=== PATIENT | female | born 1935 | race Caucasian/White ===

== ENCOUNTER 2016-08-22 19:31 | Inpatient (IN) | payer OTHER ==
[~2016-08-22] VITALS: Ht 152.4 cm; Wt 100.7 kg
[2016-08-22] MEDS ORDERED: NACL 0.9% 2,000 ML IV ONE (19:35)
--- NOTE | 2016-08-22 19:38 | NUR ---
PT LEATHA ALS. TAKEN TO BED 6
[2016-08-22 19:40] VITALS: BP 89/68
[2016-08-22] MEDS ORDERED: CALCIUM GLUCONATE 10% 1,000 MG in NACL 0.9% 50 ML IV ONE (20:00)
[2016-08-22] MEDS ORDERED: PIPERACILLIN/TAZOBACTAM 3.375 GM in DEXTROSE 5% 50 ML IV ONE (20:00)
--- NOTE | 2016-08-22 20:00 | NUR ---
81Y/F PATIENT BIBA C/O N/V, DIZZINESS 2 HOURS AGO, ZOFRAN 4 MG IVP WAS GIVEN EN ROUTE AND WIDE OPEN NS, HYPOTENSION, AND AFIB.BS 396 MG /DL. PATIENT AAO X3 WITH EPISODE OF CONFUSION, UNABLE TO AMBULATE AT THIS TIME. GENERALIZED WEAKNESS. RESPIRATIONS ROOM AIR LABORED BREATHING,BL LUNG CLEAR. O2 SAT 95%. VSS, HYPOTENSIVE BP 56/30, P 48-51,R 30-40, O2 SAT 94-95%. EKG SINUS BRADYCARDIA. DR. RIVAS MADE AWARE OF PATIENT STATUS.
--- NOTE | 2016-08-22 20:06 | NUR ---
Dr. Edmonds evaluating patient at bedside.
[2016-08-22] MEDS ORDERED: CALCIUM GLUCONATE 10% 1000 MG/10 ML VIAL ONE (20:20)
[2016-08-22] MEDS ORDERED: PIPERACILLIN/TAZOBACTAM 3.375 GM VIAL IV ONE (20:20)
[2016-08-22] MEDS ORDERED: SODIUM POLYSTYRENE 15 GM/60 ML UDBTL PO ONE (20:45)
[2016-08-22] MEDS ORDERED: INSULIN HUMAN REGULAR 100 UNITS/ML 10 ML VIAL IVP ONE (20:45)
[2016-08-22] MEDS ORDERED: DEXTROSE 50% 50 ML SYR IVP ONE (20:45)
[2016-08-22] MEDS ORDERED: NACL 0.9% 1,000 ML IV ONE ×2 (20:45→22:35)
[2016-08-22] MEDS ORDERED: ALBUTEROL 0.083% 2.5 MG/3 ML NEBU INH ONE ×3 (20:45→21:20)
--- NOTE | 2016-08-22 21:11 | NUR ---
DR. BRONSON SPEAKING WITH FAMILY AT BEDSIDE
[2016-08-22] MEDS ORDERED: LEVOFLOXACIN 750 MG/D5W PREMIX 150 ML IV ONE (21:20)
--- NOTE | 2016-08-22 21:40 | NUR ---
PT. ZULEYKA X4, DAUGHTER AT [facility].
--- NOTE | 2016-08-22 21:45 | NUR ---
PT ON BIPAP , RR 22, O2 SAT 100 %
[2016-08-22] MEDS ORDERED: ZYRTEC10 MG PO (22:09)
[2016-08-22] MEDS ORDERED: LORAZEPAM1 M1 PO (22:09)
[2016-08-22] MEDS ORDERED: VITAMIN D1000 IU PO (22:09)
[2016-08-22] MEDS ORDERED: METOPROLOL SUCC50 M1 PO (22:09)
[2016-08-22] MEDS ORDERED: ASPIRIN81 M1 PO (22:09)
[2016-08-22] MEDS ORDERED: VERAPAMIL HYDR180 MG PO (22:09)
[2016-08-22] MEDS ORDERED: NOREPINEPHRINE 4 MG in DEXTROSE 5% 250 ML IV ONE (22:10)
[2016-08-22] MEDS ORDERED: NEPHRO-VITE VIT1 TAB PO (22:17)
[2016-08-22] MEDS ORDERED: CYTOTEC200 MCG PO (22:17)
[2016-08-22] MEDS ORDERED: LASIX20 MG PO (22:17)
[2016-08-22] MEDS ORDERED: VOLTAREN-XR100 MG PO (22:17)
[2016-08-22] MEDS ORDERED: CLOPIDOGREL75 MG PO (22:17)
[2016-08-22] MEDS ORDERED: LOVASTATIN40 MG PO (22:17)
[2016-08-22] MEDS ORDERED: AMARYL2 MG PO (22:17)
[2016-08-22] MEDS ORDERED: LIPITOR40 MG PO (22:17)
[2016-08-22 22:18] VITALS: BP 73/31
[2016-08-22] MEDS ORDERED: ONDANSETRON 4 MG/2 ML VIAL IVP PRN (22:40)
[2016-08-22] MEDS ORDERED: HYDROcodone/APAP 5/325 MG 1 TAB TAB PO PRN (22:40)
--- NOTE | 2016-08-22 23:25 | NUR ---
RECEIVED PT FROM ER VIA [facility] AWAKE ALERT ORIENTED, TAJIK SPEAKING. ON O2 @ 3LPM VIA NASAL CANNULA. O2 SAT 98% AT THIS TIME. BIPAP AT BEDSIDE. RT AT BEDSIDE. PT HAS ON GOING IVF AT LEFT AC 20G , SALINE LOCK ON LEFT HAND 22G AND SALINE LOCK ON RIGHT WRIST 22G, PATENT, INTACT AT THIS TIME. ATTACHED TO INTEGRATION PROJECT MANAGER AND PULSE OXIMETER. WITH LUCIA CATH IN PLACE. PT NOTED TO HAVE REDNESS AT THE BUTTOCKS AND WOUND AT LEFT LOWER LEG (ANTERIOR TIBIA). PHOTOS TAKEN BY ER EMT. WOUND CLEANSED WITH NS, PATTED DRY AND COVERED WITH DRY DRESSING. NOTED TO HAVE BILATERAL LOWER EXTREMITIES EDEMA, +2 PITTING. MRSA SPECIMEN WILL SEND TO LAB. BED IN LOW POSITION. SAFETY MEASURE ENSURE. WILL CONTINUE TO MONITOR.
--- NOTE | 2016-08-22 23:30 | NUR ---
PT TRANSFER TO ICU1, FROM ER AND PT IS DOOING WELL, VITALS ARE STABLE AT THIS TIME, AND DR CARMONA AT BED SIDE AND BIPAP WILL BE PRN.
--- NOTE | 2016-08-22 23:40 | NUR ---
DR. PITTMAN AT BEDSIDE EVALUATING THE PATIENT.
--- NOTE | 2016-08-22 23:40 | NUR ---
Patient will be admitted to [email or web address]. Admited to ICU. Will go to BED 1. Belongings list completed. Report to CASSANDRA MARTINEZ.
[2016-08-22] MEDS ORDERED: DEXTROSE 50% 50 ML SYR IVP PRN (23:50)
[2016-08-23] VITALS (11 sets, daily range): BP systolic 92–156; BP diastolic 31–117
[2016-08-23] MEDS ORDERED: Z-GUARD PASTE TP PRN
[2016-08-23] MEDS ORDERED: SODIUM POLYSTYRENE 15 GM/60 ML UDBTL PO SCH ×2 (00:15→03:00)
--- NOTE | 2016-08-23 00:52 | NUR ---
VS TAKEN, STABLE. CALL LIGHT WITHIN REACH. Addendum: 08/24/16 at 0223 by Genna Santo RN DISREGARD WRONG TIME.
--- NOTE | 2016-08-23 02:30 | NUR ---
PT HAD BM SMALL AMOUNT OF BROWS SOFT STOOL. WILL CONTINUE TO MONITOR
--- NOTE | 2016-08-23 03:59 | NUR ---
PT HAD ANOTHER BM OF MODERATE AMOUNT OF SOFT BROWN SOM.
[2016-08-23] MEDS: NACL 0.9% 1,000 ML IV SCH ×4 (04:22→21:03)
[2016-08-23] MEDS ORDERED: PIPERACILLIN/TAZOBACTAM 2.25 GM VIAL IV ONE (04:26)
[2016-08-23] MEDS: PIPER/TAZO 2.25GM/D5W PREMIX 50 ML IV SCH ×3 (04:30→21:03)
[2016-08-23] MEDS ORDERED: CLINDAMYCIN 600 MG in DEXTROSE 5% 50 ML IV SCH (05:00)
[2016-08-23] MEDS: INSULIN LISPRO SLIDING SCALE 100 UNITS/ML VIAL SUBQ PRN ×2 (06:54→21:57)
[2016-08-23] MEDS: BLOOD GLUCOSE MONITORING 1 DEV DEV FS SCH ×4 (06:55→21:02)
--- NOTE | 2016-08-23 07:25 | NUR ---
REPORT GIVEN TO CASSANDRA LOCO FOR CONTINUITY OF CARE. NO SOB/ NO DISTRESS NOTED.
--- NOTE | 2016-08-23 07:30 | NUR ---
RECEIVED PT FROM STILL PUMP OPERATOR RN. PT ISRAELI SPEAKING ONLY, AWAKE, ALERT, ORIENTED. BEDSIDE MONITOR SHOWS SR, ON O2 NC 3L/MIN. NO S/S OF RESPIRATORY DISTRESS NOTED. ABDOMEN SOFT, NON TENDER. LUCIA CATH IN PLACE WITH CLEAR YELLOW URINE, PT ABLE TO MOVE ALL HER EXTREMITIES BUT GENERALIZED WEAKNESS NOTED. SKIN NON INTACT ( SEE WOUND ASSESSMENT), POC DISCUSSED WITH PT. HOB ELEVATED 30 DEGREES WITH LOW BED POSITION, WILL CONTINUE TO MONITOR.
[2016-08-23] MEDS: ALBUTEROL SULFATE/IPRATROPIU 3 ML SOL IH PRN ×2 (07:44→18:42)
--- NOTE | 2016-08-23 07:47 | NUR ---
PATIENT HAS BEEN SCREENED AND CATEGORIZED HIGH NUTRITION RISK. PATIENT WILL BE SEEN WITHIN 1-2 DAYS OF ADMISSION. 08/23/16-08/24/[address]
--- NOTE | 2016-08-23 07:52 | NUR ---
RECEIVED PT ON 2L NC. PT IS NOT SOB AND NOT IN RESPIRATORY DISTRESS AT THIS TIME. BIPAP IS BEDSIDE NOT INDICATED AT THIS TIME. PRN BREATHING TX ADMINISTERED WITH NO ADVERSE REACTIONS. WILL CONTINUE TO MONITOR.
--- NOTE | 2016-08-23 08:15 | NUR ---
PT HAD MODERATE AMOUNT OF YELLOW LIQUID BM, CLEANED PT. WILL CONTINUE TO MONITOR.
[2016-08-23] MEDS ORDERED: VITAMIN D 400 IU TAB PO SCH (09:00)
[2016-08-23] MEDS ORDERED: LORazepam 1 MG TAB PO SCH (09:00)
[2016-08-23] MEDS ORDERED: PNEUMOCOCCAL VACCINE 23 MCG/0.5 ML VIAL IMVAC SCH (09:00)
[2016-08-23] MEDS ORDERED: GLIMEPIRIDE 2 MG TAB PO SCH (09:00)
--- NOTE | 2016-08-23 09:25 | NUR ---
DUE MEDS GIVEN, TOLERATED WELL.
[2016-08-23] MEDS: DOCUSATE SODIUM 100 MG GELCAP PO SCH (09:27)
[2016-08-23] MEDS: ASPIRIN 81 MG TAB.CHEW PO SCH (09:27)
[2016-08-23] MEDS: VIT-B COMP/VIT-C/FOLIC ACID 1 TAB PO SCH (09:27)
[2016-08-23] MEDS: LORazepam 0.5 MG TAB PO SCH (09:28)
[2016-08-23] MEDS: CLOPIDOGREL 75 MG TAB PO SCH (09:28)
[2016-08-23] MEDS: CHOLECALCIFEROL 1,000 IU TAB PO SCH (09:37)
[2016-08-23] MEDS: METOPROLOL SUCCINATE 50 MG TABER PO SCH (09:40)
[2016-08-23] MEDS: GLIMEPIRIDE 2 MG TAB PO SCH (09:41)
--- NOTE | 2016-08-23 10:45 | NUR ---
PT HAD MODERATE AMOUNT OF LIQUID BM, CLEANED PT.
--- NOTE | 2016-08-23 12:30 | NUR ---
LUNCH TRAY SERVED, PT HAD 100% FOOD.
--- NOTE | 2016-08-23 13:30 | NUR ---
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 PAST MEDICAL HISTORY INCLUDE HYPERTENSION, DM, OR AND PNEUMONIA. ALL ABOVE INFORMATION WAS OBTAINED FROM THE ADMISSION H&P. LABS ARE WBC 11.4, H/H 10.8/33.4, GLUCOSE 249, ALBUMIN 2.2 AND PT/INR 10.8/1.1. CURRENT MEDS INCLUDE ATIVAN, HEPARIN, MULTIVITAMINS, CLOPIDOGREL, ASPIRIN, ZOSYN AND INSULIN. PATIENT IS AWAKE, ABLE TO FOLLOW COMMANDS, ABLE TO MAKE HER NEEDS KNOWN. SKIN WARM TO TOUCH WNL, TOENAILS ARE THICKENED, NO EDEMA, NO HAIR GROWTH AND +1 BILATERAL PEDAL PULSES. FC 14 FR PATENT AND INTACT TO LIGHT MARIANNE URINE IN MODERATE AMOUNT. ABLE TO TURN SELF WITH ASSISTANCE. INITIAL PLAN OF CARE AND PRESSURE PREVENTIVE MEASURES DISCUSSED, ABLE TO VERBALIZE UNDERSTANDING. INTEGUMENTARY: LEFT ANTERIOR LOWER EXTREMITY -VENOUS STASIS ULCER LEFT MEDIAL LOWER EXTREMITY - VENOUS STASIS ULCER RIGHT POSTERIOR LOWER EXTREMITY - VENOUS ULCER BILATERAL BREASTFOLDS AND ABDOMINAL FOLDS - INTERTRIGINOUS DERMATITIS PERIAREA - RED AND MOIST RECOMMENDATIONS: -CLEANSE BLE WITH NS AND GAUZE, PAT DRY, COVER WITH ADAPTIC, ABD PAD AND WRAP WITH LAUREN Q DAY AND PRN WITH SOILING/DISPLACEMENT. -CLEANSE BILATERAL BREASTFOLDS AND ABDOMINAL FOLDS WITH MILD SOAP AND WATER, PAT DRY, APPLY INTERDRY CLOTH Q 7 DAYS AND PRN WITH SOILING/DISPLACEMENT. CHECK DRESSING PLACEMENT DAILY -TURN AND REPOSITION PATIENT Q2H TO LEFT AND RIGHT SIDE ONLY TO OFFLOAD SACRALCOCCYX -ASSESS AND MONITOR SKIN CONDITION DURING POSITION CHANGE, PLEASE PAY PARTICULAR ATTENTION TO SACRALCOCCYX, ELBOWS AND HEELS -OFFLOAD BILATERAL HEELS BY PLACING PILLOWS UNDER CALVES AT ALL TIMES, UNLESS OTHERWISE CONTRAINDICATED -KEEP SKIN CLEAN AND DRY AT ALL TIMES. -PODIATRY CONSULT IF OK WITH PMD RECOMMENDATIONS DISCUSSED WITH PRIMARY RN AND RESIDENT PHYSICIAN, DR. CORDON.
--- NOTE | 2016-08-23 13:38 | NUR ---
INITIAL REVIEW FAXED TO [facility] [phone] PHONE DEXTER [phone]
[2016-08-23] MEDS ORDERED: INTERDRY CLOTH TP PRN (13:50)
[2016-08-23] MEDS ORDERED: NON ADHERENT DRESSING TP PRN (13:50)
[2016-08-23] MEDS ORDERED: INTERDRY CLOTH TP SCH (13:50)
[2016-08-23] MEDS ORDERED: HYDRAGUARD CREAM TP PRN (13:50)
--- NOTE | 2016-08-23 14:45 | NUR ---
PT SLEEPING AT THIS TIME. NO S/S OF RESPIRATORY DISTRESS NOTED. WILL CONTINUE TO MONITOR.
[2016-08-23] MEDS ORDERED: PROBIOTIC SCREEN 1 EA MISC MC PRN (15:20)
--- NOTE | 2016-08-23 17:30 | NUR ---
DINNER TRAY SERVED. PT HAD A GOOD APPETITE.
--- NOTE | 2016-08-23 18:45 | NUR ---
REPORT GIVEN TO ICU SPECIALIST. WILL TRANSFER PT.
--- NOTE | 2016-08-23 18:51 | NUR ---
PT'S DAUGHTERS PRESENT AT BEDSIDE, QUESTIONS ANSWERED.
--- NOTE | 2016-08-23 19:15 | NUR ---
PT AWAKE, ALERT, AND ORIENTED. NO S/S OF RESPIRATORY DISTRESS NOTED. TRANSFERRED TO TELE 108B. PT IN STABLE CONDITION AT THIS TIME.
--- NOTE | 2016-08-23 19:16 | NUR ---
RECEIVED REPORT FROM DAY RN FOR CONTINUITY OF CARE. PATIENT IS A&OX3/4, DISCUSSED PLAN OF CARE WITH PATIENT AND FAMILY MEMBERS AT BEDSIDE, VERBALIZED UNDERSTANDING. SHIFT ASSESSMENT DONE, VS TAKEN, STABLE. NO S/S OF RESPIRATORY DISTRESS NOTED ON 3L NC. PATIENT DENIES PAIN AT THIS TIME. IV TO LT UPPER ARM REMOVED PATIENT STATES IT IS HURTING. IV TO LT HAND PATENT AND INFUSING FLUIDS WELL. LUCIA CATHETER IN PLACE DRAINING CLEAR YELLOW URINE. PT HAS DRESSING TO LEFT LOWER EXTREMITY, DRY AND INTACT. SAFETY/FALL PRECAUTIONS ENFORCED. CALL LIGHT WITHIN REACH. WILL CONTINUE TO MONITOR.
[2016-08-23] MEDS: ATORVASTATIN 20 MG TAB PO SCH (20:28)
--- NOTE | 2016-08-23 21:03 | NUR ---
DUE MEDICATIONS ADMINISTERED, TOLERATED WELL. PATIENT IS AWAKE WATCHING TELEVISION. CALL LIGHT WITHIN REACH.
--- NOTE | 2016-08-23 22:07 | NUR ---
TURNED AND REPOSITIONED PATIENT. EMPTIED LUCIA CATHETER 800ML CLEAR YELLOW URINE. CALL LIGHT WITHIN REACH.
[2016-08-24] VITALS: BP 126/57
--- NOTE | 2016-08-24 00:10 | NUR ---
VS TAKEN, STABLE. PATIENT STATES RIGHT LEG HURTS BUT REFUSED PAIN MEDICATION.
--- NOTE | 2016-08-24 01:40 | NUR ---
PATIENT CRYING LOUDLY, AGITATED. VS TAKEN, ELEVATED BP NOTED. INFORMED BY SUBMARINE OPERATOR PT HAVING FREQ PVCS. PAGED CARBON BRUSHER ASSEMBLER DOCTOR.
[2016-08-24] MEDS ORDERED: LORazepam 2 MG/ML VIAL IM/IVP ONE (01:45)
--- NOTE | 2016-08-24 01:45 | NUR ---
SPOKE TO DR. ROMERO REGARDING PATIENT HAVING INCREASED BLOOD PRESSURE, CRYING AND AGITATION AND HAVING FREQUENT PVC'S ON THE TELE MONITOR. IV ATIVAN ORDERED, WILL FOLLOW OUT ORDERED.
--- NOTE | 2016-08-24 02:00 | NUR ---
PATIENT SLURRING SPEECH AND C/O TONGUE FEELING "THICK" AND TINGLING SENSATION IN HER FACE. UNABLE TO SWALLOW WATER. B/P ELEVATED AT 194/89, PAGED ASSEMBLER MOLDED FRAMES DR JEFFERS. WILL FOLLOW OUT ORDERS GIVEN.
[2016-08-24] MEDS ORDERED: hydrALAZINE 20 MG/ML VIAL IVP PRN (02:05)
[2016-08-24] MEDS ORDERED: LABETALOL 100 MG/20 ML VIAL IV PRN (02:05)
[2016-08-24] MEDS ORDERED: LISINOPRIL 5 MG TAB PO ONE (02:10)
--- NOTE | 2016-08-24 02:35 | NUR ---
VS TAKEN. B/P DOWN TO 144/70. PATIENT CALM BUT AWAKES AND YELLS OUT. WILL CONTINUE TO MONITOR.
--- NOTE | 2016-08-24 02:50 | NUR ---
PATIENT TRANSPORTED TO CT VIA GURNEY.
--- NOTE | 2016-08-24 03:06 | NUR ---
PATIENT RETURNED FROM CT. RETURNED TO BED AND MADE COMFORTABLE. WILL CONTINUE TO MONITOR.
[2016-08-24] MEDS: HYDRAGUARD CREAM TP SCH ×2 (03:20→13:45)
[2016-08-24 04:00] VITALS: BP 118/94
--- NOTE | 2016-08-24 04:05 | NUR ---
VS TAKEN, STABLE. TURNED AND REPOSITIONED PATIENT. PT WAKES UP CRYING THEN CALMS DOWN AND FALLS ASLEEP PERIODICALLY, SPOKE WITH PT DAUGHTER STATES SHE HAS HAD ANXIETY IN THE PAST. WILL CONTINUE TO MONITOR.
[2016-08-24] MEDS: PIPER/TAZO 2.25GM/D5W PREMIX 50 ML IV SCH ×3 (05:10→20:22)
[2016-08-24] MEDS: NACL 0.9% 1,000 ML IV SCH ×3 (05:42→20:35)
[2016-08-24] MEDS: BLOOD GLUCOSE MONITORING 1 DEV DEV FS SCH ×4 (06:08→20:35)
--- NOTE | 2016-08-24 06:08 | NUR ---
BLOOD SUGAR 105, NO COVERAGE NEEDED. PATIENT IS ASLEEP. WILL CONTINUE TO MONITOR.
--- NOTE | 2016-08-24 07:22 | NUR ---
ENDORSED PATIENT TO DAY RN FOR CONTINUITY OF CARE, PATIENT IS IN STABLE CONDITION.
--- NOTE | 2016-08-24 07:23 | NUR ---
RECEIVED REPORT FROM TENTERER NURSE AT BEDSIDE. PT SLEEPING SOUNDLY. NO SIGNS OF DISTRESS. NOTED NASAL CANNULA AT 3L, LUCIA CATH 200 ML OF CLEAR YELLOW URINE IN BAG, IV L HAND 22 G INTACT RUNNING NS @ 130ML/HR. L LOWER LEG STASIS ULCER WRAPPED IN GAUZE. EDEMA NON-PITTING BILATERALLY. VS WNL. WILL CONTINUE TO MONITOR.
[2016-08-24 08:00] VITALS: BP 145/59
[2016-08-24] MEDS: VIT-B COMP/VIT-C/FOLIC ACID 1 TAB PO SCH (08:41)
[2016-08-24] MEDS: LACTOBACILLUS RHAMNOSUS GG 1 EACH CAP PO SCH (08:41)
[2016-08-24] MEDS: CLOPIDOGREL 75 MG TAB PO SCH (08:42)
[2016-08-24] MEDS: GLIMEPIRIDE 2 MG TAB PO SCH (08:42)
[2016-08-24] MEDS: DOCUSATE SODIUM 100 MG GELCAP PO SCH (08:43)
[2016-08-24] MEDS: ASPIRIN 81 MG TAB.CHEW PO SCH (08:43)
[2016-08-24] MEDS: METOPROLOL SUCCINATE 50 MG TABER PO SCH (08:43)
[2016-08-24] MEDS: LORazepam 0.5 MG TAB PO SCH (08:43)
[2016-08-24] MEDS: CHOLECALCIFEROL 1,000 IU TAB PO SCH (08:43)
--- NOTE | 2016-08-24 08:50 | NUR ---
PT FINISHED ALL HER OATMEAL AND APPLE SAUCE. PT TOLERATED WELL. ADMINISTERED MORNING MEDS, CRUSHED AND IN APPLE SAUCE. PT TOLERATED WELL. WILL CONTINUE TO MONITOR.
--- NOTE | 2016-08-24 09:15 | NUR ---
PT VANESSA. ASKED MERCHANDISE EXAMINER TO TRANSLATE WHY. PER PT, SHE IS SAD BECAUSE SHE CAME IN HERE WALKING BUT SHE IS UNABLE TO WALK NOW OR DO ANYTHING EXCEPT LIE HERE. SHE DOESN'T FEEL GOOD. DENIES PAIN. WILL TALK TO AND WILL CONTINUE TO MONITOR PT.
--- NOTE | 2016-08-24 10:28 | NUR ---
PT SLEEPING SOUNDLY. SHE IS REPOSITIONED TO HER L SIDE LINE. PT IS FINALLY CALMED DOWN. SPOKE TO DR. CORDON ABOUT PT. SHE IS C/O OF SWOLLEN TONGUE, TINGLING ON HER L FACE, NO STRENGTH ON HER L ARM. HE WILL TALK TO DR. MENDEZ AND WILL LOOK OVER HER CT. WILL LET ME KNOW.
--- NOTE | 2016-08-24 11:45 | NUR ---
PT CAME TO EVALUATE PATIENT. PATIENT WAS UNABLE TO SIT UP OR WALK. SOME WEAKNESS ON LEFT ARM AND LEG.
[2016-08-24 12:00] VITALS: BP 159/79
--- NOTE | 2016-08-24 12:27 | NUR ---
08/24/16 RD INITIAL ASSESSMENT COMPLETED PLEASE REFER TO NUTRITION ASSESSMENT UNDER CARE ACTIVITY FOR ESTIMATED NUTRITIONAL NEEDS. RD RECOMMENDATIONS: 1. CONTINUE CCHO 60 GM, NA2GM, SOFT DIET TOLERATED --ADEQUATE TO MEET >100% OF PT ESTIMATED KCAL AND PROTEIN NEEDS 2. RD WILL F/U 5-7 DAYS; LOW RISK. INOCENCIA CABRERA, RD
[2016-08-24] MEDS: ACETAMINOPHEN 325 MG TAB PO PRN (12:29)
[2016-08-24] MEDS ORDERED: FUROSEMIDE 20 MG TAB PO SCH (12:41)
[2016-08-24] MEDS ORDERED: VERAPAMIL 80 MG TAB PO SCH (12:42)
--- NOTE | 2016-08-24 13:23 | NUR ---
FAXED CONCURRENT REVIEW TO [facility] [phone] PHONE DEXTER [phone]
--- NOTE | 2016-08-24 13:30 | NUR ---
PERFORMED WOUND CARE ON PATIENT'S LEFT LOWER LEG. PATIENT HAS 2 WOUNDS. WOUND BED COLOR IS RED. CLEANED WITH STERILE WATER AND GAUZE, PAT DRY, APPLIED ADAPTIC, COVERED WITH GAUZE, AND WRAPPED WITH GAUZE. PATIENT TOLERATED WELL. FRIENDS VISITING AT BEDSIDE. CONTINUE TO MONITOR.
[2016-08-24] MEDS: NON ADHERENT DRESSING TP SCH (13:54)
--- NOTE | 2016-08-24 15:45 | NUR ---
ST WAS HERE TO PERFORM SWALLOW EVAL.
[2016-08-24 16:00] VITALS: BP 155/64
--- NOTE | 2016-08-24 16:27 | NUR ---
* ST NOTE * Pt seen at bedside with pt's daughter present. Pt consenting to evaluation with pt's daughter present. Bedside Dysphagia and oral mechanism exams completed. See evaluation report for further details. Pt's daughter also translating for pt and clinician. Pt tolerating 6/6 alternating PO trials of puree applesauce 3-5 CCs at a time via a teaspoon w/out s/s of aspiration. Pt however exhibiting labial leakage on the left affected side, as well as a mild labial droop. Pt and caregiver/daughter education completed regarding oral mechanism Range Of Motion (ROM) and strengthening exercises (OME) pt and daughter/caregiver could employ to help maintain and/or restore ROM & strength in pt's lips and buccal muscles, with pt and caregiver/daughter agreeable with and exhibiting return demonstration of clinician's recommendations. Pt then tolerating 4/5 alternating PO trials of successive sips of thin liquid apple juice via a straw w/out s/s of aspiration, but pt coughing on last trial secondary to pt taking impulsive successive sips despite cueing for pt to only take 1 sip at a time. Pt and caregiver/daughter education completed once again regarding safe swallow compensatory strategies pt and daughter/caregiver may employ to aid pt with swallow function and to reduce labial leakage, with pt and caregiver/daughter exhibiting return demonstration given occasional to minimal cueing. It is thus recommended pt's PO diet consistency be modified to puree textures with thin liquids for all meals, requiring assistance with feeding and close supervision by caregivers/staff during PO intake to assure strict aspiration precautions are in place. No further ST follow up recommended at this time. Pt, caregiver/daughter and caregiver/Nursing education completed regarding results of evaluation; benefits of abiding by aspiration precautions and recommended PO diet consistency; and prognosis for improvement; with pt, caregiver/daughter and caregiver/Nursing agreeable with and verbalizing understanding of clinician's recommendations. Recommend: - PO diet consistency of Puree textures with thin liquids - CLOSE supervision during PO intake by caregivers/staff to assure STRICT aspiration precautions are in place - Pt requires assistance with feeding No ST follow up recommended at this time. G8996 CJ G8997 CJ G8998 CJ NOMS Level 3 Time In/Out 15:35 - 16:20
--- NOTE | 2016-08-24 17:00 | NUR ---
PATIENT RESTING COMFORTABLY WITH DAUGHTER AT BEDSIDE. ASKED DAUGHTER ABOUT PATIENT'S PHYSICAL AND MENTAL STATUS AT HOME. DISCUSSED PT'S CARE WITH DAUGHTER. WILL CONTINUE TO MONITOR.
--- NOTE | 2016-08-24 19:15 | NUR ---
ENDORSED CARE OF PT TO DIESEL RETROFIT INSTALLER NURSE AT BEDSIDE. DAUGHTERS AT BEDSIDE. PT AWAKE HAVING LATE DINNER. PT IN STABLE CONDITION.
--- NOTE | 2016-08-24 19:16 | NUR ---
RECEIVED PT IN STABLE CONDITION FROM CASSANDRA MATTSON. FAMILY AT BEDSIDE. NO SOB, NO SIGNS OF DISTRESS. VS STABLE. PT ON 3L O2 NC. IV TO LT HAND 22G PATENT, ASYMPTOMATIC, INTACT, IVF RUNNING. PT IS AOX4, SOLOMON ISLANDER SPEAKING, ON BEDREST. LT SIDED SEVERE WEAKNESS NOTED. PT UNABLE TO MOVE LT ARM OR LT LEG. DIFFICULTY CHEWING. PT WITH STASIS ULCERS TO RT AND LT LEGS, BLE MILD SWELLING NOTED NON PITTING. NATALIA-ORBITAL SWELLING NOTED TO BILATERAL EYES, MILD SLURRING OF SPEECH NOTED. PT HAS LUCIA IN PLACE. PT DENIES PAIN OR SOB AT THIS TIME. PT WITH MILD ANXIETY, WILL MEDICATE PER MD ORDER. PLAN OF CARE DISCUSSED WITH PT AND FAMILY. SAFETY MEASURES IN PLACE. CALL LIGHT WITHIN REACH. WILL CONTINUE TO MONITOR.
[2016-08-24 20:00] VITALS: BP 149/94
[2016-08-24] MEDS: ATORVASTATIN 20 MG TAB PO SCH (20:22)
[2016-08-24] MEDS: LORazepam 0.5 MG TAB PO PRN (20:23)
--- NOTE | 2016-08-24 20:35 | NUR ---
PT TOLERATED DUE MEDS WELL, MEDICATED FOR ANXIETY PER MD ORDER. BLOOD SUGAR 163, NO COVERAGE GIVEN SINCE FAMILY STATED PT HAS POOR APPETITE. NO SOB, NO SIGNS OF DISTRESS. IV SITE ASYMPTOMATIC, INTACT, PATENT, IVF RUNNING. PT DENIES PAIN AT THIS TIME. PLAN OF CARE DISCUSSED WITH PT. SAFETY MEASURES IN PLACE. CALL LIGHT WITHIN REACH. WILL CONTINUE TO MONITOR.
--- NOTE | 2016-08-24 23:55 | NUR ---
VS STABLE, PT ON 2L O2 NC. NO SOB, NO SIGNS OF DISTRESS. IV SITE ASYMPTOMATIC, INTACT, PATENT, IVF RUNNING. PT DENIES PAIN OR ANXIETY AT THIS TIME. DAUGHTER AT BEDSIDE. PLAN OF CARE DISCUSSED WITH PT AND DAUGHTER. SAFETY MEASURES IN PLACE. CALL LIGHT WITHIN REACH. WILL CONTINUE TO MONITOR.
[2016-08-25] VITALS (7 sets, daily range): BP systolic 120–157; BP diastolic 50–77
[2016-08-25] MEDS: HYDRAGUARD CREAM TP SCH ×2 (01:00→12:38)
--- NOTE | 2016-08-25 02:15 | NUR ---
PT ASLEEP IN BED, ON 2L O2 NC. NO SOB, NO SIGNS OF DISTRESS. DAUGHTER AT BEDSIDE. IV SITE ASYMPTOMATIC, INTACT, PATENT, IVF RUNNING. SAFETY MEASURES IN PLACE. CALL LIGHT WITHIN REACH. WILL CONTINUE TO MONITOR.
--- NOTE | 2016-08-25 03:45 | NUR ---
VS STABLE, PT ON 2L O2 NC. NO SOB, NO SIGNS OF DISTRESS. DAUGHTER AT BEDSIDE. PT DENIES PAIN AT THIS TIME. IV SITE ASYMPTOMATIC, INTACT, PATENT, IVF RUNNING. SAFETY MEASURES IN PLACE. CALL LIGHT WITHIN REACH. WILL CONTINUE TO MONITOR.
[2016-08-25] MEDS: PIPER/TAZO 2.25GM/D5W PREMIX 50 ML IV SCH ×3 (04:11→20:41)
[2016-08-25] MEDS: LORazepam 0.5 MG TAB PO PRN (04:31)
[2016-08-25] MEDS: NACL 0.9% 1,000 ML IV SCH ×2 (04:31→22:33)
--- NOTE | 2016-08-25 04:31 | NUR ---
PT BECAME ANXIOUS AND STARTED CRYING, PROVIDED EMOTIONAL SUPPORT, PT STATED SHE WANTS THE PILL THAT HELPED HER RELAX, MEDICATED PT WITH ATIVAN PER MD ORDER. PT TOLERATED WELL. NO SOB, NO SIGNS OF DISTRESS. PT ON 3L O2 NC. IV SITE ASYMPTOMATIC, INTACT, PATENT, IVF RUNNING. PLAN OF CARE DISCUSSED WITH PT. SAFETY MEASURES IN PLACE. CALL LIGHT WITHIN REACH. WILL CONTINUE TO MONITOR.
[2016-08-25] MEDS: BLOOD GLUCOSE MONITORING 1 DEV DEV FS SCH ×4 (06:01→20:36)
--- NOTE | 2016-08-25 06:01 | NUR ---
BLOOD SUGAR 102, NO COVERAGE NEEDED. PT ON 2L O2 NC. NO SOB, NO SIGNS OF DISTRESS. IV SITE ASYMPTOMATIC, INTACT, PATENT, IVF RUNNING. PT DENIES PAIN OR ANXIETY AT THIS TIME. PLAN OF CARE DISCUSSED WITH PT. SAFETY MEASURES IN PLACE. CALL LIGHT WITHIN REACH. WILL CONTINUE TO MONITOR.
--- NOTE | 2016-08-25 07:26 | NUR ---
ENDORSED PT IN STABLE CONDITION TO CASSANDRA PHIPPS. ALL NEEDS HAVE BEEN MET AT THIS TIME.
--- NOTE | 2016-08-25 07:46 | NUR ---
RECEIVED REPORT FROM MARJORIE RN FOR CONTINUITY OF CARE. PATIENT SLEEPING BUT EASILY AWAKE, NO S/S OF RESP DISTRESS NOTED . NO DISCOMFORT NOTED IV SITE LT HAND GAUGE 22 INTACT AND PATENT. IVF INFUSING WELL . LEFT LEG WOUND COVERED WITH DRESSING WILL CHANGE DRESSING ORDERED. WILL REPOSITION Q 2 HRS AND NEEDED . F/C DRAIN CLEAR YELLOW URINE . PLAN OF CARE DISCUSSED WITH THE PATIENT VITALS STABLE WILL CONTINUE TO MONITOR.
[2016-08-25] MEDS: ASPIRIN 81 MG TAB.CHEW PO SCH (08:51)
[2016-08-25] MEDS: FUROSEMIDE 20 MG TAB PO SCH (08:51)
[2016-08-25] MEDS: LACTOBACILLUS RHAMNOSUS GG 1 EACH CAP PO SCH (08:51)
[2016-08-25] MEDS: CLOPIDOGREL 75 MG TAB PO SCH (08:51)
[2016-08-25] MEDS: DOCUSATE SODIUM 100 MG GELCAP PO SCH (08:51)
[2016-08-25] MEDS: VIT-B COMP/VIT-C/FOLIC ACID 1 TAB PO SCH (08:51)
[2016-08-25] MEDS: CHOLECALCIFEROL 1,000 IU TAB PO SCH (08:52)
[2016-08-25] MEDS: LORazepam 0.5 MG TAB PO SCH (08:52)
[2016-08-25] MEDS: GLIMEPIRIDE 2 MG TAB PO SCH (08:52)
[2016-08-25] MEDS: METOPROLOL SUCCINATE 50 MG TABER PO SCH (08:53)
[2016-08-25] MEDS ORDERED: VERAPAMIL 180 MG TABER PO SCH (09:00)
--- NOTE | 2016-08-25 09:00 | NUR ---
DUE MEDS CRUSHED AND MIXED WITH APPLE SAUCE AND GIVEN TOLERATED WELL . MORNING CARE GIVEN PATIENT LEFT SIDE WEAKNESS NOTED. NO COMPLAIN OF PAIN AT THIS TIME.
--- NOTE | 2016-08-25 10:30 | NUR ---
NOTIFIED DR QUIÑONES REGARDING PATIENT LEFT SIDED WEAKNESS AND MINIMAL FACIAL DROOLING.
--- NOTE | 2016-08-25 11:32 | NUR ---
CHECKED BLOOD SUGAR 135 NO COVERAGE NEEDED , RELAXED FAMILY MEMBER AT THE BED SIDE .
--- NOTE | 2016-08-25 11:36 | NUR ---
FAXED CONCURRENT REVIEW TO [facility] [phone] PHONE DEXTER [phone] SPOKE WITH DEXTER AND SHE SAID IF PATIENT NEEDS SNF, TRY [facility] OR [facility].
[2016-08-25] MEDS: NON ADHERENT DRESSING TP SCH (12:38)
--- NOTE | 2016-08-25 12:57 | NUR ---
DR. GRAF VISITED PATIENT, UPDATED PATIENT'S CONDITION , ASSISTED PATIENT WITH FEEDING , GOOD APPETITE. WOUND CARE DONE ON LEFT LEG ORDERED , INTER DRY APPLIED ON ABDOMEN FOLD AND BILATERAL UNDER THE BREAST .WILL OBSERVE PATIENT.
--- NOTE | 2016-08-25 14:16 | NUR ---
LAB NOTIFIED ME THAT PATIENT HAS ESBL OF THE URINE , NOTIFIED DR CORDON , CONTACT PRECAUTION INITIATED
--- NOTE | 2016-08-25 14:23 | NUR ---
DR WILKERSON (NEURO) VISITED PATIENT , WILL CARRY OUT THE ORDER
--- NOTE | 2016-08-25 15:50 | NUR ---
SS NOTE: PER RAYA FROM [facility] ([phone]), THEY CAN ACCEPT PT BUT WILL NOT MAKE AN ISO ROOM FOR PT UNTIL THEY KNOW THAT PT WILL BE COMING TO THEM FOR SURE. SHE ALSO STATED THAT SHE AND THEIR BULB BRANDER WILL COME TO MEET WITH PT TOMORROW MORNING.
[2016-08-25] MEDS ORDERED: MAGNESIUM OXIDE 400 MG TAB PO SCH (16:15)
[2016-08-25] MEDS: INSULIN LISPRO SLIDING SCALE 100 UNITS/ML VIAL SUBQ PRN ×2 (16:35→21:39)
--- NOTE | 2016-08-25 18:24 | NUR ---
ASSIST PATIENT WITH DINNER , GOOD APPETITE , REPOSITIONED , SAFETY MAINTAINED CALL LIGHT IN REACH STABLE CONDITION AT THIS TIME.
--- NOTE | 2016-08-25 19:30 | NUR ---
ASSUMED CARE PATIENT, AWAKE, ALERT AND ORIENTED. NO COMPLAINS. FAMILY AT BEDSIDE. PLAN OF CARE DISCUSSED WITH PATIENT, VERBALIZED UNDERSTANDING WELL. CALL LIGHT WITHIN REACH.
--- NOTE | 2016-08-25 20:00 | NUR ---
REPOSITIONED WITH APPRAISER LAND. NO COMPLAINS. VITAL SIGNS STABLE. CALL LIGHT WITHIN REACH. PLAN OF CARE DISCUSSED WITH PATIENT, VERBALIZED UNDERSTANDING WELL.
[2016-08-25] MEDS: ATORVASTATIN 20 MG TAB PO SCH (20:42)
[2016-08-25] MEDS: ACETAMINOPHEN 325 MG TAB PO PRN (21:54)
--- NOTE | 2016-08-25 22:00 | NUR ---
REPOSITIONED BY OIL PUMP STATION OPERATOR CHIEF. HS SNACK GIVEN. CALL LIGHT WITHIN REACH.
--- NOTE | 2016-08-26 00:53 | NUR ---
REPOSITIONED. VITAL SIGNS STABLE. NO COMPLAINS. CALL LIGHT WITHIN REACH.
[2016-08-26] MEDS: HYDRAGUARD CREAM TP SCH ×2 (01:01→12:01)
[2016-08-26 04:12] VITALS: BP 125/75
--- NOTE | 2016-08-26 04:14 | NUR ---
REPOSITIONED BY MANAGER GAME. PERICARE DONE. NO COMPLAINS NOTED. VITAL SIGNS STABLE. AFEBRILE CALL LIGHT WITHIN REACH.
[2016-08-26] MEDS: PIPER/TAZO 2.25GM/D5W PREMIX 50 ML IV SCH ×2 (04:40→12:01)
[2016-08-26] MEDS: BLOOD GLUCOSE MONITORING 1 DEV DEV FS SCH ×3 (05:22→16:30)
--- NOTE | 2016-08-26 07:15 | NUR ---
ENDORSED CARE AT BEDSIDE WITH CARL TRUJILLO, PATIENT IN STABLE CONDITION.
--- NOTE | 2016-08-26 07:15 | NUR ---
RECEIVED REPORT FROM NIGHT NURSE. PT IS AAOX4 [place] SPEAKING, ON O2 2L VIA NC. IV TO LEFT HAND 22G INFUSING WELL,LUCIA IN PLACE DRAINING CLEAR YELLOW URINE. WEAKNESS NOTED TO LEFT SIDE OF BODY. DRESSING TO LEFT LOWER LEG DRY AND INTACT. INITIAL ASSESSMENT COMPLETED, REVIEWED PLAN OF CARE WITH PT, PT VERBALIZED UNDERSTANDING. ALL SAFETY PRECAUTIONS MET. CALL LIGHT WITHIN REACH. WILL CONTINUE TO MONITOR.
[2016-08-26 08:00] VITALS: BP 165/71
[2016-08-26] MEDS: CLOPIDOGREL 75 MG TAB PO SCH (08:14)
[2016-08-26] MEDS: GLIMEPIRIDE 2 MG TAB PO SCH (08:14)
[2016-08-26] MEDS: VIT-B COMP/VIT-C/FOLIC ACID 1 TAB PO SCH (08:14)
[2016-08-26] MEDS: METOPROLOL SUCCINATE 50 MG TABER PO SCH (08:14)
[2016-08-26] MEDS: LACTOBACILLUS RHAMNOSUS GG 1 EACH CAP PO SCH (08:14)
[2016-08-26] MEDS: CHOLECALCIFEROL 1,000 IU TAB PO SCH (08:14)
[2016-08-26] MEDS: FUROSEMIDE 20 MG TAB PO SCH (08:15)
[2016-08-26] MEDS: ASPIRIN 81 MG TAB.CHEW PO SCH (08:15)
[2016-08-26] MEDS: DOCUSATE SODIUM 100 MG GELCAP PO SCH (08:15)
[2016-08-26] MEDS: LORazepam 0.5 MG TAB PO SCH (08:15)
--- NOTE | 2016-08-26 08:16 | NUR ---
DUE MEDICATION GIVEN, ALL NEEDS MET. ALL SAFETY PRECAUTIONS MET. CALL LIGHT WITHIN REACH.
[2016-08-26 09:34] VITALS: BP 136/78
[2016-08-26] MEDS: ALBUTEROL SULFATE/IPRATROPIU 3 ML SOL IH PRN (09:49)
--- NOTE | 2016-08-26 09:49 | NUR ---
POST PHYSICAL THERAPY PATIENT PRESENTING WITH INCREASED SOB ASSESSMENT DONE HHN PRN THERAPY GIVEN AT THIS TIME TOLERATED WELL WITHOUT INCIDENT
[2016-08-26] MEDS ORDERED: CULTURELLE10 Billion PO (11:12)
[2016-08-26] MEDS ORDERED: CIPRO500 MG PO (11:12)
[2016-08-26] MEDS ORDERED: IPRATROPIUM BROM3 M1 IH (11:12)
--- NOTE | 2016-08-26 11:25 | NUR ---
PT CURRENTLY SLEEPING AWAKEN TO NAME, DISCUSSED TRANSFER PLAN, PT STATES SHE WANTS TO GO TO [facility] WHERE SHE HAS BEEN BEFORE AND ITS CLOSE TO HER FAMILY. ALL NEEDS MET. CALL LIGHT WITHIN REACH. WILL CONTINUE TO MONITOR.
[2016-08-26 12:00] VITALS: BP 122/92
[2016-08-26] MEDS ORDERED: MAG SULF 2000 MG/WATER PREMIX 100 ML IV SCH (12:00)
[2016-08-26] MEDS: NON ADHERENT DRESSING TP SCH (12:01)
--- NOTE | 2016-08-26 12:09 | NUR ---
SS NOTE: PER RAYA FROM [facility] ([phone]), PT CAN GO TO ROOM 29B UNDER DR. Beti GRAF ANYTIME.
--- NOTE | 2016-08-26 12:22 | NUR ---
PATIENT WILL BE D/C TO [facility] ROOM [facility] AND AUTH FOR TRASPORT 2016 [id number]. USE [employer].
--- NOTE | 2016-08-26 12:26 | NUR ---
CM NOTE: SPOKE TO TANVIR FROM FRIEND TO SET UP [facility] TRANPORT. TEST FACILITY ENGINEER TIME 1730 HRS. PATIENT WILL BE DC TO [facility] [place] ROOM [facility]B. CASSANDRA HOOD MADE AWARE.
[2016-08-26] MEDS: INSULIN LISPRO SLIDING SCALE 100 UNITS/ML VIAL SUBQ PRN ×2 (12:34→18:38)
--- NOTE | 2016-08-26 12:42 | NUR ---
PT CURRENTLY EATING LUNCH. NO S/S OF DISTRESS NOTED. ALL NEEDS MET CALL LIGHT WITHIN REACH. WILL CONTINUE TO MONITOR.
--- NOTE | 2016-08-26 12:52 | NUR ---
INFORMED PT THAT WILL WILL BE TRANSPORTED TO [facility] [place] AT 1730 , PT VERBALIZED UNDERSTANDING.
--- NOTE | 2016-08-26 13:12 | NUR ---
GAVE RE[place] SUE [place] [facility] [place]
--- NOTE | 2016-08-26 13:29 | NUR ---
CONTACTED ALEJANDRA HIGH [phone] PT DAUGHTER, INFORMED HER THAT [place] [facility] [place] [facility] AT 1730. MRS. HIGH VERBALIZED UNDERSTANDING.
--- NOTE | 2016-08-26 15:10 | NUR ---
ALL NEEDS MET. PT CURRENTLY AWAKE, ALL SAFETY NEEDS MET. CALL LIGHT WITHIN REACH. WILL CONTINUE TO MONITOR.
[2016-08-26 16:00] VITALS: BP 153/85
--- NOTE | 2016-08-26 17:00 | NUR ---
PT SIGNED ALL DISCHARGE PAPERWORK, EDUCATED PT ON TRANSFER PLAN, PT VERBALIZED UNDERSTANDING, LUCIA REMOVED PT TOLERATED WELL/ ALL BELONGING IN BELONGINGS BAG AT BEDSIDE. INFORMED PT THAT DAUGHTER ALEJANDRA IS AWARE OF HET TRANSFERRING TO [facility] [place]. ALL NEEDS MET. AWAITING FOR ANTIQUE FINISHER.
[2016-08-26] MEDS ORDERED: BENZOCAINE 20% 57 GM CAN MC ONE (17:10)
[2016-08-26] MEDS ORDERED: BENZOCAINE/MENTHOL 1 LOZ MM SCH (17:56)
--- NOTE | 2016-08-26 18:34 | NUR ---
[facility] HERE [place] [facility] [place] Addendum: 08/26/16 at 1907 by Genny Del Castillo RN IV REMOVED TIP INTACT. ALL BELONGING WITH PT ON [facility], PT TRANSFER IN STABLE CONDITION.
== END 2016-08-26 18:34 | DRG 871 ==
LOC: MED 19:33 → MIC 22:40 → MTU 08-23 19:25
PROVIDERS: ADMIT Student in an Organized Health Care Education/Training Program; ATTEND Student in an Organized Health Care Education/Training Program
PROC: 5A09357 Assistance with Respiratory Ventilation, Less than 24 Consecutive Hours, Continuous Positive Airway Pressure (ICD-10-PCS; principal; 2016-08-22)
PROC: 02HV33Z Insertion of Infusion Device into Superior Vena Cava, Percutaneous Approach (ICD-10-PCS; 2016-08-22)
DX: A41.9 Sepsis, unspecified organism (principal); N17.0 Acute kidney failure with tubular necrosis; E43 Unspecified severe protein-calorie malnutrition; J96.90 Respiratory failure, unspecified, unspecified whether with hypoxia or hypercapnia; I63.9 Cerebral infarction, unspecified; L03.116 Cellulitis of left lower limb; D68.69 Other thrombophilia; I42.9 Cardiomyopathy, unspecified; Z68.41 Body mass index [BMI] 40.0-44.9, adult; G81.04 Flaccid hemiplegia affecting left nondominant side; R65.20 Severe sepsis without septic shock; E86.0 Dehydration; E87.5 Hyperkalemia; R00.1 Bradycardia, unspecified; E11.65 Type 2 diabetes mellitus with hyperglycemia; E78.1 Pure hyperglyceridemia; G90.9 Disorder of the autonomic nervous system, unspecified; E78.5 Hyperlipidemia, unspecified; E11.22 Type 2 diabetes mellitus with diabetic chronic kidney disease; N18.9 Chronic kidney disease, unspecified; E66.01 Morbid (severe) obesity due to excess calories; E11.51 Type 2 diabetes mellitus with diabetic peripheral angiopathy without gangrene; R29.810 Facial weakness; M19.90 Unspecified osteoarthritis, unspecified site; I12.9 Hypertensive chronic kidney disease with stage 1 through stage 4 chronic kidney disease, or unspecified chronic kidney disease; I25.2 Old myocardial infarction; Z79.82 Long term (current) use of aspirin; Z79.899 Other long term (current) drug therapy; Z87.01 Personal history of pneumonia (recurrent)

== ENCOUNTER 2018-07-13 22:03 | Inpatient (IN) | payer OTHER ==
[~2018-07-13] VITALS: Ht 152.4 cm; Wt 116.1 kg
[~2018-07-13 22:03] MED LIST: ALBU3SOL83 IH; ASPI-1718 PO; ATOR40TA PO; CETI-32 PO; CIPR500T4 PO; CLOP75TA55 PO; DICL100T2 PO; FURO-572 PO; GLIM2TAB PO; LACT10CA PO; LORA1TAB7 PO; METO-747 PO; MISO200T PO; VITA1TAB44 PO; VITD1000 PO; [UNRECOGNIZED DRUG - CODE] PO
--- NOTE | 2018-07-13 22:03 | NUR ---
PT [facility] BLS. TAKEN TO BED 10
--- NOTE | 2018-07-13 22:08 | NUR ---
Dr. Edmonds evaluating patient at bedside.
--- NOTE | 2018-07-13 22:10 | NUR ---
PATIENT BIBA TO ED WITH C/O ABDOMINAL PAIN. PT AAOX1 TO PERSON ONLY. TELUGU SPEAKING ONLY. SKIN IS PINK AND WARM; L FOOT ULCER, CLEAN EDGES ADND GRANULATED TISSUE EXPOSED; LUNGS CLEAR BL; HR EVEN AND REGULAR; PT UNABLE TO STATE PAIN, FLACC SCORE 3/10. PATIENT POSITIONED FOR COMFORT; HOB ELEVATED; BEDRAILS UP X2; BED DOWN. ER MD MADE AWARE OF PT STATUS. WILL CONTINUE TO MONITOR. PMH: DM2, HTN ALLERGIES: NKA
[2018-07-13] MEDS ORDERED: NACL 0.9% 1,000 ML IV ONE (22:14)
[2018-07-13] MEDS ORDERED: NACL 0.9% 1,500 ML IV ONE (22:15)
[2018-07-13] MEDS ORDERED: ACETAMINOPHEN 650 MG SUPP RC ONE (22:15)
[2018-07-13] MEDS ORDERED: ATOR20TA PO (22:37)
[2018-07-13] MEDS ORDERED: DOCU-299 PO (22:37)
[2018-07-13] MEDS ORDERED: GABA100C PO (22:38)
[2018-07-13] MEDS ORDERED: LISI5TAB18 PO (22:38)
[2018-07-13] MEDS ORDERED: ACET-2619 PO (22:38)
[2018-07-13] MEDS ORDERED: NA P133E RC (22:38)
[2018-07-13] MEDS ORDERED: ASCO500T45 PO (22:38)
[2018-07-13] MEDS ORDERED: CRAN450C PO (22:38)
[2018-07-13] MEDS ORDERED: MECL-272 PO (22:38)
[2018-07-13] MEDS ORDERED: HYDR-5092 PO (22:38)
[2018-07-13] MEDS ORDERED: SLIDE SUBQ (22:38)
[2018-07-13] MEDS ORDERED: MAGN400S60 PR (22:38)
[2018-07-13] MEDS ORDERED: BISA-213 RC (22:38)
--- NOTE | 2018-07-13 22:45 | NUR ---
IV TO R FOREARM INFILITRATED.
--- NOTE | 2018-07-13 22:50 | NUR ---
PT STRAIGHT CATH. PT TOLERATED WELL.
[2018-07-13 22:51] LABS: BASOPHILS # (AUTO) 0.1 K/uL (0.00-0.22); BASOPHILS % (AUTO) 0.3 % (0.0-2.0); EOSINOPHILS # (AUTO) 0.1 K/uL (0-0.4); EOSINOPHILS % (AUTO) 0.5 % (0.0-4.0); HEMATOCRIT 34.2 % (36-48); HEMOGLOBIN 10.9 g/dL (12.0-16.0); LYMPHOCYTES # (AUTO) 2.2 K/uL (2.5-16.5); LYMPHOCYTES % (AUTO) 14.3 % (20.5-51.1); MEAN CORPUSCULAR HEMOGLOBIN 27 pg (27-31); MEAN CORPUSCULAR HGB CONC 32 g/dL (33-37); MEAN CORPUSCULAR VOLUME 84.6 fL (80-94); MONOCYTES # (AUTO) 1.4 K/uL (0.8-1.0); MONOCYTES % (AUTO) 9.2 % (1.7-9.3); NEUTROPHILS # (AUTO) 11.5 K/uL (1.8-7.7); NEUTROPHILS % (AUTO) 75.7 % (42.2-75.2); PLATELET COUNT (AUTO) 377 K/uL (140-450); RED BLOOD CELL COUNT(AUTO) 4.04 MIL/uL (4.20-5.40); RED CELL DISTRIBUTION WIDTH 17.1 % (11.6-13.7)
[2018-07-13 23:20] LABS: ANION GAP 12.7 (8-16); CARBON DIOXIDE 26.9 mmol/L (21-32); CHLORIDE 102 mmol/L (98-107); GLUCOSE 299 mg/dL (74-106); POTASSIUM 4.6 mmol/L (3.5-5.1); SODIUM SERUM 137 mmol/L (136-145); UREA NITROGEN, BLOOD 30 mg/dL (7-18)
[2018-07-13 23:21] LABS: ALBUMIN 2.2 g/dL (3.4-5.0); ASPARTATE AMINOTRANSFERASE 32 U/L (15-37); CREATININE 1.6 mg/dL (0.6-1.3); LIPASE 54 U/L (73-393); TOTAL BILIRUBIN 0.4 mg/dL (0.0-1.0)
[2018-07-13 23:30] LABS: APPEARANCE,URINE CLOUDY (CLEAR); BILIRUBIN,URINE NEGATIVE (NEGATIVE); BLOOD, URINE TRACE-I (NEGATIVE); COLOR,URINE YELLOW (YELLOW); LEUKOCYTE ESTERASE ,URINE 1+ (NEGATIVE); NITRITE, URINE POSITIVE (NEGATIVE); PH,URINE 8.5 (5.0-9.0); UGLUCOSE 1+ (NEGATIVE)
--- NOTE | 2018-07-13 23:35 | NUR ---
PT TAKEN TO CT
[2018-07-13 23:36] LABS: WHITE BLOOD COUNT (AUTO) 15.2 K/uL (4.8-10.8)
[2018-07-13 23:41] LABS: PROTHROMBIN TIME 10.2 secs (10.8-13.4)
[2018-07-13 23:49] LABS: RBC,URINE 0 /HPF (0-5); WBC,URINE TOO MANY TO COUNT /HPF (0-5)
[2018-07-14] MEDS ORDERED: MORPHINE SULFATE 4 MG/ML SYR IVP ONE (00:15)
[2018-07-14] MEDS ORDERED: cefTRIAXone 1,000 MG VIAL ONE (00:19)
--- NOTE | 2018-07-14 00:20 | NUR ---
PT CRYING OUT IN PAIN. MD NOTIFIED.
[2018-07-14] MEDS ORDERED: metroNIDAZOLE 500 MG/NS PREMIX 100 ML IV ONE (00:40)
[2018-07-14] MEDS: NACL 0.9% 1,000 ML IV SCH ×2 (00:49→11:54)
[2018-07-14] MEDS ORDERED: ONDANSETRON 4 MG/2 ML VIAL IM/IVP PRN (00:50)
[2018-07-14] MEDS ORDERED: ACETAMINOPHEN 325 MG TAB PO PRN (00:50)
[2018-07-14] MEDS ORDERED: DOCUSATE SODIUM 100 MG GELCAP PO PRN (00:50)
--- NOTE | 2018-07-14 00:50 | NUR ---
PT LAYING IN BED, RR EVEN AND UNLABORED. VS NOTED. TEMP 101, COOLING MEASURES MAINTAINED.
[2018-07-14 01:24] LABS: PHOSPHORUS 2.6 mg/dL (2.5-4.9); THYROID STIMULATING HORMONE 0.68 uIU/mL (0.34-3.74)
--- NOTE | 2018-07-14 01:30 | NUR ---
Patient will be admitted to care of MD Chris. Admited to [facility]. Will go to room 106A Belongings list completed. Report given to CASSANDRA Santoyo.
--- NOTE | 2018-07-14 01:30 | NUR ---
Pt report given to CASSANDRA Santoyo. VSS at time of transfer. Transfer of care at this time.
[2018-07-14] MEDS ORDERED: MEDICATION REC. PHARMACY CONS. 1 EA MISC MC PRN (01:40)
[2018-07-14 01:45] VITALS: BP 116/65
--- NOTE | 2018-07-14 01:45 | NUR ---
RECEIVED REPORT FROM ER NURSE ELSY. PATIENT IS AWAKE, CRYING, UNCOOPERATIVE, SPEAK EMIRATI, ORIENTED TO SELF. RESPIRATION EVEN UNLABORED ON 2L OF O2 VIA NC. SATING 97%. BREATH SOUNDS CLEAR ON AUSCULTATION. MRSA SCREEN DONE. VITALS WERE TAKEN. SKIN IS WARM AND DRY. OPEN WOUND TO LEFT FOOT NOTED. SKIN TEAR TO BUTTOCKS NOTED. IV PATENT AND INTACT. ABDOMEN ROUND, SOFT, AND NON-TENDER. BOWEL SOUNDS PRESENT IN 4 QUADRANTS. DENIES PAIN. ALL SAFETY MEASURES ARE IN PLACE. FALL RISK PROTOCOL IN PLACE. PLAN OF CARE WAS DISCUSSED. BED IS AT LOW POSITION. BED ALARM ON. CALL LIGHT WITHIN REACH. WILL CONTINUE TO MONITOR.
[2018-07-14] MEDS ORDERED: SODIUM PHOSPHATE 118 ML ENEM RC PRN (01:50)
[2018-07-14] MEDS ORDERED: DEXTROSE 50% 50 ML SYR IVP PRN (01:55)
--- NOTE | 2018-07-14 02:00 | NUR ---
UNABLE TO OBTAINED/ INFORMATION DUE TO PATIENT CONDITION. PATIENT AOX1 TO SELF, REORIENT AND REDIRECT. WILL CONTINUE TO MONITOR.
[2018-07-14] MEDS ORDERED: INSU100I7 SQ (02:03)
[2018-07-14 04:00] VITALS: BP 154/68
--- NOTE | 2018-07-14 04:00 | NUR ---
VITALS WERE TAKEN. PATIENT CONDITION STABLE. RESPIRATION EVEN UNLABORED ON O2 2L VIA NC. NO DISTRESS NOTED. WILL CONTINUE TO MONITOR.
[2018-07-14] MEDS: BLOOD GLUCOSE MONITORING 1 DEV DEV FS SCH ×4 (06:38→21:27)
[2018-07-14] MEDS: INSULIN LISPRO SLIDING SCALE 100 UNITS/ML VIAL SUBQ PRN ×4 (06:40→21:29)
[2018-07-14 06:51] LABS: ANION GAP 14.1 (8-16); CARBON DIOXIDE 25.3 mmol/L (21-32); CHLORIDE 104 mmol/L (98-107); CREATININE 1.5 mg/dL (0.6-1.3); GLUCOSE 287 mg/dL (74-106); POTASSIUM 4.4 mmol/L (3.5-5.1); SODIUM SERUM 139 mmol/L (136-145); UREA NITROGEN, BLOOD 30 mg/dL (7-18)
[2018-07-14] MEDS ORDERED: metroNIDAZOLE 500 MG/NS PREMIX 100 ML IV SCH (07:00)
[2018-07-14 07:04] LABS: PHOSPHORUS 2.9 mg/dL (2.5-4.9)
[2018-07-14 07:05] LABS: BASOPHILS % (AUTO) 0.3 % (0.0-2.0); EOSINOPHILS % (AUTO) 0.2 % (0.0-4.0); HEMATOCRIT 33.7 % (36-48); HEMOGLOBIN 10.7 g/dL (12.0-16.0); LYMPHOCYTES # (AUTO) 2.6 K/uL (2.5-16.5); LYMPHOCYTES % (AUTO) 16.3 % (20.5-51.1); MEAN CORPUSCULAR HEMOGLOBIN 27 pg (27-31); MEAN CORPUSCULAR HGB CONC 32 g/dL (33-37); MEAN CORPUSCULAR VOLUME 85.9 fL (80-94); MONOCYTES # (AUTO) 1.6 K/uL (0.8-1.0); NEUTROPHILS # (AUTO) 11.7 K/uL (1.8-7.7); NEUTROPHILS % (AUTO) 73.2 % (42.2-75.2); PLATELET COUNT (AUTO) 344 K/uL (140-450); RED BLOOD CELL COUNT(AUTO) 3.92 MIL/uL (4.20-5.40); RED CELL DISTRIBUTION WIDTH 17.6 % (11.6-13.7)
--- NOTE | 2018-07-14 07:28 | NUR ---
RECEIVED BEDSIDE REPORT FROM CASSANDRA GASTELUM. PT STABLE, SLEEPING, BUT EASILY AROUSABLE. NO SIGNS OF DISTRESS NOTED. NO REDNESS, SWELLING, OR INFLAMMATION NOTED ON IV SITE. ON 2L O2. BED IN LOWEST POSITION. CALL CONNELL WITHIN REACH. SAFETY MEASURES IN PLACE. PLAN OF CARE REVIEWED.
--- NOTE | 2018-07-14 07:29 | NUR ---
ENDORSED PATIENT TO DAY SHIFT NURSE FOR CONTINUITY OF CARE. PATIENT STABLE AT THIS TIME.
[2018-07-14 08:00] VITALS: BP 113/64
--- NOTE | 2018-07-14 08:11 | NUR ---
PATIENT HAS BEEN SCREENED AND CATEGORIZED HIGH NUTRITION RISK. PATIENT WILL BE SEEN WITHIN 1-2 DAYS OF ADMISSION. 07/14/18-07/15/[address]
[2018-07-14] MEDS ORDERED: MISOPROSTOL 200 MCG TAB PO SCH (09:00)
--- NOTE | 2018-07-14 09:25 | NUR ---
WOUND CARE EVALUATION NOTE: REASON FOR EVALUATION: COCCYX AND HEELS WOUND SKIN ASSESSMENT DONE WITH PRIMARY RN AT 9:30 AM WITH THIS 80 Y/O FEMALE PT ADMITTED FROM HOME TO [facility] [place] WITH INITIAL DX OF DIARRHEA. PAST MEDICAL HX INCLUDES HTN, DM AND ALZHEIMER DEMENTIA. PT. VISTED [facility] [place] ON 09/20/2017 WITH C/O RIGHT LED SWELLING, ULTROSOUND DONE WITH NEGATIVE DVT. ALL ABOVE INFORMATION OBTAINED FROM ADMISSION H&P. 09/22/2017, LABS ARE WBC 12.7, H/H 9.2/28, GLUCOSE 149 AND ALBUMIN 2.8. PT IS AWAKE. SKIN IS WARM AND DRY, BLE NO HAIR GROWTH, +2 EDEMA TO RIGHT LOWER LEG.BILATERAL DORSAL PEDAL PULSES PRESENT AND NORMAL. CAPILLARY REFILLED < 2 SEC. X 10 TOES. INCONTINENT OF LBM X1 DURING ASSESSMENT. PLAN OF CARE DISCUSSED WITH PRIMARY RN AND PT. INTEGUMENTARY: -MULTIPLE ECCHYMOSIS TO RIGHT UPPER ARM WITH LARGEST SIZE 4X1.3 CM CLOSE TO ELBOW AREA -INTERTRIGO TO BREAST FOLDS -INCOTINENT ASSOCIATE DERMATITIS (IAD) TO: B/L GROINS EXTENDED TO PERINEUM -IAD TO SACRALCOCCYX, RIGHT AND LEFT INNER BUTTOCKS EXTENDED TO PERIANAL MULTIPLE SMALL PARTIAL THICKNESS SKIN EROSIONS WITH LARGEST SIZE 2.5X1.5X0.1 CM, WOUND BED IS PINK, CLEAN AND MOIST. NO ODOR. -PRESSURE INJURY STAGE 2 TO RIGHT HEEL CLOSE BLISTER, CLEAR FLUIDS FILLED, SKIN INTACT, NO ODOR RECOMMENDATIONS: -KEEP SKIN DRY AND CLEAN AT ALL TIMES, PLEASE CHECK Q2H AND PRN FOR INCONTINENCY OF BOWEL AND BLADDER. -APPLY INTER DRY CLOTH TO UNDER BREASTS AND ABDOMINAL FOLDS INTERTRIGO Q7 DAYS AND PRN IF SOILING -APPLY Z-GUARD TO: B/L GROINS EXTENDED TO PERINEUM AND RIGHT AND LEFT INNER BUTTOCKS EXTENDED TO PERIANAL BID AND PRN IF SOILING -APPLY Z- GUARD AND FORM DRESSING TO SACROCOCCYX QD AND PRN IF SOILING -OFFLOAD BILATERAL HEELS BY PLACING PILLOWS UNDER CALVES UNLESS OTHERWISE CONTRAINDICATED -PRESSURE REDISTRIBUTION SURFACE THERAPY -TURN AND REPOSITION Q2H, OFFLOAD SACRALCOCCYX BY TURNING RIGHT AND LEFT -CONTINUE TO FOLLOW RD RECOMMENDATIONS ALL ABOVE RECOMMENDATIONS DISCUSSED WITH PRIMARY RN WILL FOLLOW UP PT Q7-10 DAYS. PLEASE CONTACT WOUND CARE NURSE FOR ANY QUESTION AND CHANGE OF WOUND CONDITION. Addendum: 07/14/18 at 1427 by Danie Felder RN (Grace) ERROR CHARTING
[2018-07-14] MEDS: ASCORBIC ACID 500 MG TAB PO SCH ×2 (10:07→21:23)
[2018-07-14] MEDS: HYDROcodone/APAP 7.5/325 MG 1 TAB PO PRN (10:07)
[2018-07-14] MEDS: LISINOPRIL 5 MG TAB PO SCH (10:08)
[2018-07-14] MEDS: DOCUSATE SODIUM 100 MG GELCAP PO SCH (10:08)
[2018-07-14] MEDS: LACTOBACILLUS RHAMNOSUS GG 1 EACH CAP PO SCH (10:08)
[2018-07-14] MEDS: GABAPENTIN 100 MG CAP PO SCH ×3 (10:08→17:39)
[2018-07-14] MEDS: CLOPIDOGREL 75 MG TAB PO SCH (10:09)
[2018-07-14] MEDS: MAGNESIUM HYDROXIDE 2400 MG/30 ML UDC PO SCH (10:09)
[2018-07-14] MEDS: GLIMEPIRIDE 2 MG TAB PO SCH (10:09)
--- NOTE | 2018-07-14 10:10 | NUR ---
ADMINISTERED SCHEDULED MEDICATIONS, PT TOLERATED WELL. NO OTHER NEEDS AT THIS TIME. PRN NORCO ADMINISTERED FOR ABDOMINAL PAIN. PT MOANING, RESTLESS, AND CRYING.
--- NOTE | 2018-07-14 12:15 | NUR ---
PT HAD BOWEL MOVEMENT, SOFT FORMED BROWN STOOL NOTED. NO DIARRHEA OBSERVED.
--- NOTE | 2018-07-14 12:25 | NUR ---
SKIN ASSESSMENT DONE WITH THIS 83 Y/O FEMALE PT ADMITTED TO [facility] WITH COLITIS. INTEGUMENTARY: -INTERTRIGO TO UNDER BREAST AND LOWER ABDOMINAL FOLDS -INCONTINENT ASSOCIATE DERMATITIS (IAD) TO: B/L GROINS EXTENDED TO PERINEUM REDNESS, SKIN INTACT -IAD TO SACRALCOCCYX, RIGHT AND LEFT INNER BUTTOCKS EXTENDED TO PERIANAL MULTIPLE SMALL PARTIAL THICKNESS SKIN EROSIONS WITH LARGEST SIZE 2.5X1.5X0.1 CM, WOUND BED IS PINK, CLEAN AND MOIST. NO ODOR. -DIABETIC ULCER TO LEFT FOOT 5TH METATARSAL, [id number], WOUND BED 100% GRANULATING TISSUE, SMALL AMOUNT SEROSANGINOUS DRAINAGE, NO ODOR, NATALIA WOUND INTACT RECOMMENDATIONS: -KEEP SKIN DRY AND CLEAN AT ALL TIMES, PLEASE CHECK Q2H AND PRN FOR INCONTINENCY OF BOWEL AND BLADDER. -APPLY INTER DRY CLOTH TO UNDER BREASTS AND ABDOMINAL FOLDS INTERTRIGO Q7 DAYS AND PRN IF SOILING -APPLY Z-GUARD TO: B/L GROINS EXTENDED TO PERINEUM AND RIGHT AND LEFT INNER BUTTOCKS EXTENDED TO PERIANAL BID AND PRN IF SOILING -APPLY Z- GUARD AND FORM DRESSING TO SACROCOCCYX QD AND PRN IF SOILING -CLEANSE LEFT FOOT WOUND WITH NS AND GAUZE, PAT DRY, COVER WITH ADAPTIC, ABD PAD AND WRAP WITH LAUREN Q DAY AND PRN WITH SOILING -OFFLOAD BILATERAL HEELS BY PLACING PILLOWS UNDER CALVES UNLESS OTHERWISE CONTRAINDICATED -PRESSURE REDISTRIBUTION SURFACE THERAPY -TURN AND REPOSITION Q2H, OFFLOAD SACRALCOCCYX BY TURNING RIGHT AND LEFT -CONTINUE TO FOLLOW RD RECOMMENDATIONS ALL ABOVE RECOMMENDATIONS DISCUSSED WITH PRIMARY RN WILL FOLLOW UP PT Q7-10 DAYS. PLEASE CONTACT WOUND CARE NURSE FOR ANY QUESTION AND CHANGE OF WOUND CONDITION.
[2018-07-14] MEDS: metroNIDAZOLE 500 MG/NS PREMIX 100 ML IV SCH ×2 (13:04→22:42)
--- NOTE | 2018-07-14 13:16 | NUR ---
ADMINISTERED SCHEDULED MEDICATION. PT TOLERATED WELL.
--- NOTE | 2018-07-14 14:07 | NUR ---
07/14/18 RD INITIAL ASSESSMENT COMPLETED PLEASE REFER TO NUTRITION ASSESSMENT UNDER CARE ACTIVITY FOR ESTIMATED NUTRITIONAL NEEDS. 1. CONTINUE CLEAR LIQUID DIET TOLERATED 2. RECOMMEND ENSURE CLEAR BID 3. RD PROVIDED NUTRITION EDUCATION ON DIABETES 4. RD TO FOLLOW-UP 3-5 DAYS, MODERATE RISK SHANT GUTIERREZ RD
[2018-07-14] MEDS ORDERED: INTERDRY CLOTH TP PRN (14:40)
[2018-07-14] MEDS ORDERED: Z-GUARD PASTE TP PRN (14:40)
[2018-07-14] MEDS ORDERED: INTERDRY CLOTH TP SCH (14:50)
--- NOTE | 2018-07-14 14:50 | NUR ---
INTERDRY APPLIED ON ABDOMINAL FOLDS AND UNDER THE BREAST AREA PER MD ORDER. PT REPOSITIONED, LINENS AND GOWN CHANGED. DAUGHTER AT THE BEDSIDE.
--- NOTE | 2018-07-14 15:28 | NUR ---
hot iron worker notes: I attempted to meet with Patient for a screen; Patient was sleeping and was unable to wake up the time. I attempted to contact Patient's daughter Manju Miles at . No answer I left her a voice mail MSG with direct contact information and a request for a call back.
[2018-07-14 16:00] VITALS: BP 152/54
--- NOTE | 2018-07-14 16:30 | NUR ---
VITAL SIGNS TAKEN, BG 269. WILL GIVE 6 UNITS OF HUMALOG. PT STABLE, SLEEPING, BUT EASILY AROUSABLE.
--- NOTE | 2018-07-14 17:44 | NUR ---
ADMINISTERED SCHEDULED MEDICATION AND 6 UNITS OF HUMALOG FOR BG 269. PT TOLERATED WELL. DAUGHTER AT BEDSIDE.
--- NOTE | 2018-07-14 19:30 | NUR ---
ENDORSED PT TO RN REYNALDO FOR CONTINUITY OF CARE. PT STABLE, SLEEPING, BUT EASILY AROUSABLE. FAMILY AT THE BEDSIDE.
--- NOTE | 2018-07-14 19:31 | NUR ---
RECD. RESTING IN BED, AWAKE, A/OX2. RESPIRATION EVEN AND UNLABORED. ON 02 AT 2 LITERS VIA N/C, 02 SAT - 100%. IV SALINE LOCK AT THE RIGHT IJ PATENT AND INTACT. REORIENTED TO HOSPITAL SETTING. PLAN OF CARE DISCUSSED WITH PATIENT AND DAUGHTERS, VERBALIZED UNDERSTANDING. HAD SOME QUESTIONS REGARDING RESULTS OF TEST FOR PATIENT, WILL REQUEST DR. REHMAN TO COME AND EXPLAINED. OCCASIONALLY MOANS, WILL MEDICATE ORDERED.
--- NOTE | 2018-07-14 19:32 | NUR ---
Patient's Plan of Care was discussed and reviewed with DISH CLOTH INSPECTOR: REYNALDO MOISE
--- NOTE | 2018-07-14 19:45 | NUR ---
DR. REHMAN CAME TO ROOM AND ANSWERS ALL QUESTIONS OF PATIENT'S DAUGHTERS.
[2018-07-14 20:00] VITALS: BP 156/63
[2018-07-14] MEDS: MORPHINE SULFATE 2 MG/ML SYR IVP PRN (20:07)
[2018-07-14] MEDS ORDERED: INSULIN LANTUS 100 UNITS/ML 10 ML VIAL SUBQ SCH (21:00)
[2018-07-14] MEDS: ATORVASTATIN 20 MG TAB PO SCH (21:23)
--- NOTE | 2018-07-14 21:30 | NUR ---
DUE MEDICATIONS GIVEN, ATE, 30% OF SNACK FOR THE NIGHT.
--- NOTE | 2018-07-14 22:50 | NUR ---
SLEEPING COMFORTABLY IN BED.
[2018-07-15] VITALS: BP 147/58
[2018-07-15] MEDS: HYDROcodone/APAP 7.5/325 MG 1 TAB PO PRN ×2 (00:01→16:32)
[2018-07-15] MEDS: Z-GUARD PASTE TP SCH ×2 (01:22→13:24)
--- NOTE | 2018-07-15 04:00 | NUR ---
AWAKE, HAD A MODERATE SOFT BM. CLEANSED AND MADE COMFORTABLE IN BED.
[2018-07-15] MEDS: metroNIDAZOLE 500 MG/NS PREMIX 100 ML IV SCH ×3 (04:15→20:42)
[2018-07-15 04:27] VITALS: BP 125/53
[2018-07-15] MEDS: MORPHINE SULFATE 2 MG/ML SYR IVP PRN ×3 (04:36→18:51)
--- NOTE | 2018-07-15 05:30 | NUR ---
TRANSFER TO WOUND CARE BED USING HOLIER LIFT. SAFETY MAINTAINED.
[2018-07-15] MEDS: BLOOD GLUCOSE MONITORING 1 DEV DEV FS SCH ×4 (06:57→21:08)
[2018-07-15] MEDS: INSULIN LISPRO SLIDING SCALE 100 UNITS/ML VIAL SUBQ PRN ×4 (06:59→21:13)
[2018-07-15 07:19] LABS: BASOPHILS # (AUTO) 0.1 K/uL (0.00-0.22); BASOPHILS % (AUTO) 0.5 % (0.0-2.0); EOSINOPHILS # (AUTO) 0.2 K/uL (0-0.4); EOSINOPHILS % (AUTO) 1.1 % (0.0-4.0); HEMATOCRIT 29.7 % (36-48); HEMOGLOBIN 9.4 g/dL (12.0-16.0); LYMPHOCYTES % (AUTO) 13.4 % (20.5-51.1); MEAN CORPUSCULAR HEMOGLOBIN 27 pg (27-31); MEAN CORPUSCULAR HGB CONC 32 g/dL (33-37); MEAN CORPUSCULAR VOLUME 85.6 fL (80-94); MONOCYTES # (AUTO) 1.3 K/uL (0.8-1.0); MONOCYTES % (AUTO) 8.9 % (1.7-9.3); NEUTROPHILS # (AUTO) 11.3 K/uL (1.8-7.7); NEUTROPHILS % (AUTO) 76.1 % (42.2-75.2); PLATELET COUNT (AUTO) 296 K/uL (140-450); RED BLOOD CELL COUNT(AUTO) 3.47 MIL/uL (4.20-5.40); RED CELL DISTRIBUTION WIDTH 17.9 % (11.6-13.7); WHITE BLOOD COUNT (AUTO) 14.8 K/uL (4.8-10.8)
--- NOTE | 2018-07-15 07:20 | NUR ---
CONDITION REMAIN STABLE. ENDORSED TO AM SHIFT NURSE FOR CONTINUITY OF CARE.
--- NOTE | 2018-07-15 07:22 | NUR ---
RECEIVED BEDSIDE REPORT FROM SANITATION WORKER CLEANING MACHINERY NURSE. PATIENT IS AOX2 TO NAME AND PLACE. ORIENTED PATIENT TO HOSPITAL AND INSTRUCTED ON HOW TO USE THE CALL LIGHT, BED REMOTE, AND TV. ABLE TO MAKE NEEDS KNOWN AND FOLLOW SIMPLE COMMANDS. RESPIRATION IS EVEN AND UNLABORED. ON NASAL CANNULA 2L/MIN. IV ON RIJ, INTACT AND PATENT, INFUSING PER MD ORDER. SACRAL WOUND AND L FOOT WOUND NOTED, DRESSINGS ARE INTACT AND DRY. PILLOWS AND HEEL WEDGES IN PLACES AND USED TO OFF LOAD PRESSURE. INCONTINENT AND BEDREST. DISCUSSED PLAN OF CARE WITH PATIENT, PATIENT NODDED HER HEAD. SAFETY MEASURES IN PLACE. BED IN LOW POSITION, CALL LIGHT WITHIN REACH.
[2018-07-15 07:30] LABS: MAGNESIUM 2.2 mg/dL (1.8-2.4); PHOSPHORUS 2.4 mg/dL (2.5-4.9)
[2018-07-15 08:09] LABS: ANION GAP 11.7 (8-16); CARBON DIOXIDE 23.1 mmol/L (21-32); CHLORIDE 108 mmol/L (98-107); CREATININE 1.6 mg/dL (0.6-1.3); GLUCOSE 251 mg/dL (74-106); POTASSIUM 3.8 mmol/L (3.5-5.1); SODIUM SERUM 139 mmol/L (136-145); UREA NITROGEN, BLOOD 31 mg/dL (7-18)
[2018-07-15] MEDS: CLOPIDOGREL 75 MG TAB PO SCH (09:15)
[2018-07-15] MEDS: DOCUSATE SODIUM 100 MG GELCAP PO SCH (09:15)
[2018-07-15] MEDS: FERROUS SULFATE 325 MG TABEC PO SCH ×2 (09:16→16:55)
[2018-07-15] MEDS: LACTOBACILLUS RHAMNOSUS GG 1 EACH CAP PO SCH (09:16)
[2018-07-15] MEDS: LISINOPRIL 5 MG TAB PO SCH (09:16)
[2018-07-15] MEDS: GABAPENTIN 100 MG CAP PO SCH ×3 (09:16→16:55)
[2018-07-15] MEDS: GLIMEPIRIDE 2 MG TAB PO SCH (09:17)
[2018-07-15] MEDS: ASCORBIC ACID 500 MG TAB PO SCH ×2 (09:17→20:44)
--- NOTE | 2018-07-15 09:26 | NUR ---
CHECKED VITAL SIGNS PRIOR TO MEDICATION ADMINISTRATION; BP 143/81, PULSE 101, TEMP 97.6, SPO2 99%, PT DENIES PAIN. ADMINISTERED MEDS PER MD ORDER, PATIENT TOLERATED WELL. REPOSITIONED PATIENT TO HER LEFT SIDE, OFF LOADED PRESSURE WITH PILLOWS AND HEEL WEDGES FROM HEELS AND PRESSURE NELY. PATIENT TOLERATED WELL.
[2018-07-15] MEDS ORDERED: SODIUM PHOS / POTASSIUM PHOS 1 PKT PDR PO SCH (09:34)
[2018-07-15] MEDS: NACL 0.9% 1,000 ML IV SCH (09:48)
[2018-07-15] MEDS: MISOPROSTOL 100 MCG TAB PO SCH (09:48)
--- NOTE | 2018-07-15 10:35 | NUR ---
DR NAIR IS TALKING TO PATIENT AT BEDSIDE.
--- NOTE | 2018-07-15 11:35 | NUR ---
PT IS SLEEPING AT THIS TIME. NO SIGNS OF DISTRESS NOTED. SAFETY MEASURES IN PLACE.
--- NOTE | 2018-07-15 12:00 | NUR ---
Loan Counselor Notes: I called [facility] at and spoke to Miladis RN. According to Miladis Patient Has been place on a 7 days assisted bed hold and is able [place] [facility] [place] is ready and clear for discharge. Per Miladis Patient has a POLTS and was send with her at admissions at [facility]. Patient has a large family however; patient's healthcare decision maker is daughter Rosibel who has a power of commonwealth attorney. I thanked Miladis for the information and I ended the call
--- NOTE | 2018-07-15 13:30 | NUR ---
PREFORMED WOUND CARE TO PATIENT. CLEANSED GROINS AREA , BUTTOCKS, PERIANAL WITH NS. APPLIED Z GUARD TO GROINS AND PERINEUM, R & L BOTTOCKS. APPLIED OPTI FORM DRESSING TO SACROCOCCYX. APPLY INTER DRY CLOTH TO UNDER BREASTS AND ABDOMINAL FOLDS. CLEANED L FOOT WOUND WITH NS AND PAT DRY, PACKED IT WITH ADAPTIC, ABDOMINAL PAD AND WARP IT AROUND LAUREN. PATIENT TOLERATED WELL. REPOSITIONED PATIENT TO HER RIGHT SIDE AND OFF LOADED PRESSURE WITH PILLOWS AND HEEL WEDGES. SAFETY MEASURES IN PLACE. CALL LIGHT WITHIN REACH AND BED IN LOW POSITION.
--- NOTE | 2018-07-15 14:01 | NUR ---
PATIENT CRIED AND C/O PAIN LEVEL 7 OUT 10. MEDICATED WITH PRN PAIN MEDICATION.
[2018-07-15] MEDS ORDERED: BISACODYL 10 MG SUPP RC SCH (14:56)
[2018-07-15 16:00] VITALS: BP 139/46
--- NOTE | 2018-07-15 16:10 | NUR ---
COLLECTED LEFT FOOD WOUND SPECIMEN PER MD ORDER AND DELIVERED IT TO LAB.
--- NOTE | 2018-07-15 16:33 | NUR ---
PT C/O PAIN LEVEL OF 5. ADMINISTERED PRN PAIN MED.
--- NOTE | 2018-07-15 16:41 | NUR ---
DAUGHTER PRISCILLA AND LUCAS ARE AT BEDSIDE TALKING TO PATIENT.
--- NOTE | 2018-07-15 17:18 | NUR ---
DAUGHTER ALEJANDRA IS AT BEDSIDE AND ASSISTING PATIENT TO EAT DINNER.
--- NOTE | 2018-07-15 18:05 | NUR ---
PER PATIENT'S DAUGHTER ALEJANDRA, PATIENT GOT HER FLU VACCINE IN 01/2018. SHE IS UNSURE ABOUT PNA VACCINE. SHE WILL FIND OUT AND INFORM US.
--- NOTE | 2018-07-15 18:52 | NUR ---
PT IS CRYING AND STATING SHE HAS VERY BAD PAIN AT LEVEL 8 OUT OF 10 ON HER ABDOMEN. MEDICATED WITH PRN PAIN MED.
--- NOTE | 2018-07-15 19:15 | NUR ---
ENDORSED PATIENT AT BEDSIDE TO CASTING MACHINE SET UP OPERATOR NURSE FOR CONTINUITY OF CARE. PATIENT IS IN STABLE CONDITION. FAMILY IS AT BEDSIDE AT THIS TIME.
--- NOTE | 2018-07-15 19:20 | NUR ---
RECEIVED PT IN STABLE CONDITION FROM AM NURSE. AWAKE, ALERT X 2. FAMILY MEMBERS AT BEDSIDE. MED SURG PT. NO DISTRESS NOTED. ON O22L/NC. BEDREST. WITH BLE SCD MACHINE ON. IVF INFUSING WELL ON THE RT IJ G #20. CLEAR AND PATENT. LT FOOT WITH DRESSING. DRY AND INTACT. SERA BREAST FOLDS AND ABDOMINAL FOLDS WITH INTER DRY. SACRUM WITH DRESSING IN PLACED. PLAN OF CARE DISCUSSED WITH PT/FAMILY. VERBALIZED UNDERSTANDING. BED ON LOWEST POSITION. SIDE RAILS UP X2. WITH BLE SCD MACHINE ON. FREQUENT ROUND NEEDED. CALL LIGHT WITHIN EASY REACH.WILL CONTINUE TO MONITOR.
--- NOTE | 2018-07-15 20:37 | NUR ---
DAUGHTER TALKED TO DR. CORDON REGARDING PT PAIN . CAUSE PT HAS BEEN MOANING AND CRYING FOR PAIN. THAT THE NORCO AND MORPHINE PREVIOUSLY GIVEN BY AM NURSE IS NOT WORKING. DR. CORDON SAID JUST GIVE EXTRA MORPHINE 1 MG FOR NOW .
[2018-07-15] MEDS: ATORVASTATIN 20 MG TAB PO SCH (20:54)
[2018-07-15] MEDS ORDERED: MORPHINE SULFATE 4 MG/ML SYR IVP SCH (21:00)
[2018-07-15] MEDS ORDERED: MORPHINE SULFATE 2 MG/ML SYR IVP SCH (21:00)
[2018-07-15] MEDS: INSULIN LANTUS 100 UNITS/ML 10 ML VIAL SUBQ SCH (21:10)
--- NOTE | 2018-07-15 21:13 | NUR ---
BLOOD SUGAR CHECKED RESULT 208. INSULIN COVERAGE GIVEN, PLUS THE LANTUS HS. ABLE TO TAKE SOME JUICE AND JELLO . WILL CONTINUE TO MONITOR.
--- NOTE | 2018-07-15 21:15 | NUR ---
DR. STEELE CAME AND SEEN ,EXAMINED PT. TALKED TO DAUGHTER REGARDING PLAN OF CARE. LT FOOT DRESSING REMOVED PER REQUEST. THEN CLEANED AND APPLIED NEW DRESSING.
--- NOTE | 2018-07-15 21:25 | NUR ---
DEYA FROM [facility] CALLED. SHE SAID THE BONE SCAN WILL BE DONE ANGELLA @09:00. PT SHE SAID CAN HAVE BREAKFAST AND PAIN MEDICATIONS PRIOR TO THE TEST. .
--- NOTE | 2018-07-15 22:00 | NUR ---
PT IS AWAKE, CRYING. WENT TO ROOM AND ASKED IF PT IS IN PAIN. DR. CORDON SAID IF NEED MORPHINE CAN GIVE THE 3 MG . BUT PT REFUSED ANY PAIN MED . SHE SAID NOT NOW. WILL CONTINUE TO MONITOR.
--- NOTE | 2018-07-15 22:02 | NUR ---
Patient unable to perform IS. Patient crying out in pain and cannot focus. Nurse aware.
--- NOTE | 2018-07-15 23:30 | NUR ---
MADE ROUNDS. PT SLEEPING. NO S/S OF ANY DISCOMFORT NOR PAIN NOTED. WILL CONTINUE TO MONITOR.
[2018-07-15 23:35] VITALS: BP 116/50
--- NOTE | 2018-07-15 23:43 | NUR ---
AWAKE. JUST TOOK VITAL SIGNS. ASKED IF HAVING PAIN ,SHE SAID NOT NOW. REPOSITIONED FOR COMFORT.
[2018-07-15] MEDS: MORPHINE SULFATE 4 MG/ML SYR IVP PRN (23:52)
--- NOTE | 2018-07-15 23:52 | NUR ---
PT STARTED MOANING AGAIN. PAIN MEDICATION GIVEN ORDERED. WILL CONTINUE TO MONITOR.
[2018-07-16] MEDS ORDERED: WATER STERILE 10 ML MC ONE (00:31)
[2018-07-16] MEDS: VANCOMYCIN 500 MG VIAL PO SCH ×4 (00:38→17:14)
[2018-07-16] MEDS: Z-GUARD PASTE TP SCH ×2 (01:00→12:49)
--- NOTE | 2018-07-16 01:00 | NUR ---
SLEEPING AT THIS TIME. NO S/S OF ANY DISCOMFORT NOR PAIN NOTED.
--- NOTE | 2018-07-16 02:00 | NUR ---
PT HAD A LARGE SOFT /FORMED STOOL . CLEANED AND KEPT DRY. SACRAL DRESSING CHANGED.
--- NOTE | 2018-07-16 03:00 | NUR ---
PT SLEEPING. NO S/S OF ANY DISCOMFORT NOR PAIN NOTED. WILL CONTINUE TO MONITOR.
[2018-07-16] MEDS: NACL 0.9% 1,000 ML IV SCH ×2 (04:23→13:40)
[2018-07-16] MEDS: metroNIDAZOLE 500 MG/NS PREMIX 100 ML IV SCH ×3 (04:36→20:45)
--- NOTE | 2018-07-16 05:00 | NUR ---
PT HAD ANOTHER SOFT TO FORMED STOOL IN MODERATE AMOUNT. CLEANED AND KEPT DRY. ASKED PT IN PAIN, SHE SAID NO. WILL CONTINUE TO MONITOR. Addendum: 07/16/18 at 0630 by Gregoria Contreras RN CLEARED THE ABOVE NOTES. ASKED PT IF IN PAIN AND SHE SAID NO,SMILING.
[2018-07-16] MEDS: BLOOD GLUCOSE MONITORING 1 DEV DEV FS SCH ×4 (06:05→20:53)
[2018-07-16] MEDS: INSULIN LISPRO SLIDING SCALE 100 UNITS/ML VIAL SUBQ PRN ×4 (06:06→20:56)
--- NOTE | 2018-07-16 06:06 | NUR ---
BLOOD SUGAR THIS AM 185. 2 UNITS HUMALOG GIVEN SUBQ COVERAGE.
[2018-07-16] MEDS: MORPHINE SULFATE 4 MG/ML SYR IVP PRN ×2 (06:44→10:26)
--- NOTE | 2018-07-16 06:44 | NUR ---
PT RENNY. ASKED IF IN PAIN ,SHE SAID 12/09. MEDICATED ORDERED FOR PAIN. WILL CONTINUE TO MONITOR.
--- NOTE | 2018-07-16 07:15 | NUR ---
RECEIVED PT REPORT FROM TOOLING ENGINEER NURSE AT BEDSIDE. PT IS AWAKE, ALERT, OX2. NO DISTRESS NOTED ON O2 2L VIA NC. WITH BLE SCD MACHINE ON. IV CATH NOTED TO RT EXTERNAL IJ 20G, PATENT AND ASYMPTOMATIC. LT FOOT WITH DRESSING DRY AND INTACT. INTERDRY UNDER SERA BREAST FOLDS AND ABDOMINAL FOLDS. SACRUM WITH DRESSING IN PLACED, DRY AND INTACT. PLAN OF CARE DISCUSSED. BED IN LOWEST POSITION. SIDE RAILS UP X2, CALL LIGHT WITHIN EASY REACH. WILL CONTINUE TO MONITOR.
--- NOTE | 2018-07-16 07:15 | NUR ---
ENDORSED PT IN STABLE CONDITION TO AM NURSE.
[2018-07-16 07:27] LABS: HEMATOCRIT 35.2 % (36-48); HEMOGLOBIN 10.9 g/dL (12.0-16.0); MEAN CORPUSCULAR HEMOGLOBIN 27 pg (27-31); MEAN CORPUSCULAR HGB CONC 31 g/dL (33-37); MEAN CORPUSCULAR VOLUME 85.8 fL (80-94); PLATELET COUNT (AUTO) 387 K/uL (140-450); RED CELL DISTRIBUTION WIDTH 18.5 % (11.6-13.7); WHITE BLOOD COUNT (AUTO) 20.1 K/uL (4.8-10.8)
[2018-07-16 07:34] LABS: CARBON DIOXIDE 22.2 mmol/L (21-32); CHLORIDE 110 mmol/L (98-107); CREATININE 1.5 mg/dL (0.6-1.3); GLUCOSE 183 mg/dL (74-106); POTASSIUM 4.2 mmol/L (3.5-5.1); SODIUM SERUM 144 mmol/L (136-145); UREA NITROGEN, BLOOD 31 mg/dL (7-18)
[2018-07-16 07:35] LABS: MAGNESIUM 2.1 mg/dL (1.8-2.4); PHOSPHORUS 2.6 mg/dL (2.5-4.9)
[2018-07-16 08:00] VITALS: BP 115/42
[2018-07-16 08:05] LABS: BASOPHILS % (MANUAL) 0 % (0-2); EOSINOPHILS % (MANUAL) 0 % (0-4); LYMPHOCYTES % (MANUAL) 13 % (20-46); MONOCYTES % (MANUAL) 5 % (5-12)
[2018-07-16] MEDS: MISOPROSTOL 100 MCG TAB PO SCH (09:05)
[2018-07-16] MEDS: CLOPIDOGREL 75 MG TAB PO SCH (09:05)
[2018-07-16] MEDS: GLIMEPIRIDE 2 MG TAB PO SCH (09:06)
[2018-07-16] MEDS: LACTOBACILLUS RHAMNOSUS GG 1 EACH CAP PO SCH (09:06)
[2018-07-16] MEDS: GABAPENTIN 100 MG CAP PO SCH ×2 (09:07→12:47)
[2018-07-16] MEDS: LISINOPRIL 5 MG TAB PO SCH (09:07)
[2018-07-16] MEDS: FERROUS SULFATE 325 MG TABEC PO SCH (09:07)
[2018-07-16] MEDS: ASCORBIC ACID 500 MG TAB PO SCH ×2 (09:07→20:44)
[2018-07-16] MEDS: MAGNESIUM HYDROXIDE 2400 MG/30 ML UDC PO SCH (09:08)
[2018-07-16] MEDS: DOCUSATE SODIUM 100 MG GELCAP PO SCH (09:08)
--- NOTE | 2018-07-16 09:35 | NUR ---
ALL SCHEDULED MEDS GIVEN, PT SWALLOWED FINE. NO S/S OF ACUTE DISTRESS. ENSURE CLEAR WAS FINISHED. PT DID C/O TOO MANY PILLS, BUT CONVINCED PT THAT SHE NEEDS TO TAKE THEM TO GET BETTER.
--- NOTE | 2018-07-16 09:53 | NUR ---
PT WAS CLEANED AND REPOSITIONED. PT HAD BMX1, YELLOW SOFT STOOL. INCONTINENT ASSOCIATED IAD TO PERINEAL AREA NOTED, Z GUARD APPLIED, OPTIFOAM APPLIED.
--- NOTE | 2018-07-16 12:35 | NUR ---
PT CAME BACK FROM BONE SCAN. REPOSITIONED PT, CHECKED BLOOD SUGAR. RETAIL BANKER WILL FEED PT.
--- NOTE | 2018-07-16 13:30 | NUR ---
PT REFUSED SCD AT THIS TIME. BENEFIT EXPLAINED TO FAMILY AND PT. STILL REFUSED BECAUSE IT MIGHT MAKES PT UNCOMFORTABLE.
--- NOTE | 2018-07-16 14:30 | NUR ---
URINE SAMPLE OBTAINED BY MEND WORKER BY STRAIGHT CATH UNDER SUPERVISION OF THEIR INSTRUCTOR. SENT TO LAB. PT HAS NO S/S OF DISTRESS AT THIS TIME. FAMILY AT BEDSIDE.
[2018-07-16] MEDS: HYDROcodone/APAP 7.5/325 MG 1 TAB PO PRN ×2 (14:54→20:41)
--- NOTE | 2018-07-16 15:00 | NUR ---
PT WAS PREMEDICATED FOR DRESSING CHANGED. WILL CHANGE L FOOT DRESSING LATER
--- NOTE | 2018-07-16 15:40 | NUR ---
DRESSING CHANGE DONE FOR LEFT FOOT, CLEANED WITH NS, PATTED DRY, APPLIED, ADAPTIC, GAUZE AND ABD PAD, WRAPPED WITH KERLIX.
[2018-07-16 16:00] VITALS: BP 135/36
--- NOTE | 2018-07-16 16:01 | NUR ---
MOVED PT TO 107B WHICH IS CLOSER TO NURSING STATION.
--- NOTE | 2018-07-16 16:55 | NUR ---
PT IS BACK FROM BONE SCAN. NO S/S OF ACUTE DISTRESS ON O2 2L NC. BLOOD SUGAR CHECKED 371. WILL COVER WITH INSULIN.
[2018-07-16 17:43] LABS: FOLIC ACID 14.8 ng/mL (>3.0)
--- NOTE | 2018-07-16 19:15 | NUR ---
REPORT GIVEN TO SILVER MINER BLASTING RN, PATIENT IN STABLE CONDITION.
--- NOTE | 2018-07-16 19:20 | NUR ---
RECEIVED PT FROM MERVIN RN PT RWANDAN SPEAKER AAOX2 MORBID OBESITY, IV ON RT IJ INFUSING WELL RELATIVES AT BED SIDE DR CORDON IS HERE PT HAS INCONTINENT DERMATITIS AND REDNESS ONSACRAL AREA REPOSITIONED INITIAL ASSESSMENT DONE
[2018-07-16 20:00] VITALS: BP 142/46
--- NOTE | 2018-07-16 20:00 | NUR ---
LUCIA CATH IS INSERTED DR ORDER FOR STRICT I AND O AND INCONTINENT DERMATITIS
[2018-07-16] MEDS: ATORVASTATIN 20 MG TAB PO SCH (20:43)
[2018-07-16] MEDS: INSULIN LANTUS 100 UNITS/ML 10 ML VIAL SUBQ SCH (20:59)
--- NOTE | 2018-07-16 21:30 | NUR ---
BLOOD SUGAR TEST 292 ,HUMALOG SUBQ GIVEN ORDER PROTOCOL
[2018-07-17] VITALS: BP 116/42
--- NOTE | 2018-07-17 00:01 | NUR ---
AFTER PAIN MEDIC GIVEN PT SLEEPS WELL NOT DISTRESS NOTED AND REPOSITIONED Q2H
--- NOTE | 2018-07-17 00:05 | NUR ---
LAB CALLED TO REPORT PT IS POSSITIVE FOR C DIFF DR CORDON WAS NOTIFY PT FOLLOW PROTOCOL FOR C DISS
[2018-07-17] MEDS: VANCOMYCIN 500 MG VIAL PO SCH ×4 (00:21→17:43)
[2018-07-17] MEDS: Z-GUARD PASTE TP SCH ×2 (01:00→13:24)
--- NOTE | 2018-07-17 03:56 | NUR ---
REPOSITONED NOT DISTRESS NOTED LUCIA CATH DRAINING WELL YELLOW URINE
[2018-07-17] MEDS: metroNIDAZOLE 500 MG/NS PREMIX 100 ML IV SCH ×3 (04:44→20:43)
--- NOTE | 2018-07-17 05:00 | NUR ---
SPONGE BATH GIVEN LINEN CHANGED IV ON RT IJ INFUSING WELL EXCORIATION ON SACRAL AREA HEALING ON PROGRESS PT HAD A SMALL BM SOFT STOOL
[2018-07-17] MEDS: HYDROcodone/APAP 7.5/325 MG 1 TAB PO PRN (05:14)
[2018-07-17] MEDS: BLOOD GLUCOSE MONITORING 1 DEV DEV FS SCH ×4 (05:37→21:22)
[2018-07-17] MEDS: INSULIN LISPRO SLIDING SCALE 100 UNITS/ML VIAL SUBQ PRN ×4 (05:40→21:18)
--- NOTE | 2018-07-17 06:20 | NUR ---
BLOOD SUGAR TEST 210 COVERAGE WITH 4 UNITS HUMALOG SUBQ FOLLOW PROTOCOL
[2018-07-17 06:37] LABS: HEMATOCRIT 32.5 % (36-48); HEMOGLOBIN 10.4 g/dL (12.0-16.0); MEAN CORPUSCULAR HEMOGLOBIN 27 pg (27-31); MEAN CORPUSCULAR HGB CONC 32 g/dL (33-37); MEAN CORPUSCULAR VOLUME 84.5 fL (80-94); PLATELET COUNT (AUTO) 390 K/uL (140-450); RED BLOOD CELL COUNT(AUTO) 3.84 MIL/uL (4.20-5.40); RED CELL DISTRIBUTION WIDTH 18.2 % (11.6-13.7)
[2018-07-17 06:44] LABS: ANION GAP 15.8 (8-16); CARBON DIOXIDE 21.5 mmol/L (21-32); CHLORIDE 112 mmol/L (98-107); CREATININE 1.5 mg/dL (0.6-1.3); GLUCOSE 228 mg/dL (74-106); POTASSIUM 4.3 mmol/L (3.5-5.1); SODIUM SERUM 145 mmol/L (136-145); UREA NITROGEN, BLOOD 31 mg/dL (7-18)
[2018-07-17 07:07] LABS: LYMPHOCYTES % (MANUAL) 5 % (20-46); MONOCYTES % (MANUAL) 5 % (5-12)
--- NOTE | 2018-07-17 07:30 | NUR ---
RECEIVED REPORT FROM HELP DESK COORDINATOR NURSE KALEE FOR CONTINUITY OF CARE. PT IN STABLE CONDITION. RESPIRATIONS EVEN AND UNLABORED. IV INTACT AND PATENT. SAFETY MEASURES IN PLACE. BED IN LOW POSITION. BED ALARM ON. CALL LIGHT AT BEDSIDE. WILL CONTINUE TO MONITOR.
[2018-07-17 08:00] VITALS: BP 107/50
[2018-07-17] MEDS: MORPHINE SULFATE 2 MG/ML SYR IVP PRN (08:27)
[2018-07-17] MEDS: GLIMEPIRIDE 2 MG TAB PO SCH (08:29)
[2018-07-17] MEDS: GABAPENTIN 300 MG CAP PO SCH (08:30)
[2018-07-17] MEDS: DOCUSATE SODIUM 100 MG GELCAP PO SCH (08:30)
[2018-07-17] MEDS: LACTOBACILLUS RHAMNOSUS GG 1 EACH CAP PO SCH (08:31)
[2018-07-17] MEDS: CLOPIDOGREL 75 MG TAB PO SCH (08:31)
[2018-07-17] MEDS: ASCORBIC ACID 500 MG TAB PO SCH ×2 (08:32→20:41)
[2018-07-17] MEDS: LISINOPRIL 5 MG TAB PO SCH (08:49)
[2018-07-17] MEDS ORDERED: SENNA 8.6 MG TAB PO SCH (09:00)
[2018-07-17] MEDS: MISOPROSTOL 100 MCG TAB PO SCH (10:39)
--- NOTE | 2018-07-17 10:40 | NUR ---
PT LYING IN BED IN STABLE CONDITION SLEEPING AT THIS TIME. RESPIRATIONS EVEN AND UNLABORED. WILL CONTINUE TO MONITOR.
--- NOTE | 2018-07-17 12:30 | NUR ---
PT LYING IN BED IN STABLE CONDITION. BED IN LOW POSITION. CALL LIGHT AT BEDSIDE. BED ALARM ON. WILL CONTINUE TO MONITOR.
[2018-07-17] MEDS: PHARMACY COMMENTS MC SCH ×2 (13:23→17:44)
--- NOTE | 2018-07-17 13:26 | NUR ---
CALLED LYSSA AT [facility] [place] [place] AND INFORMED HER OF POS DISCHARGE TOMORROW. FAXED INFORMATION TO HER AT [phone] PHONE [phone]
--- NOTE | 2018-07-17 15:10 | NUR ---
PT LYING IN BED SLEEPING IN STABLE CONDITION. RESPIRATIONS EVEN AND UNLABORED. BED IN LOW POSITION. CALL LIGHT AT BEDSIDE. BED ALARM ON. WILL CONTINUE TO MONITOR.
[2018-07-17 16:00] VITALS: BP 128/58
--- NOTE | 2018-07-17 17:45 | NUR ---
DAUGHTER ALEJANDRA HIGH CALLED FOR UPDATE ON PT. ALEJANDRA WOULD LIKE DISCHARGE INSTRUCTIONS PLACED IN PT PROPERTY ON RETURN TO [facility] [place] AND LABELED WITH ALEJANDRA ON FOLDER.
--- NOTE | 2018-07-17 19:20 | NUR ---
GAVE REPORT TO INFORMATION TECHNOLOGY AUDIT MANAGER NURSE FOR CONTINUITY OF CARE. PT IN STABLE CONDITION.
--- NOTE | 2018-07-17 19:21 | NUR ---
RECEIVED REPORT FROM DAY SHIFT RN KEILY FOR CONTINUITY OF CARE. PT IS A/OX2, ON ROOM AIR, LATVIAN SPEAKING. PT ABLE TO MAKE NEEDS KNOWN, AND ABLE TO FOLLOW COMMANDS. PT IS BEDBOUND, SEE WOUND ASSESSMENT FOR SKIN PROBLEMS. PT HAS IV TO RIGHT FOREARM SALINE LOCKED AND PERIPHERAL IV 20G TO RIGHT EJ , ASYMPTOMATIC AND INTACT. VITAL SIGNS WITHIN NORMAL LIMITS. PT STABLE, DENIES PAIN, NO SIGNS OF DISTRESS NOTED AT THIS TIME. PT POSITIONED FOR COMFORT. BED IN LOWEST POSITION, BED ALARM ON. WILL CONTINUE TO MONITOR.
[2018-07-17] MEDS: ATORVASTATIN 20 MG TAB PO SCH (20:41)
--- NOTE | 2018-07-17 20:50 | NUR ---
ADMINISTERED SCHEDULED MEDICATIONS, PT TOLERATED WELL. WILL ADMINISTER NEEDED INSULIN WHEN ACCU-CHECK IS PERFORMED.
[2018-07-17] MEDS: INSULIN LANTUS 100 UNITS/ML 10 ML VIAL SUBQ SCH (21:17)
--- NOTE | 2018-07-17 22:03 | NUR ---
PT CRYING LOUD AND WHEN ASKED ABOUT IT. PT JUST STATES "I'M SO TIRED. MY SONS AND DAUGHTERS DON'T COME SEE ME AND I'M SO TIRED." ASKED PT IF SHE WANTED TO GET SOME REST SO THAT I COULD TURN OFF THE LIGHTS AND PT SAID YES. PT POSITIONED FOR COMFORT. BED IN LOWEST POSITION, BED ALARM ON. WILL CONTINUE TO MONITOR.
[2018-07-18] VITALS: BP 133/57
--- NOTE | 2018-07-18 | NUR ---
VITAL SIGNS WITHIN NORMAL LIMITS. PT STABLE, DENIES PAIN, NO SIGNS OF DISTRESS NOTED AT THIS TIME. PT POSITIONED FOR COMFORT. BED IN LOWEST POSITION, BED ALARM ON. WILL CONTINUE TO MONITOR.
[2018-07-18] MEDS: PHARMACY COMMENTS MC SCH ×3 (00:18→13:25)
[2018-07-18] MEDS: VANCOMYCIN 500 MG VIAL PO SCH ×3 (00:18→12:00)
[2018-07-18] MEDS: MORPHINE SULFATE 2 MG/ML SYR IVP PRN ×2 (00:18→13:03)
[2018-07-18] MEDS: NACL 0.9% 1,000 ML IV SCH ×2 (00:34→13:25)
[2018-07-18] MEDS: Z-GUARD PASTE TP SCH ×2 (01:43→13:26)
--- NOTE | 2018-07-18 02:08 | NUR ---
CLEANED WOUNDS AND DRESSED LEFT FOOT AGAIN WITH CLEAN MATERIALS. PT TOLERATED WELL. PT NOW RESTING. BED IN LOWEST POSITION, BED ALARM ON. WILL CONTINUE TO MONITOR.
--- NOTE | 2018-07-18 04:17 | NUR ---
PT STABLE, DENIES PAIN, NO SIGNS OF DISTRESS NOTED AT THIS TIME. PT POSITIONED FOR COMFORT. BED IN LOWEST POSITION, BED ALARM ON. WILL CONTINUE TO MONITOR.
[2018-07-18] MEDS: metroNIDAZOLE 500 MG/NS PREMIX 100 ML IV SCH ×2 (05:15→13:25)
[2018-07-18] MEDS: BLOOD GLUCOSE MONITORING 1 DEV DEV FS SCH ×3 (05:47→17:15)
[2018-07-18] MEDS: INSULIN LISPRO SLIDING SCALE 100 UNITS/ML VIAL SUBQ PRN ×2 (06:32→13:14)
--- NOTE | 2018-07-18 06:32 | NUR ---
ADMINISTERED HUMALOG COVERAGE OF 6 UNITS DUE TO BLOOD SUGAR BEING 251, PT TOLERATED WELL.
[2018-07-18 06:34] LABS: HEMATOCRIT 35.6 % (36-48); HEMOGLOBIN 11.1 g/dL (12.0-16.0); MEAN CORPUSCULAR HEMOGLOBIN 27 pg (27-31); MEAN CORPUSCULAR HGB CONC 31 g/dL (33-37); MEAN CORPUSCULAR VOLUME 84.8 fL (80-94); PLATELET COUNT (AUTO) 419 K/uL (140-450); RED BLOOD CELL COUNT(AUTO) 4.19 MIL/uL (4.20-5.40); RED CELL DISTRIBUTION WIDTH 18.5 % (11.6-13.7); WHITE BLOOD COUNT (AUTO) 22.3 K/uL (4.8-10.8)
[2018-07-18 06:46] LABS: ANION GAP 16.5 (8-16); CARBON DIOXIDE 20.4 mmol/L (21-32); CHLORIDE 113 mmol/L (98-107); CREATININE 1.4 mg/dL (0.6-1.3); GLUCOSE 288 mg/dL (74-106); POTASSIUM 3.9 mmol/L (3.5-5.1); SODIUM SERUM 146 mmol/L (136-145); UREA NITROGEN, BLOOD 29 mg/dL (7-18)
[2018-07-18 07:24] LABS: EOSINOPHILS % (MANUAL) 1 % (0-4); LYMPHOCYTES % (MANUAL) 12 % (20-46); MONOCYTES % (MANUAL) 7 % (5-12)
--- NOTE | 2018-07-18 07:37 | NUR ---
RECEIVED REPORT FROM SEISMOGRAPHER NURSE FOR CONTINUITY OF CARE. PT IN STABLE CONDITION. RESPIRATIONS EVEN AND UNLABORED. IV INTACT AND PATENT. SAFETY MEASURES IN PLACE. CALL LIGHT AT BEDSIDE. BED ALARM ON. BED IN LOW POSITION. WILL CONTINUE TO MONITOR.
--- NOTE | 2018-07-18 07:37 | NUR ---
ENDORSED PT TO DAY SHIFT CASSANDRA MICHAUD FOR CONTINUITY OF CARE. PT IN STABLE CONDITION.
[2018-07-18 08:00] VITALS: BP 155/63
[2018-07-18] MEDS ORDERED: METR500T1 PO (09:01)
[2018-07-18] MEDS ORDERED: VAN500I PO (09:01)
[2018-07-18] MEDS ORDERED: CEFT1SOL1 IV (09:01)
[2018-07-18] MEDS ORDERED: [UNRECOGNIZED DRUG - CODE] IV (09:01)
[2018-07-18] MEDS ORDERED: ELA25 PO (09:01)
--- NOTE | 2018-07-18 09:09 | NUR ---
REPOSITION AND CHANGED AT THIS TIME. PT TOLERATED WELL. WILL CONTINUE TO MONITOR. BED ALARM ON. BED IN LOW POSITION. CALL LIGHT AT BEDSIDE.
[2018-07-18] MEDS: LISINOPRIL 5 MG TAB PO SCH (09:42)
[2018-07-18] MEDS: LACTOBACILLUS RHAMNOSUS GG 1 EACH CAP PO SCH (09:42)
[2018-07-18] MEDS: DOCUSATE SODIUM 100 MG GELCAP PO SCH (09:42)
[2018-07-18] MEDS: GABAPENTIN 300 MG CAP PO SCH (09:42)
[2018-07-18] MEDS: ASCORBIC ACID 500 MG TAB PO SCH (09:42)
[2018-07-18] MEDS: CLOPIDOGREL 75 MG TAB PO SCH (09:43)
[2018-07-18] MEDS: GLIMEPIRIDE 2 MG TAB PO SCH (09:43)
--- NOTE | 2018-07-18 11:02 | NUR ---
RECEIVED A CALL FROM LYSSA AT [facility]. THE PATIENT CAN GO TO ROOM [address] UNDER [address] CORDON AFTER 3 PM THE AUTH FOR TRANSPORT IS [id number] PER KAREN FROM [facility]. I INFORMED CALLED [facility] AND SET UP TRANSPORT FOR 3:30 P.M. KEILY TRUJILLO AWARE.
[2018-07-18] MEDS ORDERED: LACT1CAP63 PO (12:40)
--- NOTE | 2018-07-18 12:40 | NUR ---
CALLED PHARMACY TO BRING VANCO ORAL FOR 1200 ADMINISTRATION.
--- NOTE | 2018-07-18 14:10 | NUR ---
PT CHANGED INTO TRANSPORT GOWN AND PICTURES TAKEN OF BUTTOCK WOUNDS. PT IN STABLE CONDITION.
--- NOTE | 2018-07-18 15:00 | NUR ---
GAVE REPORT TO YOSSI cMneil AT [facility] FOR CONTINUITY OF CARE. YOSSI VERBALIZED UNDERSTANDING OF REPORT. ALL QUESTIONS ANSWERED AT THIS TIME.
--- NOTE | 2018-07-18 15:30 | NUR ---
DAUGHTER AT BEDSIDE. PT IN STABLE CONDITION. DAUGHTER WILL BRING PT BELONGINGS TO [facility] WHEN TRANSPORT TEAM ARRIVES.
--- NOTE | 2018-07-18 15:45 | NUR ---
LUCIA CATHETER REMOVED AT THIS TIME. PT IN STABLE CONDITION.
--- NOTE | 2018-07-18 16:10 | NUR ---
GAVE DISCHARGE INSTRUCTIONS TO PT AND DAUGHTER AT BEDSIDE. DAUGHTER ALEJANDRA WAS WRITTEN ON DISCHARGE PACKET DISCUSSED ON 07/17/2018. IV REMOVED DISCONNECTED FROM PUMP. ID BAND REMOVED. DISCHARGE INSTRUCTIONS GIVEN TO TRANSPORT TEAM, ALL QUESTIONS ANSWERED AT THIS TIME. PT PLACED ON GURSHIRA. PT IN STABLE CONDITION.
[2018-07-19 23:25] LABS: HEMATOCRIT 33.7 % (36-48); HEMOGLOBIN 10.7 g/dL (12.0-16.0); MEAN CORPUSCULAR HEMOGLOBIN 27 pg (27-31); MEAN CORPUSCULAR HGB CONC 32 g/dL (33-37); MEAN CORPUSCULAR VOLUME 83.4 fL (80-94); PLATELET COUNT (AUTO) 414 K/uL (140-450); RED BLOOD CELL COUNT(AUTO) 4.04 MIL/uL (4.20-5.40); RED CELL DISTRIBUTION WIDTH 18.3 % (11.6-13.7); WHITE BLOOD COUNT (AUTO) 19.4 K/uL (4.8-10.8)
[2018-07-19 23:49] LABS: ALBUMIN 1.6 g/dL (3.4-5.0); ANION GAP 14.7 (8-16); ASPARTATE AMINOTRANSFERASE 24 U/L (15-37); CARBON DIOXIDE 21.5 mmol/L (21-32); CHLORIDE 109 mmol/L (98-107); CREATININE 1.3 mg/dL (0.6-1.3); GLUCOSE 320 mg/dL (74-106); POTASSIUM 4.2 mmol/L (3.5-5.1); SODIUM SERUM 141 mmol/L (136-145); TOTAL BILIRUBIN 0.3 mg/dL (0.0-1.0); UREA NITROGEN, BLOOD 29 mg/dL (7-18)
[2018-07-19 23:59] LABS: LYMPHOCYTES % (MANUAL) 10 % (20-46); MONOCYTES % (MANUAL) 6 % (5-12); PROMYELOCYTES % 1 % (0-0)
[2018-07-20] MEDS ORDERED: VANCOMYCIN 500 MG VIAL PO SCH
[2018-07-20] MEDS ORDERED: metroNIDAZOLE 500 MG TAB PO SCH (05:00)
--- NOTE | 2018-07-20 12:22 | NUR ---
CALLED JUVENCIO FROM [facility]. PATIENT CAN GO BACK TO [address] CORDON. AFTER 3P.M. I CALLED BRYANT FROM [facility]. [facility] FOR [facility], [id number] I CALLED JUVENCIO AND TOLD HIM THAT THE URINE CULTURE DONE ON 07/16/18 SHOWED VRE. THE PATIENT STILL CAN GO BACK TO 37A, NO ONE ELSE IN ROOM. FAXED CULTURE RESULTS TO HIM. I SPOKE WITH DR. PETERSON ABOUT THE VRE. HE SAID HE WOULD CONTACT DR. STEELE. PLAN DISCHARGE TODAY AFTER HE SPEAKS WITH DR. HOFFMANN. HOLD TRANSPORT FOR NOW. Addendum: 07/20/18 at 1630 by Tamanna Pelletier CM ERROR, SPEAK WITH DR. STEELE
== END 2018-07-18 17:15 | DRG 871 ==
LOC: MED 22:03 → MTU 07-14 00:52
PROVIDERS: ADMIT General Practice; ATTEND General Practice
DX: A41.9 Sepsis, unspecified organism (principal); N17.0 Acute kidney failure with tubular necrosis; I50.43 Acute on chronic combined systolic (congestive) and diastolic (congestive) heart failure; E43 Unspecified severe protein-calorie malnutrition; N39.0 Urinary tract infection, site not specified; A04.72 Enterocolitis due to Clostridium difficile, not specified as recurrent; L03.90 Cellulitis, unspecified; M86.9 Osteomyelitis, unspecified; J98.11 Atelectasis; I69.354 Hemiplegia and hemiparesis following cerebral infarction affecting left non-dominant side; Z68.43 Body mass index [BMI] 50.0-59.9, adult; L97.529 Non-pressure chronic ulcer of other part of left foot with unspecified severity; E11.621 Type 2 diabetes mellitus with foot ulcer; E11.69 Type 2 diabetes mellitus with other specified complication; E66.9 Obesity, unspecified; F32.9 Major depressive disorder, single episode, unspecified; F41.9 Anxiety disorder, unspecified; F91.9 Conduct disorder, unspecified; I11.0 Hypertensive heart disease with heart failure; Z66 Do not resuscitate; K59.00 Constipation, unspecified; E11.51 Type 2 diabetes mellitus with diabetic peripheral angiopathy without gangrene; E11.40 Type 2 diabetes mellitus with diabetic neuropathy, unspecified; E11.21 Type 2 diabetes mellitus with diabetic nephropathy; E83.39 Other disorders of phosphorus metabolism; D63.8 Anemia in other chronic diseases classified elsewhere; Z79.899 Other long term (current) drug therapy; Z79.4 Long term (current) use of insulin
CPT/HCPCS: 36415; 71045; 73630; 74018; 76881; 78315; 80048; 80053; 81001; 82150; 82607; 82746; 82948; 83036; 83540; 83605; 83690; 83735; 83880; 84100; 84443; 84484; 85025; 85045; 85610; 85730; 87040; 87070; 87081; 87086; 87186; 87804; 93005; 93925; 93970; 96361; 96365; 96375; 97110; 97530; 99285; A9503; C1758; J0696; J1644; J1815; J2270; J3370; J3490; J7030; J7060; Q0092

== ENCOUNTER 2018-07-19 21:45 | Observation (INO) | payer OTHER ==
[~2018-07-19] VITALS: Ht 152.4 cm; Wt 116.6 kg
[~2018-07-19 21:45] MED LIST changes: +ACET-2619 PO; +ASCO500T45 PO; -ASPI-1718 PO; +ATOR20TA PO; -ATOR40TA PO; +BISA-213 RC; +CEFT1SOL1 IV; -CETI-32 PO; -CIPR500T4 PO; +CRAN450C PO; -DICL100T2 PO; +DOCU-299 PO; +ELA25 PO; -FURO-572 PO; +GABA100C PO; +HYDR-5092 PO; +INSU100I7 SQ; +LACT1CAP63 PO; +LISI5TAB18 PO; -LORA1TAB7 PO; +MAGN400S60 PR; +MECL-272 PO; -METO-747 PO; +METR500T1 PO; +NA P133E RC; +SLIDE SUBQ; +VAN500I PO; -VITA1TAB44 PO; -VITD1000 PO; +[UNRECOGNIZED DRUG - CODE] IV; -[UNRECOGNIZED DRUG - CODE] PO
[2018-07-19 22:00] VITALS: BP 156/61
[2018-07-19] MEDS ORDERED: DOCUSATE SODIUM 100 MG GELCAP PO PRN (22:05)
[2018-07-19] MEDS ORDERED: ACETAMINOPHEN 325 MG TAB PO PRN (22:05)
[2018-07-19] MEDS ORDERED: ONDANSETRON 4 MG/2 ML VIAL IM/IVP PRN (22:05)
--- NOTE | 2018-07-19 22:05 | NUR ---
RECEIVED PT DIREST ADMIT FROM COMMUNITY PROFESSOR OF PSYCHOLOGY CARE ADMITTING FOR PICC LINE TO CONTINUE ANTIBIOTICS PT HAS POSS C DIF PT IA AAOX2 BENINESE SPEAKER OBESE BRUISES ON BOTH ARMS AND OPEN WOIUND 2X2 ON LEFT FOOT PT IS ;ORIENTED TO THE FLOOR CALL LIGHT WITHIN REACH,
[2018-07-19] MEDS ORDERED: SODIUM PHOSPHATE 118 ML ENEM RC PRN (22:30)
[2018-07-19] MEDS ORDERED: DEXTROSE 50% 50 ML SYR IVP PRN (23:20)
[2018-07-19] MEDS: WATER STERILE 10 ML MC ONE (23:29)
--- NOTE | 2018-07-19 23:30 | NUR ---
PICC LINE NURSE INSERTED PICCLINE ON RT UPPER ARM
[2018-07-19] MEDS ORDERED: cefTRIAXone 1,000 MG VIAL ONE (23:31)
[2018-07-19] MEDS: NACL 0.9% 1,000 ML IV SCH (23:41)
[2018-07-19 23:43] LABS: PROTHROMBIN TIME 10.8 secs (10.8-13.4)
[2018-07-19 23:51] LABS: HEMATOCRIT 33.7 % (36-48); HEMOGLOBIN 10.7 g/dL (12.0-16.0); MEAN CORPUSCULAR HEMOGLOBIN 27 pg (27-31); MEAN CORPUSCULAR HGB CONC 32 g/dL (33-37); MEAN CORPUSCULAR VOLUME 83.4 fL (80-94); RED BLOOD CELL COUNT(AUTO) 4.04 MIL/uL (4.20-5.40); RED CELL DISTRIBUTION WIDTH 18.3 % (11.6-13.7); WHITE BLOOD COUNT (AUTO) 19.4 K/uL (4.8-10.8)
[2018-07-19 23:52] LABS: LYMPHOCYTES % (MANUAL) 10 % (20-46); PLATELET COUNT (AUTO) 414 K/uL (140-450)
[2018-07-19 23:53] LABS: MONOCYTES % (MANUAL) 5 % (5-12); PROMYELOCYTES % 1 % (0-0)
[2018-07-19] MEDS: VANCOMYCIN 500 MG VIAL PO SCH (23:56)
[2018-07-19 23:57] LABS: MAGNESIUM 2.1 mg/dL (1.8-2.4); PHOSPHORUS 2.2 mg/dL (2.5-4.9)
[2018-07-19] MEDS: MORPHINE SULFATE 2 MG/ML SYR IVP PRN (23:57)
[2018-07-20] VITALS: BP 145/49
--- NOTE | 2018-07-20 00:11 | NUR ---
ANTIBIOTICS AND IV FLLUIDS GIVEN ORDER AND ALSO PAIN MEDIC PT WILL BE MONITORING
[2018-07-20] MEDS: WATER STERILE 10 ML MC ONE (00:14)
--- NOTE | 2018-07-20 01:00 | NUR ---
PT SLEEPING WELL NOT SIGN OF DISTRESS NOTED FLUIDS ON RT UA PICCLINE INFUSING WELL
[2018-07-20 01:09] LABS: CHLORIDE 109 mmol/L (98-107); POTASSIUM 4.2 mmol/L (3.5-5.1); SODIUM SERUM 141 mmol/L (136-145)
[2018-07-20 01:10] LABS: ANION GAP 14.7 (8-16); ASPARTATE AMINOTRANSFERASE 24 U/L (15-37); CARBON DIOXIDE 21.5 mmol/L (21-32); CREATININE 1.3 mg/dL (0.6-1.3); GLUCOSE 320 mg/dL (74-106); TOTAL BILIRUBIN 0.3 mg/dL (0.0-1.0); UREA NITROGEN, BLOOD 29 mg/dL (7-18)
[2018-07-20 01:11] LABS: ALBUMIN 1.6 g/dL (3.4-5.0)
--- NOTE | 2018-07-20 03:00 | NUR ---
SPONGE BATH GIVEN LINEN CHANGED A BIG BM SEMILIQUID, PT REPOSITIONE PICTURE TAKEN SACROCCOYGEAL DISCOLORATIO LEFT BUTTOCK OPEN WOUND HEALING ON PROGRESS RT BUTTOCK EXCORIATION
[2018-07-20 04:00] VITALS: BP 139/71
--- NOTE | 2018-07-20 04:00 | NUR ---
LUCIA CATH WAS INSERTED AND URINE SENT TO LAB
[2018-07-20] MEDS: HYDROcodone/APAP 7.5/325 MG 1 TAB PO PRN ×3 (04:23→17:28)
[2018-07-20] MEDS ORDERED: HYDROcodone/APAP 7.5/325 MG 1 TAB ONE (04:30)
[2018-07-20] MEDS ORDERED: metroNIDAZOLE 500 MG/NS PREMIX 100 ML IV SCH (05:00)
[2018-07-20] MEDS ORDERED: metroNIDAZOLE 500 MG TAB PO SCH ×2 (05:00)
[2018-07-20] MEDS: metroNIDAZOLE 500 MG/NS PREMIX 100 ML IV SCH ×2 (05:08→12:55)
[2018-07-20 05:16] LABS: APPEARANCE,URINE CLOUDY (CLEAR); BILIRUBIN,URINE NEGATIVE (NEGATIVE); BLOOD, URINE 1+ (NEGATIVE); COLOR,URINE DARK YELLOW (YELLOW); LEUKOCYTE ESTERASE ,URINE NEGATIVE (NEGATIVE); NITRITE, URINE NEGATIVE (NEGATIVE); PH,URINE 5.5 (5.0-9.0); UGLUCOSE 1+ (NEGATIVE)
[2018-07-20] MEDS: VANCOMYCIN 500 MG VIAL PO SCH ×3 (05:21→17:31)
[2018-07-20 05:28] LABS: URINE AMORPHOUS URATE 2+ /HPF (None Seen); YEAST,URINE Few /HPF (None Seen)
[2018-07-20 05:29] LABS: COARSE GRANULAR CASTS,URINE 0-10 /LPF (None Seen)
[2018-07-20] MEDS: INSULIN LISPRO SLIDING SCALE 100 UNITS/ML VIAL SUBQ PRN ×3 (05:57→17:29)
[2018-07-20] MEDS: BLOOD GLUCOSE MONITORING 1 DEV DEV FS SCH ×3 (06:02→17:27)
[2018-07-20] MEDS: NACL 0.9% 1,000 ML IV SCH (06:09)
--- NOTE | 2018-07-20 06:19 | NUR ---
BLOOD SUGAR TEST 281 COVERAGE SUB W HUMALOG 6 UNIS PROTOCOL
[2018-07-20 06:56] LABS: BASOPHILS % (AUTO) 0.3 % (0.0-2.0); EOSINOPHILS # (AUTO) 0.1 K/uL (0-0.4); EOSINOPHILS % (AUTO) 0.8 % (0.0-4.0); HEMATOCRIT 31.6 % (36-48); LYMPHOCYTES # (AUTO) 1.6 K/uL (2.5-16.5); LYMPHOCYTES % (AUTO) 10.5 % (20.5-51.1); MEAN CORPUSCULAR HEMOGLOBIN 27 pg (27-31); MEAN CORPUSCULAR HGB CONC 32 g/dL (33-37); MEAN CORPUSCULAR VOLUME 83.8 fL (80-94); MONOCYTES # (AUTO) 1.2 K/uL (0.8-1.0); MONOCYTES % (AUTO) 7.4 % (1.7-9.3); NEUTROPHILS # (AUTO) 12.7 K/uL (1.8-7.7); PLATELET COUNT (AUTO) 375 K/uL (140-450); RED BLOOD CELL COUNT(AUTO) 3.77 MIL/uL (4.20-5.40); RED CELL DISTRIBUTION WIDTH 18.7 % (11.6-13.7); WHITE BLOOD COUNT (AUTO) 15.7 K/uL (4.8-10.8)
--- NOTE | 2018-07-20 07:20 | NUR ---
RECEIVED BEDSIDE REPORT FROM CASSANDRA GRANDA. PT STABLE, SLEEPING, BUT EASILY AROUSABLE. A&O X1. NO SIGNS OF DISTRESS NOTED. PT CALM, NO MOANING OR CRYING OBSERVED. NO REDNESS, SWELLING, OR INFLAMMATION NOTED ON IV SITE. CALL CONNELL WITHIN REACH. BED IN LOWEST POSITION. SAFETY MEASURES IN PLACE. PLAN OF CARE REVIEWED.
[2018-07-20 07:28] LABS: MAGNESIUM 2.1 mg/dL (1.8-2.4); PHOSPHORUS 2.4 mg/dL (2.5-4.9)
[2018-07-20 07:29] LABS: ANION GAP 14.7 (8-16); CARBON DIOXIDE 20.5 mmol/L (21-32); CHLORIDE 111 mmol/L (98-107); CREATININE 1.3 mg/dL (0.6-1.3); GLUCOSE 336 mg/dL (74-106); POTASSIUM 4.2 mmol/L (3.5-5.1); SODIUM SERUM 142 mmol/L (136-145); UREA NITROGEN, BLOOD 30 mg/dL (7-18)
--- NOTE | 2018-07-20 07:50 | NUR ---
PATIENT HAS BEEN SCREENED AND CATEGORIZED HIGH NUTRITION RISK. PATIENT WILL BE SEEN WITHIN 1-2 DAYS OF ADMISSION. 07/20/18-07/21/[address]
[2018-07-20 08:00] VITALS: BP 144/83
[2018-07-20] MEDS: FERROUS GLUCONATE 324 MG TAB PO SCH ×2 (08:00→17:28)
[2018-07-20] MEDS ORDERED: CLOPIDOGREL 75 MG TAB PO SCH (09:00)
[2018-07-20] MEDS ORDERED: GLIMEPIRIDE 2 MG TAB PO SCH (09:00)
[2018-07-20] MEDS ORDERED: GABAPENTIN 300 MG CAP PO SCH (09:00)
[2018-07-20] MEDS ORDERED: DOCUSATE SODIUM 100 MG GELCAP PO SCH (09:00)
[2018-07-20] MEDS ORDERED: LISINOPRIL 5 MG TAB PO SCH (09:00)
[2018-07-20] MEDS ORDERED: GABAPENTIN 100 MG CAP PO SCH (09:00)
[2018-07-20] MEDS ORDERED: LACTOBACILLUS RHAMNOSUS GG 1 EACH CAP PO SCH (09:00)
[2018-07-20] MEDS ORDERED: MISOPROSTOL 200 MCG TAB PO SCH (09:00)
[2018-07-20] MEDS ORDERED: ASCORBIC ACID 500 MG TAB PO SCH (09:00)
--- NOTE | 2018-07-20 09:05 | NUR ---
SCHEDULED HEPARIN ADMINISTERED, PT TOLERATED WELL. OTHER SCHEDULED MEDICATIONS NOT GIVEN DUE TO MEDS NOT AVAILABLE IN THE [facility].
--- NOTE | 2018-07-20 09:52 | NUR ---
ADMINISTERED SCHEDULED PLAVIX AND PRN NORCO, PT MOANING AND CRYING.
--- NOTE | 2018-07-20 10:46 | NUR ---
SPOKE WITH GRUPO FROM ADMITTING REGARDING PT UNABLE TO SIGN ADMITTING PAPERWORK.
--- NOTE | 2018-07-20 11:34 | NUR ---
FAXED INFORMATION TO [facility] [phone]. TO GO BACK TO [facility].
--- NOTE | 2018-07-20 13:00 | NUR ---
ADMINISTERED SCHEDULED MEDICATION, PT TOLERATED WELL. PT CALM AND QUIET.
--- NOTE | 2018-07-20 14:01 | NUR ---
SPOKE WITH DR. VAIL. PATIENT IS OK TO GO BACK [place] [facility] [place] ARRANGED GURNEY TRANSPORT WITH [facility] FOR 3P.M. AUTH NUMBER FROM [facility] [id number]. INFORMED HARPREET CRANE RN.
--- NOTE | 2018-07-20 15:12 | NUR ---
GAVE REPORT TO ROSSY FROM [facility].
--- NOTE | 2018-07-20 15:57 | NUR ---
PATIENT WILL NEED BARIATRIC GURNEY. WILL OBSTETRICS NURSE PRACTITIONER PATIENT AT 8:30P.MArmani HALL RN INFORMED
[2018-07-20 16:00] VITALS: BP 118/67
[2018-07-20] MEDS ORDERED: AMITRIPTYLINE 25 MG TAB PO SCH (17:00)
[2018-07-20 17:20] LABS: APPEARANCE,URINE SL CLOUDY (CLEAR); BILIRUBIN,URINE NEGATIVE (NEGATIVE); BLOOD, URINE 1+ (NEGATIVE); COLOR,URINE YELLOW (YELLOW); LEUKOCYTE ESTERASE ,URINE NEGATIVE (NEGATIVE); NITRITE, URINE NEGATIVE (NEGATIVE); UGLUCOSE 3+ (NEGATIVE)
--- NOTE | 2018-07-20 17:38 | NUR ---
ADMINISTERED SCHEDULED MEDICATIONS AND PRN NORCO, PT CRYING AND MOANING.
--- NOTE | 2018-07-20 18:30 | NUR ---
PT CALM AND QUIET. FAMILY AT THE BEDSIDE.
--- NOTE | 2018-07-20 19:10 | NUR ---
ENDORSED PT TO CASSANDRA GARRISON FOR CONTINUITY OF CARE. PT STABLE, AWAKE, AND ALERT.
--- NOTE | 2018-07-20 19:11 | NUR ---
RECEIVED FROM AM SHIFT NURSE, ROYCE MULLINS PT [id number], KENYAN SPEAKING, WITH FAMILY AROUND. FOR D/ C TO [facility], PT HAS LEFT BUTTOCKS PI, AND WOUND ON LEFT LEG W/ DRESSING. WWAWAITING [facility]. WILL CONTINUE TO MONITOR
[2018-07-20] MEDS: MORPHINE SULFATE 2 MG/ML SYR IVP PRN (20:28)
[2018-07-20] MEDS ORDERED: MORPHINE SULFATE 2 MG/ML SYR ONE (20:35)
--- NOTE | 2018-07-20 20:35 | NUR ---
VS TAKEN PTS HIGH RATE HIGH, AT 133. BP 122/[address] REHMAN, AT BEDSIDE TO GIVE MORPHINE PRN. PT MOANING. Addendum: 07/20/18 at 2219 by Anita Spencer RN HEART RATE AT 133
--- NOTE | 2018-07-20 20:37 | NUR ---
PER DR. REHMAN GIVE REMAINING IVF 500 ML OF NS BOLUS
--- NOTE | 2018-07-20 20:52 | NUR ---
PT HAS TOTAL OF 1100ML NS + 100 ML OF ANTIBIOTIC IN 24 HRS
[2018-07-20] MEDS ORDERED: ATORVASTATIN 20 MG TAB PO SCH (21:00)
[2018-07-20] MEDS ORDERED: INSULIN LANTUS 100 UNITS/ML 10 ML VIAL SUBQ SCH ×2 (21:00)
--- NOTE | 2018-07-20 21:00 | NUR ---
PT'S MEDS NOT GIVEN BECAUSE PT'S DISCHARGED AT 2113. TRANSPO ARRIVED
--- NOTE | 2018-07-20 21:14 | NUR ---
PT LEFT HOSPITAL AT 2113 WITH [facility] VIA GURNEY, WITH 2 FAMILY MEMBERS. PT VS WAS 150/70, PT WAS GIVEN PAIN MED AT 2027 (MORPHINE 2 MG IV PUSH PRN GIVEN) DR. REHMAN AWARE. HR 137. DR. REHMAN CHECKED ON PT BEFORE PT. LEFT. W/ RELATIVES AT BEDSIDE
[2018-07-21] MEDS ORDERED: MAGNESIUM HYDROXIDE 2400 MG/30 ML UDC PO SCH (09:00)
--- NOTE | 2018-07-21 09:25 | NUR ---
WOUND CARE EVALUATION NOT DONE. PT. DISCHARGED.
== END 2018-07-20 21:14 ==
LOC: MTU 21:45 → UNDOADMIN 21:45 → MTU 21:45
PROVIDERS: ADMIT Family Medicine; ATTEND Family Medicine
DX: A04.72 Enterocolitis due to Clostridium difficile, not specified as recurrent (principal); E11.622 Type 2 diabetes mellitus with other skin ulcer; L97.529 Non-pressure chronic ulcer of other part of left foot with unspecified severity; E11.51 Type 2 diabetes mellitus with diabetic peripheral angiopathy without gangrene; K59.00 Constipation, unspecified; F32.9 Major depressive disorder, single episode, unspecified; E43 Unspecified severe protein-calorie malnutrition; D64.9 Anemia, unspecified; M86.8X7 Other osteomyelitis, ankle and foot; I11.9 Hypertensive heart disease without heart failure; Z79.899 Other long term (current) drug therapy; Z79.01 Long term (current) use of anticoagulants; Z86.73 Personal history of transient ischemic attack (TIA), and cerebral infarction without residual deficits
CPT/HCPCS: 36415; 71045; 76937; 80048; 80053; 81001; 82948; 83735; 84100; 85025; 85610; 85730; 87081; 87086; 93005; 96361; 96365; 96366; 96367; 96372; 96375; 96376; G0378; J0696; J1644; J1815; J2270; J3370; J3490; J7030; J7060; Q0092

== ENCOUNTER 2018-07-27 18:02 | Inpatient (IN) | payer OTHER ==
[~2018-07-27] VITALS: Ht 154.9 cm; Wt 111.1 kg
[2018-07-27 18:02] VITALS: BP 142/50
--- NOTE | 2018-07-27 18:15 | NUR ---
BIBA FOR R ARM PAIN/REDNESS/SWELLING. PT ON 2LPM NC, NO DISTRESS NOTED. PICC LINE TO R ARM, EDEMA TO SERA ARMS, ULCER TO L FOOT, PRESSURE ULCER TO L SACRAL AREA. SKIN IS DRY; INCONTINENT, PT WEARING BRIEF. aAOX4 FALL RISK, NON AMBULATORY. LUNGS CLEAR BL; HR EVEN AND REGULAR; VSS; PATIENT POSITIONED FOR COMFORT; HOB ELEVATED; BEDRAILS UP X1; BED DOWN. ER MD MADE AWARE OF PT STATUS.
--- NOTE | 2018-07-27 19:11 | NUR ---
ASSUMED CARE OF PT FROM CASSANDRA CASTORENA.
--- NOTE | 2018-07-27 19:18 | NUR ---
Dr. Cerrato evaluating patient at bedside.
[2018-07-27] MEDS ORDERED: NACL 0.9% 500 ML IV SCH (19:23)
[2018-07-27 19:56] LABS: MEAN CORPUSCULAR HEMOGLOBIN 27 pg (27-31)
[2018-07-27 20:00] LABS: BASOPHILS % (AUTO) 0.5 % (0.0-2.0); EOSINOPHILS # (AUTO) 0.2 K/uL (0-0.4); EOSINOPHILS % (AUTO) 1.8 % (0.0-4.0); HEMATOCRIT 33.3 % (36-48); HEMOGLOBIN 10.8 g/dL (12.0-16.0); LYMPHOCYTES # (AUTO) 1.5 K/uL (2.5-16.5); LYMPHOCYTES % (AUTO) 17.8 % (20.5-51.1); MEAN CORPUSCULAR HGB CONC 32 g/dL (33-37); MEAN CORPUSCULAR VOLUME 83.6 fL (80-94); MONOCYTES # (AUTO) 0.7 K/uL (0.8-1.0); NEUTROPHILS % (AUTO) 71.9 % (42.2-75.2); PLATELET COUNT (AUTO) 341 K/uL (140-450); RED BLOOD CELL COUNT(AUTO) 3.98 MIL/uL (4.20-5.40); RED CELL DISTRIBUTION WIDTH 19.3 % (11.6-13.7); WHITE BLOOD COUNT (AUTO) 8.4 K/uL (4.8-10.8)
--- NOTE | 2018-07-27 20:00 | NUR ---
# 14 FR Urinary catheter inserted utilizing sterile technique. Immediate return of 100 ml YELLOW urine noted. Urine sample collected and sent to lab. CATHETER REMOVED AND INTACT. Pt tolerated procedure WELL. PROCEDURE CHAPERONED BY CASSANDRA DUENAS.
[2018-07-27 20:15] LABS: ALBUMIN 1.7 g/dL (3.4-5.0); ANION GAP 11.5 (8-16); ASPARTATE AMINOTRANSFERASE 30 U/L (15-37); CARBON DIOXIDE 26.1 mmol/L (21-32); CHLORIDE 104 mmol/L (98-107); CREATININE 1.1 mg/dL (0.6-1.3); GLUCOSE 179 mg/dL (74-106); POTASSIUM 4.6 mmol/L (3.5-5.1); SODIUM SERUM 137 mmol/L (136-145); TOTAL BILIRUBIN 0.3 mg/dL (0.0-1.0); UREA NITROGEN, BLOOD 12 mg/dL (7-18)
[2018-07-27] MEDS ORDERED: PIPERACILLIN/TAZOBACTAM 3.375 GM in DEXTROSE 5% 50 ML IV ONE (20:15)
--- NOTE | 2018-07-27 20:28 | NUR ---
Unable to use right arm d/t positive DVT in right arm. PICC line is in right arm and per Dr. Cerrato cannot use right arm at this time. Medications ordered can wait until new PICC line inserted. PICC line nurse has been called in to insert new PICC site for patient per powerhouse electrician Margo.
[2018-07-27] MEDS ORDERED: ENOXAPARIN 100 MG/ML SYR SUBQ ONE (20:30)
[2018-07-27] MEDS ORDERED: ENOXAPARIN 40 MG/0.4 ML SYR SUBQ ONE (20:30)
[2018-07-27] MEDS ORDERED: PIPERACILLIN/TAZOBACTAM 3.375 GM VIAL IV ONE (20:34)
[2018-07-27] MEDS ORDERED: ACETAMINOPHEN 325 MG TAB PO PRN (20:40)
[2018-07-27] MEDS ORDERED: DOCUSATE SODIUM 100 MG GELCAP PO PRN (20:40)
[2018-07-27] MEDS ORDERED: MORPHINE SULFATE 2 MG/ML SYR IVP PRN (20:40)
[2018-07-27] MEDS ORDERED: HYDROcodone/APAP 7.5/325 MG 1 TAB PO PRN (20:40)
[2018-07-27 20:51] LABS: APPEARANCE,URINE CLEAR (CLEAR); BILIRUBIN,URINE NEGATIVE (NEGATIVE); BLOOD, URINE TRACE-I (NEGATIVE); COLOR,URINE YELLOW (YELLOW); LEUKOCYTE ESTERASE ,URINE NEGATIVE (NEGATIVE); NITRITE, URINE NEGATIVE (NEGATIVE); UGLUCOSE NEGATIVE (NEGATIVE)
[2018-07-27 21:07] LABS: CHOL/HDL RATIO 4.3 (1-4.5); MAGNESIUM 1.8 mg/dL (1.8-2.4); PHOSPHORUS 2.7 mg/dL (2.5-4.9); THYROID STIMULATING HORMONE 0.96 uIU/mL (0.34-3.74)
--- NOTE | 2018-07-27 21:27 | NUR ---
Patient will be admitted to care of [facility]. Admited to TELE. Will go to room 116. Belongings list completed. Report to CASSANDRA BOYD.
[2018-07-27 21:30] VITALS: BP 151/90
--- NOTE | 2018-07-27 21:30 | NUR ---
PT ARRIVED TO UNIT VIA GURNEY. RECEIVED REPORT FROM ER NURSE AARON-RN AT BEDSIDE. PT AOX4- CAMEROONIAN SPEAKING, ON 2L/NC WITH LEFT AC #22 AND RIGHT UPPER ARM PICC LINE CURRENTLY NOT IN USE DUE TO SUSPECTED DVT. BUE PITTING EDEMA +4 WITH SACRAL REDNESS AND LEFT FOOT S/P DEBRIDEMENT. VITAL SIGNS TAKEN AND MRSA NARES SWAB COLLECTED. ORIENTED PT TO BEDROOM, BED AND CALL LIGHT. PT VERBALIZED UNDERSTANDING. NO S/S OF RESPIRATORY DISTRESS OR DISCOMFORT NOTED AT THIS TIME. BED IN LOWEST POSITION, BED BREAKS ON, BOTH SIDE RAILS UP AND BOTH FALL AND CONTACT PRECAUTIONS IN PLACE- MAINTENANCE TRAINER OF WOUND. BEDSIDE TABLE AND CALL LIGHT ARE WITHIN REACH. WILL CONTINUE TO MONITOR.
[2018-07-27] MEDS ORDERED: SODIUM PHOSPHATE 118 ML ENEM RC PRN (22:10)
[2018-07-27] MEDS: NACL 0.9% 1,000 ML IV SCH (22:15)
[2018-07-27] MEDS ORDERED: HEPARIN PER PHARMACY MC PRN (22:15)
[2018-07-27] MEDS ORDERED: hePARIN / DEXT 5% PREMIX 250 ML IV SCH ×2 (22:15→22:40)
--- NOTE | 2018-07-27 22:15 | NUR ---
NS 0.9% RUNNING AT 100ML/HR ON LEFT AC #22G. PT TOLERATING WELL. NO S/S OF RESPIRATORY DISTRESS OR DISCOMFORT NOTED AT THIS TIME. WILL CONTINUE TO MONITOR.
--- NOTE | 2018-07-27 22:53 | NUR ---
SCHEDULED MEDICATION ROCEPHIN AND FLAGYL GIVEN AND TOLERATED WELL. NO S/S OF RESPIRATORY DISTRESS OR DISCOMFORT NOTED AT THIS TIME. WILL CONTINUE TO MONITOR.
[2018-07-27] MEDS ORDERED: cefTRIAXone 1,000 MG VIAL ONE (22:54)
[2018-07-27] MEDS ORDERED: metroNIDAZOLE 500 MG TAB PO SCH (23:00)
[2018-07-27] MEDS: VANCOMYCIN 500 MG VIAL PO SCH (23:47)
--- NOTE | 2018-07-27 23:47 | NUR ---
SCHEDULED MEDICATION VANCOCIN GIVEN AND TOLERATED WELL. PICC LINE NURSE ERWIN AT BEDSIDE- US REVEALED PICC LINE DOES NOT HAVE DVT-FLUSHED WITH NS AND PATENT- OK TO USE- DR. ANDREW REHMAN AWARE. HEPARIN WILL BEGIN 07/28/2018 @0900 DUE TO LOVENOX GIVEN IN ER X2. NO S/S OF RESPIRATORY DISTRESS OR DISCOMFORT NOTED AT THIS TIME. WILL CONTINUE TO MONITOR.
[2018-07-27] MEDS ORDERED: WATER STERILE 20 ML MC ONE (23:48)
[2018-07-28] VITALS: BP 100/38
--- NOTE | 2018-07-28 | NUR ---
VITAL SIGNS TAKEN AND TOLERATED WELL. NO S/S OF RESPIRATORY DISTRESS OR DISCOMFORT NOTED AT THIS TIME. WILL CONTINUE TO MONITOR.
--- NOTE | 2018-07-28 02:00 | NUR ---
PT SLEEPING IN BED. NO S/S OF RESPIRATORY DISTRESS OR DISCOMFORT NOTED AT THIS TIME. WILL CONTINUE TO MONITOR.
[2018-07-28 04:00] VITALS: BP 124/94
--- NOTE | 2018-07-28 04:00 | NUR ---
VITAL SIGNS TAKEN AND TOLERATED WELL. NO S/S OF RESPIRATORY DISTRESS OR DISCOMFORT NOTED AT THIS TIME. WILL CONTINUE TO MONITOR.
[2018-07-28] MEDS: metroNIDAZOLE 500 MG TAB PO SCH ×3 (04:41→20:20)
--- NOTE | 2018-07-28 04:41 | NUR ---
SCHEDULED MEDICATION GIVEN AND TOLERATED WELL. NO S/S OF RESPIRATORY DISTRESS OR DISCOMFORT NOTED AT THIS TIME. WILL CONTINUE TO MONITOR.
[2018-07-28] MEDS ORDERED: DEXTROSE 50% 50 ML SYR IVP PRN (04:45)
[2018-07-28] MEDS: GLIMEPIRIDE 2 MG TAB PO SCH (06:10)
[2018-07-28] MEDS: VANCOMYCIN 500 MG VIAL PO SCH ×3 (06:10→17:59)
--- NOTE | 2018-07-28 06:10 | NUR ---
SCHEDULED MEDICATIONS GIVEN AND TOLERATED WELL. BLOOD GLUCOSE 135- NO INSULIN COVERAGE GIVEN. NO S/S OF RESPIRATORY DISTRESS OR DISCOMFORT NOTED AT THIS TIME. WILL CONTINUE TO MONITOR.
[2018-07-28] MEDS: BLOOD GLUCOSE MONITORING 1 DEV DEV FS SCH ×4 (06:11→20:20)
[2018-07-28] MEDS ORDERED: WATER STERILE 20 ML MC ONE (06:13)
[2018-07-28] MEDS ORDERED: MEDICATION REC. PHARMACY CONS. 1 EA MISC MC PRN (06:50)
--- NOTE | 2018-07-28 07:09 | NUR ---
ENDORSED PT CARE TO DAY SHIFT NURSE KAEL FOR CONTINUITY OF CARE.
--- NOTE | 2018-07-28 07:10 | NUR ---
RECEIVED BEDSIDE REPORT FROM COMPLIANCE PROJECT MANAGER NURSE. PATIENT IS RESTING ON BED AT THIS TIME. PATIENT IS ALERT AND ORIENTED X4, AND COOPERATIVE. RESPIRATION EVEN AND UNLABORED ON 2L/MIN NC. DENIES PAIN. ABLE TO MAKE NEEDS KNOWN AND FOLLOW COMMAND. NO SIGN OF DISTRESS NOTED. SKIN IS WARM AND DRY. BUE PITTING EDEMA NOTED. IV ON LAC 22G, PATENT AND INTACT, INFUSING PER MD ORDER. RIGHT UPPER ARM PICC LINE NOTED, AND NOT IN USE AT THIS TIME. PATIENT IS BEDREST AND INCONTINENT. LEFT FOOT WOUND NOTED AND DRESSING IS DRY AND INTACT. SACRAL REDNESS NOTED. PLAN OF CARE WAS DISCUSSED WITH PATIENT AND PATIENT VERBALIZED UNDERSTANDING. SAFETY MEASURES ARE IN PLACE. BED IS AT LOW POSITION. CALL LIGHT WITHIN REACH. INSTRUCTED PATIENT TO USE CALL LIGHT FOR ANY ASSISTANCE AND PATIENT WAS ACKNOWLEDGED AND WAS AWARE.
[2018-07-28 07:36] LABS: BASOPHILS # (AUTO) 0.1 K/uL (0.00-0.22); BASOPHILS % (AUTO) 0.8 % (0.0-2.0); EOSINOPHILS # (AUTO) 0.2 K/uL (0-0.4); EOSINOPHILS % (AUTO) 2.4 % (0.0-4.0); HEMATOCRIT 30.7 % (36-48); LYMPHOCYTES # (AUTO) 1.3 K/uL (2.5-16.5); LYMPHOCYTES % (AUTO) 17.8 % (20.5-51.1); MEAN CORPUSCULAR HEMOGLOBIN 27 pg (27-31); MEAN CORPUSCULAR HGB CONC 33 g/dL (33-37); MEAN CORPUSCULAR VOLUME 82.7 fL (80-94); MONOCYTES # (AUTO) 0.7 K/uL (0.8-1.0); MONOCYTES % (AUTO) 8.9 % (1.7-9.3); NEUTROPHILS # (AUTO) 5.3 K/uL (1.8-7.7); NEUTROPHILS % (AUTO) 70.1 % (42.2-75.2); PLATELET COUNT (AUTO) 350 K/uL (140-450); RED BLOOD CELL COUNT(AUTO) 3.71 MIL/uL (4.20-5.40); RED CELL DISTRIBUTION WIDTH 18.9 % (11.6-13.7); WHITE BLOOD COUNT (AUTO) 7.6 K/uL (4.8-10.8)
[2018-07-28] MEDS: ALBUTEROL SULFATE/IPRATROPIU 3 ML SOL IH SCH ×2 (07:43→13:39)
[2018-07-28 07:47] LABS: ANION GAP 12.9 (8-16); CARBON DIOXIDE 23.7 mmol/L (21-32); CHLORIDE 105 mmol/L (98-107); GLUCOSE 172 mg/dL (74-106); POTASSIUM 4.6 mmol/L (3.5-5.1); SODIUM SERUM 137 mmol/L (136-145); UREA NITROGEN, BLOOD 12 mg/dL (7-18)
[2018-07-28 07:52] LABS: MAGNESIUM 1.8 mg/dL (1.8-2.4); PHOSPHORUS 2.6 mg/dL (2.5-4.9)
--- NOTE | 2018-07-28 07:52 | NUR ---
BREATHING TX STOPPED DUE TO INCREASE IN HR. NURSE NOTIFIED . PT NOT IN ANY DISTRESS AT THIS TIME. WILL CONTINUE TO MONITOR.
[2018-07-28 08:00] VITALS: BP 104/66
--- NOTE | 2018-07-28 08:29 | NUR ---
PATIENT HAS BEEN SCREENED AND CATEGORIZED HIGH NUTRITION RISK. PATIENT WILL BE SEEN WITHIN 1-2 DAYS OF ADMISSION. 07/28/18-07/29/[address]
[2018-07-28] MEDS ORDERED: PHARMACY COMMENTS MC SCH (09:00)
[2018-07-28] MEDS ORDERED: HEPARIN PER PHARMACY MC PRN (09:00)
[2018-07-28] MEDS: MISOPROSTOL 100 MCG TAB PO SCH (09:02)
[2018-07-28] MEDS: CLOPIDOGREL 75 MG TAB PO SCH (09:02)
[2018-07-28] MEDS: LISINOPRIL 5 MG TAB PO SCH (09:02)
[2018-07-28] MEDS: DOCUSATE SODIUM 100 MG GELCAP PO SCH (09:02)
[2018-07-28] MEDS: GABAPENTIN 100 MG CAP PO SCH ×3 (09:02→16:40)
[2018-07-28] MEDS: LACTOBACILLUS RHAMNOSUS GG 1 EACH CAP PO SCH (09:02)
[2018-07-28] MEDS: ASCORBIC ACID 500 MG TAB PO SCH ×2 (09:03→20:20)
--- NOTE | 2018-07-28 09:18 | NUR ---
ADMINISTERED MEDS PER MD ORDER, PATIENT TOLERATED WELL. D/C PICC LINE, CANNULA INTACT AND LINE COMPLETED. NO BLEEDING AT INSERTION SITE. PATIENT TOLERATED WELL. DENIES PAIN. NO SIGNS OF DISTRESS NOTED. ON 2L/MIN NC. PATIENT IS WATCHING TV ON BED AT THIS TIME.
[2018-07-28] MEDS: hePARIN / DEXT 5% PREMIX 250 ML IV SCH ×2 (10:32→19:55)
--- NOTE | 2018-07-28 10:54 | NUR ---
FAMILY RELATIVE PEARLA IS AT BEDSIDE AND TALKING TO PATIENT. INSTRUCTED VISITOR TO WEAR PPE PRIOR TO ENTER PATIENT'S ROOM. JANNETLA VERBALIZED UNDERSTANDING. PATIENT DENIES PAIN. NO SIGNS OF DISTRESS NOTED.
--- NOTE | 2018-07-28 11:07 | NUR ---
DR VAIL IS TALKING TO PATIENT AND FAMILY RELATIVE VIDYA AT BEDSIDE. NO SIGNS OF DISTRESS NOTED.
[2018-07-28] MEDS: ONDANSETRON 4 MG/2 ML VIAL IM/IVP PRN (11:32)
[2018-07-28] MEDS: INSULIN LISPRO SLIDING SCALE 100 UNITS/ML VIAL SUBQ PRN ×3 (11:38→20:24)
--- NOTE | 2018-07-28 11:39 | NUR ---
PATIENT C/O NAUSEA AND VOMITING. ADMINISTERED PRN ONDANSETRON VIA IV PUSH AND PROVIDED VOMITING BAG. PATIENT SAID SHE DOES NOT LIKE WATER DUE TO NO FAVOR. SHE WOULD LIKE TO ADD SOME LEMON WEDGES TO HER WATER. CALLED [facility] AND PER [facility], THEY WILL DELIVER LEMON WEDGES WITH PATIENT'S LUNCH TRAY.
[2018-07-28 12:00] VITALS: BP 111/60
--- NOTE | 2018-07-28 13:08 | NUR ---
RADIOLOGISTS ARE AT BEDSIDE AND PERFORMING US VENOUS BILATERAL LOWER EXTREMITY. NO SIGNS OF DISTRESS NOTED.
--- NOTE | 2018-07-28 14:13 | NUR ---
07/28/18 RD INITIAL ASSESSMENT COMPLETED PLEASE REFER TO NUTRITION ASSESSMENT UNDER CARE ACTIVITY FOR ESTIMATED NUTRITIONAL NEEDS. 1. CONTINUE FULL LIQUID DIET TOLERATED 2. RECOMMEND JACKI BID FOR WOUND HEALING 3. WHEN PATIENT TOLERATES FULL LIQUIDS CONSIDER ADVANCING DIET TO [facility] SOFT CCHO [address] TO FOLLOW UP WITH NUTRITION EDUCATION ON DIABETES 5. RD TO FOLLOW-UP 3-5 DAYS, MODERATE RISK SHANT GUTIERREZ RD
--- NOTE | 2018-07-28 14:14 | NUR ---
WOUND CARE EVALUATION NOTE: REASON FOR EVALUATION: COCCYX AND HEELS WOUND SKIN ASSESSMENT DONE WITH THIS 83 Y/O FEMALE PT ADMITTED FROM [facility] [place] [facility] WITH INITIAL DX OF DVT. PAST MEDICAL HX INCLUDES HTN, DM AND CHRONIC WOUND. ALL ABOVE INFORMATION OBTAINED FROM ADMISSION H&P. PT IS AWAKE. SKIN IS WARM AND DRY, BLE NO HAIR GROWTH, +2 EDEMA TO RIGHT LOWER LEG.BILATERAL DORSAL PEDAL PULSES PRESENT AND NORMAL. CAPILLARY REFILLED < 2 SEC. X 10 TOES. INCONTINENT OF BOWEL AND BLADDER. PLAN OF CARE DISCUSSED WITH PRIMARY RN AND PT. INTEGUMENTARY: -RIGHT UPPER ARM SWELLING AND WARM SKIN INTACT -LEFT DORSAL FOOT DIABETIC ULCER SURGICAL WOUND 4X4X0.2CM, WOUND BED 100% GRANULATING TISSUE, SMALL AMOUNT SEROUS DRAINAGE, NO ODOR, NATALIA-WOUND SKIN INTACT. NO PAIN RECOMMENDATIONS: -KEEP RIGHT UPPER ARM ELEVATED TOLERATED -KEEP SKIN DRY AND CLEAN AT ALL TIMES, PLEASE CHECK Q2H AND PRN FOR INCONTINENCY OF BOWEL AND BLADDER. -CLEANSE LEFT DORSAL FOOT DIABETIC ULCER SURGICAL WOUND WITH NS, PAT DRY, APPLY HYDROGEL WITH ADAPTIC DRESSING AND COVER WITH LARGE ISLAND DRESSING QD AND PRN IF SOILING. -OFFLOAD BILATERAL HEELS BY PLACING PILLOWS UNDER CALVES UNLESS OTHERWISE CONTRAINDICATED -PRESSURE REDISTRIBUTION SURFACE THERAPY -TURN AND REPOSITION Q2H, OFFLOAD SACRALCOCCYX BY TURNING RIGHT AND LEFT -CONTINUE TO FOLLOW RD RECOMMENDATIONS ALL ABOVE RECOMMENDATIONS DISCUSSED WITH PRIMARY RN WILL FOLLOW UP PT Q7-10 DAYS. PLEASE CONTACT WOUND CARE NURSE FOR ANY QUESTION AND CHANGE OF WOUND CONDITION.
--- NOTE | 2018-07-28 15:41 | NUR ---
DAUGHTER PEMA IS AT BESIDE. INSTRUCTED PEMA TO WEAR PPE PRIOR TO ENTER TO PATIENT'S ROOM. PATIENT DENIES PAIN AND SOB. PATIENT IS TALKING TO IDA MCADAMS. NO SIGNS OF DISTRESS NOTED.
[2018-07-28 16:00] VITALS: BP 143/51
--- NOTE | 2018-07-28 16:25 | NUR ---
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 She stated patient does not have an existing Advance Directives for health care and her daughter Rosibel Anderson is her health care decision maker.
[2018-07-28] MEDS: AMITRIPTYLINE 25 MG TAB PO SCH (16:40)
--- NOTE | 2018-07-28 17:18 | NUR ---
PATIENT IS SITTING UP ON BED AND TALKING TO DAUGHTER PEMA AT BESIDE. PATIENT DENIES PAIN AND SOB. PATIENT IS TALKING TO DAUGHTER PEMA. NO SIGNS OF DISTRESS NOTED.
--- NOTE | 2018-07-28 18:02 | NUR ---
ADMINISTERED MED MD ORDER, PATIENT TOLERATED WELL. DENIES PAIN AND SOB. NO SIGNS OF DISTRESS. DAUGHTER PEMA IS AT BEDSIDE.
[2018-07-28] MEDS ORDERED: PROMETHAZINE 25 MG/ML VIAL IM/IVP PRN (18:25)
--- NOTE | 2018-07-28 18:35 | NUR ---
RECEIVED CRITICAL LAB RESULT FOR APTT >150. NOTIFIED DR REHMAN. PER DR REHMAN, STOP HEPARIN DRIP AND FOLLOW PHARMACY PROTOCOL. CYCLE DIRECTOR RN WAS AWARE. STOPPED HEPARIN DRIP [id number]. WILL ENDORSE TO RESTORATION OFFICER NURSE ON REGARDS OF HEPARIN DRIP.
--- NOTE | 2018-07-28 19:23 | NUR ---
ENDORSED PATIENT AT BEDSIDE TO FISH FLIPPER NURSE FOR CONTINUITY OF CARE. PATIENT IS IN STABLE CONDITION. INFORMED FISH FLIPPER NURSE THAT APTT LAB RESULT >150 AND HEPARIN DRIP STOP AT 1835.
--- NOTE | 2018-07-28 19:24 | NUR ---
RECEIVED REPORT FROM DAY SHIFT NURSE FRANSISCA-RN AT BEDSIDE. PT AOX4- LUXEMBOURGISH SPEAKING, ON 2L/NC WITH LEFT AC #22. BUE PITTING EDEMA +3 WITH SACRAL REDNESS AND LEFT FOOT S/P DEBRIDEMENT. DISCUSSED PLAN OF CARE AND PT VERBALIZED UNDERSTANDING. NO S/S OF RESPIRATORY DISTRESS OR DISCOMFORT NOTED AT THIS TIME. BED IN LOWEST POSITION, BED BREAKS ON, BOTH SIDE RAILS UP AND BOTH FALL AND CONTACT PRECAUTIONS IN PLACE- INFORMATION SYSTEMS SECURITY OFFICER OF LEFT FOOT WOUND AND C.DIFF. BEDSIDE TABLE AND CALL LIGHT ARE WITHIN REACH. WILL CONTINUE TO MONITOR.
--- NOTE | 2018-07-28 19:55 | NUR ---
HEPARIN STARTED WITH CHARGE NURSE ABRAHAM-RN INFUSING ON LEFT AC #22G. PT TOLERATED WELL. NO S/S OF RESPIRATORY DISTRESS OR DISCOMFORT NOTED AT THIS TIME. WILL CONTINUE TO MONITOR.
[2018-07-28 20:00] VITALS: BP 108/40
--- NOTE | 2018-07-28 20:00 | NUR ---
VITAL SIGNS TAKEN AND TOLERATED WELL. NO S/S OF RESPIRATORY DISTRESS OR DISCOMFORT NOTED AT THIS TIME. WILL CONTINUE TO MONITOR.
--- NOTE | 2018-07-28 20:00 | NUR ---
NEW IV SITE LEFT FA #24G PLACED BY ABRAHAM OLIVERA RN ON FIRST ATTEMPT. PT TOLERATED WELL. WILL USE THIS SITE FOR ABX SINCE OTHER IV SITE LEFT AC #22G BEING USED FOR HEPARIN.
--- NOTE | 2018-07-28 20:00 | NUR ---
BLOOD GLUCOSE 254- WILL ADMINISTER INSULIN COVERAGE. PT TOLERATED WELL. NO S/S OF RESPIRATORY DISTRESS OR DISCOMFORT NOTED AT THIS TIME. WILL CONTINUE TO MONITOR.
[2018-07-28] MEDS: ATORVASTATIN 20 MG TAB PO SCH (20:20)
[2018-07-28] MEDS: NACL 0.9% 1,000 ML IV SCH (20:21)
[2018-07-28] MEDS: INSULIN LANTUS 100 UNITS/ML 10 ML VIAL SUBQ SCH (20:23)
--- NOTE | 2018-07-28 20:24 | NUR ---
SCHEDULED MEDICATION GIVEN AND INSULIN COVERAGE ALSO GIVEN. PT TOLERATED WELL. NO S/S OF RESPIRATORY DISTRESS OR DISCOMFORT NOTED AT THIS TIME. WILL CONTINUE TO MONITOR.
--- NOTE | 2018-07-28 22:42 | NUR ---
SCHEDULED MEDICATION ROCEPHIN GIVEN AND TOLERATED WELL. NO S/S OF RESPIRATORY DISTRESS OR DISCOMFORT NOTED AT THIS TIME. WILL CONTINUE TO MONITOR.
[2018-07-29] VITALS: BP 91/34
--- NOTE | 2018-07-29 | NUR ---
VITAL SIGNS TAKEN AND TOLERATED WELL. ASSISTED PT TO TURN TO THEIR LEFT SIDE WITH VENITA-ENTERPRISE ARCHITECT. PT C/O DIFFICULTY BREATHING, SPO2 99%. CALLED RT MATI FOR ASSISTANCE. NO S/S OF DISCOMFORT NOTED AT THIS TIME. WILL CONTINUE TO MONITOR.
--- NOTE | 2018-07-29 00:15 | NUR ---
PATIENT SLEEPING IN BED, VITAL SIGNS STABLE, NO SIGNS OF DISTRESS, BED LOW AND CALL LIGHT WITHIN REACH, WILL CONTINUE TO MONITOR Addendum: 07/30/18 at 0215 by Maureen Felix RN WRONG DATE ENTERED. NOTE APPLIES TO 07/30/18 @ 0015, NEW NOTE ENTERED.
[2018-07-29] MEDS: ALBUTEROL SULFATE/IPRATROPIU 3 ML SOL IH PRN (00:26)
--- NOTE | 2018-07-29 00:48 | NUR ---
RT MATI STATED THAT PT SOUNDED "A LITTLE WET" AND THAT PT WOULD NEED A LITTLE MORE THAN JUST A BREATHING TX. SPOKE WITH DR. ANDREW REHMAN AND HE IS AWARE. TO PLACE ORDER FOR LASIX.
[2018-07-29] MEDS ORDERED: FUROSEMIDE 40 MG/4 ML VIAL IVP SCH ×2 (01:00→09:00)
--- NOTE | 2018-07-29 01:07 | NUR ---
LASIX GIVEN AND TOLERATED WELL. RUBBER MIXER CRISTY AT PT BEDSIDE DRAWING BLOOD FOR PTT- HEPARIN DRIP. ELEVATED HR NOTED DUE TO MULTIPLE UNSUCCESSFUL ATTEMPTS. WILL CONTINUE TO MONITOR.
--- NOTE | 2018-07-29 02:00 | NUR ---
PT CONTINUES TO SLEEP IN BED. NO S/S OF RESPIRATORY DISTRESS OR DISCOMFORT NOTED AT THIS TIME. WILL CONTINUE TO MONITOR.
--- NOTE | 2018-07-29 02:11 | NUR ---
CRITICAL LAB VALUE- APTT 124. DR. ANDREW REHMAN AWARE AND ORDERED TO FOLLOW PROTOCOL- D/C FOR ONE HOUR THEN WILL START INFUSION AT 9ML/HR.
[2018-07-29] MEDS: hePARIN / DEXT 5% PREMIX 250 ML IV SCH ×2 (03:30→09:56)
[2018-07-29 04:00] VITALS: BP 92/40
--- NOTE | 2018-07-29 04:00 | NUR ---
VITAL SIGNS TAKEN AND TOLERATED WELL. NO S/S OF RESPIRATORY DISTRESS OR DISCOMFORT NOTED AT THIS TIME. WILL CONTINUE TO MONITOR.
[2018-07-29] MEDS: metroNIDAZOLE 500 MG TAB PO SCH ×3 (04:07→21:12)
--- NOTE | 2018-07-29 04:07 | NUR ---
SCHEDULED MEDICATION FLAGYL GIVEN WITH APPLE JUICE BECAUSE PT STATES PILL TASTES BITTER. PT TOLERATED WELL. NO S/S OF RESPIRATORY DISTRESS OR DISCOMFORT NOTED AT THIS TIME. WILL CONTINUE TO MONITOR.
[2018-07-29] MEDS: BLOOD GLUCOSE MONITORING 1 DEV DEV FS SCH ×4 (05:46→21:15)
[2018-07-29] MEDS: GLIMEPIRIDE 2 MG TAB PO SCH (05:46)
[2018-07-29] MEDS: INSULIN LISPRO SLIDING SCALE 100 UNITS/ML VIAL SUBQ PRN ×4 (05:51→21:19)
--- NOTE | 2018-07-29 05:51 | NUR ---
BLOOD GLUCOSE 194- INSULIN COVERAGE GIVEN. SCHEDULED MEDICATION AMARYL GIVEN AND TOLERATED WELL. NO S/S OF RESPIRATORY DISTRESS OR DISCOMFORT NOTED AT THIS TIME. WILL CONTINUE TO MONITOR.
[2018-07-29 06:36] LABS: BASOPHILS # (AUTO) 0.1 K/uL (0.00-0.22); EOSINOPHILS # (AUTO) 0.1 K/uL (0-0.4); EOSINOPHILS % (AUTO) 1.8 % (0.0-4.0); HEMATOCRIT 29.9 % (36-48); HEMOGLOBIN 9.7 g/dL (12.0-16.0); LYMPHOCYTES # (AUTO) 1.7 K/uL (2.5-16.5); LYMPHOCYTES % (AUTO) 22.1 % (20.5-51.1); MEAN CORPUSCULAR HEMOGLOBIN 27 pg (27-31); MEAN CORPUSCULAR HGB CONC 32 g/dL (33-37); MEAN CORPUSCULAR VOLUME 83.8 fL (80-94); MONOCYTES # (AUTO) 0.8 K/uL (0.8-1.0); NEUTROPHILS # (AUTO) 4.9 K/uL (1.8-7.7); NEUTROPHILS % (AUTO) 64.1 % (42.2-75.2); PLATELET COUNT (AUTO) 322 K/uL (140-450); RED BLOOD CELL COUNT(AUTO) 3.57 MIL/uL (4.20-5.40); WHITE BLOOD COUNT (AUTO) 7.7 K/uL (4.8-10.8)
[2018-07-29 06:49] LABS: CARBON DIOXIDE 23.4 mmol/L (21-32); CHLORIDE 105 mmol/L (98-107); CREATININE 1.4 mg/dL (0.6-1.3); GLUCOSE 213 mg/dL (74-106); POTASSIUM 4.4 mmol/L (3.5-5.1); SODIUM SERUM 137 mmol/L (136-145); UREA NITROGEN, BLOOD 12 mg/dL (7-18)
[2018-07-29] MEDS: ALBUTEROL SULFATE/IPRATROPIU 3 ML SOL IH SCH ×3 (07:29→19:14)
--- NOTE | 2018-07-29 07:29 | NUR ---
ENDORSED PT CARE TO DAY SHIFT NURSE HARPREET VALLEJO FOR CONTINUITY OF CARE.
--- NOTE | 2018-07-29 07:35 | NUR ---
RECEIVED PT FROM USER INTERFACE ENGINEER NURSE, DEB, PT IS AWAKE AND LYING ON THE BED WITH SIDE RAILS UP AND CALL LIGHT WITHIN REACH, FALL PRECAUTION INITIATED, BED ALARM ACTIVATED AND BED IN LOW POSITION, PT HAS A HEPARIN INFUSING AT A RATE OF 9ML/HR ON THE LEFT FA G. 24, AND ON THE LEFT AC G. 22 INTACT. PT DENIES PAIN AND NO SOB NOTED, O2 AT 2L VIA NC IN PLACE. BILATERAL ARMS EDEMA AND A RT DORSAL FOOT BLISTER OPEN WOUND NOTED. NO SIGN OF DISTRESS NOTED AND WILL MONITOR PT.
[2018-07-29 08:00] VITALS: BP 138/50
[2018-07-29] MEDS: MAGNESIUM HYDROXIDE 2400 MG/30 ML UDC PO SCH (09:49)
[2018-07-29] MEDS: MISOPROSTOL 100 MCG TAB PO SCH (09:49)
[2018-07-29] MEDS: ASCORBIC ACID 500 MG TAB PO SCH ×2 (09:50→21:12)
[2018-07-29] MEDS: GABAPENTIN 100 MG CAP PO SCH ×3 (09:50→17:48)
[2018-07-29] MEDS: LACTOBACILLUS RHAMNOSUS GG 1 EACH CAP PO SCH (09:50)
[2018-07-29] MEDS: LISINOPRIL 5 MG TAB PO SCH (09:51)
[2018-07-29] MEDS: DOCUSATE SODIUM 100 MG GELCAP PO SCH (09:51)
[2018-07-29] MEDS: CLOPIDOGREL 75 MG TAB PO SCH (09:52)
--- NOTE | 2018-07-29 10:50 | NUR ---
PT WAS REPOSITIONED AND CLEANED UP AND NOTICED A REDDISH MUCOID DISCHARGE, WILL NOTIFY MD. NO SIGN OF DISTRESS NOTED TO PT. WILL CONTINUE TO MONITOR.
--- NOTE | 2018-07-29 11:00 | NUR ---
DR. GARCIA WAS ASKED TO COME TO PT'S ROOM AND SHOWED DR. GARCIA THE REDDISH MUCOID DISCHARGE OF THE PT, MD ACKNOWLEDGED AND SAID TO STOP THE HEPARIN DRIP AND WILL PLACE AN ORDER FOR THE PT.
[2018-07-29 12:00] VITALS: BP 150/68
[2018-07-29] MEDS ORDERED: NACL 0.9% 1,000 ML IV ONE (12:05)
--- NOTE | 2018-07-29 12:08 | NUR ---
PT IS AWAKE AND LYING ON THE BED, VITAL SIGNS CHECKED AND IS WITHIN NORMAL LIMIT, ORAL MEDICATIONS WERE GOIVEN AND PT TOLERATED IT, INSULIN 6 UNITS WAS GIVEN WELL ON THE LEFT UA AND PT TOLERATED IT. NO SIGN OF DISTRESS NOTED AND WILL MONITOR PT.
[2018-07-29] MEDS: SKINTEGRITY HYDROGEL TP SCH (13:00)
--- NOTE | 2018-07-29 13:31 | NUR ---
ULTRASOUND OF THE PELVIC NON-OB IS BEING DONE TO PT NOW WITH TORITO ON THE BEDSIDE.
[2018-07-29 14:40] LABS: BASOPHILS # (AUTO) 0.1 K/uL (0.00-0.22); BASOPHILS % (AUTO) 0.8 % (0.0-2.0); EOSINOPHILS # (AUTO) 0.1 K/uL (0-0.4); EOSINOPHILS % (AUTO) 1.4 % (0.0-4.0); HEMATOCRIT 30.1 % (36-48); HEMOGLOBIN 9.8 g/dL (12.0-16.0); LYMPHOCYTES # (AUTO) 2.1 K/uL (2.5-16.5); LYMPHOCYTES % (AUTO) 26.6 % (20.5-51.1); MEAN CORPUSCULAR HEMOGLOBIN 27 pg (27-31); MEAN CORPUSCULAR HGB CONC 33 g/dL (33-37); MEAN CORPUSCULAR VOLUME 83.8 fL (80-94); MONOCYTES # (AUTO) 0.7 K/uL (0.8-1.0); MONOCYTES % (AUTO) 9.3 % (1.7-9.3); NEUTROPHILS # (AUTO) 4.8 K/uL (1.8-7.7); NEUTROPHILS % (AUTO) 61.9 % (42.2-75.2); PLATELET COUNT (AUTO) 318 K/uL (140-450); RED BLOOD CELL COUNT(AUTO) 3.59 MIL/uL (4.20-5.40); RED CELL DISTRIBUTION WIDTH 19.3 % (11.6-13.7); WHITE BLOOD COUNT (AUTO) 7.7 K/uL (4.8-10.8)
[2018-07-29 16:00] VITALS: BP 135/114
[2018-07-29] MEDS: AMITRIPTYLINE 25 MG TAB PO SCH (17:48)
--- NOTE | 2018-07-29 19:25 | NUR ---
ENDORSED PT TO NAIL MAKING MACHINE TENDER NURSES ON DUTY, FOR CONTINUITY OF CARE. PT IS STABLE AT THIS TIME.
--- NOTE | 2018-07-29 19:30 | NUR ---
RECEIVED BEDSIDE REPORT FROM AM RN, PATIENT IN STABLE CONDITION ON 2L O2 VIA NC, BED IN LOW POSITION, IV SITES INTACT, CALL LIGHT WITHIN REACH, WILL CONTINUE TO MONITOR. CARE PLAN FOR THE NIGHT DISCUSSED WITH PATIENT, REFRIGERATION HOUSEMAN IN PLACE.
[2018-07-29 20:00] VITALS: BP 123/50
[2018-07-29] MEDS: NACL 0.9% 1,000 ML IV SCH (20:36)
[2018-07-29] MEDS: ATORVASTATIN 20 MG TAB PO SCH (21:12)
--- NOTE | 2018-07-29 21:15 | NUR ---
ADMINISTERED SCHEDULED MEDICATION, PATIENT TOLERATED WELL. NO SIGNS OF DISTRESS ON 2L O2 VIA NC, CALL LIGHT WITHIN REACH, BED IN LOW POSITION. WILL CONTINUE TO MONITOR.
[2018-07-29] MEDS: INSULIN LANTUS 100 UNITS/ML 10 ML VIAL SUBQ SCH (21:17)
--- NOTE | 2018-07-29 23:20 | NUR ---
ADMINISTERED SCHEDULED MEDICATIONS, PATIENT TOLERATED WELL, CLEANED AND REPOSITIONED PATIENT WITH TRAVELING CLERK, TRACE AMOUNT OF BLOOD NOTED ON CHUX PAD, WILL NOTIFY MD. WILL CONTINUE TO MONITOR.
[2018-07-30] VITALS: BP 135/51
--- NOTE | 2018-07-30 00:15 | NUR ---
PATIENT SLEEPING IN BED, VITAL SIGNS STABLE, NO SIGNS OF DISTRESS, BED LOW AND CALL LIGHT WITHIN REACH, WILL CONTINUE TO MONITOR
--- NOTE | 2018-07-30 02:15 | NUR ---
PATIENT SLEEPING IN BED, NO SIGNS OF DISTRESS, WILL CONTINUE TO MONITOR.
--- NOTE | 2018-07-30 03:48 | NUR ---
PATIENT SLEEPING IN BED, NO SIGNS OF DISTRESS ON 2L NC, BED LOW, CALL LIGHT IN REACH, WILL CONTINUE TO MONITOR
[2018-07-30 04:00] VITALS: BP 134/84
[2018-07-30] MEDS: NACL 0.9% 1,000 ML IV SCH (04:24)
[2018-07-30] MEDS: metroNIDAZOLE 500 MG TAB PO SCH ×3 (04:26→20:46)
--- NOTE | 2018-07-30 06:00 | NUR ---
PATIENT RESTING IN BED, NO SIGNS OF DISTRESS, EDEMA IN ALL FOUR EXTREMITIES, REPOSITIONED FOR COMFORT, WILL CONTINUE TO MONITOR.
[2018-07-30] MEDS: GLIMEPIRIDE 2 MG TAB PO SCH (06:33)
[2018-07-30 06:44] LABS: BASOPHILS # (AUTO) 0.1 K/uL (0.00-0.22); EOSINOPHILS # (AUTO) 0.2 K/uL (0-0.4); EOSINOPHILS % (AUTO) 2.7 % (0.0-4.0); HEMATOCRIT 28.8 % (36-48); HEMOGLOBIN 9.3 g/dL (12.0-16.0); LYMPHOCYTES # (AUTO) 1.5 K/uL (2.5-16.5); LYMPHOCYTES % (AUTO) 21.8 % (20.5-51.1); MEAN CORPUSCULAR HEMOGLOBIN 27 pg (27-31); MEAN CORPUSCULAR HGB CONC 32 g/dL (33-37); MEAN CORPUSCULAR VOLUME 83.6 fL (80-94); MONOCYTES # (AUTO) 0.8 K/uL (0.8-1.0); MONOCYTES % (AUTO) 11.6 % (1.7-9.3); NEUTROPHILS # (AUTO) 4.4 K/uL (1.8-7.7); NEUTROPHILS % (AUTO) 62.9 % (42.2-75.2); PLATELET COUNT (AUTO) 323 K/uL (140-450); RED BLOOD CELL COUNT(AUTO) 3.44 MIL/uL (4.20-5.40); RED CELL DISTRIBUTION WIDTH 19.4 % (11.6-13.7)
[2018-07-30 06:57] LABS: ANION GAP 9.6 (8-16); CARBON DIOXIDE 26.6 mmol/L (21-32); CHLORIDE 106 mmol/L (98-107); CREATININE 1.3 mg/dL (0.6-1.3); GLUCOSE 159 mg/dL (74-106); POTASSIUM 4.2 mmol/L (3.5-5.1); SODIUM SERUM 138 mmol/L (136-145); UREA NITROGEN, BLOOD 12 mg/dL (7-18)
[2018-07-30] MEDS: ALBUTEROL SULFATE/IPRATROPIU 3 ML SOL IH SCH ×3 (07:00→20:53)
--- NOTE | 2018-07-30 07:02 | NUR ---
SPOKE TO DR GARCIA ABOUT WORSENING EDEMA, HE INSTRUCTED ME TO REDUCE RATE TO TKO OF 10ML/HR, PENDING FURTHER ORDERS. WILL ENDORSE THIS TO AM RN FOR CONTINUITY OF CARE.
[2018-07-30 07:05] LABS: MAGNESIUM 1.6 mg/dL (1.8-2.4); PHOSPHORUS 2.6 mg/dL (2.5-4.9)
--- NOTE | 2018-07-30 07:25 | NUR ---
GAVE BEDSIDE REPORT TO DAY RN, PATIENT IN STABLE CONDITION, NO SIGNS OF DISTRESS, BED LOW, CALL LIGHT IN REACH.
--- NOTE | 2018-07-30 07:26 | NUR ---
RECEIVED BEDSIDE REPORT FROM [facility] [employer] MAGISTRATE NURSE FOR CONTINUITY OF CARE. PT IN STABLE CONDITION. RESPIRATIONS EVEN AND UNLABORED. IV INTACT AND PATENT. BED IN LOW POSITION. CALL LIGHT AT BEDSIDE. BED ALARM ON. SAFETY MEASURES IN PLACE. WILL CONTINUE TO MONITOR.
[2018-07-30] MEDS: BLOOD GLUCOSE MONITORING 1 DEV DEV FS SCH ×4 (07:30→21:01)
[2018-07-30 08:00] VITALS: BP 152/52
[2018-07-30] MEDS ORDERED: MAG SULF 2000 MG/WATER PREMIX 50 ML IV ONE (08:50)
[2018-07-30] MEDS ORDERED: FUROSEMIDE 20 MG/2 ML VIAL IVP SCH (09:30)
[2018-07-30] MEDS ORDERED: ALBUMIN HUMAN 5 % 250 ML IV ONE (09:30)
--- NOTE | 2018-07-30 10:15 | NUR ---
LUCIA CATHETER INSERTED AT THIS TIME. PT TOLERATED WELL. WILL CONTINUE TO MONITOR. CALL LIGHT AT BEDSIDE. BED IN LOW POSITION. BED ALARM ON.
[2018-07-30] MEDS: GABAPENTIN 100 MG CAP PO SCH ×3 (10:23→17:52)
[2018-07-30] MEDS: DOCUSATE SODIUM 100 MG GELCAP PO SCH (10:23)
[2018-07-30] MEDS: LACTOBACILLUS RHAMNOSUS GG 1 EACH CAP PO SCH (10:24)
[2018-07-30] MEDS: ASCORBIC ACID 500 MG TAB PO SCH ×2 (10:24→20:45)
[2018-07-30] MEDS: LISINOPRIL 5 MG TAB PO SCH (10:25)
--- NOTE | 2018-07-30 10:30 | NUR ---
PT LYING IN BED IN STABLE CONDITION. RESPIRATIONS EVEN AND UNLABORED. WILL CONTINUE TO MONITOR. CALL LIGHT AT BEDSIDE. BED IN LOW POSITION. BED ALARM ON.
[2018-07-30 12:00] VITALS: BP 142/54
--- NOTE | 2018-07-30 12:30 | NUR ---
PT IN STABLE CONDITION WATCHING TV. WILL CONTINUE TO MONITOR.
[2018-07-30] MEDS: INSULIN LISPRO SLIDING SCALE 100 UNITS/ML VIAL SUBQ PRN ×2 (12:44→21:06)
[2018-07-30] MEDS: SKINTEGRITY HYDROGEL TP SCH (14:34)
[2018-07-30 16:00] VITALS: BP 144/54
--- NOTE | 2018-07-30 17:00 | NUR ---
PT IN STABLE CONDITION. FAMILY AT BEDSIDE. BED IN LOW POSITION. WILL CONTINUE TO MONITOR.
[2018-07-30] MEDS: FLUCONAZOLE 200 MG/NS PREMIX 100 ML IV SCH (17:52)
[2018-07-30] MEDS: AMITRIPTYLINE 25 MG TAB PO SCH (17:52)
--- NOTE | 2018-07-30 19:25 | NUR ---
RECEIVED FROM AM RN IN BED SITTING UP AND TALKING WITH VISITORS. NO COMPLAINTS DONE AT THIS TIME. TURNED TO SIDE WITH PILLOW SUPPORT AT THIS TIME WITH HELP OF OFFICE ADMINISTRATOR AND FAMILY MEMBER. CARE PLAN FOR THE NIGHT DISCUSSED WITH HER. CALL LIGHT WITH IN REACH. PT. ABLE TO VERBALIZE SIMPLE NEEDS WELL AND ABLE TO USE CALL LIGHT IN CASE SHE NEEDS SOMETHING. A/O X 4. PT. MORBIDLY OBESE, WITH LEFT FOOT OPEN WOUND AND WITH EDEMA TO UPPER EXTREMITIES. MD AWARE . TELEMETRY MONITORING. LUCIA CATHETER IN PLACE AND DRAINING WELL WITH YELLOW URINE.
--- NOTE | 2018-07-30 19:30 | NUR ---
GAVE REPORT TO LEGAL BILLING COORDINATOR NURSE FOR CONTINUITY OF CARE. PT IN STABLE CONDITION
[2018-07-30 19:43] VITALS: BP 138/56
[2018-07-30] MEDS: ATORVASTATIN 20 MG TAB PO SCH (20:45)
[2018-07-30] MEDS: FUROSEMIDE 20 MG/2 ML VIAL IVP SCH (20:46)
[2018-07-30] MEDS ORDERED: ALBUMIN HUMAN 25% 100 ML IV SCH (21:00)
[2018-07-30] MEDS: INSULIN LANTUS 100 UNITS/ML 10 ML VIAL SUBQ SCH (21:04)
--- NOTE | 2018-07-30 22:00 | NUR ---
PT. TURNED TO SIDES BY GRAPHIC DESIGNER AND ME. PILLOW SUPPORT TO PRESSURE AREAS. CLEAN AND DRY.
--- NOTE | 2018-07-30 23:49 | NUR ---
SLEEPING. WAKES UP EASILY WHEN TOUCHED. NO COMPLAINTS DONE. CALL LIGHT WITH IN REACH. ABLE TO USE CALL LIGHT WHEN IN NEED OF HELP. TELEMETYR MONITORING. IVF SITE CHECKED. INTACT AND NOT INFILTRATED.
[2018-07-31 00:12] VITALS: BP 132/53
[2018-07-31] MEDS: ALBUTEROL SULFATE/IPRATROPIU 3 ML SOL IH PRN (00:32)
--- NOTE | 2018-07-31 02:00 | NUR ---
PT. TURNED TO SIDES BY FIRE LOOKOUT. ABLE TO VERBALIZE NEEDS WELL. NO COMPLAINTS OF ANY PAIN DONE. SLEEPS BACK EASILY. TELEMETRY MONITORING. NO S/S OF HYPO/HYPERGLYCEMIA NOTED.
[2018-07-31 03:35] VITALS: BP 129/59
[2018-07-31] MEDS: BLOOD GLUCOSE MONITORING 1 DEV DEV FS SCH ×4 (05:27→21:06)
[2018-07-31] MEDS: metroNIDAZOLE 500 MG TAB PO SCH ×3 (05:28→20:53)
[2018-07-31] MEDS: GLIMEPIRIDE 2 MG TAB PO SCH (05:28)
[2018-07-31] MEDS: INSULIN LISPRO SLIDING SCALE 100 UNITS/ML VIAL SUBQ PRN ×4 (05:33→21:03)
--- NOTE | 2018-07-31 05:54 | NUR ---
AWAKE AT THIS TIME. NEEDS ANTICIPATED AND MET. KEPT CLEAN AND DRY. COMFORTABLE. NO COMPLAINTS DONE. ISOLATION PRECAUTIONS.
[2018-07-31] MEDS: ALBUTEROL SULFATE/IPRATROPIU 3 ML SOL IH SCH ×3 (07:03→20:12)
--- NOTE | 2018-07-31 07:05 | NUR ---
GOT BEDSIDE REPORT FROM CASSANDRA TAYLOR. PATIENT ON TELE MONITOR AND CONTACT PRECAUTIONS FOR SDRO, ESBL. PATIENT AAOX4 AND ON 2 L O2 VIA NC, NO DISTRESS NOTED. BUE SWELLING, BOTH ARMS ELEVATED. L FOOT DRESSING CLEAN DRY AND INTACT. IV ON L FA 24 G INFUSING NS AT 10, IV ASYMPTOMATIC PATENT AND INTACT. FALL RISK PROTOCOL IN PLACE. BED IN LOW POSITION, CALL LIGHT WITHIN REACH, SIDE RAILS X 2 UP.
[2018-07-31 07:10] LABS: BASOPHILS # (AUTO) 0.1 K/uL (0.00-0.22); EOSINOPHILS # (AUTO) 0.2 K/uL (0-0.4); EOSINOPHILS % (AUTO) 2.6 % (0.0-4.0); HEMOGLOBIN 9.2 g/dL (12.0-16.0); LYMPHOCYTES # (AUTO) 1.3 K/uL (2.5-16.5); MEAN CORPUSCULAR HEMOGLOBIN 27 pg (27-31); MEAN CORPUSCULAR HGB CONC 33 g/dL (33-37); MEAN CORPUSCULAR VOLUME 83.1 fL (80-94); MONOCYTES # (AUTO) 0.7 K/uL (0.8-1.0); MONOCYTES % (AUTO) 10.6 % (1.7-9.3); NEUTROPHILS # (AUTO) 4.1 K/uL (1.8-7.7); NEUTROPHILS % (AUTO) 64.8 % (42.2-75.2); PLATELET COUNT (AUTO) 315 K/uL (140-450); RED BLOOD CELL COUNT(AUTO) 3.37 MIL/uL (4.20-5.40); RED CELL DISTRIBUTION WIDTH 19.5 % (11.6-13.7); WHITE BLOOD COUNT (AUTO) 6.4 K/uL (4.8-10.8)
[2018-07-31 08:00] VITALS: BP 157/66
[2018-07-31 08:37] LABS: ANION GAP 10.5 (8-16); CARBON DIOXIDE 25.9 mmol/L (21-32); CHLORIDE 106 mmol/L (98-107); CREATININE 1.3 mg/dL (0.6-1.3); GLUCOSE 192 mg/dL (74-106); POTASSIUM 4.4 mmol/L (3.5-5.1); SODIUM SERUM 138 mmol/L (136-145); UREA NITROGEN, BLOOD 10 mg/dL (7-18)
[2018-07-31] MEDS: MAGNESIUM HYDROXIDE 2400 MG/30 ML UDC PO SCH (09:00)
[2018-07-31] MEDS: FUROSEMIDE 20 MG/2 ML VIAL IVP SCH ×2 (09:00→20:53)
[2018-07-31] MEDS: GABAPENTIN 100 MG CAP PO SCH ×3 (10:13→17:13)
[2018-07-31] MEDS: LACTOBACILLUS RHAMNOSUS GG 1 EACH CAP PO SCH (10:14)
[2018-07-31] MEDS: DOCUSATE SODIUM 100 MG GELCAP PO SCH (10:15)
[2018-07-31] MEDS: LISINOPRIL 5 MG TAB PO SCH (10:15)
[2018-07-31] MEDS: ASCORBIC ACID 500 MG TAB PO SCH ×2 (10:16→20:54)
--- NOTE | 2018-07-31 10:34 | NUR ---
ADMINISTERED SCHEDULED MEDS. PATIENT TOLERATED WELL. WILL CONTINUE TO MONITOR
[2018-07-31] MEDS ORDERED: RIVAROXABAN 15 MG TAB PO SCH ×2 (11:30→21:00)
--- NOTE | 2018-07-31 11:55 | NUR ---
FAMILY AT BEDSIDE, ON 2 L O2 VIA NC, NO DISTRESS NOTED
[2018-07-31 12:00] VITALS: BP 162/66
[2018-07-31] MEDS: FLUCONAZOLE 200 MG/NS PREMIX 100 ML IV SCH (12:21)
[2018-07-31] MEDS: SKINTEGRITY HYDROGEL TP SCH (13:34)
[2018-07-31] MEDS: NACL 0.9% 1,000 ML IV SCH (13:34)
--- NOTE | 2018-07-31 14:25 | NUR ---
FAMILY AT BEDSIDE, ON 2 L O2 NC, NO DISTRESS NOTED
[2018-07-31 16:00] VITALS: BP 119/44
--- NOTE | 2018-07-31 16:35 | NUR ---
GAVE BEDSIDE REPORT TO CASSANDRA KAY. PATIENT ENDORSED IN STABLE CONDITION
--- NOTE | 2018-07-31 16:36 | NUR ---
RECEIVED BEDSIDE REPORT FROM THOMAS. PT IS STABLE RESTING IN BED, FINGERSTICK GLUCOSE WAS 283. GAVE THE PT 6 UNITS OF HUMALOG PER SLIDING SCALE. PT IS STABLE AND APPEARS IN NO APPARENT DISTRESS. WILL CONTINUE TO MONITOR.
[2018-07-31] MEDS: AMITRIPTYLINE 25 MG TAB PO SCH (17:13)
--- NOTE | 2018-07-31 17:39 | NUR ---
ADMINISTERED 1700 MEDICATIONS. PT TOLERATED THE MEDICATIONS WHOLE IN APPLESAUCE PER HER REQUEST. PT IS STABLE WILL CONTINUE.
--- NOTE | 2018-07-31 18:50 | NUR ---
PT SITTING UP EATING SOUP WITH ASSIST FROM FAMILY MEMBER, FAMILY STATES SHE IS COUGHING UP BLOOD, SMALL AMOUT OF BLOODY SECRETIONS NOTED ON TOWEL AND EMESIS BAG, PT WAS EATING TOMATO SOUP, PT THINKS IT'S ONLY TOMATO SOUP, BUT APPEARS MORE LIKE BLOOD, NO ACTIVE BLEEDING NOTED AT THIS TIME, SMALL BLOODY STREAKS NOTED IN THE MOUTH, NO OTHER BLEEDING OR BRUISING NOTED, DR GARCIA MADE AWARE, DR GARCIA TO BEDSIDE FOR EVAL, WILL CONTINUE TO MONITOR AND ENDORSE TO CIGARETTE PACKING MACHINE OPERATOR NURSE.
--- NOTE | 2018-07-31 19:00 | NUR ---
TELEPHONE CONSENT OBTAINED FOR CENTRAL LINE PLACEMENT BY DAUGHTER ALEJANDRA HIGH WITH 2 RN VERIFY, DR GARCIA ON THE PHONE WITH DAUGHTER ALEJANDRA TO DISCUSS PLAN OF CARE.
--- NOTE | 2018-07-31 19:38 | NUR ---
ENDORSED SHRIMP CLEANER NURSE. PT IN BED FAMILY AT BEDSIDE. DR PRESENT PT COMPLAINED OF COUGHING UP BLOOD. DR IS AWARE AND MONITORING THE PT. PT AND FAMILY AWARE TO INFORM SHRIMP CLEANER NURSE OF ANY MORE COUGHING UP BLOOD.
[2018-07-31 20:00] VITALS: BP 136/109
--- NOTE | 2018-07-31 20:00 | NUR ---
SEEN PT AWAKE, ALERT AND ORIENTED. FAMILY MEMBERS AT BEDSIDE. INITIAL ASSESSMENT DONE. VITAL SIGNS CHECKED. PT DENIES ANY PAIN. PT HAS COUGH W/ SMALL AMOUNT OF PHLEGM. SAFETY REINFORCED. CALL LIGHT W/IN REACH. CONTACT PRECAUTION REINFORCED.
--- NOTE | 2018-07-31 20:13 | NUR ---
PT REFUSED HHN TX. FAMILY AT BEDSIDE. NO SOB OR DISTRESS NOTED. PT AWAKE AND ALERT. WILL CONTINUE TO MONITOR.
[2018-07-31] MEDS: ATORVASTATIN 20 MG TAB PO SCH (20:53)
--- NOTE | 2018-07-31 21:00 | NUR ---
SEEN PT AWAKE, DJIBOUTIAN-SPEAKING ONLY. FAMILY LEAVING. BLOOD SUGAR CHECKED:216. WILL COVER W/ INSULIN. MEDICATIONS GIVEN W/ TEACHINGS. PT VERBALIZED UNDERSTANDING. DRESSING ON LEFT FOOT COMING OFF. WILL PLACE NEW DRESSING. PT KEPT COMFORTABLE. WILL CONTINUE TO MONITOR.
[2018-07-31] MEDS: INSULIN LANTUS 100 UNITS/ML 10 ML VIAL SUBQ SCH (21:05)
[2018-08-01 00:25] VITALS: BP 99/45
--- NOTE | 2018-08-01 00:30 | NUR ---
SEEN PT ASLEEP BUT EASILY AROUSABLE. PT REPOSITIONED FOR COMFORT. VITAL SIGNS CHECKED. PT DENIES ANY PAIN OR DISCOMFORT. CALL LIGHT W/IN REACH.
[2018-08-01 04:30] VITALS: BP 108/75
--- NOTE | 2018-08-01 04:30 | NUR ---
SEEN PT AWAKE. VITAL SIGNS CHECKED. PT DENIES ANY PAIN OR DISCOMFORT. PO MEDICATION GIVEN W/ TEACHINGS. PT REPOSITIONED FOR COMFORT. CALL LIGHT W/IN REACH.
[2018-08-01] MEDS: metroNIDAZOLE 500 MG TAB PO SCH ×3 (04:42→20:12)
--- NOTE | 2018-08-01 05:15 | NUR ---
CORE MAKER CALLED REGARDING PT'S BM W/ BLOOD. SEEN MUCOID, W/ BRIGHT RED STOOL. WILL NOTIFY .
--- NOTE | 2018-08-01 05:20 | NUR ---
CALLED AND SPOKE TO DR GARCIA REGARDING PT'S BM. NO NEW ORDERS RECEIVED.
--- NOTE | 2018-08-01 05:43 | NUR ---
SPOKE TO DR GARCIA REGARDING PT'S AM LABS. PT'S ARMS ARE SWOLLEN AND DIFFICULT TO DRAW BLOOD. ASKED MD IF IT'S OK TO DRAW AM LABS AFTER CENTRAL LINE IS PLACED. HE SAID "OK". INFORMED INTERNATIONAL LOGISTICS COORDINATOR.
[2018-08-01] MEDS: GLIMEPIRIDE 2 MG TAB PO SCH (06:30)
[2018-08-01] MEDS: BLOOD GLUCOSE MONITORING 1 DEV DEV FS SCH ×4 (06:44→20:09)
--- NOTE | 2018-08-01 06:45 | NUR ---
SEEN PT AWAKE. BLOOD SUGAR CHECKED:63. PT'S FEELING WEAK. WILL NOTIFY MD IF ITS OK TO GIVE D50 SINCE PARAMETER SAYS IF ITS BELOW 50.
--- NOTE | 2018-08-01 06:50 | NUR ---
SPOKE TO RESIDENT AND SAID OK TO GIVE D50 IVPX1. PT REPOSITIONED FOR COMFORT. WILL ENDORSE TO DAYSHIFT NURSE.
[2018-08-01] MEDS: ALBUTEROL SULFATE/IPRATROPIU 3 ML SOL IH SCH ×3 (07:08→19:28)
--- NOTE | 2018-08-01 07:30 | NUR ---
GOT BEDSIDE REPORT FROM CASSANDRA NELSON. PATIENT ON TELE MONITOR AND CONTACT ISO FOR PSYCHIATRIC SECRETARY L FOOT, VRE URINE, HX C DIFF. FALL RISK PROTOCOL IN PLACE. PATIENT AAOX4 AND ON 2 L O2 VIA NC, NO DISTRESS NOTED. IV ON L FA 24 G INFUSING NS AT 5, IV ASYMPTOMATIC PATENT AND INTACT. L FOOT OPEN WOUND DRESSING CLEAN DRY AND INTACT. BUE SWELLING, ELEVATED ON PILLOWS.LUCIA CATHETER IN PLACE, INSERTED ON 07/30. BED IN LOW POSITION, CALL LIGHT WITHIN REACH, SIDE RAILS X2 UP
[2018-08-01 08:00] VITALS: BP 149/51
[2018-08-01] MEDS: LACTOBACILLUS RHAMNOSUS GG 1 EACH CAP PO SCH (08:53)
[2018-08-01] MEDS: ASCORBIC ACID 500 MG TAB PO SCH ×2 (08:53→20:12)
[2018-08-01] MEDS: GABAPENTIN 100 MG CAP PO SCH ×3 (08:53→17:10)
[2018-08-01] MEDS: DOCUSATE SODIUM 100 MG GELCAP PO SCH (08:53)
[2018-08-01] MEDS: LISINOPRIL 5 MG TAB PO SCH (08:53)
[2018-08-01] MEDS ORDERED: CLOPIDOGREL 75 MG TAB PO SCH (09:00)
[2018-08-01] MEDS: FUROSEMIDE 20 MG/2 ML VIAL IVP SCH ×2 (09:00→20:12)
--- NOTE | 2018-08-01 09:07 | NUR ---
ADMINISTERED SCHEDULED MEDS, HELD PO MEDS SINCE PATIENT IS NPO. PATIENT TOLERATED WELL.
--- NOTE | 2018-08-01 10:27 | NUR ---
OR NURSES PICKING UP PATIENT FOR SURGERY, PATIENT IN STABLE CONDITION
[2018-08-01] MEDS: LIDOCAINE/EPI MPF 1%1:200000 30 ML VIAL INJ ONE ×2 (11:12→12:11)
[2018-08-01] MEDS ORDERED: fentaNYL 0.05 MG/ML VIAL ONE (11:14)
[2018-08-01] MEDS ORDERED: MIDAZOLAM 2 MG/2 ML VIAL ONE (11:14)
[2018-08-01] MEDS ORDERED: ONDANSETRON 4 MG/2 ML VIAL IVP PRN (12:20)
[2018-08-01] MEDS ORDERED: BLOOD GLUCOSE MONITORING 1 DEV DEV FS SCH (12:30)
--- NOTE | 2018-08-01 13:00 | NUR ---
PATIENT BACK FROM OR. PATIENT IN STABLE CONDITION
[2018-08-01] MEDS: NACL 0.9% 1,000 ML IV SCH (13:10)
[2018-08-01] MEDS: FLUCONAZOLE 200 MG/NS PREMIX 100 ML IV SCH (13:10)
[2018-08-01] MEDS: SKINTEGRITY HYDROGEL TP SCH (13:18)
[2018-08-01 15:05] LABS: BASOPHILS # (AUTO) 0.1 K/uL (0.00-0.22); BASOPHILS % (AUTO) 0.8 % (0.0-2.0); EOSINOPHILS # (AUTO) 0.1 K/uL (0-0.4); EOSINOPHILS % (AUTO) 1.6 % (0.0-4.0); HEMATOCRIT 31.2 % (36-48); HEMOGLOBIN 9.9 g/dL (12.0-16.0); LYMPHOCYTES # (AUTO) 2.9 K/uL (2.5-16.5); LYMPHOCYTES % (AUTO) 33.6 % (20.5-51.1); MEAN CORPUSCULAR HEMOGLOBIN 27 pg (27-31); MEAN CORPUSCULAR HGB CONC 32 g/dL (33-37); MEAN CORPUSCULAR VOLUME 83.7 fL (80-94); MONOCYTES # (AUTO) 0.9 K/uL (0.8-1.0); MONOCYTES % (AUTO) 10.5 % (1.7-9.3); NEUTROPHILS # (AUTO) 4.6 K/uL (1.8-7.7); NEUTROPHILS % (AUTO) 53.5 % (42.2-75.2); PLATELET COUNT (AUTO) 316 K/uL (140-450); RED BLOOD CELL COUNT(AUTO) 3.72 MIL/uL (4.20-5.40); RED CELL DISTRIBUTION WIDTH 19.9 % (11.6-13.7); WHITE BLOOD COUNT (AUTO) 8.5 K/uL (4.8-10.8)
[2018-08-01 15:29] LABS: ANION GAP 9.7 (8-16); CARBON DIOXIDE 31.4 mmol/L (21-32); CHLORIDE 104 mmol/L (98-107); CREATININE 1.3 mg/dL (0.6-1.3); GLUCOSE 151 mg/dL (74-106); POTASSIUM 4.1 mmol/L (3.5-5.1); SODIUM SERUM 141 mmol/L (136-145); UREA NITROGEN, BLOOD 11 mg/dL (7-18)
[2018-08-01 15:33] LABS: MAGNESIUM 1.7 mg/dL (1.8-2.4); PHOSPHORUS 2.8 mg/dL (2.5-4.9)
[2018-08-01 16:00] VITALS: BP 101/64
--- NOTE | 2018-08-01 16:49 | NUR ---
FAMILY AT BEDSIDE, ON 2 L O2 NC, NO DISTRESS NOTED, GAVE JELLO AND ORANGE JUICE REQUESTED
[2018-08-01] MEDS: AMITRIPTYLINE 25 MG TAB PO SCH (17:10)
--- NOTE | 2018-08-01 17:13 | NUR ---
ADMINISTERED SCHEDULED MEDS, PATIENT TOLERATED WELL
--- NOTE | 2018-08-01 19:28 | NUR ---
GAVE BEDSIDE REPORT TO CASSANDRA WRAY. PATIENT ENDORSED IN STABLE CONDITION. ENDORSED TO RN THAT FAMILY IS WAITING FOR PATIENTS DAUGHTER TO SIGN CONSENT FORM FOR EGD
--- NOTE | 2018-08-01 19:30 | NUR ---
ASSUMED CARE OF PATIENT, AWAKE, ALERT AND ORIENTED. PATIENT FAMILY AT BEDSIDE. NO COMPLAINS. FEEDING PATIENT. CONSENT SIGNED FOR EGD FOR ANGELLA BY DAUGHTER PEMA. CARE BOARD UPDATED. PLAN OF CARE DISCUSSED WITH PATIENT AND FAMILY MEMBER, VERBALIZED UNDERSTANDING WELL. CALL LIGHT WITHIN REACH.
--- NOTE | 2018-08-01 19:37 | NUR ---
FAMILY AT BEDSIDE. RECEIVED PATIENT ON 2L NC, PULSE OX 96%. SCHEDULED BREATHING TREATMENT ADMINISTERED. TOLERATED TX WELL, NO ADVERSE SIDE EFFECTS. PLACED PATIENT BACK ON 2L NASAL CANNULA. NO RESPIRATORY DISTRESS NOTED. WILL CONTINUE TO MONITOR.
--- NOTE | 2018-08-01 20:00 | NUR ---
RT AT BEDSIDE. DUE MEDS GIVEN. REPOSITIONED BY YOUTH SPECIALIST. CALL LIGHT WITHIN REACH. PLAN OF CARE DISCUSSED WITH PATIENT, NEEDS REINFORCEMENT.
[2018-08-01] MEDS: ATORVASTATIN 20 MG TAB PO SCH (20:12)
[2018-08-01] MEDS: INSULIN LANTUS 100 UNITS/ML 10 ML VIAL SUBQ SCH (20:45)
[2018-08-01] MEDS: INSULIN LISPRO SLIDING SCALE 100 UNITS/ML VIAL SUBQ PRN (20:46)
[2018-08-01] MEDS ORDERED: RIVAROXABAN 15 MG TAB PO SCH (21:00)
[2018-08-01 21:21] VITALS: BP 122/76
[2018-08-01] MEDS: BOWEL EVACUANT DRINK 4,000 ML PDS PO ONE ×2 (23:25→23:52)
[2018-08-02 00:05] VITALS: BP 122/68
--- NOTE | 2018-08-02 00:10 | NUR ---
VITAL SIGNS STABLE. REPOSITIONED TO LEFT SIDE LYING. REFUSED GOLYTELY BOWEL PREP ATTEMPTED AND EXPLAINED MULTIPLE TIMES, STILL REFUSED. DR. GARCIA MADE AWARE. CALL LIGHT WITHIN REACH.
--- NOTE | 2018-08-02 00:12 | NUR ---
NPO AFTER MIDNIGHT, SIGN POSTED FOR REINFORCEMENT.
[2018-08-02] MEDS: NACL 0.9% 1,000 ML IV SCH ×2 (03:33→17:10)
--- NOTE | 2018-08-02 03:44 | NUR ---
NPO EXCEPT MEDICATIONS. ASLEEP EASILY AROUSABLE. NO COMPLAINS. CALL LIGHT WITHIN REACH.
[2018-08-02 03:45] VITALS: BP 110/88
[2018-08-02] MEDS: metroNIDAZOLE 500 MG TAB PO SCH ×3 (04:57→21:19)
[2018-08-02] MEDS: BLOOD GLUCOSE MONITORING 1 DEV DEV FS SCH ×4 (05:50→21:12)
[2018-08-02] MEDS: GLIMEPIRIDE 2 MG TAB PO SCH (05:50)
--- NOTE | 2018-08-02 06:48 | NUR ---
RESIDENT MD AT BEDSIDE. BLOOD DRAW WITH CENTRAL LINE CATHETER. NO COMPLAINS. CALL LIGHT WITHIN REACH.
[2018-08-02 07:00] LABS: BASOPHILS # (AUTO) 0.1 K/uL (0.00-0.22); BASOPHILS % (AUTO) 1.1 % (0.0-2.0); EOSINOPHILS # (AUTO) 0.1 K/uL (0-0.4); EOSINOPHILS % (AUTO) 2.2 % (0.0-4.0); HEMATOCRIT 29.6 % (36-48); HEMOGLOBIN 9.6 g/dL (12.0-16.0); LYMPHOCYTES # (AUTO) 1.8 K/uL (2.5-16.5); LYMPHOCYTES % (AUTO) 26.3 % (20.5-51.1); MEAN CORPUSCULAR HEMOGLOBIN 27 pg (27-31); MEAN CORPUSCULAR HGB CONC 33 g/dL (33-37); MEAN CORPUSCULAR VOLUME 83.7 fL (80-94); MONOCYTES # (AUTO) 0.8 K/uL (0.8-1.0); MONOCYTES % (AUTO) 11.4 % (1.7-9.3); PLATELET COUNT (AUTO) 341 K/uL (140-450); RED BLOOD CELL COUNT(AUTO) 3.53 MIL/uL (4.20-5.40); RED CELL DISTRIBUTION WIDTH 19.7 % (11.6-13.7); WHITE BLOOD COUNT (AUTO) 6.8 K/uL (4.8-10.8)
[2018-08-02] MEDS: ALBUTEROL SULFATE/IPRATROPIU 3 ML SOL IH SCH ×3 (07:00→19:47)
[2018-08-02 07:23] LABS: ANION GAP 9.3 (8-16); CARBON DIOXIDE 31.6 mmol/L (21-32); CHLORIDE 104 mmol/L (98-107); CREATININE 1.3 mg/dL (0.6-1.3); GLUCOSE 153 mg/dL (74-106); POTASSIUM 3.9 mmol/L (3.5-5.1); SODIUM SERUM 141 mmol/L (136-145); UREA NITROGEN, BLOOD 11 mg/dL (7-18)
[2018-08-02 07:27] LABS: MAGNESIUM 1.5 mg/dL (1.8-2.4); PHOSPHORUS 2.8 mg/dL (2.5-4.9)
--- NOTE | 2018-08-02 07:34 | NUR ---
ENDORSED CARE AT BEDSIDE WITH BRENT RN, PATIENT IN STABLE CONDITION.
--- NOTE | 2018-08-02 07:34 | NUR ---
RECEIVED BEDSIDE REPORT FROM INSPECTOR COATED FABRICS NURSE. PATIENT IS RESTING ON BED AT THIS TIME. PATIENT IS ALERT AND ORIENTED X4. RESPIRATION EVEN AND UNLABORED ON ROOM AIR. DENIES PAIN. ABLE TO MAKE NEEDS KNOWN IN DANISH AND FOLLOW COMMAND. NO S/S OF ANY DISTRESS NOTED. SKIN IS WARM AND DRY TO TOUCH. BUE +3 PITTING EDEMA NOTED. CAPILLARY CHECK LESS THAN 2 SEC. IV ON LAC 22G, PATENT, INTACT, AND ASYMMETRIC. TUNNEL CENTRAL LINE NOTED ON LEFT UPPER CHEST. PATIENT IS BEDREST AND INCONTINENT AND F/C CONNECTED. NO BLOOD IN URINE NOTED. LEFT FOOT WOUND NOTED AND DRESSING IS DRY AND INTACT. PLAN OF CARE WAS DISCUSSED WITH PATIENT AND PATIENT VERBALIZED UNDERSTANDING. SAFETY MEASURES ARE IN PLACE. BED IS AT LOW POSITION. PLACED CALL LIGHT WITHIN REACH AND ENCOURAGED PATIENT TO USE CALL LIGHT FOR ANY ASSISTANCE .
--- NOTE | 2018-08-02 07:52 | NUR ---
PT REFUSED RX DUE TO NAUSEA ALSO HIGH HEART RATE NO RESP DISTRESS AT THIS TIME
[2018-08-02 08:00] VITALS: BP 149/77
[2018-08-02] MEDS ORDERED: MAG SULF 2000 MG/WATER PREMIX 100 ML IV SCH (08:00)
[2018-08-02] MEDS ORDERED: FLUCONAZOLE 100 MG TAB PO SCH (08:00)
[2018-08-02] MEDS: MAGNESIUM HYDROXIDE 2400 MG/30 ML UDC PO SCH (08:42)
[2018-08-02] MEDS: FUROSEMIDE 20 MG/2 ML VIAL IVP SCH ×2 (08:43→21:19)
[2018-08-02] MEDS: LACTOBACILLUS RHAMNOSUS GG 1 EACH CAP PO SCH (08:44)
[2018-08-02] MEDS: GABAPENTIN 100 MG CAP PO SCH ×3 (08:45→16:58)
[2018-08-02] MEDS: LISINOPRIL 5 MG TAB PO SCH (08:46)
[2018-08-02] MEDS: ASCORBIC ACID 500 MG TAB PO SCH ×2 (08:46→21:19)
--- NOTE | 2018-08-02 09:45 | NUR ---
PT HAD BMX1, YELLOW STOOL, NO SIGNS FOR BLEEDING. PT WAS CLEANED, CHUX CHANGED. PT WAS REPOSITIONED. Addendum: 08/02/18 at 1758 by Ramón Genao RN ALSO CHANGED INTERDRY FOR ARMPITS
--- NOTE | 2018-08-02 10:30 | NUR ---
PIC TAKEN FOR SACRAL. SHOWED IT TO WOUND CARE NURSE SUKUMAR, RECOMMENDED OPTIFOAM FOR PREVENTIVE MEASURE. APPLIED OPTIFOAM TO SACRAL.
[2018-08-02 12:00] VITALS: BP 160/74
[2018-08-02] MEDS: FLUCONAZOLE 200 MG/NS PREMIX 100 ML IV SCH (12:13)
[2018-08-02] MEDS: INSULIN LISPRO SLIDING SCALE 100 UNITS/ML VIAL SUBQ PRN ×2 (12:32→21:15)
[2018-08-02] MEDS: ONDANSETRON 4 MG/2 ML VIAL IM/IVP PRN (13:10)
--- NOTE | 2018-08-02 13:46 | NUR ---
08/02/18 RD FOLLOW UP COMPLETED PLEASE REFER TO NUTRITION ASSESSMENT UNDER CARE ACTIVITY FOR ESTIMATED NUTRITIONAL NEEDS. 1. CONTINUE NPO MEDICALLY NECESSARY 2. WHEN PATIENT IS MEDICALLY STABLE CONSIDER ADVANCING DIET TO FULL LIQUIDS THEN GRADUALLY ADVANCING TO CCHO 60 GM AND RENAL DIET 3. RD TO FOLLOW UP WITH NUTRITION EDUCATION ON DIABETES 5. RD TO FOLLOW-UP 3-5 DAYS, MODERATE RISK SHANT GUTIERREZ, RD
--- NOTE | 2018-08-02 13:51 | NUR ---
PT REF HHN AT THIS TIME NO RESP DISTRESS NOTED AT THIS TIME
[2018-08-02 16:00] VITALS: BP 128/83
[2018-08-02] MEDS ORDERED: fentaNYL 0.05 MG/ML VIAL ONE (16:17)
[2018-08-02] MEDS ORDERED: MIDAZOLAM 2 MG/2 ML VIAL ONE (16:17)
[2018-08-02] MEDS: SKINTEGRITY HYDROGEL TP SCH (16:58)
[2018-08-02] MEDS: AMITRIPTYLINE 25 MG TAB PO SCH (16:58)
--- NOTE | 2018-08-02 17:10 | NUR ---
EGD WAS DONE IN OR. PT IS BACK FROM OR. VITALS TAKEN. NO S/S OF ACUTE DISTRESS ON 2L NC. PT DENIES NAUSEA, JUST A LITTLE DIZZINESS.
[2018-08-02] MEDS ORDERED: fentaNYL 0.05 MG/ML VIAL IVP ONE (17:45)
[2018-08-02] MEDS ORDERED: MIDAZOLAM 2 MG/2 ML VIAL IVP ONE (17:45)
--- NOTE | 2018-08-02 18:05 | NUR ---
PT'S FAMILY VISITING. HELPING PT WITH DINNER.
--- NOTE | 2018-08-02 19:10 | NUR ---
Received endorsement from AM shift RN; patient awake, talking with family. Patient is A/Ox4, able to make needs known, bedbound. No SOB or distress noted. IV sites are: central line left chest and and left upper arm, 22 gauge. Swelling on both arms noted, more pronounced on right side. Bed in the lowest position, call light within reach. Initial assessment done. Will continue to monitor.
--- NOTE | 2018-08-02 19:15 | NUR ---
ENDORSED PT TO EMPLOYEE REPRESENTATIVE NURSE. PT IN STABLE CONDITION.
[2018-08-02] MEDS ORDERED: BENZONATATE 100 MG CAPLF PO PRN (20:30)
[2018-08-02] MEDS ORDERED: PROMETHAZINE DM 6.25/15MG-5ML ORASYR PO PRN (21:00)
[2018-08-02] MEDS: INSULIN LANTUS 100 UNITS/ML 10 ML VIAL SUBQ SCH (21:15)
[2018-08-02] MEDS: ATORVASTATIN 20 MG TAB PO SCH (21:19)
--- NOTE | 2018-08-02 21:30 | NUR ---
Due meds given, tolerated well. No SOB noted.
--- NOTE | 2018-08-02 22:50 | NUR ---
Patient had a BM at this time, small, formed, brown in color. Patient cleaned, chux and linens changed. Repositioned, tolerated well. will continue to monitor.
--- NOTE | 2018-08-02 23:45 | NUR ---
Rounds made, patient asleep, visible chest rise and fall noted. Addendum: 08/02/18 at 2359 by Saleem Keita RN Vitals also taken at this time.
[2018-08-03] VITALS: BP 153/63
--- NOTE | 2018-08-03 01:40 | NUR ---
Frequent checks made. No distress noted. Patient asleep, visible chest rise and fall noted.
--- NOTE | 2018-08-03 04:02 | NUR ---
Patient asleep, visible chest rise and fall noted.
[2018-08-03] MEDS: metroNIDAZOLE 500 MG TAB PO SCH ×2 (05:33→13:49)
[2018-08-03] MEDS: GLIMEPIRIDE 2 MG TAB PO SCH (05:33)
--- NOTE | 2018-08-03 05:35 | NUR ---
Due meds given, tolerated well.
[2018-08-03] MEDS: BLOOD GLUCOSE MONITORING 1 DEV DEV FS SCH ×2 (06:34→11:56)
[2018-08-03] MEDS: INSULIN LISPRO SLIDING SCALE 100 UNITS/ML VIAL SUBQ PRN ×2 (06:36→12:44)
[2018-08-03] MEDS: ALBUTEROL SULFATE/IPRATROPIU 3 ML SOL IH SCH ×2 (07:11→13:54)
--- NOTE | 2018-08-03 07:15 | NUR ---
Endorsed patient to AM shift RN; patient in stable condition.
--- NOTE | 2018-08-03 07:16 | NUR ---
GOT BEDSIDE REPORT FROM CASSANDRA COULTER. PATIENT ON MED SURGE AND STANDARD PRECAUTIONS IN PLACE. PATIENT AAOX4 AND ON O2 1.5 LPM NC, NO DISTRESS NOTED. SACRAL REDNESS WITH OPTIFOAM IN PLACE, L FOOT DIABETIC ULCER DRESSING CLEAN DRY AND INTACT, BUE SWELLING. FALL RISK PROTOCOL IN PLACE. IV ON R FA 24 G INFUSING NS AT 50, IV ASYMPTOMATIC PATENT AND INTACT. BED IN LOW POSITION, CALL LIGHT WITHIN REACH, SIDE RAILS X2 UP
[2018-08-03 08:00] VITALS: BP 134/38
[2018-08-03] MEDS ORDERED: POLYETHYLENE GLYCOL 17 GM/PKT PO SCH (09:00)
[2018-08-03] MEDS: LISINOPRIL 5 MG TAB PO SCH (09:12)
[2018-08-03] MEDS: LACTOBACILLUS RHAMNOSUS GG 1 EACH CAP PO SCH (09:12)
[2018-08-03] MEDS: ASCORBIC ACID 500 MG TAB PO SCH (09:12)
[2018-08-03] MEDS: FUROSEMIDE 20 MG/2 ML VIAL IVP SCH (09:12)
[2018-08-03] MEDS: GABAPENTIN 100 MG CAP PO SCH ×2 (09:13→13:49)
--- NOTE | 2018-08-03 09:26 | NUR ---
ADMINISTERED SCHEDULED MEDS. PATIENT TOLERATED WELL. PATIENT TURNED TO L SIDE LYING POSITION
[2018-08-03] MEDS ORDERED: METR500T1 PO (10:09)
[2018-08-03] MEDS ORDERED: ROC2I IV (10:10)
[2018-08-03] MEDS: FLUCONAZOLE 200 MG/NS PREMIX 100 ML IV SCH (11:56)
--- NOTE | 2018-08-03 12:25 | NUR ---
PATIENT TURNED TO R SIDE LYING POSITION, SITTING UP IN BED EATING LUNCH, ON O2 2 LPM NC, NO DISTRESS NOTED
--- NOTE | 2018-08-03 13:19 | NUR ---
AVE NOTE RECEIVED ORDER TO DC TO [facility] TODAY ON IV ANTIBIOTIC. FAXED ORDER AND CLINICAL PACKET INCLUDING MICROS TO [facility]. [place] [facility] [place] [address] CORDON, NUMBER TO CALL FOR REPORT PH# [phone]. THE PATIENT HAS SECONDARY IEHP. PER IEHP AVE JONES, FOR [facility] AUTH# [id number]. PER ELSIE OF [facility], THE PATIENT WILL BE PICKED UP AT 1630 TODAY GO[place] [facility] [place] THOMAS W[place]SON.
[2018-08-03] MEDS: SKINTEGRITY HYDROGEL TP SCH (13:49)
[2018-08-03] MEDS: NACL 0.9% 1,000 ML IV SCH (14:58)
--- NOTE | 2018-08-03 14:58 | NUR ---
GAVE REPORT [place]IA TELEPHONE [place] [facility] [place][phone]. NURSE AWARE PATIENT WILL BE UNDER DR. CORDON AND WITH ANTIBIOTICS, ROCEPHIN 1 GM QD X 28 DAYS AND PO METRONIDAZOLE 500 MG Q8H X 28 DAYS, AND TO STOP ALL ANTICOAGULANTS, AND CONTINUE WITH [facility] SOFT CCHO DIET THERE. NURSE AWARE PICKUP TIME IS BY [facility] AT 1630 TODAY. ANSWERED ALL QUESTIONS AND CONCERNS
--- NOTE | 2018-08-03 17:30 | NUR ---
[facility] EMPL[facility]YE[facility] STATED PATIENT IS UNABLE TO FIT INTO GURNEY DUE TO HER SIZE. THEY HAVE ANOTHER BARIATRIC UNIT MEANT FOR THIS PATIENT, WHICH THEY CALLED. STATED WE MUST RESCHEDULE SINCE THEY NEED ANOTHER GURNEY SIZE. CHARGE NURSE, MOISE WATSON
--- NOTE | 2018-08-03 18:45 | NUR ---
CHARGE NURSEMOISE STATED NEW PICKUP TIME AROUND 6:30 -7:00 PM BY [facility]
--- NOTE | 2018-08-03 19:11 | NUR ---
GAVE BEDSIDE REPORT TO CASSANDRA COULTER. PATIENT ENDORSED IN STABLE CONDITION
--- NOTE | 2018-08-03 19:12 | NUR ---
Received endorsement from AM shift RN; patient awake, talking with family. Patient is A/Ox4, able to make needs known, bedbound. No SOB or distress noted. IV sites are: central line left chest and and left upper arm, 22 gauge. Swelling on both arms noted, more pronounced on right side. Bed in the lowest position, call light within reach. Initial assessment done. For discharge between [id number]. Will continue to monitor.
--- NOTE | 2018-08-03 19:25 | NUR ---
PATIENT PICKED UP BY [facility]. PATIENT IN STABLE CONDITION. DISCHARGE INSTRUCTIONS PROVIDED TO PATIENT. PNA UP TO DATE 07/2014 AND FLU 12/2017. PICTURES TAKEN OF SACRAL COCCYX AND L FOOT DM ULCER, DRESSINGS CLEAN DRY AND INTACT. L IJ TUNNELED CENTRAL LINE GROSHONG IN PLACE FOR CONTINUED ABX. LUCIA CATHETER IN PLACE TO MAINTAIN SKIN INTEGRITY. WRIST BANDS REMOVED. PATIENT AND FAMILY AWARE OF TRANSFER TO [facility] [place]. ANSWERED ALL QUESTIONS AND CONCERNS
== END 2018-08-03 19:30 | DRG 177 ==
LOC: MED 18:02 → MTU 20:36
PROVIDERS: ADMIT General Practice; ATTEND General Practice
PROC: 02HV33Z Insertion of Infusion Device into Superior Vena Cava, Percutaneous Approach (ICD-10-PCS; 2018-08-01)
PROC: B5181ZA Fluoroscopy of Superior Vena Cava using Low Osmolar Contrast, Guidance (ICD-10-PCS; 2018-08-01)
PROC: B548ZZA Ultrasonography of Superior Vena Cava, Guidance (ICD-10-PCS; 2018-08-01)
PROC: 0JH63XZ Insertion of Tunneled Vascular Access Device into Chest Subcutaneous Tissue and Fascia, Percutaneous Approach (ICD-10-PCS; principal; 2018-08-01 12:05)
PROC: 0DJ08ZZ Inspection of Upper Intestinal Tract, Via Natural or Artificial Opening Endoscopic (ICD-10-PCS; 2018-08-02)
PROC: 0PSCXZZ Reposition Right Humeral Head, External Approach (ICD-10-PCS; 2018-08-02)
DX: J69.0 Pneumonitis due to inhalation of food and vomit (principal); I50.43 Acute on chronic combined systolic (congestive) and diastolic (congestive) heart failure; E43 Unspecified severe protein-calorie malnutrition; N17.0 Acute kidney failure with tubular necrosis; I13.0 Hypertensive heart and chronic kidney disease with heart failure and stage 1 through stage 4 chronic kidney disease, or unspecified chronic kidney disease; I82.621 Acute embolism and thrombosis of deep veins of right upper extremity; A04.72 Enterocolitis due to Clostridium difficile, not specified as recurrent; M86.8X7 Other osteomyelitis, ankle and foot; N39.0 Urinary tract infection, site not specified; Z68.42 Body mass index [BMI] 45.0-49.9, adult; I82.C11 Acute embolism and thrombosis of right internal jugular vein; D50.9 Iron deficiency anemia, unspecified; D63.8 Anemia in other chronic diseases classified elsewhere; E11.22 Type 2 diabetes mellitus with diabetic chronic kidney disease; N18.3 Chronic kidney disease, stage 3 (moderate); I89.0 Lymphedema, not elsewhere classified; K29.80 Duodenitis without bleeding; E11.51 Type 2 diabetes mellitus with diabetic peripheral angiopathy without gangrene; E11.69 Type 2 diabetes mellitus with other specified complication; E87.70 Fluid overload, unspecified; S43.004A Unspecified dislocation of right shoulder joint, initial encounter; E11.65 Type 2 diabetes mellitus with hyperglycemia; E11.40 Type 2 diabetes mellitus with diabetic neuropathy, unspecified; E11.21 Type 2 diabetes mellitus with diabetic nephropathy; Z88.8 Allergy status to other drugs, medicaments and biological substances; Z79.01 Long term (current) use of anticoagulants; Z86.73 Personal history of transient ischemic attack (TIA), and cerebral infarction without residual deficits; Z87.01 Personal history of pneumonia (recurrent)
CPT/HCPCS: 36415; 36600; 71045; 73030; 74018; 76770; 76856; 80048; 80053; 81001; 82150; 82803; 82948; 83036; 83605; 83690; 83735; 83880; 84100; 84443; 84484; 85025; 85610; 85730; 87040; 87081; 87086; 93005; 93970; 93971; 94640; 96365; 96372; 99285; A6248; C1751; C1758; J0696; J1450; J1644; J1650; J1815; J1940; J2001; J2250; J2270; J2405; J2543; J3010; J3370; J3475; J7030; J7060; J7620; P9041; P9046; Q0092

== ENCOUNTER 2018-09-18 20:27 | Inpatient (IN) | payer OTHER ==
[~2018-09-18] VITALS: Ht 162.6 cm; Wt 123.8 kg
[2018-09-18 20:27] VITALS: BP 178/90
[~2018-09-18 20:27] MED LIST changes: -CEFT1SOL1 IV; -CLOP75TA55 PO; +ROC2I IV; -VAN500I PO; -[UNRECOGNIZED DRUG - CODE] IV
--- NOTE | 2018-09-18 20:30 | NUR ---
PT BIBA TO BED 09.
[2018-09-18] MEDS ORDERED: NACL 0.9% 500 ML IV SCH (20:34)
[2018-09-18] MEDS ORDERED: NUTR887L4 PO (20:47)
[2018-09-18] MEDS ORDERED: ASPI-1718 PO (20:47)
[2018-09-18] MEDS ORDERED: HYDR-5092 PO (20:47)
[2018-09-18] MEDS ORDERED: AMIT10TA25 PO (20:47)
[2018-09-18] MEDS ORDERED: INSU100I7 SQ (20:47)
[2018-09-18] MEDS ORDERED: GLU1I IM (20:49)
[2018-09-18] MEDS ORDERED: D50SYR IV (20:49)
[2018-09-18 20:55] LABS: BASOPHILS # (AUTO) 0.1 K/uL (0.00-0.22); BASOPHILS % (AUTO) 0.7 % (0.0-2.0); EOSINOPHILS # (AUTO) 0.1 K/uL (0-0.4); EOSINOPHILS % (AUTO) 0.9 % (0.0-4.0); HEMATOCRIT 39.5 % (36-48); HEMOGLOBIN 13.1 g/dL (12.0-16.0); LYMPHOCYTES # (AUTO) 2.8 K/uL (2.5-16.5); LYMPHOCYTES % (AUTO) 31.5 % (20.5-51.1); MEAN CORPUSCULAR HEMOGLOBIN 29 pg (27-31); MEAN CORPUSCULAR HGB CONC 33 g/dL (33-37); MEAN CORPUSCULAR VOLUME 87.2 fL (80-94); MONOCYTES # (AUTO) 0.7 K/uL (0.8-1.0); MONOCYTES % (AUTO) 7.7 % (1.7-9.3); NEUTROPHILS # (AUTO) 5.2 K/uL (1.8-7.7); NEUTROPHILS % (AUTO) 59.2 % (42.2-75.2); PLATELET COUNT (AUTO) 288 K/uL (140-450); RED BLOOD CELL COUNT(AUTO) 4.52 MIL/uL (4.20-5.40); RED CELL DISTRIBUTION WIDTH 18.7 % (11.6-13.7); WHITE BLOOD COUNT (AUTO) 8.8 K/uL (4.8-10.8)
--- NOTE | 2018-09-18 20:55 | NUR ---
PT TO ED VIA [place] [facility] [place] ABD PAIN. AT THIS TIME PT IS DENYING ANY ABD PAIN BUT REPORTS RECTAL PAIN AND SORENESS. BOWEL SOUNDS HYPERACTIVE. ABD IS ROUND, NON TEDNER, DENIES PAIN UPON PALPATION. DENIES N/V. PT PRESENTS TO ED WITH L SUBCLAVIAN SINGLE LUMEN CENTRAL LINE. +BLOOD RETURN. LINE FLUSHES WITHOUT DIFFICULTY. PT PLACED INTO BED, PENDING MD HARRIS.
--- NOTE | 2018-09-18 21:00 | NUR ---
# 14 FR Urinary catheter inserted utilizing sterile technique. Immediate return of 200 ml YELLOW/CLEAR urine noted. Urine sample collected and sent to lab. Pt tolerated procedure WELL. PROCEDURE CHAPERONED BY CASSANDRA DUENAS.
[2018-09-18 21:06] LABS: ANION GAP 9.4 (8-16); CARBON DIOXIDE 28.4 mmol/L (21-32); CHLORIDE 102 mmol/L (98-107); CREATININE 1.1 mg/dL (0.6-1.3); GLUCOSE 257 mg/dL (74-106); POTASSIUM 4.8 mmol/L (3.5-5.1); SODIUM SERUM 135 mmol/L (136-145); UREA NITROGEN, BLOOD 21 mg/dL (7-18)
[2018-09-18 21:08] LABS: PROTHROMBIN TIME 9.9 secs (10.8-13.4)
[2018-09-18 21:12] LABS: ALBUMIN 2.4 g/dL (3.4-5.0); ASPARTATE AMINOTRANSFERASE 30 U/L (15-37); TOTAL BILIRUBIN 0.4 mg/dL (0.0-1.0)
[2018-09-18 21:17] LABS: APPEARANCE,URINE HAZY (CLEAR); BILIRUBIN,URINE NEGATIVE (NEGATIVE); BLOOD, URINE NEGATIVE (NEGATIVE); COLOR,URINE YELLOW (YELLOW); LEUKOCYTE ESTERASE ,URINE NEGATIVE (NEGATIVE); NITRITE, URINE NEGATIVE (NEGATIVE); PH,URINE 6.5 (5.0-9.0); UGLUCOSE NEGATIVE (NEGATIVE)
[2018-09-18] MEDS ORDERED: LACTULOSE 20 GM/30 ML UDC PO ONE (21:30)
[2018-09-18] MEDS ORDERED: PIPERACILLIN/TAZOBACTAM 3.375 GM in DEXTROSE 5% 50 ML IV ONE (22:25)
[2018-09-18] MEDS ORDERED: PIPERACILLIN/TAZOBACTAM 3.375 GM VIAL IV ONE (22:39)
--- NOTE | 2018-09-18 23:32 | NUR ---
PT INFORMED OF PLAN OF CARE. NO NEW QUESTIONS OR CONCERNS.
[2018-09-19] VITALS: BP 149/71
--- NOTE | 2018-09-19 | NUR ---
RECEIVED PATIENT FROM ED NURSE. PATIENT IS AWAKE, ALERT, AND COOPERATIVE. SPEAKS ARABIC. CHIEF COMPLAIN ABDOMINAL PAIN. ADMITTING DIAGNOSIS: PNEUMONIA. LUNGS SOUNDS CLEAR ON AUSCULTATION. RESPIRATION EVEN UNLABORED ON 2L O2 NC. NO DISTRESS NOTED. BOWEL SOUNDS PRESENT IN ALL 4 QUADRANTS. DENIES PAIN. LAST BM 09/17/18. SKIN IS WARM AND DRY. SUBCLAVIAN IV PATENT AND INTACT. MRSA SCREEN DONE. VITALS WERE TAKEN. PLAN OF CARE WAS DISCUSSED. ORIENT PATIENT TO ROOM, STAFF, AND CALL LIGHT. FALL PRECAUTION IN PLACE. ALL SAFETY MEASURES IN PLACE. BED IS AT LOW POSITION. BED ALARM ON. CALL LIGHT WITHIN REACH AND VERBALIZES ITS USE. WILL CONTINUE TO MONITOR.
--- NOTE | 2018-09-19 00:03 | NUR ---
Patient will be admitted to care of DR GRAF. Admited to TELE. Will go to room 122-B. Belongings list completed. Report to CASSANDRA GASTELUM.
[2018-09-19] MEDS ORDERED: MORPHINE SULFATE 2 MG/ML SYR IVP PRN (00:05)
[2018-09-19] MEDS ORDERED: ONDANSETRON 4 MG/2 ML VIAL IM/IVP PRN (00:05)
[2018-09-19] MEDS ORDERED: LORazepam 2 MG/ML VIAL IM/IVP PRN (00:05)
[2018-09-19] MEDS ORDERED: MAGNESIUM HYDROXIDE 2400 MG/30 ML UDC PO PRN ×2 (00:05→01:15)
[2018-09-19] MEDS ORDERED: HYDROcodone/APAP 5/325 MG 1 TAB TAB PO PRN (00:05)
[2018-09-19] MEDS ORDERED: BISACODYL 10 MG SUPP RC PRN ×2 (00:05→01:30)
[2018-09-19] MEDS ORDERED: IBUPROFEN 800 MG TAB PO PRN (00:05)
[2018-09-19] MEDS: NACL 0.9% 1,000 ML IV SCH ×2 (00:29→17:10)
[2018-09-19] MEDS ORDERED: MINERAL OIL 135 ML ENEM RC SCH (00:30)
[2018-09-19] MEDS ORDERED: DEXTROSE 50% 50 ML SYR IVP PRN (00:35)
--- NOTE | 2018-09-19 00:54 | NUR ---
ADMINISTER FLEET ENEMA PER ORDER. PATIENT TOLERATED WELL. WILL CONTINUE TO MONITOR
[2018-09-19] MEDS ORDERED: SODIUM PHOSPHATE 118 ML ENEM RC PRN (01:15)
[2018-09-19] MEDS ORDERED: MECLIZINE 25 MG TAB PO PRN (01:15)
[2018-09-19] MEDS ORDERED: NON-FORMULARY ITEM (Bisacodyl (Dulcolax) 10 MG) RC PRN (01:15)
[2018-09-19] MEDS ORDERED: ACETAMINOPHEN 325 MG TAB PO PRN (01:15)
[2018-09-19 01:30] LABS: MAGNESIUM 1.8 mg/dL (1.8-2.4); PHOSPHORUS 3.1 mg/dL (2.5-4.9); THYROID STIMULATING HORMONE 1.63 uIU/mL (0.34-3.74)
--- NOTE | 2018-09-19 03:00 | NUR ---
CHECKED PATIENT. PATIENT SLEEPING COMFORTABLY RESPIRATION EVEN UNLABORED ON 2L NC. NO DISTRESS NOTED. WILL CONTINUE TO MONITOR
[2018-09-19 04:00] VITALS: BP 152/60
--- NOTE | 2018-09-19 04:00 | NUR ---
VITALS WERE TAKEN. PATIENT IS IN STABLE CONDITION. NO DISTRESS NOTED. WILL CONTINUE TO MONITOR
[2018-09-19] MEDS: PIPER/TAZO 3.375GM/D5W PREMIX 50 ML IV SCH ×2 (04:58→12:21)
[2018-09-19] MEDS ORDERED: PIPERACILLIN/TAZOBACTAM 3.375 GM VIAL IV ONE (05:05)
[2018-09-19] MEDS: BLOOD GLUCOSE MONITORING 1 DEV DEV FS SCH ×4 (06:08→21:09)
[2018-09-19] MEDS: INSULIN LISPRO SLIDING SCALE 100 UNITS/ML VIAL SUBQ PRN ×4 (06:08→21:12)
--- NOTE | 2018-09-19 07:19 | NUR ---
ENDORSED PATIENT TO DAY SHIFT NURSE KORY TRUJILLO. PATIENT IS IN STABLE CONDITION.
--- NOTE | 2018-09-19 07:20 | NUR ---
RECEIVED REPORT FROM ADMISSIONS ASSISTANT NURSE. PATIENT LYING DOWN IN BED SLEEPING, AROUSABLE BY VOICE. NO DISTRESS NOTED. DENIES ANY PAIN. ON O2 2L/MIN VIA NC. RESPIRATIONS EVEN, UNLABORED. IV SITE INTACT, PATENT AND ON IVF PER MD ORDERS. ABDOMEN SOFT, OBESE. SKIN COLOR APPROPRIATE TO ETHNICITY, WARM TO TOUCH. SKIN IS INTACT. REVIEWED PLAN OF CARE WITH PATIENT. PATIENT VERBALIZED UNDERSTANDING. SAFETY MEASURES IN PLACE, CALL LIGHT WITHIN REACH. WILL CONTINUE TO MONITOR.
[2018-09-19] MEDS ORDERED: BUPIVACAINE-MPF 0.25% 30 ML VIAL INJ ONE (07:36)
[2018-09-19 08:00] VITALS: BP 159/65
[2018-09-19] MEDS ORDERED: NON-FORMULARY ITEM (Lactobacillus Rhamnosus Gg (Culturelle Health & Wellness) 1 EACH) PO SCH (09:00)
[2018-09-19] MEDS ORDERED: ASPIRIN 81 MG TAB.CHEW PO SCH (09:00)
[2018-09-19] MEDS ORDERED: NON-FORMULARY ITEM (Cranberry Fruit Concentrate (Cranberry) 450 MG) PO SCH (09:00)
[2018-09-19] MEDS ORDERED: PROTEIN HYDROLYS PO SCH (09:00)
[2018-09-19] MEDS ORDERED: AMINO ACIDS PO SCH (09:00)
[2018-09-19] MEDS ORDERED: MISOPROSTOL 200 MCG TAB PO SCH (09:00)
--- NOTE | 2018-09-19 09:02 | NUR ---
PATIENT HAS BEEN SCREENED AND CATEGORIZED HIGH NUTRITION RISK. PATIENT WILL BE SEEN WITHIN 1-2 DAYS OF ADMISSION. 09/19/18-09/20/[address]
[2018-09-19] MEDS: INSULIN LANTUS 100 UNITS/ML 10 ML VIAL SUBQ SCH (09:39)
[2018-09-19] MEDS: LACTOBACILLUS RHAMNOSUS GG 1 EACH CAP PO SCH (09:42)
[2018-09-19] MEDS: AMITRIPTYLINE 10 MG TAB PO SCH (09:42)
[2018-09-19] MEDS: LISINOPRIL 5 MG TAB PO SCH (09:43)
[2018-09-19] MEDS: DOCUSATE SODIUM 100 MG GELCAP PO SCH ×2 (09:43→20:59)
[2018-09-19] MEDS: GABAPENTIN 100 MG CAP PO SCH ×3 (09:43→17:10)
[2018-09-19] MEDS: GLIMEPIRIDE 2 MG TAB PO SCH (09:57)
--- NOTE | 2018-09-19 10:08 | NUR ---
ASSISTED ELECTRICAL AND RADIO MECHANIC IN CLEANING AND REPOSITIONING PATIENT. PATIENT HAD A BM AT THIS TIME. SCHEDULED MEDICATIONS DUE GIVEN. WILL CONTINUE TO MONITOR.
[2018-09-19 12:00] VITALS: BP 163/79
[2018-09-19] MEDS ORDERED: MISOPROSTOL 100 MCG TAB PO SCH (12:24)
--- NOTE | 2018-09-19 12:29 | NUR ---
PATIENT SITTING IN BED WITH LUNCH TRAY IN FRONT. NO DISTRESS NOTED. DENIES ANY PAIN. SCHEDULED MEDICATIONS DUE GIVEN. WILL CONTINUE TO MONITOR.
--- NOTE | 2018-09-19 14:30 | NUR ---
PATIENT LYING DOWN IN BED SLEEPING, AROUSABLE BY VOICE. NO DISTRESS NOTED. DENIES ANY PAIN. CONDITION UNCHANGED. WILL CONTINUE TO MONITOR.
[2018-09-19 16:00] VITALS: BP 135/82
--- NOTE | 2018-09-19 16:01 | NUR ---
09/19/18 RD INITIAL ASSESSMENT COMPLETED PLEASE REFER TO NUTRITION ASSESSMENT UNDER CARE ACTIVITY FOR ESTIMATED NUTRITIONAL NEEDS. [facility]. [facility] [address] TO FOLLOW-UP 3-5 DAYS, MODERATE RISK SHANT GUTIERREZ RD
[2018-09-19 16:42] LABS: BASOPHILS # (AUTO) 0.1 K/uL (0.00-0.22); BASOPHILS % (AUTO) 0.7 % (0.0-2.0); EOSINOPHILS # (AUTO) 0.1 K/uL (0-0.4); EOSINOPHILS % (AUTO) 1.7 % (0.0-4.0); HEMATOCRIT 40.5 % (36-48); HEMOGLOBIN 13.4 g/dL (12.0-16.0); LYMPHOCYTES # (AUTO) 1.7 K/uL (2.5-16.5); LYMPHOCYTES % (AUTO) 20.7 % (20.5-51.1); MEAN CORPUSCULAR HEMOGLOBIN 29 pg (27-31); MEAN CORPUSCULAR HGB CONC 33 g/dL (33-37); MEAN CORPUSCULAR VOLUME 88.7 fL (80-94); MONOCYTES # (AUTO) 0.8 K/uL (0.8-1.0); MONOCYTES % (AUTO) 10.2 % (1.7-9.3); NEUTROPHILS # (AUTO) 5.6 K/uL (1.8-7.7); NEUTROPHILS % (AUTO) 66.7 % (42.2-75.2); PLATELET COUNT (AUTO) 240 K/uL (140-450); RED BLOOD CELL COUNT(AUTO) 4.57 MIL/uL (4.20-5.40); RED CELL DISTRIBUTION WIDTH 18.8 % (11.6-13.7); WHITE BLOOD COUNT (AUTO) 8.3 K/uL (4.8-10.8)
[2018-09-19 16:52] LABS: ANION GAP 11.1 (8-16); CARBON DIOXIDE 27.8 mmol/L (21-32); CHLORIDE 103 mmol/L (98-107); CREATININE 1.3 mg/dL (0.6-1.3); GLUCOSE 184 mg/dL (74-106); POTASSIUM 4.9 mmol/L (3.5-5.1); SODIUM SERUM 137 mmol/L (136-145); UREA NITROGEN, BLOOD 20 mg/dL (7-18)
[2018-09-19 16:59] LABS: CHOL/HDL RATIO 7.9 (1-4.5)
--- NOTE | 2018-09-19 17:14 | NUR ---
PATIENT LYING DOWN IN BED SLEEPING, AROUSABLE BY VOICE. NO DISTRESS NOTED. CONDITION UNCHANGED. SCHEDULED MEDICATIONS DUE GIVEN. WILL CONTINUE TO MONITOR.
[2018-09-19] MEDS ORDERED: MAGNESIUM CITRATE 300 ML BTL PO SCH (18:09)
--- NOTE | 2018-09-19 18:16 | NUR ---
EXPECTORATED SPUTUM COLLECTION PENDING, HOWEVER, PATIENT HAS DRY COUGH. WILL CONTINUE TO TRY TO OBTAIN SPUTUM IF PATIENT HAS WET COUGH.
--- NOTE | 2018-09-19 18:25 | NUR ---
PATIENT SITTING IN BED WITH DINNER TRAY IN FRONT. NO DISTRESS NOTED. DENIES ANY PAIN. SCHEDULED MEDICATIONS DUE GIVEN. WILL CONTINUE TO MONITOR.
--- NOTE | 2018-09-19 19:15 | NUR ---
GAVE REPORT TO GAS METER CHECKER NURSE FOR CONTINUITY OF CARE. PATIENT IN STABLE CONDITION.
--- NOTE | 2018-09-19 19:20 | NUR ---
RECEIVED BEDSIDE REPORT FROM DAY SHIFT NURSE. PATIENT IS AWAKE, ALERT, AND COOPERATIVE. FAMILY AT BEDSIDE. RESPIRATION EVEN UNLABORED ON ROOM AIR. SKIN IS WARM AND DRY. PLAN OF CARE WAS DISCUSSED. ALL SAFETY MEASURES IN PLACE. BED IS AT LOW POSITION. CALL LIGHT WITHIN REACH AND VERBALIZES ITS USE. WILL CONTINUE TO MONITOR.
[2018-09-19 20:00] VITALS: BP 134/60
--- NOTE | 2018-09-19 20:00 | NUR ---
INITIAL ASSESSMENT DONE. VITALS WERE TAKEN. PATIENT CONDITION STABLE. NO DISTRESS NOTED. WILL CONTINUE TO MONITOR
[2018-09-19] MEDS: MAGNESIUM HYDROXIDE 2400 MG/30 ML UDC PO SCH (20:59)
[2018-09-19] MEDS: ATORVASTATIN 20 MG TAB PO SCH (20:59)
--- NOTE | 2018-09-19 21:00 | NUR ---
ALL SCHEDULED MEDS WERE GIVEN AND TOLERATED THEM WELL. NO ASE NOTED. WILL CONTINUE TO MONITOR
[2018-09-20] VITALS: BP 157/50
--- NOTE | 2018-09-20 | NUR ---
VITALS WERE TAKEN. PATIENT IS IN STABLE CONDITION. NO DISTRESS NOTED. WILL CONTINUE TO MONITOR
--- NOTE | 2018-09-20 01:00 | NUR ---
PROVIDE PATIENT GOOD PERICARE.
--- NOTE | 2018-09-20 02:00 | NUR ---
PATIENT IN BED WATCHING TV CANT FALL ASLEEP. OFFERED SLEEPING AID. PATIENT REFUSED. WILL CONTINUE TO MONITOR
--- NOTE | 2018-09-20 03:00 | NUR ---
PATIENT SLEEPING RESPIRATION EVEN UNLABORED ON ROOM AIR. NO DISTRESS NOTED. WILL CONTINUE TO MONITOR
[2018-09-20 04:00] VITALS: BP 153/47
--- NOTE | 2018-09-20 04:00 | NUR ---
VITALS WERE TAKEN. PATIENT CONDITION STABLE. NO DISTRESS NOTED. WILL CONTINUE TO MONITOR
[2018-09-20] MEDS: BLOOD GLUCOSE MONITORING 1 DEV DEV FS SCH ×4 (06:14→21:07)
[2018-09-20 06:27] LABS: ANION GAP 9.5 (8-16); BASOPHILS # (AUTO) 0.1 K/uL (0.00-0.22); CARBON DIOXIDE 29.2 mmol/L (21-32); CHLORIDE 105 mmol/L (98-107); CREATININE 1.1 mg/dL (0.6-1.3); EOSINOPHILS # (AUTO) 0.2 K/uL (0-0.4); EOSINOPHILS % (AUTO) 2.1 % (0.0-4.0); GLUCOSE 110 mg/dL (74-106); HEMATOCRIT 37.8 % (36-48); HEMOGLOBIN 12.7 g/dL (12.0-16.0); LYMPHOCYTES # (AUTO) 3.7 K/uL (2.5-16.5); MEAN CORPUSCULAR HEMOGLOBIN 29 pg (27-31); MEAN CORPUSCULAR HGB CONC 34 g/dL (33-37); MEAN CORPUSCULAR VOLUME 87.5 fL (80-94); MONOCYTES # (AUTO) 0.7 K/uL (0.8-1.0); MONOCYTES % (AUTO) 8.1 % (1.7-9.3); NEUTROPHILS # (AUTO) 3.7 K/uL (1.8-7.7); NEUTROPHILS % (AUTO) 44.8 % (42.2-75.2); PLATELET COUNT (AUTO) 278 K/uL (140-450); POTASSIUM 4.7 mmol/L (3.5-5.1); RED BLOOD CELL COUNT(AUTO) 4.32 MIL/uL (4.20-5.40); RED CELL DISTRIBUTION WIDTH 18.6 % (11.6-13.7); SODIUM SERUM 139 mmol/L (136-145); UREA NITROGEN, BLOOD 18 mg/dL (7-18); WHITE BLOOD COUNT (AUTO) 8.3 K/uL (4.8-10.8)
[2018-09-20 07:07] LABS: PHOSPHORUS 2.8 mg/dL (2.5-4.9)
--- NOTE | 2018-09-20 07:34 | NUR ---
ENDORSED PATIENT TO DAY SHIFT NURSE. PATIENT IS IN STABLE CONDITION.
--- NOTE | 2018-09-20 07:35 | NUR ---
RECEIVED ENDORSEMENT FROM OFFICE SERVICES REPRESENTATIVE NURSE. PT IS SLEEPING, EASILY AROUSABLE, [place]ESE SPEAKING. RESPIRATIONS ARE EVEN AND UNLABORED ON ROOM AIR. L SUBCLAVIAN IV INTACT AND SL. DENIES ANY PAIN AT THIS TIME. PLAN OF CARE WAS REVIEWED WITH PT. PT VERBALIZED UNDERSTANDING. SAFETY MEASURES IN PLACE, CALL LIGHT WITHIN REACH. WILL CONTINUE TO MONITOR.
[2018-09-20 08:00] VITALS: BP 193/85
[2018-09-20] MEDS: MISOPROSTOL 100 MCG TAB PO SCH (08:51)
[2018-09-20] MEDS: MAGNESIUM HYDROXIDE 2400 MG/30 ML UDC PO SCH ×2 (08:51→21:10)
[2018-09-20] MEDS: LACTOBACILLUS RHAMNOSUS GG 1 EACH CAP PO SCH (08:51)
[2018-09-20] MEDS: GLIMEPIRIDE 2 MG TAB PO SCH (08:52)
[2018-09-20] MEDS: DOCUSATE SODIUM 100 MG GELCAP PO SCH (08:52)
[2018-09-20] MEDS: GABAPENTIN 100 MG CAP PO SCH ×3 (08:53→16:41)
[2018-09-20] MEDS: LISINOPRIL 5 MG TAB PO SCH (08:53)
[2018-09-20] MEDS: AMITRIPTYLINE 10 MG TAB PO SCH (08:53)
[2018-09-20] MEDS ORDERED: SENNA 8.6 MG TAB PO SCH (09:00)
[2018-09-20] MEDS: INSULIN LANTUS 100 UNITS/ML 10 ML VIAL SUBQ SCH (09:03)
[2018-09-20] MEDS ORDERED: hydrALAZINE 20 MG/ML VIAL IVP PRN (09:05)
--- NOTE | 2018-09-20 09:15 | NUR ---
ADMINISTERED SCHEDULED MEDICATIONS. PT DENIES PAIN AT THIS TIME. WILL CONTINUE TO MONITOR.
[2018-09-20] MEDS: INSULIN LISPRO SLIDING SCALE 100 UNITS/ML VIAL SUBQ PRN ×2 (12:07→21:11)
--- NOTE | 2018-09-20 12:16 | NUR ---
ADMINISTERED SCHEDULED MEDICATIONS. ADMINISTERED PRN HYDRALAZINE FOR A BP OF 173/69. WILL CONTINUE TO MONITOR. PT DENIES PAIN AT THIS TIME.
--- NOTE | 2018-09-20 13:34 | NUR ---
BP 142/67 UPON REASSESSMENT OF BP. PT SLEEPING COMFORTABLY, EASILY AROUSABLE. WILL CONTINUE TO MONITOR.
[2018-09-20 16:00] VITALS: BP 180/89
--- NOTE | 2018-09-20 16:48 | NUR ---
PT VERY ANXIOUS AND CRYING. ADMINISTERED ATIVAN PRN IVP. ADMINISTERED SCHEDULED MEDICATIONS. WILL CONTINUE TO MONITOR.
--- NOTE | 2018-09-20 19:29 | NUR ---
ENDORSED TO TIRE REPAIRMAN NURSE FOR CONTINUITY OF CARE. PATIENT IS STABLE.
--- NOTE | 2018-09-20 19:30 | NUR ---
RECEIVED REPORT FROM DAY SHIFT NURSE. PATIENT IS AWAKE, ALERT, AND COOPERATIVE. RESPIRATION EVEN UNLABORED ON ROOM AIR. SKIN IS WARM AND DRY. SUBCLAVIAN CATHETER NOTED. NO S/SX OF INFECTION. FAMILY AT BEDSIDE. PLAN OF CARE WAS DISCUSSED. ALL SAFETY MEASURES IN PLACE. BED IS AT LOW POSITION. CALL LIGHT WITHIN REACH. WILL CONTINUE TO MONITOR.
--- NOTE | 2018-09-20 20:00 | NUR ---
INITIAL ASSESSMENT DONE. VITALS WERE TAKEN. PATIENT IS IN STABLE CONDITION. NO DISTRESS NOTED. WILL CONTINUE TO MONITOR
--- NOTE | 2018-09-20 21:00 | NUR ---
ALL SCHEDULED MEDS WERE GIVEN AND TOLERATED THEM WELL. NO ASE NOTED. WILL CONTINUE TO MONITOR
[2018-09-20] MEDS: ATORVASTATIN 20 MG TAB PO SCH (21:09)
--- NOTE | 2018-09-20 22:30 | NUR ---
PROVIDE PATIENT GOOD PERICARE BEFORE BEDTIME.
--- NOTE | 2018-09-20 23:00 | NUR ---
PATIENT IN BED WATCHING TV RESPIRATION EVEN UNLABORED ON ROOM AIR. NO DISTRESS NOTED. WILL CONTINUE TO MONITOR.
[2018-09-21] VITALS: BP 157/64
--- NOTE | 2018-09-21 | NUR ---
VITALS WERE TAKEN. PATIENT IS IN STABLE CONDITION. NO DISTRESS NOTED. WILL CONTINUE TO MONITOR.
[2018-09-21] MEDS ORDERED: SODIUM PHOSPHATE 118 ML ENEM RC PRN (01:15)
--- NOTE | 2018-09-21 02:00 | NUR ---
CHECKED PATIENT. PATIENT SLEEPING COMFORTABLY RESPIRATION EVEN UNLABORED ON ROOM AIR. NO DISTRESS NOTED. WILL CONTINUE TO MONITOR.
--- NOTE | 2018-09-21 04:00 | NUR ---
CHECKED PATIENT. PATIENT SLEEPING RESPIRATION EVEN UNLABORED ON ROOM AIR. NO DISTRESS NOTED. WILL CONTINUE TO MONITOR.
[2018-09-21] MEDS: INSULIN LISPRO SLIDING SCALE 100 UNITS/ML VIAL SUBQ PRN ×2 (05:56→12:07)
[2018-09-21] MEDS: BLOOD GLUCOSE MONITORING 1 DEV DEV FS SCH ×2 (05:58→12:03)
[2018-09-21 06:09] LABS: ANION GAP 9.6 (8-16); CARBON DIOXIDE 30.5 mmol/L (21-32); CHLORIDE 103 mmol/L (98-107); CREATININE 1.3 mg/dL (0.6-1.3); GLUCOSE 187 mg/dL (74-106); POTASSIUM 5.1 mmol/L (3.5-5.1); SODIUM SERUM 138 mmol/L (136-145); UREA NITROGEN, BLOOD 19 mg/dL (7-18)
[2018-09-21 06:12] LABS: BASOPHILS # (AUTO) 0.1 K/uL (0.00-0.22); BASOPHILS % (AUTO) 0.7 % (0.0-2.0); EOSINOPHILS # (AUTO) 0.1 K/uL (0-0.4); EOSINOPHILS % (AUTO) 1.8 % (0.0-4.0); HEMATOCRIT 39.7 % (36-48); LYMPHOCYTES # (AUTO) 2.7 K/uL (2.5-16.5); LYMPHOCYTES % (AUTO) 37.6 % (20.5-51.1); MEAN CORPUSCULAR HEMOGLOBIN 29 pg (27-31); MEAN CORPUSCULAR HGB CONC 33 g/dL (33-37); MONOCYTES # (AUTO) 0.6 K/uL (0.8-1.0); MONOCYTES % (AUTO) 8.9 % (1.7-9.3); NEUTROPHILS # (AUTO) 3.6 K/uL (1.8-7.7); PLATELET COUNT (AUTO) 281 K/uL (140-450); RED BLOOD CELL COUNT(AUTO) 4.46 MIL/uL (4.20-5.40); RED CELL DISTRIBUTION WIDTH 18.3 % (11.6-13.7); WHITE BLOOD COUNT (AUTO) 7.1 K/uL (4.8-10.8)
[2018-09-21 06:15] LABS: MAGNESIUM 2.5 mg/dL (1.8-2.4)
--- NOTE | 2018-09-21 07:28 | NUR ---
ENDORSED PATIENT TO DAY SHIFT NURSE. PATIENT IS IN STABLE CONDITION.
--- NOTE | 2018-09-21 07:29 | NUR ---
RECEIVED BEDSIDE REPORT FROM NIGHT NURSE. PT IS AOX4 WITH NO OBVIOUS SIGNS OF DISTRESS AND BREATHING EQUAL AND UNLABORED WITH LUNG SOUNDS CLEAR. PT HAS A LEFT SUBCLAVIAN SINGLE LUMEN IV THAT IS ASYMPTOMATIC AND PATENT. SKIN INTACT. ALL SAFETY MEASURES IN PLACE WITH CALL LIGHT IN REACH.
[2018-09-21 08:00] VITALS: BP 182/83
[2018-09-21] MEDS: AMITRIPTYLINE 10 MG TAB PO SCH (08:53)
[2018-09-21] MEDS: LACTULOSE 20 GM/30 ML UDC PO SCH ×2 (08:54→09:00)
[2018-09-21] MEDS: GABAPENTIN 100 MG CAP PO SCH ×2 (08:54→12:30)
[2018-09-21] MEDS: LACTOBACILLUS RHAMNOSUS GG 1 EACH CAP PO SCH (08:54)
[2018-09-21] MEDS: GLIMEPIRIDE 2 MG TAB PO SCH (08:54)
[2018-09-21] MEDS: MAGNESIUM HYDROXIDE 2400 MG/30 ML UDC PO SCH ×2 (08:54→09:00)
[2018-09-21] MEDS: MISOPROSTOL 100 MCG TAB PO SCH (08:55)
[2018-09-21] MEDS: INSULIN LANTUS 100 UNITS/ML 10 ML VIAL SUBQ SCH (08:58)
[2018-09-21] MEDS ORDERED: SENNA 8.6 MG TAB PO SCH (09:00)
[2018-09-21] MEDS ORDERED: DOCUSATE SODIUM 100 MG GELCAP PO SCH (09:00)
[2018-09-21] MEDS: DOCUSATE 100 MG/10 ML UDC PO SCH ×2 (09:00→09:01)
[2018-09-21] MEDS ORDERED: LISINOPRIL 5 MG TAB PO SCH (09:00)
--- NOTE | 2018-09-21 09:00 | NUR ---
ADMINISTERED MEDICATIONS. NO OBVIOUS SIGNS OF DISTRESS WITH BREATHING SYMMETRICAL AND UNLABORED.
--- NOTE | 2018-09-21 10:44 | NUR ---
PT RESTING IN BED. NO OBVIOUS SIGNS OF DISTRESS WITH BREATHING SYMMETRICAL AND UNLABORED.
--- NOTE | 2018-09-21 12:32 | NUR ---
ADMINISTERED MEDICATION PT SITTING UP IN BED EATING LUNCH WITH NO REQUESTS AND NO OBVIOUS SIGNS OF DISTRESS.
--- NOTE | 2018-09-21 13:50 | NUR ---
PT SITTING UP IN BED. NO OBVIOUS SIGNS OF DISTRESS WITH BREATHING SYMMETRICAL AND UNLABORED.
--- NOTE | 2018-09-21 14:59 | NUR ---
[facility] ( ML) HAD ARRANGED TRANSPORTATION WITH [facility]. [facility] SETUP TRANSPORTATION WITH [employer] @ AND [employer]ELOPER TIME IS AT 1600.
--- NOTE | 2018-09-21 15:00 | NUR ---
[place] TR[place]O [place] [facility] [place] [facility] here for pick-up. Dr. Rosado with order to discontinue left subclavian central line. Sutures from insertion site & left lateral neck clipped off, but has resistance when cath is pulled. Dr Rosado notified & looked at central line. Per physician, Dr. Crawley will follow up removal of central line at [facility]. New central line dressing placed.
--- NOTE | 2018-09-21 15:34 | NUR ---
LEFT VIA TRANSPORTATION. PT IS STABLE WITH BREATHING SYMMETRICAL AND NO OBVIOUS SIGNS OF DISTRESS. LEFT VIA [facility] TRANSPORT. ALL BELONGINGS WITH PATIENT. LEFT FOREARM IV LEFT IN PLACE SALINE LOCKED AND INTACT AND PATENT. Addendum: 09/21/18 at 1730 by Selena Luna RN CLARIFICATION; PT LEFT VIA [facility] TRANSPORTATION WITH LEFT SUBCLAVIAN CENTRAL CATH NOT FOREARM.
== END 2018-09-21 15:34 | DRG 177 ==
LOC: MED 20:27 → MTU 22:59
PROVIDERS: ADMIT General Practice; ATTEND General Practice
DX: J69.0 Pneumonitis due to inhalation of food and vomit (principal); N17.0 Acute kidney failure with tubular necrosis; E43 Unspecified severe protein-calorie malnutrition; Z68.42 Body mass index [BMI] 45.0-49.9, adult; E87.1 Hypo-osmolality and hyponatremia; J98.11 Atelectasis; R65.10 Systemic inflammatory response syndrome (SIRS) of non-infectious origin without acute organ dysfunction; F03.90 Unspecified dementia, unspecified severity, without behavioral disturbance, psychotic disturbance, mood disturbance, and anxiety; K62.89 Other specified diseases of anus and rectum; K80.20 Calculus of gallbladder without cholecystitis without obstruction; I10 Essential (primary) hypertension; Z66 Do not resuscitate; K56.41 Fecal impaction; G89.29 Other chronic pain; F32.9 Major depressive disorder, single episode, unspecified; E78.5 Hyperlipidemia, unspecified; E66.01 Morbid (severe) obesity due to excess calories; E11.65 Type 2 diabetes mellitus with hyperglycemia; E11.40 Type 2 diabetes mellitus with diabetic neuropathy, unspecified; K21.9 Gastro-esophageal reflux disease without esophagitis; Z79.2 Long term (current) use of antibiotics; Z91.018 Allergy to other foods; Z79.4 Long term (current) use of insulin; Z79.899 Other long term (current) drug therapy; Z86.73 Personal history of transient ischemic attack (TIA), and cerebral infarction without residual deficits; Z87.440 Personal history of urinary (tract) infections; Z86.718 Personal history of other venous thrombosis and embolism
CPT/HCPCS: 36415; 71045; 74018; 76705; 80048; 80053; 81003; 82272; 82948; 83036; 83605; 83690; 83735; 83880; 84100; 84134; 84443; 84484; 85025; 85610; 85730; 87040; 87081; 87086; 93005; 96365; 97110; 97161-GP; 99285; C1758; J0360; J1644; J1815; J2060; J2543; J3490; J7030; J7060; Q0092

== ENCOUNTER 2018-10-30 21:42 | Inpatient (IN) | payer OTHER ==
[~2018-10-30] VITALS: Ht 167.6 cm; Wt 105.2 kg
[~2018-10-30 21:42] MED LIST changes: -ALBU3SOL83 IH; +AMIT10TA25 PO; -ASCO500T45 PO; +ASPI-1718 PO; +D50SYR IV; -ELA25 PO; +GLU1I IM; -LACT1CAP63 PO; -METR500T1 PO; +NUTR887L4 PO; -ROC2I IV
[2018-10-30 21:46] VITALS: BP 145/75
--- NOTE | 2018-10-30 21:50 | NUR ---
PATIENT BIBA FROM [facility] [place] FOR HIGH BLOOD SUGAR, BS AT FACILITY OF 500 ON ARRIVAL SUGAR AT 424. NO DM MEDS GIVEN AT FACILTIY PER EMS AND PT AWAKE AND ACTING APPROPRIATE. PATIENT STATES PAIN OF 0/10 AT THIS TIME; VSS; PATIENT POSITIONED FOR COMFORT; HOB ELEVATED; BEDRAILS UP X2; BED DOWN. ER MD MADE AWARE OF PT STATUS.
[2018-10-30] MEDS ORDERED: ASCO500T45 PO (22:00)
[2018-10-30] MEDS ORDERED: LACT1TAB34 PO (22:00)
[2018-10-30] MEDS ORDERED: NUTR887L9 PO (22:00)
[2018-10-30] MEDS ORDERED: NACL 0.9% 1,000 ML IV SCH (22:05)
[2018-10-30 22:41] LABS: BASOPHILS # (AUTO) 0.1 K/uL (0.00-0.22); BASOPHILS % (AUTO) 0.8 % (0.0-2.0); EOSINOPHILS # (AUTO) 0.1 K/uL (0-0.4); EOSINOPHILS % (AUTO) 1.7 % (0.0-4.0); HEMATOCRIT 40.5 % (36-48); HEMOGLOBIN 13.5 g/dL (12.0-16.0); LYMPHOCYTES # (AUTO) 2.4 K/uL (2.5-16.5); MEAN CORPUSCULAR HEMOGLOBIN 30 pg (27-31); MEAN CORPUSCULAR HGB CONC 33 g/dL (33-37); MEAN CORPUSCULAR VOLUME 89.9 fL (80-94); MONOCYTES # (AUTO) 0.6 K/uL (0.8-1.0); MONOCYTES % (AUTO) 8.4 % (1.7-9.3); NEUTROPHILS # (AUTO) 3.9 K/uL (1.8-7.7); NEUTROPHILS % (AUTO) 55.1 % (42.2-75.2); PLATELET COUNT (AUTO) 251 K/uL (140-450); RED BLOOD CELL COUNT(AUTO) 4.51 MIL/uL (4.20-5.40); RED CELL DISTRIBUTION WIDTH 14.9 % (11.6-13.7)
--- NOTE | 2018-10-30 22:51 | NUR ---
STARTED IV AND STARTED IV FLUIDS.
[2018-10-30 23:08] LABS: ALBUMIN 2.5 g/dL (3.4-5.0); ANION GAP 15.7 (8-16); ASPARTATE AMINOTRANSFERASE 30 U/L (15-37); CARBON DIOXIDE 23.4 mmol/L (21-32); CHLORIDE 102 mmol/L (98-107); CREATININE 1.5 mg/dL (0.6-1.3); POTASSIUM 5.1 mmol/L (3.5-5.1); SODIUM SERUM 136 mmol/L (136-145); TOTAL BILIRUBIN 0.3 mg/dL (0.0-1.0); UREA NITROGEN, BLOOD 43 mg/dL (7-18)
--- NOTE | 2018-10-30 23:10 | NUR ---
USED STRAIGHT CATH TO COLLECT URINE FROM PT. PT TOLERATED WELL.
[2018-10-30 23:12] LABS: GLUCOSE 480 mg/dL (74-106)
[2018-10-30 23:32] LABS: APPEARANCE,URINE CLOUDY (CLEAR); BILIRUBIN,URINE NEGATIVE (NEGATIVE); BLOOD, URINE NEGATIVE (NEGATIVE); COLOR,URINE YELLOW (YELLOW); LEUKOCYTE ESTERASE ,URINE NEGATIVE (NEGATIVE); NITRITE, URINE POSITIVE (NEGATIVE); PH,URINE 5.5 (5.0-9.0); UGLUCOSE 3+ (NEGATIVE)
[2018-10-30] MEDS ORDERED: INSULIN REGULAR, HUMAN 100 UNIT/ML VIAL IV ONE (23:35)
[2018-10-30 23:56] LABS: RBC,URINE 20-50 /HPF (0-5); WBC,URINE TOO MANY TO COUNT /HPF (0-5)
[2018-10-31] VITALS (7 sets, daily range): BP systolic 137–192; BP diastolic 57–94
--- NOTE | 2018-10-31 00:15 | NUR ---
PT MOANING BUT DENIES HAVING ANY PAIN. PT SAYS HER MOUTH IS JUST DRY. GAVE PT SOME WATER.
[2018-10-31] MEDS ORDERED: cefTRIAXone 1,000 MG VIAL ONE (00:48)
--- NOTE | 2018-10-31 01:15 | NUR ---
ER AT BEDSIDE
[2018-10-31] MEDS ORDERED: NACL 0.9% 1,000 ML IV SCH (01:33)
[2018-10-31] MEDS ORDERED: DOCUSATE SODIUM 100 MG GELCAP PO PRN (01:35)
[2018-10-31] MEDS ORDERED: ONDANSETRON 4 MG/2 ML VIAL IM/IVP PRN (01:35)
[2018-10-31] MEDS ORDERED: DEXTROSE 50% 50 ML SYR IVP PRN (01:35)
[2018-10-31] MEDS ORDERED: ACETAMINOPHEN 325 MG TAB PO PRN (01:35)
[2018-10-31 01:52] LABS: BARBITURATE, URINE NEG. ng/ml (NEG <=200); BENZODIAZEPINE, URINE NEG. ng/mL (NEG <=200); CANNABINOID, URINE NEG. ng/mL (NEG <=50); COCAINE, URINE NEG. ng/mL (NEG <=300); OPIATE, URINE NEG. ng/mL (NEG <=2000); PHENCYCLIDINE SCREEN,URINE NEG. ng/mL (NEG <=25)
[2018-10-31 02:01] LABS: PROTHROMBIN TIME 9.9 secs (10.8-13.4)
[2018-10-31 02:12] LABS: CHOL/HDL RATIO 7.5 (1-4.5); FREE T4 (FREE THYROXINE) 1.16 ng/dL (0.76-1.46); MAGNESIUM 1.7 mg/dL (1.8-2.4); PHOSPHORUS 3.1 mg/dL (2.5-4.9); THYROID STIMULATING HORMONE 1.41 uIU/mL (0.34-3.74)
[2018-10-31] MEDS ORDERED: Z-GUARD PASTE TP PRN (02:20)
--- NOTE | 2018-10-31 02:20 | NUR ---
RECIEVED PT AWAKE , BUT CONFUSE, FROM ER PER ANKITA , NOT IN RESPIRATORY DISTRESS ,IV SITE DRY AND INTACT ,WITH CC : ELEVATED BLOOD SUGAR TRANSFER TO BED SAFELY AND COMFORTABLY, WITH SKIN EXCORCIATION ON SACRAL COCCYGEAL AREAS BUT INTACT IN INTEGRITY. PUT ON FALL RISK PRECAUTION - BED ALARM ON, ADMISSION ASSESSMENT DONE ,V/S TAKEN- WNL.PUT ON TELE MONITOR ,MRSA SPECIMEN COLLECTED AND SENT TO LAB ,BED IN LOW POSITION ,SIDERAILS UPX2 ,CALL LIGHT WITHIN REACH ,WILL CONTINUE TO MONITOR.
--- NOTE | 2018-10-31 02:26 | NUR ---
PT WAS ADMITTED TO [facility] ROOM 115-A. REPORT GIVEN TO CASSANDRA MULLINS.
[2018-10-31] MEDS ORDERED: MAG SULF 2000 MG/WATER PREMIX 50 ML IV SCH ×2 (03:00→06:40)
[2018-10-31] MEDS ORDERED: MAGNESIUM HYDROXIDE 2400 MG/30 ML UDC PO PRN (03:10)
[2018-10-31] MEDS ORDERED: SODIUM PHOSPHATE 118 ML ENEM RC PRN (03:10)
[2018-10-31] MEDS ORDERED: HYDROcodone/APAP 10/325 MG 1 TAB TAB PO PRN (03:10)
--- NOTE | 2018-10-31 04:00 | NUR ---
MADE ROUNDS ,NOT IN DISTRESS ,IVF INFUSING WELL , CALL LIGHT WITHIN REACH ,BED ALARM ON.
--- NOTE | 2018-10-31 04:02 | NUR ---
MAG. SO4 TIV GIVEN AT 25CC /HR ORDERED , VOIDED FREELY.
--- NOTE | 2018-10-31 06:00 | NUR ---
MADE ROUND ,PT IS SLEEPING ,NID ,CALL LIGHT WITHIN REACH ,IVF INFUSING WELL.
[2018-10-31] MEDS: BLOOD GLUCOSE MONITORING 1 DEV DEV FS SCH ×4 (06:36→20:25)
[2018-10-31] MEDS: INSULIN LISPRO SLIDING SCALE 100 UNITS/ML VIAL SUBQ PRN ×4 (06:50→20:37)
[2018-10-31 06:57] LABS: BASOPHILS # (AUTO) 0.1 K/uL (0.00-0.22); BASOPHILS % (AUTO) 0.6 % (0.0-2.0); EOSINOPHILS # (AUTO) 0.2 K/uL (0-0.4); EOSINOPHILS % (AUTO) 1.8 % (0.0-4.0); HEMATOCRIT 40.1 % (36-48); HEMOGLOBIN 13.1 g/dL (12.0-16.0); LYMPHOCYTES # (AUTO) 2.7 K/uL (2.5-16.5); MEAN CORPUSCULAR HEMOGLOBIN 30 pg (27-31); MEAN CORPUSCULAR HGB CONC 33 g/dL (33-37); MEAN CORPUSCULAR VOLUME 90.7 fL (80-94); MONOCYTES # (AUTO) 0.6 K/uL (0.8-1.0); MONOCYTES % (AUTO) 7.5 % (1.7-9.3); NEUTROPHILS # (AUTO) 5.1 K/uL (1.8-7.7); NEUTROPHILS % (AUTO) 59.1 % (42.2-75.2); PLATELET COUNT (AUTO) 229 K/uL (140-450); RED BLOOD CELL COUNT(AUTO) 4.43 MIL/uL (4.20-5.40); RED CELL DISTRIBUTION WIDTH 14.7 % (11.6-13.7); WHITE BLOOD COUNT (AUTO) 8.6 K/uL (4.8-10.8)
--- NOTE | 2018-10-31 07:18 | NUR ---
ENDORSED TO AM SHIFT FOR CONTINUITY OF CARE . WITH STABLE CONDITION.
[2018-10-31 07:19] LABS: ANION GAP 14.4 (8-16); CARBON DIOXIDE 22.5 mmol/L (21-32); CHLORIDE 107 mmol/L (98-107); CREATININE 1.3 mg/dL (0.6-1.3); GLUCOSE 320 mg/dL (74-106); POTASSIUM 4.9 mmol/L (3.5-5.1); SODIUM SERUM 139 mmol/L (136-145); UREA NITROGEN, BLOOD 42 mg/dL (7-18)
--- NOTE | 2018-10-31 07:19 | NUR ---
RECEIVED REPORT FROM ROLL CUTTER RNFRED. PATIENT RESTING IN BED, SPEECH SLIGHTLY MUMBLE SHOWING MILD CONFUSION BUT CONVERSING. PATIENT DENIES PAIN, NO SIGNS OF DISTRESS ON RA. SAFETY PRECAUTIONS IN PLACE. CALL LIGHT IN REACH.
--- NOTE | 2018-10-31 07:45 | NUR ---
TRANSFERRED PATIENT TO PRESSURE RELIEVING BED DUE TO SACRAL EXCORIATION. REPOSITIONED PATIENT FROM SUPINE TO SIDE-LYING. PATIENT TOLERATED WELL.
[2018-10-31] MEDS ORDERED: DEXT 5% / NACL 0.45% 1,000 ML IV SCH (08:10)
[2018-10-31] MEDS ORDERED: hydrALAZINE 20 MG/ML VIAL IVP SCH ×2 (08:15→13:30)
--- NOTE | 2018-10-31 08:15 | NUR ---
DOCTORS ROUNDING, NOTIFIED DOCTOR OF ELEVATED BP. REPEATED BP THREE TIMES TO CONFIRM. DOCTOR TO ORDER IV HYDRALAZINE.
[2018-10-31] MEDS: GLIMEPIRIDE 2 MG TAB PO SCH (08:40)
[2018-10-31] MEDS: LISINOPRIL 5 MG TAB PO SCH (08:41)
[2018-10-31] MEDS: LACTOBACILLUS RHAMNOSUS GG 1 EACH CAP PO SCH (08:41)
[2018-10-31] MEDS: GABAPENTIN 100 MG CAP PO SCH ×3 (08:41→17:00)
[2018-10-31] MEDS: ASCORBIC ACID 500 MG TAB PO SCH ×2 (08:41→20:33)
[2018-10-31] MEDS: ASPIRIN 81 MG TAB.CHEW PO SCH (08:42)
[2018-10-31] MEDS: DOCUSATE SODIUM 100 MG GELCAP PO SCH ×2 (08:42→20:33)
[2018-10-31] MEDS: amLODIPine 5 MG TAB PO SCH (08:42)
--- NOTE | 2018-10-31 08:45 | NUR ---
ADMINISTERED IV HYDRALAZINE, PO AMLODIPINE, AND PO LISINOPRIL. WILL RECHECK BP IN 1 HOUR. Addendum: 10/31/18 at 1100 by Maureen Felix RN ALSO ADMINISTERED SCHEDULED MEDICATIONS EXCEPT THE CYTOTEC AND EVALIL WHICH WAS UNAVAILABLE IN THE PIXUS
[2018-10-31] MEDS ORDERED: LACTOBACILLUS RHAMNOSUS GG 1 EACH CAP PO SCH (09:00)
[2018-10-31] MEDS ORDERED: PROTEIN HYDROLYS PO SCH (09:00)
[2018-10-31] MEDS ORDERED: AMINO ACIDS PO SCH (09:00)
[2018-10-31] MEDS ORDERED: BISACODYL 10 MG SUPP RC PRN (09:00)
[2018-10-31] MEDS ORDERED: MISOPROSTOL 200 MCG TAB PO SCH (09:00)
[2018-10-31] MEDS ORDERED: NON-FORMULARY ITEM (Cranberry Fruit Concentrate (Cranberry) 450 MG) PO SCH (09:00)
[2018-10-31] MEDS ORDERED: NON-FORMULARY ITEM (Lactobacillus Acidophilus (Acidophilus) 1 EACH) PO SCH (09:00)
--- NOTE | 2018-10-31 09:11 | NUR ---
PATIENT HAS BEEN SCREENED AND CATEGORIZED HIGH NUTRITION RISK. PATIENT WILL BE SEEN WITHIN 1-2 DAYS OF ADMISSION. 10/31/18-11/01/[address]
--- NOTE | 2018-10-31 10:15 | NUR ---
NUTRITION ADVISED THAT PATIENT WEIGHT WAS ENTERED WRONG IN SYSTEM. IT WAS ENTERED AT 125 LBS, PATIENT IS 219 PER BED SCALE. ADJUSTED WEIGHT IN SYSTEM. DIETARY WILL RECALCULATE NUTRITIONAL NEEDS.
--- NOTE | 2018-10-31 10:26 | NUR ---
PER PT, PATIENT DID ATTEMPT TO STAND WITH WALKER BUT FEARS SHE WILL FALL. PATIENT RETURNED TO BED SAFELY. WILL CONTINUE TO MONITOR.
[2018-10-31] MEDS: MISOPROSTOL 100 MCG TAB PO SCH (10:44)
[2018-10-31] MEDS: AMITRIPTYLINE 10 MG TAB PO SCH (10:44)
--- NOTE | 2018-10-31 10:44 | NUR ---
ADMINISTERED ELAVIL NAD CYTOTEC. NOT AVAILABLE EARLIER. PATIENT TOLERATED WELL. ALSO RECEHCKED BLOOD PRESSURE NOW IS 155/62
--- NOTE | 2018-10-31 12:27 | NUR ---
PATIENT STATING THAT SHE CANNOT SWALLOW MEDS WITHOUT APPLESAUCE. PATIENT IS NPO FOR A PENDING ABDOMINAL ULTRASOUND. PATIENT ALSO HAS INTERMITTENT CONFUSION. HOLDING 1300 DOSE OF GABAPENTIN.
--- NOTE | 2018-10-31 13:00 | NUR ---
PATIENT SLEEPING, INTERMITTENT CONFUSION AND SOMNOLENCE. HOLDING GABAPENTIN.
--- NOTE | 2018-10-31 13:15 | NUR ---
PATIENT BLOOD PRESSURE IS ELEVATED AGAIN. 197/83, PULSE [address] WATSON. NEW ORDER PLACED FOR STAT HYDRALAZINE 10MG IV. WILL CONTINUE TO MONITOR.
[2018-10-31] MEDS ORDERED: hydrALAZINE 20 MG/ML VIAL IVP PRN (13:40)
--- NOTE | 2018-10-31 14:31 | NUR ---
10/31/18 RD INITIAL ASSESSMENT COMPLETED PLEASE REFER TO NUTRITION ASSESSMENT UNDER CARE ACTIVITY FOR ESTIMATED NUTRITIONAL NEEDS. 1. CONTINUE MECHANICAL SOFT CCHO 60 GM DIET TOLERATED 2. ENCOURAGED PT TO INCREASE PO INTAKE TOLERATED DURING HOSPITAL STAY 3. RD TO FOLLOW-UP 3-5 DAYS, MODERATE RISK HENRIQUE [address] RD
--- NOTE | 2018-10-31 15:15 | NUR ---
PATIENT SLEEPING BUT AWAKES EASILY TO SPEECH STIMULATION. WILL CONTINUE TO MONITOR .
--- NOTE | 2018-10-31 17:00 | NUR ---
HOLDING 1700 DOSE OF GABAPENTIN, PATIENT HAS INTERMITTENT CONFUSION AND SOMNOLENCE.
--- NOTE | 2018-10-31 18:00 | NUR ---
PATIENT SLEEPING BUT AWAKES EASILY. NO SIGNS OF DISTRESS ON RA, SAFETY PRECAUTIONS IN PLACE. CALL LIGHT IN REACH.
[2018-10-31] MEDS ORDERED: INSULIN NPH HUM/REG INSULIN HM 100 UNIT/ML 10 ML VIAL SUBQ ONE (19:00)
--- NOTE | 2018-10-31 19:23 | NUR ---
GAVE REPORT TO LABEL STITCHER RN, FAMILY AT BEDSIDE PATIENT AWAKE AND TALKING TO FAMILY. PATIENT STABLE.
--- NOTE | 2018-10-31 19:24 | NUR ---
Received endorsement from AM shift RN; Patient A/Ox3, able to make needs known, [place] speaking. Patient is resting and family present in the room; introduced self, updated board. No SOB or distress noted, on room air. IV site discontinued on left wrist by AM shift RN; infiltrated. Edema noted on bilateral upper extremities and bilateral lower extremities. Bed in the lowest position, call light within reach. Initial assessment done. Will continue to monitor.
--- NOTE | 2018-10-31 20:30 | NUR ---
Vitals taken; BP 188/77. Will administer Hydralazine as ordered when IV site is established.
[2018-10-31] MEDS: ATORVASTATIN 20 MG TAB PO SCH (20:33)
[2018-10-31] MEDS ORDERED: INSULIN LANTUS 100 UNITS/ML 10 ML VIAL SUBQ SCH ×2 (21:00)
[2018-10-31] MEDS: NACL 0.9% 1,000 ML IV SCH (21:20)
--- NOTE | 2018-10-31 21:30 | NUR ---
IV reinserted on right hand, 22 gauge. Intact, flushed and patent.
--- NOTE | 2018-10-31 21:40 | NUR ---
Due meds given; noted with BP of 188/77, Hydralazine administered. Will monitor closely.
--- NOTE | 2018-10-31 23:55 | NUR ---
Vitals taken, no distress noted.
[2018-11-01] VITALS (7 sets, daily range): BP systolic 119–168; BP diastolic 49–75
--- NOTE | 2018-11-01 02:10 | NUR ---
Rounds done; no distress noted.
--- NOTE | 2018-11-01 04:30 | NUR ---
Vitals taken, patient asleep, visible chest rise and fall noted.
[2018-11-01 05:51] LABS: CARBON DIOXIDE 20.9 mmol/L (21-32); CHLORIDE 106 mmol/L (98-107); CREATININE 1.1 mg/dL (0.6-1.3); GLUCOSE 267 mg/dL (74-106); POTASSIUM 4.9 mmol/L (3.5-5.1); SODIUM SERUM 138 mmol/L (136-145); UREA NITROGEN, BLOOD 35 mg/dL (7-18)
[2018-11-01 05:58] LABS: PHOSPHORUS 3.3 mg/dL (2.5-4.9)
[2018-11-01] MEDS: INSULIN NPH HUM/REG INSULIN HM 100 UNIT/ML 10 ML VIAL SUBQ SCH ×2 (06:26→09:00)
[2018-11-01] MEDS: BLOOD GLUCOSE MONITORING 1 DEV DEV FS SCH ×4 (06:27→20:44)
[2018-11-01] MEDS: INSULIN LISPRO SLIDING SCALE 100 UNITS/ML VIAL SUBQ PRN ×4 (06:39→20:43)
[2018-11-01 06:58] LABS: BASOPHILS # (AUTO) 0.1 K/uL (0.00-0.22); BASOPHILS % (AUTO) 0.6 % (0.0-2.0); EOSINOPHILS # (AUTO) 0.1 K/uL (0-0.4); HEMATOCRIT 39.1 % (36-48); LYMPHOCYTES # (AUTO) 2.6 K/uL (2.5-16.5); MEAN CORPUSCULAR HEMOGLOBIN 30 pg (27-31); MEAN CORPUSCULAR HGB CONC 33 g/dL (33-37); MEAN CORPUSCULAR VOLUME 89.9 fL (80-94); MONOCYTES # (AUTO) 0.6 K/uL (0.8-1.0); MONOCYTES % (AUTO) 6.8 % (1.7-9.3); NEUTROPHILS # (AUTO) 6.1 K/uL (1.8-7.7); NEUTROPHILS % (AUTO) 64.6 % (42.2-75.2); PLATELET COUNT (AUTO) 258 K/uL (140-450); RED BLOOD CELL COUNT(AUTO) 4.35 MIL/uL (4.20-5.40); RED CELL DISTRIBUTION WIDTH 14.7 % (11.6-13.7); WHITE BLOOD COUNT (AUTO) 9.5 K/uL (4.8-10.8)
--- NOTE | 2018-11-01 07:05 | NUR ---
RECEIVED REPORT FROM CNC APPLICATIONS ENGINEER RN, DAVID. PATIENT SLEEPING, NO SIGNS OF DISTRESS ON RA, NOTICEABLE CHEST RISE. IV INFUSING TO RIGHT FORE ARM 22 G AT 30M/HR. BED LOW, CALL LIGHT IN REACH. WILL CONTINUE TO MONITOR.
--- NOTE | 2018-11-01 07:25 | NUR ---
Endorsed patient to AM shift RN for continuity of care; patient in stable condition. Addendum: 11/01/18 at 0736 by Saleem Keita RN Endorsement time was 701.
[2018-11-01] MEDS: GABAPENTIN 100 MG CAP PO SCH ×3 (08:36→16:38)
[2018-11-01] MEDS: GLIMEPIRIDE 2 MG TAB PO SCH (08:36)
[2018-11-01] MEDS: LACTOBACILLUS RHAMNOSUS GG 1 EACH CAP PO SCH (08:36)
[2018-11-01] MEDS: ASCORBIC ACID 500 MG TAB PO SCH ×2 (08:36→20:33)
[2018-11-01] MEDS: ASPIRIN 81 MG TAB.CHEW PO SCH (08:37)
[2018-11-01] MEDS: LISINOPRIL 5 MG TAB PO SCH (08:37)
[2018-11-01] MEDS: amLODIPine 5 MG TAB PO SCH (08:37)
[2018-11-01] MEDS: DOCUSATE SODIUM 100 MG GELCAP PO SCH ×2 (08:37→20:33)
[2018-11-01] MEDS: MISOPROSTOL 100 MCG TAB PO SCH (08:43)
[2018-11-01] MEDS: AMITRIPTYLINE 10 MG TAB PO SCH (08:43)
--- NOTE | 2018-11-01 08:45 | NUR ---
ADMINISTERED SCHEDULED MEDICATIONS BUT HELD THE 0900 DOES OF 10 UNITS HUMULIN 70/30. SAME DOSE OF 10 UNITS WAS ADMINISTER AT 0630 ALONG WITH 6 UNITS OF HUMALOG. PATIENT IS CURRENTLY EATING AND 199 GLUCOSE IS REFLECTIVE OF THAT INTAKE. SPOKE TO DOCTOR ABOUT DOSING SCHEDULE. PER DOCTOR, HOLD 0900 HUMULIN 70/30, RECHECK GLUCOSE AT 1130 SCHEDULED, COVER WITH HUMALOG PER SLIDING SCALE AND NOTIFY DOCTOR OF GLUCOSE READING.
--- NOTE | 2018-11-01 10:27 | NUR ---
WOUND CARE EVALUATION NOTE: REASON FOR EVALUATION: COCCYX WOUND SKIN ASSESSMENT DONE WITH PRIMARY RN WITH THIS 83 Y/O FEMALE PT ADMITTED FROM [facility] TO [facility]. PT IS AWAKE. SKIN IS WARM AND DRY, BLE NO HAIR GROWTH, +1 EDEMA TO RIGHT LOWER LEG.BILATERAL DORSAL PEDAL PULSES PRESENT AND NORMAL. CAPILLARY REFILLED < 2 SEC. X 10 TOES. INCONTINENT OF BOWEL AND BLADDER. PLAN OF CARE DISCUSSED WITH DR. BRIONES, PRIMARY RN AND PT. -CLARIFICATION: SACRALCOCCYX BLANCHABLE REDNESS, NO OPEN SKIN INTEGUMENTARY: -INCONTINENT ASSOCIATED DERMATITIS TO RIGHT AND LEFT BUTTOCKS WITH MULTIPLE PIN POINTS SKIN EROSION WITH LARGEST TO RIGHT BUTTOCK 0.5X0.5 CM, MOIST, NO ODOR, NATALIA WOUND SKIN INTACT -LEFT DORSAL FOOT OLD HEALED SCAR -SACRALCOCCYX, R/L HEELS BLANCHABLE REDNESS RECOMMENDATIONS: -KEEP SKIN DRY AND CLEAN AT ALL TIMES, PLEASE CHECK Q2H AND PRN FOR INCONTINENCY OF BOWEL AND BLADDER. -CLEANSE LEFT AND RIGHT BUTTOCKS WITH SOAP AND WATER, PAT DRY, APPLY Z-GUARD BID AND PRN IF SOILING. -OFFLOAD BILATERAL HEELS BY PLACING PILLOWS UNDER CALVES UNLESS OTHERWISE CONTRAINDICATED -PRESSURE REDISTRIBUTION SURFACE THERAPY -TURN AND REPOSITION Q2H, OFFLOAD SACRALCOCCYX BY TURNING RIGHT AND LEFT -CONTINUE TO FOLLOW RD RECOMMENDATIONS ALL ABOVE RECOMMENDATIONS DISCUSSED WITH PRIMARY RN PLEASE CONTACT WOUND CARE NURSE FOR ANY QUESTION AND CHANGE OF WOUND CONDITION.
--- NOTE | 2018-11-01 12:20 | NUR ---
ADMINISTERED SCHEDULED MEDICATIONS. PATIENT TOLERATED WELL. BP ELEVATED @ 168/68, DOCTOR AWARE. PER DOCTOR RECHECK IN 45 MINUTES AND REPORT BACK.
--- NOTE | 2018-11-01 13:45 | NUR ---
SYSTOLIC BLOOD PRESSURE CURRENTLY 144. DOCTOR AWARE. NO NEED FOR PRN HYDRALAZINE. WILL CONTINUE TO MONITOR
[2018-11-01] MEDS: metFORMIN 500 MG TAB PO SCH (16:38)
--- NOTE | 2018-11-01 16:40 | NUR ---
ADMINISTERED SCHEDULED MEDICATIONS. GLUCOSE 251, GAVE 6 UNITS. BLOOD PRESSURE 158/49. PATIENT STABLE. NO C/O PAIN OR HEADACHE. NO SIGNS OF DISTRESS. ASSISTED ELECTRONIC DEVICE MONITOR WITH CLEANING AND REPOSITIONING PATIENT. APPLIED ZINC TO BUTTOCKS.
[2018-11-01] MEDS: NACL 0.9% 1,000 ML IV SCH (17:35)
--- NOTE | 2018-11-01 18:30 | NUR ---
PATIENT EATING DINNER, FAMILY AT BEDSIDE. NO SIGNS OF DISTRESS. IV INFUSING WELL TO RIGHT WRIST 22 GAUGE.
--- NOTE | 2018-11-01 19:20 | NUR ---
GAVE BEDSIDE REPORT TO MARKET SURVEY REPRESENTATIVE RNLUIS A. PATIENT IN STABLE CONDITION.
--- NOTE | 2018-11-01 19:21 | NUR ---
REPORT RECEIVED FROM AM NURSE AT BEDSIDE. PT IN STABLE CONDITION. AAOX3. INTRODUCED SELF TO PT. BOARD UPDATED. NO COMPLAINTS OF PAIN. NO SOB. AFEBRILE. IV SITE R HAND 22G RUNNING NS@30ML/HR PATENT AND INTACT. SKIN WARM, DRY, AND NOT INTACT DUE TO INCONTINENT DERMATITIS OF THE SACRAL AREA. BED LOCKED IN LOW POSITION. CALL CONNELL WITHIN REACH. SAFETY PRECAUTION IN PLACE. ALL NEEDS MET AT THIS TIME.
[2018-11-01] MEDS: ATORVASTATIN 20 MG TAB PO SCH (20:33)
--- NOTE | 2018-11-01 20:33 | NUR ---
COLACE, LIPITOR, AND VITAMIN C CRUSHED AND GIVEN IN APPLESAUCE. ROCEPHIN HUNG AND RUNNING. HEPARIN GIVEN SUBQ. BS 208. 4 UNITS OF HUMALOG GIVEN. 40 UNITS OF LANTUS GIVEN SUBQ. PT TOLERATED WELL.
[2018-11-01] MEDS: INSULIN LANTUS 100 UNITS/ML 10 ML VIAL SUBQ SCH (20:44)
--- NOTE | 2018-11-01 22:30 | NUR ---
PT LAYING IN BED WATCHING TV. NO S/S OF DISTRESS NOTED. NO COMPLAINTS OF PAIN. NO SOB. AFEBRILE. WILL CONTINUE TO MONITOR.
[2018-11-02] VITALS: BP 172/53
--- NOTE | 2018-11-02 00:15 | NUR ---
PT NEEDS A LINEN CHANGE. ZGUARD APPLIED. PT TOLERATED WELL.
--- NOTE | 2018-11-02 02:20 | NUR ---
PT SLEEPING COMFORTABLY BUT AROUSABLE. NO S/S OF DISTRESS NOTED. RESPIRATIONS EVEN, UNLABORED, AND WNL. WILL CONTINUE TO MONITOR.
[2018-11-02 04:00] VITALS: BP 150/48
--- NOTE | 2018-11-02 04:15 | NUR ---
PT SLEEPING COMFORTABLY IN BED. NO S/S OF DISTRESS NOTED. NO COMPLAINTS OF PAIN. NO SOB. AFEBRILE. WILL CONTINUE TO MONITOR.
[2018-11-02] MEDS: INSULIN LISPRO SLIDING SCALE 100 UNITS/ML VIAL SUBQ PRN ×4 (06:18→22:23)
[2018-11-02] MEDS: BLOOD GLUCOSE MONITORING 1 DEV DEV FS SCH ×4 (06:19→21:00)
--- NOTE | 2018-11-02 06:19 | NUR ---
BS 213. 4 UNITS OF HUMALOG GIVEN. PT TOLERATED WELL.
--- NOTE | 2018-11-02 07:05 | NUR ---
REPORT GIVEN TO AM NURSE AT BEDSIDE. PT IN STABLE CONDITION.
--- NOTE | 2018-11-02 07:14 | NUR ---
RECEIVED BEDSIDE RPEORT FROM CONSTRUCTION FLAGGER RNLUIS A. PATIENT AWAKE AND SPEAKING CLEARLY. NO SIGNS OF DISTRESS, SAFETY PRECAUTIONS IN PLACE. CALL LIGHT IN REACH.
[2018-11-02 07:30] LABS: BASOPHILS # (AUTO) 0.1 K/uL (0.00-0.22); BASOPHILS % (AUTO) 0.7 % (0.0-2.0); EOSINOPHILS # (AUTO) 0.2 K/uL (0-0.4); EOSINOPHILS % (AUTO) 2.9 % (0.0-4.0); HEMATOCRIT 39.5 % (36-48); HEMOGLOBIN 13.1 g/dL (12.0-16.0); LYMPHOCYTES # (AUTO) 2.7 K/uL (2.5-16.5); LYMPHOCYTES % (AUTO) 38.9 % (20.5-51.1); MEAN CORPUSCULAR HEMOGLOBIN 30 pg (27-31); MEAN CORPUSCULAR HGB CONC 33 g/dL (33-37); MEAN CORPUSCULAR VOLUME 90.1 fL (80-94); MONOCYTES # (AUTO) 0.5 K/uL (0.8-1.0); MONOCYTES % (AUTO) 6.7 % (1.7-9.3); NEUTROPHILS # (AUTO) 3.6 K/uL (1.8-7.7); NEUTROPHILS % (AUTO) 50.8 % (42.2-75.2); PLATELET COUNT (AUTO) 235 K/uL (140-450); RED BLOOD CELL COUNT(AUTO) 4.38 MIL/uL (4.20-5.40); RED CELL DISTRIBUTION WIDTH 14.5 % (11.6-13.7); WHITE BLOOD COUNT (AUTO) 7.1 K/uL (4.8-10.8)
[2018-11-02 07:31] LABS: MAGNESIUM 1.8 mg/dL (1.8-2.4); PHOSPHORUS 3.7 mg/dL (2.5-4.9)
[2018-11-02 08:00] VITALS: BP 126/64
[2018-11-02] MEDS: GLIMEPIRIDE 2 MG TAB PO SCH (08:52)
[2018-11-02] MEDS: metFORMIN 500 MG TAB PO SCH ×2 (08:52→17:25)
[2018-11-02] MEDS: ASPIRIN 81 MG TAB.CHEW PO SCH (08:53)
[2018-11-02] MEDS: DOCUSATE SODIUM 100 MG GELCAP PO SCH ×2 (08:53→21:50)
[2018-11-02] MEDS: LACTOBACILLUS RHAMNOSUS GG 1 EACH CAP PO SCH (08:53)
[2018-11-02] MEDS: MISOPROSTOL 100 MCG TAB PO SCH (08:53)
--- NOTE | 2018-11-02 08:53 | NUR ---
ADMINISTERED SCHEDULED MEDICATIONS. VITALS STABLE. PATIENT RESTING IN BED. NO C/O PAIN, BUT IV SITE ON RIGHT HAND IS INFILTRATED, DISCONTINUED IV CATHETER 22 GAUGE WITH TIP INTACT. PATIENT TOLERATED WELL. WILL INSERT NEW IV SITE. SAFETY PRECAUTIONS IN PLACE. CALL LIGHT IN REACH.
[2018-11-02] MEDS: AMITRIPTYLINE 10 MG TAB PO SCH (08:54)
[2018-11-02] MEDS: amLODIPine 5 MG TAB PO SCH (08:54)
[2018-11-02] MEDS: GABAPENTIN 100 MG CAP PO SCH ×3 (08:54→17:25)
[2018-11-02] MEDS: ASCORBIC ACID 500 MG TAB PO SCH ×2 (08:54→21:50)
[2018-11-02] MEDS: LISINOPRIL 5 MG TAB PO SCH (08:55)
[2018-11-02 09:12] LABS: ANION GAP 16.3 (8-16); CARBON DIOXIDE 21.3 mmol/L (21-32); CHLORIDE 105 mmol/L (98-107); CREATININE 1.1 mg/dL (0.6-1.3); GLUCOSE 220 mg/dL (74-106); POTASSIUM 4.6 mmol/L (3.5-5.1); SODIUM SERUM 138 mmol/L (136-145); UREA NITROGEN, BLOOD 31 mg/dL (7-18)
[2018-11-02 12:00] VITALS: BP 152/85
--- NOTE | 2018-11-02 12:00 | NUR ---
VITALS STABLE, GLUCOSE 282, WILL ADMINISTER 6 UNITS.
--- NOTE | 2018-11-02 13:12 | NUR ---
GAVE SCHEDULED MEDICATIONS AND SLIDING SCALE INSULIN. PATIENT TOLERATED WELL. CALL LIGHT IN REACH. SAFETY PRECAUTIONS IN PLACE.
--- NOTE | 2018-11-02 15:30 | NUR ---
PATIENT RESTING IN BED, FAMILY AT BEDSIDE. SAFETY PRECAUTIONS IN PLACE. NEEDS MET. WILL CONTINUE TO MONITOR.
[2018-11-02 16:00] VITALS: BP 134/61
--- NOTE | 2018-11-02 17:25 | NUR ---
GAVE SCHEDULED MEDICATIONS AND 6 UNITS OF INSULIN FOR GLUCOSE OF 268. PATIENT TOLERATED WELL. ASSISTED BLIND ESCORT TO CLEAN AND REPOSITION PATIENT.
--- NOTE | 2018-11-02 17:29 | NUR ---
GAVE REPORT TO COMPLIANCE OFFICER RNKELL. PATIENT IN STABLE CONDITION.
[2018-11-02] MEDS: NACL 0.9% 1,000 ML IV SCH (17:35)
--- NOTE | 2018-11-02 18:18 | NUR ---
PATIENT SITTING UP IN BED, EATING DINNER, TOLERATING WELL. NO SIGNS OF DISTRESS ON RA. SAFETY PRECAUTIONS IN PLACE.
--- NOTE | 2018-11-02 19:30 | NUR ---
RECEIVED REPORT FORM SUYAPA TRUJILLO DAYSHIFT NURSE AT BEDSIDE FOR CONTINUITY OF CARE, PT IN STABLE CONDITION.
[2018-11-02 20:00] VITALS: BP 129/50
--- NOTE | 2018-11-02 20:00 | NUR ---
PT IN BED, ALL FALLS PRECAUTIONS IN PLACE. SHE IS AOX 3 AND IS CITIZEN OF [place] SPEAKING ONLY. PT SKIN INTACT AND SHE HAS A L WRIST 22G INTACT AND RUNNING N/S AT 30MLS HR TO KVO.PT DENIES PAIN AND V/S FOLLOWS T 96.8 P 72 R 18 B/P 129/50 02 98% ON ROOM AIR. PT TURNED AND REPOSITIONED IN BED ALL REQUESTED NEEDS ATTENDED.
--- NOTE | 2018-11-02 21:00 | NUR ---
PT GIVEN ALL DUE MEDS OF ROCEPHIN, COLACE, LIPITOR, VITAMIN C , HEPARIN AND LANTUS. PT FINGERSTICK IS 185 AND SHE WAS GIVEN 2 UNITS OF HUMALOG COVERAGE WELL ORDERED LANTUS. BED LOW AND ALL FALLS PRECAUTIONS IN PLACE.
[2018-11-02] MEDS: ATORVASTATIN 20 MG TAB PO SCH (21:50)
[2018-11-02] MEDS: INSULIN LANTUS 100 UNITS/ML 10 ML VIAL SUBQ SCH (22:25)
--- NOTE | 2018-11-02 22:30 | NUR ---
DR. OLIVAREZ CALLED AND HAD CONSULT WITH PT AT BEDSIDE, HE SAID THAT HE WAS GOING TO D/C ROCEPHIN DUE TO BACTERIA IN PT URINE, E COLI/ESBL HAVE COLONIZED AND THERE IS NO LONGER A NEED FOR IV ABT. JUANIS SAID IT WAS OK FOR DISCHARGE.
[2018-11-03] VITALS: BP 129/44
--- NOTE | 2018-11-03 00:30 | NUR ---
PT IN BED, SHE WAS TURNED, CHANGED AND REPOSITIONED. V/S FOLLOWS T T 96.5 P 71 R 18 B/P 129/44 02 100% ON ROOM AIR. ALL FALLS PRECAUTIONS IN PLACE. PT HAD NO C/O VOICED, CALL CONNELL IN REACH. IV SITE INTACT AND FLUSHED PATENT.
[2018-11-03 04:00] VITALS: BP 128/4
--- NOTE | 2018-11-03 04:42 | NUR ---
PT TURNED, CHANGED AND REPOSITIONED. ALL FALLS PRECAUTIONS IN PLACE. IV SITE ON RIGHT HAND INTACT AND RUNNING N/S ORDERED.
--- NOTE | 2018-11-03 07:15 | NUR ---
REPORT GIVEN TO BERNARDO RN DAYSHIFT NURSE AT BEDSIDE FOR CONTINUITY OF CARE, PT IN STABLE CONDITION.
--- NOTE | 2018-11-03 07:16 | NUR ---
RECEIVED ENDORSEMENT FROM SWING FRAME GRINDER OPERATOR NURSE. PATIENT IS AAOX4, SUDANESE SPEAKING. RESPIRATIONS ARE EVEN AND UNLABORED ON ROOM AIR. PATIENT DENIES ANY PAIN AT THIS TIME. LEFT WRIST 20G IV INTACT, PATENT, AND INFUSING IVF. PLAN OF CARE WAS REVIEWED WITH PATIENT. PATIENT VERBALIZED UNDERSTANDING. SAFETY MEASURES IN PLACE, CALL LIGHT WITHIN REACH.
[2018-11-03 07:32] LABS: ANION GAP 13.2 (8-16); CARBON DIOXIDE 24.4 mmol/L (21-32); CHLORIDE 107 mmol/L (98-107); CREATININE 1.1 mg/dL (0.6-1.3); GLUCOSE 142 mg/dL (74-106); POTASSIUM 4.6 mmol/L (3.5-5.1); SODIUM SERUM 140 mmol/L (136-145); UREA NITROGEN, BLOOD 29 mg/dL (7-18)
[2018-11-03 07:33] LABS: MAGNESIUM 1.7 mg/dL (1.8-2.4)
[2018-11-03 07:35] LABS: BASOPHILS % (AUTO) 0.5 % (0.0-2.0); EOSINOPHILS # (AUTO) 0.2 K/uL (0-0.4); EOSINOPHILS % (AUTO) 2.3 % (0.0-4.0); HEMATOCRIT 37.1 % (36-48); HEMOGLOBIN 12.5 g/dL (12.0-16.0); LYMPHOCYTES # (AUTO) 2.5 K/uL (2.5-16.5); LYMPHOCYTES % (AUTO) 33.1 % (20.5-51.1); MEAN CORPUSCULAR HEMOGLOBIN 30 pg (27-31); MEAN CORPUSCULAR HGB CONC 34 g/dL (33-37); MEAN CORPUSCULAR VOLUME 89.9 fL (80-94); MONOCYTES # (AUTO) 0.6 K/uL (0.8-1.0); MONOCYTES % (AUTO) 8.5 % (1.7-9.3); NEUTROPHILS # (AUTO) 4.1 K/uL (1.8-7.7); NEUTROPHILS % (AUTO) 55.6 % (42.2-75.2); PLATELET COUNT (AUTO) 238 K/uL (140-450); RED BLOOD CELL COUNT(AUTO) 4.12 MIL/uL (4.20-5.40); RED CELL DISTRIBUTION WIDTH 14.6 % (11.6-13.7); WHITE BLOOD COUNT (AUTO) 7.4 K/uL (4.8-10.8)
[2018-11-03 08:00] VITALS: BP 171/80
[2018-11-03] MEDS ORDERED: METF500T PO (08:09)
[2018-11-03] MEDS ORDERED: MAG SULF 2000 MG/WATER PREMIX 50 ML IV ONE (08:10)
[2018-11-03] MEDS: LACTOBACILLUS RHAMNOSUS GG 1 EACH CAP PO SCH (09:13)
[2018-11-03] MEDS: LISINOPRIL 5 MG TAB PO SCH (09:13)
[2018-11-03] MEDS: ASCORBIC ACID 500 MG TAB PO SCH (09:13)
[2018-11-03] MEDS: metFORMIN 500 MG TAB PO SCH ×2 (09:14→17:04)
[2018-11-03] MEDS: DOCUSATE SODIUM 100 MG GELCAP PO SCH (09:14)
[2018-11-03] MEDS: GLIMEPIRIDE 2 MG TAB PO SCH (09:14)
[2018-11-03] MEDS: GABAPENTIN 100 MG CAP PO SCH ×3 (09:14→17:04)
[2018-11-03] MEDS: amLODIPine 5 MG TAB PO SCH (09:15)
[2018-11-03] MEDS: AMITRIPTYLINE 10 MG TAB PO SCH (09:15)
[2018-11-03] MEDS: ASPIRIN 81 MG TAB.CHEW PO SCH (09:15)
--- NOTE | 2018-11-03 09:15 | NUR ---
ADMINISTERED SCHEDULED MEDICATIONS. PATIENT TOLERATED WELL. PATIENT DENIES ANY PAIN AT THIS TIME. NO OTHER NEEDS AT THIS TIME, WILL CONTINUE TO MONITOR.
[2018-11-03] MEDS: MISOPROSTOL 100 MCG TAB PO SCH (09:19)
--- NOTE | 2018-11-03 11:45 | NUR ---
PATIENT RESTING IN BED. DENIES ANY PAIN. NO OTHER NEEDS AT THIS TIME, WILL CONTINUE TO MONITOR.
[2018-11-03] MEDS: BLOOD GLUCOSE MONITORING 1 DEV DEV FS SCH ×2 (12:03→17:04)
[2018-11-03] MEDS: INSULIN LISPRO SLIDING SCALE 100 UNITS/ML VIAL SUBQ PRN (12:10)
--- NOTE | 2018-11-03 12:20 | NUR ---
ADMINISTERED SCHEDULED MEDICATIONS. PATIENT TOLERATED WELL EDUCATED PATIENT ON USE OF GABAPENTIN FOR DIABETIC NEUROPATHY PAIN. PATIENT VERBALIZED UNDERSTANDING. NO OTHER NEEDS AT THIS TIME, WILL CONTINUE TO MONITOR.
--- NOTE | 2018-11-03 13:23 | NUR ---
CALLED [facility] SPOKE WITH LYSSA CHAINER [phone] PT CAN GO TO ROOM 37A AND TRANSPORTATION WITH [facility] # [id number] LAB ENGINEER TIME 5:30 NOTIFIED BERNARDO TRUJILLO.
--- NOTE | 2018-11-03 14:34 | NUR ---
HELPED READJUST PATIENT IN BED. PATIENT IS RESTING. NO OTHER NEEDS AT THIS TIME, WILL CONTINUE TO MONITOR.
--- NOTE | 2018-11-03 16:40 | NUR ---
ADMINISTERED SCHEDULED MEDICATIONS. PATIENT DENIES ANY PAIN AT THIS TIME. NO OTHER NEEDS AT THIS TIME, WILL CONTINUE TO MONITOR.
[2018-11-03] MEDS: NACL 0.9% 1,000 ML IV SCH (17:35)
--- NOTE | 2018-11-03 18:15 | NUR ---
DISCHARGE INSTRUCTIONS GIVEN TO PATIENT. ADDRESSED ALL QUESTIONS AND CONCERNS OF PATIENT AND DAUGHTERS WHO WERE PRESENT AT THE BEDSIDE. REMOVED IV, CANNULA INTACT WITH MINIMAL BLEEDING. PATIENT WAS TAKEN VIA GURNEY TO [facility]. ALL BELONGINGS LEFT WITH PATIENT. ID BAND WAS REMOVED. PATIENT IS STABLE AT THIS TIME.
== END 2018-11-03 23:45 | DRG 689 ==
LOC: MED 21:42 → MTU 10-31 01:32
PROVIDERS: ADMIT General Practice; ATTEND General Practice
DX: N39.0 Urinary tract infection, site not specified (principal); N17.0 Acute kidney failure with tubular necrosis; E87.2 Acidosis; E11.65 Type 2 diabetes mellitus with hyperglycemia; Z68.37 Body mass index [BMI] 37.0-37.9, adult; I10 Essential (primary) hypertension; E66.01 Morbid (severe) obesity due to excess calories; Z86.73 Personal history of transient ischemic attack (TIA), and cerebral infarction without residual deficits; I12.9 Hypertensive chronic kidney disease with stage 1 through stage 4 chronic kidney disease, or unspecified chronic kidney disease; E11.22 Type 2 diabetes mellitus with diabetic chronic kidney disease; N18.9 Chronic kidney disease, unspecified; E83.42 Hypomagnesemia; E78.5 Hyperlipidemia, unspecified; F32.9 Major depressive disorder, single episode, unspecified; E11.40 Type 2 diabetes mellitus with diabetic neuropathy, unspecified; E11.622 Type 2 diabetes mellitus with other skin ulcer; L89.151 Pressure ulcer of sacral region, stage 1; E11.51 Type 2 diabetes mellitus with diabetic peripheral angiopathy without gangrene; K59.00 Constipation, unspecified
CPT/HCPCS: 36415; 71045; 76705; 80048; 80053; 80305; 81001; 82150; 82948; 83036; 83605; 83690; 83735; 83880; 84100; 84134; 84439; 84443; 84484; 85025; 85610; 85730; 87040; 87081; 87086; 87186; 93005; 96361; 96365; 96375; 97110; 97161-GP; 97530; 99285; C1758; J0360; J0696; J1644; J1815; J3475; J7030; J7060; Q0092

== ENCOUNTER 2020-04-21 08:04 | Inpatient (IN) | payer OTHER, SELFPAY ==
[~2020-04-21] VITALS: Ht 152.4 cm; Wt 82.6 kg
[~2020-04-21 08:04] MED LIST changes: +ASCO500T95 PO; -ASPI-1718 PO; +ASPI-1822 PO; -D50SYR IV; -GLU1I IM; -LACT10CA PO; +LACT1TAB34 PO; -MECL-272 PO; +MECL-303 PO; +METF500T PO; +NUTR887L9 PO; -SLIDE SUBQ
--- NOTE | 2020-04-21 08:04 | NUR ---
Patient BIBA ALS, transferred to bed 5. RN evaluating patient at bedside.
[2020-04-21 08:05] VITALS: BP 212/115
[2020-04-21] MEDS ORDERED: METF1000 PO (08:35)
[2020-04-21] MEDS ORDERED: TRI48 PO (08:35)
[2020-04-21] MEDS ORDERED: VITB12 PO (08:35)
--- NOTE | 2020-04-21 08:39 | NUR ---
Called code brain.
--- NOTE | 2020-04-21 08:43 | NUR ---
Patient taken to CT scan via heike with RN and nuclear monitoring technician. STAT CT scan of the brain Patient vomited coffee ground emesis, HOB elevated, suctioned
[2020-04-21] MEDS ORDERED: ACETAMINOPHEN 650 MG SUPP RC ONE ×3 (08:50→15:33)
--- NOTE | 2020-04-21 08:58 | NUR ---
Patient returned from CT scan. RN re-evaluating the patient at bedside.
--- NOTE | 2020-04-21 09:25 | NUR ---
Patient swabbed for RAPID CLIFFORD COVIA-10, RSV, and infuenza A&B, given to Fidelina financial services consultant
[2020-04-21 09:52] LABS: BASOPHILS # (AUTO) 0.1 K/uL (0.00-0.22); BASOPHILS % (AUTO) 0.5 % (0.0-2.0); EOSINOPHILS % (AUTO) 0.1 % (0.0-4.0); HEMATOCRIT 41.9 % (36-48); HEMOGLOBIN 13.6 g/dL (12.0-16.0); LYMPHOCYTES # (AUTO) 0.9 K/uL (2.5-16.5); LYMPHOCYTES % (AUTO) 5.4 % (20.5-51.1); MEAN CORPUSCULAR HEMOGLOBIN 29 pg (27-31); MEAN CORPUSCULAR HGB CONC 32 g/dL (33-37); MEAN CORPUSCULAR VOLUME 90.7 fL (80-94); MONOCYTES # (AUTO) 0.3 K/uL (0.8-1.0); NEUTROPHILS # (AUTO) 14.9 K/uL (1.8-7.7); PLATELET COUNT (AUTO) 408 K/uL (140-450); RED BLOOD CELL COUNT(AUTO) 4.61 MIL/uL (4.20-5.40); RED CELL DISTRIBUTION WIDTH 13.9 % (11.6-13.7); WHITE BLOOD COUNT (AUTO) 16.2 K/uL (4.8-10.8)
[2020-04-21 10:08] LABS: PROTHROMBIN TIME 11.1 secs (10.8-13.4)
[2020-04-21 10:15] LABS: ALBUMIN 3.3 g/dL (3.4-5.0); ANION GAP 22.6 (8-16); ASPARTATE AMINOTRANSFERASE 41 U/L (15-37); CARBON DIOXIDE 19.1 mmol/L (21-32); CHLORIDE 99 mmol/L (98-107); CREATININE 2.1 mg/dL (0.6-1.3); POTASSIUM 4.7 mmol/L (3.5-5.1); SODIUM SERUM 136 mmol/L (136-145); TOTAL BILIRUBIN 0.6 mg/dL (0.0-1.0); UREA NITROGEN, BLOOD 36 mg/dL (7-18)
--- NOTE | 2020-04-21 10:17 | NUR ---
Lab critical TROPONIN 0.098 LACTIC ACID 5.8, Dr. Hooks made aware.
[2020-04-21 10:20] LABS: GLUCOSE 550 mg/dL (74-106)
[2020-04-21 10:31] LABS: C-REACTIVE PROTEIN QUANT 1.7 mg/dL (0.0-0.9)
[2020-04-21 10:32] LABS: RSV NEGATIVE (NEGATIVE)
[2020-04-21 10:34] LABS: LACTATE DEHYDROGENASE 299 U/L (81-234)
--- NOTE | 2020-04-21 10:55 | NUR ---
Fritz catheter #16F placed, large amounts of hazy yellow urine output returned. Patient cleaned, had just been incontinent in diaper prior to f/c. UA and C&S sent to lab
[2020-04-21] MEDS ORDERED: INSULIN REGULAR, HUMAN 100 UNIT/ML VIAL IVP ONE (11:00)
[2020-04-21] MEDS ORDERED: NACL 0.9% 1,000 ML IV ONE (11:00)
[2020-04-21] MEDS ORDERED: guaiFENesin DM 200/20 MG-10 ML 10 ML UDC PO PRN (12:30)
[2020-04-21] MEDS ORDERED: HYDROcodone/APAP 7.5/325 MG 1 TAB PO PRN (12:30)
[2020-04-21] MEDS ORDERED: ONDANSETRON 4 MG/2 ML VIAL IM/IVP PRN (12:30)
[2020-04-21] MEDS ORDERED: ACETAMINOPHEN 325 MG TAB PO PRN (12:30)
[2020-04-21] MEDS ORDERED: POTASSIUM CHLORIDE 10 MEQ TABER PO PRN (12:30)
[2020-04-21] MEDS ORDERED: NITROGLYCERIN 0.4 MG TAB SL PRN (12:40)
[2020-04-21] MEDS ORDERED: DEXTROSE 50% 50 ML SYR IVP PRN (12:40)
--- NOTE | 2020-04-21 12:51 | NUR ---
PATIENT TAKEN TO X-RAY
--- NOTE | 2020-04-21 12:59 | NUR ---
PT BACK FROM CT AND PLACED IN BED 5.
[2020-04-21] MEDS: NACL 0.9% 1,000 ML IV SCH ×2 (13:06→22:01)
[2020-04-21] MEDS ORDERED: DOCUSATE 100 MG/10 ML UDC PO PRN (13:40)
[2020-04-21 14:17] LABS: CHOL/HDL RATIO 6.4 (1-4.5); FREE T4 (FREE THYROXINE) 1.53 ng/dL (0.76-1.46); MAGNESIUM 1.4 mg/dL (1.8-2.4); PHOSPHORUS 3.5 mg/dL (2.5-4.9); THYROID STIMULATING HORMONE 1.19 uIU/mL (0.34-3.74)
--- NOTE | 2020-04-21 14:21 | NUR ---
CRITICAL LAB RESULT-Lab called repeat Lactic Acid result 9.6, notified Dr. Hooks
[2020-04-21 14:41] LABS: APPEARANCE,URINE HAZY (CLEAR); BILIRUBIN,URINE NEGATIVE (NEGATIVE); BLOOD, URINE 2+ (NEGATIVE); COLOR,URINE YELLOW (YELLOW); LEUKOCYTE ESTERASE ,URINE NEGATIVE (NEGATIVE); NITRITE, URINE POSITIVE (NEGATIVE); PH,URINE 5.5 (5.0-9.0); UGLUCOSE 3+ (NEGATIVE)
[2020-04-21] MEDS ORDERED: NACL 0.9% 500 ML IV SCH (14:50)
--- NOTE | 2020-04-21 15:03 | NUR ---
500cc NS IVF hung
[2020-04-21] MEDS ORDERED: ACETAMINOPHEN 650 MG SUPP RC SCH (16:02)
--- NOTE | 2020-04-21 16:07 | NUR ---
Patient more awake and responsive, yelling "help me" in Vietnamese. Spekeyshawn campos Asked patient how I could help her but she didn't answer. Says yes when you ask if she is Manju. Can answer some yes and no questions. 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
--- NOTE | 2020-04-21 16:20 | NUR ---
Patient taken to PA for VQ scan by [facility] via [employer].
--- NOTE | 2020-04-21 16:48 | NUR ---
CRITICAL LAB RESULTS-lab called a critical troponin level of 0.418 Dr. Hooks notified
--- NOTE | 2020-04-21 17:15 | NUR ---
Patient returned from VQ scan, reconnected to gambling monitor, IVF back on IV pump Patient pulled up in bed and repositioned
[2020-04-21] MEDS: BLOOD GLUCOSE MONITORING 1 DEV DEV FS SCH ×2 (17:29→21:00)
[2020-04-21 17:32] LABS: COARSE GRANULAR CASTS,URINE 0-10 /LPF (None Seen); RBC,URINE 11-20 (MOD) /HPF (0-5)
--- NOTE | 2020-04-21 17:39 | NUR ---
Patient screaming for water in Croatian, cannot understand how to use the straw, unable to drink from cup, given small amounts with a syringe, tolerating well. HOB elevated
[2020-04-21] MEDS ORDERED: diphenhydrAMINE 50 MG/ML VIAL IVP PRN (17:50)
[2020-04-21] MEDS: INSULIN LISPRO SLIDING SCALE 100 UNITS/ML VIAL SUBQ PRN (18:41)
--- NOTE | 2020-04-21 19:29 | NUR ---
Detailed report given to CASSANDRA Heller for night supervisor. Questions answered. Orders and meds reviewed.
--- NOTE | 2020-04-21 19:30 | NUR ---
RECEIVED REPORT FROM NESSA TRUJILLO FOR CONTINUITY OF CARE.
--- NOTE | 2020-04-21 20:11 | NUR ---
LAB AT BEDSIDE FOR BLOOD DRAWN.
--- NOTE | 2020-04-21 20:50 | NUR ---
CRITICAL LAB REPORT RECIVED FROM LAB- [facility]. TROPONIN 0.472. PRIMARY NURSE MADE AWARE.
[2020-04-21] MEDS: INSULIN LANTUS 100 UNITS/ML 10 ML VIAL SUBQ SCH (21:00)
[2020-04-21] MEDS: FENOFIBRATE 48 MG TAB PO SCH (21:00)
[2020-04-21] MEDS ORDERED: INSULIN GLARGINE HUM REC ANLOG 45 UNIT SQ SCH (21:00)
--- NOTE | 2020-04-21 21:00 | NUR ---
RECEIVED REPORT FOR CRITICAL LAB FROM CHARGE NURSE. NOTIFIED DR. ZAVALA AND GAVE NO NEW ORDERS.
[2020-04-21] MEDS ORDERED: CRUSHER, PILL MC ONE (21:08)
[2020-04-21] MEDS: ATORVASTATIN 20 MG TAB PO SCH (21:25)
[2020-04-21] MEDS ORDERED: ACETAMINOPHEN 650 MG SUPP RC PRN (21:30)
[2020-04-21] MEDS: ZOLPIDEM 5 MG TAB PO PRN (21:40)
--- NOTE | 2020-04-21 22:13 | NUR ---
PT WAS REPOSITION AT THIS TIME, ADJUSTED HOB TO A COMFORTABLE HEIGHT. PT REQUESTING WATER AT THIS TIME EDUCATED PT THAT SHE IS ONLY ABLE TO GET WATER FOR PO MEDS SHE IS NPO AT THIS TIME PER ER MD.
--- NOTE | 2020-04-22 01:14 | NUR ---
PT WAS REPOSITION AT THIS TIME, ADJUSTED HOB TO A COMFORTABLE HEIGHT. VSS, IN NO ACUTE DISTRESS NOTED. IVF OF 0.9% NS RUNNING. WILL REMAIN ON BEDSIDE MONITOR.
--- NOTE | 2020-04-22 02:26 | NUR ---
PT WAS NOTED WITH AN IV PULLED ON THE L HAND. SITE WAS NOTED WITH INFILTARTION AND SWELLING. ATTEMPTED IV INSERTION WITH UNSUCCESFUL ATTEMPTS. WILL NOTIFY CHARGE NURSE FOR ATTEMPTS.
--- NOTE | 2020-04-22 03:20 | NUR ---
NEW IV SITE ESTABLISHED BY GIRMA TRUJILLO TO R CHEST. 20 G IV PATENT SITE FLUSHED WITH 10 ML OF 0.9% NS. NO INFILTRATION OR SWELLING NOTED.
--- NOTE | 2020-04-22 05:26 | NUR ---
PT WAS REPOSITION AT THIS TIME, ADJUSTED HOB TO A COMFORTABLE HEIGHT. VSS, IN NO ACUTE DISTRESS NOTED. IVF OF 0.9% NS RUNNING. PERINEAL CARE DONE WITH FEMALE STAFF PRESENT. SKIN LEFT CLEAN AND INTACT. WILL REMAIN ON BEDSIDE MONITOR.
--- NOTE | 2020-04-22 07:05 | NUR ---
PT WAS REPOSITION AT THIS TIME, ADJUSTED HOB TO A COMFORTABLE HEIGHT. VSS, IN NO ACUTE DISTRESS NOTED. IVF OF 0.9% NS RUNNING. SKIN LEFT CLEAN AND INTACT. REDNESS NOTED ON SACRAL AREA. NO OPEN WOUNDS. WILL REMAIN ON BEDSIDE MONITOR.
--- NOTE | 2020-04-22 07:10 | NUR ---
RECEIVED ENDORSEMENT FROM TANK WORKER, AWAKE,ALERT, ORIENTED X3, BREATHING SPONTANEOUSLY AT ROOM AIR, NOT IN DISTRESS NOTED.WITH ONGOING IV FLUID WITH 0.9%NS AT 100ML/HOUR INFUSING AT RT CHEST, G 20 IV CANNULA NOTED. WITH LUCIA CATHETER F16 ATTACHED TO URINE BAG DRAINING TO A DARK YELLOW URINE, 150ML URINE NOTED. ADMITTED A CASE OF SEPSIS, ALTERED LOCA ND HEMOPTYSIS, AWAITS BED IN TELEMETRY. SAFETY MEASURES IN PLACE AND CONTINUE MONITOR.
--- NOTE | 2020-04-22 07:24 | NUR ---
GAVE REPORT TO RELYN RN FOR CONTINUITY OF CARE.
[2020-04-22 08:07] LABS: T4 (THYROXINE) 8.6 ug/dL (4.5-12.0)
[2020-04-22] MEDS: PANTOPRAZOLE 40 MG TABEC PO SCH (08:10)
[2020-04-22] MEDS: BLOOD GLUCOSE MONITORING 1 DEV DEV FS SCH ×4 (08:10→21:17)
--- NOTE | 2020-04-22 08:10 | NUR ---
GLUCOSE-[id number],HUMALOG 4UNITS SUBQ PER SLIDING SCALE GIVEN. DUE MEDICATION GIVEN.
[2020-04-22] MEDS: ASPIRIN 81 MG TAB.CHEW PO SCH (08:12)
[2020-04-22] MEDS: INSULIN LISPRO SLIDING SCALE 100 UNITS/ML VIAL SUBQ PRN ×2 (08:27→14:32)
--- NOTE | 2020-04-22 08:51 | NUR ---
[facility] CONTACTED AND REPORT GIVEN TO CASSANDRA DAVE
[2020-04-22] MEDS: PIPERACILLIN/TAZOBACTAM 2.25 GM in DEXTROSE 5% 50 ML IV SCH ×2 (09:00→17:02)
[2020-04-22] MEDS ORDERED: LOVENOX 1MG/KG Q12H SUBQ SCH (09:00)
--- NOTE | 2020-04-22 09:09 | NUR ---
ENDORSED TO [facility] CASSANDRA LINDA IN STABLE CONDITION FOR CONTINUITY OF CARE
--- NOTE | 2020-04-22 09:19 | NUR ---
PATIENT HAS BEEN SCREENED AND CATEGORIZED MODERATE NUTRITION RISK. PATIENT WILL BE SEEN WITHIN 3-5 DAYS OF ADMISSION. 04/24/20 04/26/[address]
[2020-04-22 09:49] LABS: BASOPHILS # (AUTO) 0.1 K/uL (0.00-0.22); BASOPHILS % (AUTO) 0.4 % (0.0-2.0); EOSINOPHILS % (AUTO) 0.2 % (0.0-4.0); HEMATOCRIT 38.1 % (36-48); HEMOGLOBIN 12.5 g/dL (12.0-16.0); LYMPHOCYTES # (AUTO) 3.4 K/uL (2.5-16.5); LYMPHOCYTES % (AUTO) 23.6 % (20.5-51.1); MEAN CORPUSCULAR HEMOGLOBIN 30 pg (27-31); MEAN CORPUSCULAR HGB CONC 33 g/dL (33-37); MEAN CORPUSCULAR VOLUME 90.2 fL (80-94); MONOCYTES % (AUTO) 7.1 % (1.7-9.3); NEUTROPHILS # (AUTO) 9.9 K/uL (1.8-7.7); NEUTROPHILS % (AUTO) 68.7 % (42.2-75.2); PLATELET COUNT (AUTO) 277 K/uL (140-450); RED BLOOD CELL COUNT(AUTO) 4.22 MIL/uL (4.20-5.40); RED CELL DISTRIBUTION WIDTH 13.9 % (11.6-13.7); WHITE BLOOD COUNT (AUTO) 14.4 K/uL (4.8-10.8)
[2020-04-22 09:58] LABS: ANION GAP 19.6 (8-16); CARBON DIOXIDE 22.9 mmol/L (21-32); CHLORIDE 107 mmol/L (98-107); CREATININE 2.3 mg/dL (0.6-1.3); GLUCOSE 221 mg/dL (74-106); POTASSIUM 4.5 mmol/L (3.5-5.1); SODIUM SERUM 145 mmol/L (136-145); UREA NITROGEN, BLOOD 46 mg/dL (7-18)
--- NOTE | 2020-04-22 11:39 | NUR ---
SOCIAL WORK NOTE: Patient's Orientation Unable To Assess Information Provided By PEMA BRADLEY - DAUGHTER Comments SW WAS UNABLE TO MEET PATIENT AT BEDSIDE DUE TO MEDICAL CONDITION. SW COMPLETED ASSESSMENT WITH PATIENT'S DAUGHTER. Music Assistant, Realtionship and Phone Number PEMA BRADLEY DAUGHTER [phone] Healthcare Power of Hand Therapist No Does Patient Have a POLST No Identifying Problems No Social Work Triggers Is A Social Work Consult Needed No Mandate Report Filed No Explanation Of Identifying Problems PATIENT IS AN 85-YEAR-OLD FEMALE ADMITTED FOR HEMOPTYSIS, SEPSIS, AND ANGELA. PATIENT HAS PMHX OF HYPERTENSION, DIABETES, CKD, DVT, AND CVA. Ad[facility] - [phone] Pre-Admission Level Of Functioning Status Total Care Level Of Functioning Comment PER DAUGHTER, PATIENT REQUIRES TOTAL ASSISTANCE. Prior Resources/Services Used In Last 12 Months SNF [facility] Prior DME Home Oxygen Walker Wheelchair Dialysis Comments N/A Patient Had Caregiver No Home Support No Caregiver Issues Financial Issues No Known Financial Issue Referral To The Financial Counselor Needed No Factors/Needs No D/C Needs Identified Pt/Rep Participated In Discharge Plan Yes Patient/Family Agress With Discharge Plan Yes Discharge Plan Comments TENTATIVE DISCHARGE PLAN IS FOR [place] [facility] [place] Plan Status Initiated
--- NOTE | 2020-04-22 12:11 | NUR ---
PATIENT RESTING COMFORTABLY, NO S/SX OF PAIN OR DISCOMFORT, RESPIRATIONS ARE NON-LABORED. SKIN IS CLEAN, WARM AND DRY TO TOUCH. IV ACCESS IS PATENT, DRY AND INTACT, BED IS LOCKED IN LOWEST POSITION, CALL LIGHT IN REACH. NURSE WILL CONTINUE TO MONITOR FOR CHANGES IN STATUS.
--- NOTE | 2020-04-22 16:28 | NUR ---
DC PLANNIN YRS OLD FEMALE PATIENT WAS ADMITTED FROM [facility] WITH A DX OF HEMOPTYSIS, SEPSIS AND ANGELA . PT HAS A HX OF HTN, DM, CKD . CXR SHOWED MILD CARDIOMEGALY , CT HEAD MILD ATROPY WITH OLD INFRACT NO ACUTE INTRACRANIAL PROCESS. VQ SWENSON NORMAL PERFUSION SCAN ,NO PE . CT ABD CHOLELITHIASIS . RAPID COVID TEST NEGATIVE PCR IS PENDING. STARTED IVF, IV ABX ZOSYN AND CONTINUE HOME MEDS. CONSULTED WITH CARDIO, PULMO AND NEPHRO. DC PLAN TO GO BACK TO [facility] . CM TO FOLLOW Addendum: 04/23/20 at 1613 by Ankita Mantilla RN DC PLANNING: PT IS ON HEPARIN DRIP SEEN BY SLATE TRIMMER AND NEPHRO CONTINIE IV ABX . DC PLAN TO GO BACK TO [facility] WHEN STABLE CM TO FOLLOW. Addendum: 04/24/20 at 1046 by Jeannette Ramsey CM DC BATT MACHINE OPERATOR: NOTIFIED [facility] THAT PATIENT IS READY FOR DC PENDING BED NUMBER. Addendum: 04/24/20 at 1053 by Jeannette Ramsey CM DC BATT MACHINE OPERATOR: PER [facility] PATIENT CAN GO TO ROOM [facility] UNDER DR. MARSHALL WAITING ON TRANSPORT AUTH FROM [facility] Addendum: 04/24/20 at 1159 by Jeannette Ramsey CM DC BATT MACHINE OPERATOR: MEL FROM [facility] PROVIDED AUTH FOR TRANSPORTATION. SET UP TRANSPORTATION WITH [facility] [phone]. TIME OF HEAD RESIDENT IS 1:00 PM. NOTIFIED CASSANDRA RIVER AT [facility]. Addendum: 04/24/20 at 1201 by Jeannette Ramsey CM VEE BATT MACHINE OPERATOR: TRIED CONTACTING PATIENTS DAUGHTER PEMA BRADLEY [phone] TO NOTIFY HER THAT PATIENT WILL BE DISCHARGED TODAY, NO ANSWER BUT LEFT A VOICEMAIL.
--- NOTE | 2020-04-22 16:33 | NUR ---
Patient resting comfortably, no S/sx of pain or discomfort. Respirations are non-labored. Skin is clean, warm and dry. Iv access is patent, dry and intact. Bed is locked in lowest position, call light in reach. nurse will continue to monitor for changes in status.
[2020-04-22 17:44] VITALS: BP 119/60
--- NOTE | 2020-04-22 19:30 | NUR ---
RECEIVED BEDSIDE REPORT FROM DAY RN. PT AWAKE,ALERT, ORIENTED X3, BREATHING SPONTANEOUSLY AT ROOM AIR, LUNG SOUNDS ARE CLEAR. NOT IN ANY DISTRESS NOTED.WITH ONGOING IV FLUID WITH 0.9%NS AT 100ML/HOUR INFUSING AT RT CHEST, G 20 IV CANNULA NOTED. LUCIA CATHETER F16 ATTACHED TO URINE BAG DRAINING TO A DARK YELLOW URINE. ADMITTED A CASE OF SEPSIS, ALTERED LOC AND HEMOPTYSIS, PT DENIES COUGH. D DIMER IS ELEVATED. COVID PCR STILL PENDING. ON DROPLET ISOLATION FOR R/O. PT WITH RASH ON L BUTTOCKS PER DAY RN WILL ASSESS. POC DISCUSSED WITH PT/ SAFETY MEASURES IN PLACE. CALL LIGHT IS WITHIN REACH.
[2020-04-22] MEDS ORDERED: HEPARIN PER PHARMACY MC PRN (19:35)
[2020-04-22 20:00] VITALS: BP 138/71
[2020-04-22] MEDS: INSULIN LANTUS 100 UNITS/ML 10 ML VIAL SUBQ SCH (21:00)
[2020-04-22] MEDS: NACL 0.9% 1,000 ML IV SCH ×2 (21:50→22:07)
[2020-04-22] MEDS ORDERED: CRUSHER, PILL MC ONE (21:52)
[2020-04-22] MEDS: ATORVASTATIN 20 MG TAB PO SCH (21:54)
[2020-04-22] MEDS: FENOFIBRATE 48 MG TAB PO SCH (21:54)
--- NOTE | 2020-04-22 21:54 | NUR ---
VSS. JACKI MEDICATIONS GIVEN PER ORDERS. ALL NEEDS MET. WILL CONTINUE TO MONITOR.
[2020-04-22] MEDS: hePARIN / DEXT 5% PREMIX 250 ML IV PRN (22:18)
--- NOTE | 2020-04-22 22:18 | NUR ---
HEPARIN DRIP STARTED AT THIS TIME FOR ELEVATED D-DIMER. NEXT PTT ORDERED FOR 04/23 AT 0420. MED EDUCATION GIVEN. SAFETY MEASURES ARE IN PLACE.
--- NOTE | 2020-04-22 23:30 | NUR ---
SPOKE WITH PT'S DAUGHTER ALEJANDRA HIGH UPDATE GIVEN. ALL QUESTIONS AND CONCERNS ADDRESSED.
--- NOTE | 2020-04-23 01:00 | NUR ---
PT REQUESTING WATER GAVE PER REQUEST. PT TOLERATE WELL. ALL NEEDS MET. CALL LIGHT IS WITHIN REACH,
[2020-04-23] MEDS: PIPERACILLIN/TAZOBACTAM 2.25 GM in DEXTROSE 5% 50 ML IV SCH ×3 (01:34→17:00)
--- NOTE | 2020-04-23 02:00 | NUR ---
ROUNDS MADE. PT IS AWAKE REQUESTING SOMETHING TO DRINK OFFERED WATER OR JUICE PT REFUSED STATES SHE DOES NOT LIKE THE WATER HERE AND DOES NOT WANT ANYTHING SWEET. OFFERED TEA PT TOLERATED WELL. ALL NEEDS MET. HOB ELEVATED. CALL LIGHT IS WITHIN REACH.
[2020-04-23] MEDS: NACL 0.9% 1,000 ML IV SCH ×2 (03:58→14:30)
--- NOTE | 2020-04-23 04:00 | NUR ---
VITAL SIGNS ARE WITHIN NORMAL LIMITS. ALL NEEDS MET. CALL LIGHT IS WITHIN REACH. WILL CONTINUE TO MONITOR.
--- NOTE | 2020-04-23 05:17 | NUR ---
PTT 125.1 HELD DRIP PER PROTOCOL WILL RESUME AN ONE HOUR AND REDUCE RATE.
--- NOTE | 2020-04-23 05:31 | NUR ---
CALLED FROM LAB AGAIN PTT 166.3 HEPARIN WAS HELD PER PROTOCOL
[2020-04-23] MEDS: BLOOD GLUCOSE MONITORING 1 DEV DEV FS SCH ×4 (06:01→20:08)
[2020-04-23] MEDS: hePARIN / DEXT 5% PREMIX 250 ML IV PRN ×2 (06:18→15:52)
--- NOTE | 2020-04-23 06:18 | NUR ---
DRIP STARTED AT NEW RATE OF 900U/H. NEW PTT TO BE DRAWN AT 1220 ORDER IN. WILL CONTINUE TO MONITOR.
[2020-04-23 06:29] VITALS: BP 129/70
[2020-04-23 06:31] LABS: BASOPHILS # (AUTO) 0.1 K/uL (0.00-0.22); BASOPHILS % (AUTO) 0.8 % (0.0-2.0); EOSINOPHILS # (AUTO) 0.2 K/uL (0-0.4); EOSINOPHILS % (AUTO) 1.3 % (0.0-4.0); HEMATOCRIT 34.4 % (36-48); HEMOGLOBIN 11.5 g/dL (12.0-16.0); LYMPHOCYTES # (AUTO) 2.1 K/uL (2.5-16.5); LYMPHOCYTES % (AUTO) 18.3 % (20.5-51.1); MEAN CORPUSCULAR HEMOGLOBIN 30 pg (27-31); MEAN CORPUSCULAR HGB CONC 33 g/dL (33-37); MEAN CORPUSCULAR VOLUME 89.4 fL (80-94); MONOCYTES # (AUTO) 0.7 K/uL (0.8-1.0); MONOCYTES % (AUTO) 5.7 % (1.7-9.3); NEUTROPHILS # (AUTO) 8.5 K/uL (1.8-7.7); NEUTROPHILS % (AUTO) 73.9 % (42.2-75.2); PLATELET COUNT (AUTO) 253 K/uL (140-450); RED BLOOD CELL COUNT(AUTO) 3.85 MIL/uL (4.20-5.40); RED CELL DISTRIBUTION WIDTH 13.7 % (11.6-13.7); WHITE BLOOD COUNT (AUTO) 11.5 K/uL (4.8-10.8)
[2020-04-23 06:54] LABS: ANION GAP 17.7 (8-16); CARBON DIOXIDE 22.2 mmol/L (21-32); CHLORIDE 110 mmol/L (98-107); CREATININE 2.1 mg/dL (0.6-1.3); GLUCOSE 151 mg/dL (74-106); POTASSIUM 3.9 mmol/L (3.5-5.1); SODIUM SERUM 146 mmol/L (136-145)
[2020-04-23 07:14] LABS: UREA NITROGEN, BLOOD 43 mg/dL (7-18)
--- NOTE | 2020-04-23 07:30 | NUR ---
BEDSIDE REPORT GIVEN PT ENDORSED IN STABLE CONDITION.
[2020-04-23 08:00] VITALS: BP 149/78
--- NOTE | 2020-04-23 08:00 | NUR ---
RECEIVED PATIENT IN BED RESTING COMFORTABLY, PRESENTS CALM AND COOPERATIVE. ABLE TO EXPRESS NEEDS. NO C/O PAIN OR DISCOMFORT. RESPIRATIONS ARE NON-LABORED. SKIN IS CLEAN, WARM AND DRY TO TOUCH. IV ACCESS IS PATENT, DRY AND INTACT. LUCIA PATENT, DRAINING CLEAR YELLOW URINE BY WAY OF GRAVITY/ BED IS LOCKED IN LOWEST POSITION, CALL LIGHT IN REACH.
[2020-04-23] MEDS: PANTOPRAZOLE 40 MG TABEC PO SCH (08:28)
[2020-04-23] MEDS: ASPIRIN 81 MG TAB.CHEW PO SCH (08:28)
[2020-04-23] MEDS: INSULIN LISPRO SLIDING SCALE 100 UNITS/ML VIAL SUBQ PRN ×3 (12:15→20:10)
--- NOTE | 2020-04-23 16:01 | NUR ---
*ST: Bedside Swallow Evaluation* Pt is 85 yo F BIBA from SNF 04/21/2020 s/p coughing blood and AMS. Pt also had +COVID-19 at facility but had minimal symptoms but resolved per MD note. PMHx CVA, metabolic syndrome, CKD, RUE DVT, diabetic neuropathy, HTN, DM, C. diff infection. CTH 04/21 - mild atrophy c old infarct [lacunar in L thalamas and R posterior basal ganglia] and other chronic changes; no acute intracranial process. CT Chest & Abdomen 04/21 - lobulated 1.0cm nodule in the posterior LLL; scattered peripheral GGO of the dependent lungs suspicious for atypical infection or aspiration; mild secretions w/in R mainstem bronchus; small hiatal hernia. Pt seen bedside, alert, on room air, verbalizing in complete sentences in Kazakh in clear vocal quality. Pt verbalized, "I cannot chew because I dont have any teeth." Per RNJovany, Pt lost her dentures and awaiting for arrival of new dentures within next 7-10 days. Per chart, Pt received MS/Thin Liquids prior to admit. 4oz apple sauce, 2x jello cups, ~5oz thin liquids by straw, and 1x tsp MS canned pears given by WIRE SPIRAL BINDER as Pt verbalized that she did not have the energy to feed herself. Pt stripped 100% of bolus from tsp, tried gumming MS canned pears but no breakdown with Pt eventually expelling bolus, no anterior spillage nor residue with puree, no overt coughing nor throat clearing. With thin liquids, Pt engaged in sequential straw sip without anterior spillage and no overt coughing nor throat clearing. POC d/w pt and pts RN. P: Rec Puree/Thin Liquids straw ok, feed-assist Follow safe swallow strategies, oral care, aspiration precautions Nsg to monitor and notify WIRE SPIRAL BINDER of acute changes in status -Teresa Thompson MA, [facility]-WIRE SPIRAL BINDER Addendum: 04/23/20 at [address] Amended: Links added.
--- NOTE | 2020-04-23 18:58 | NUR ---
Patient resting comfortably, no c/o pain or discomfort. Respirations are non-labored. Skin is clean, warm and dry to touch. IV access is patent, dry and intact. byrd patent, draining yellow urine by way of gravity.Bed is locked in lowest position, call light in reach. Patient endorsed to night club manager nurse for continue care.
--- NOTE | 2020-04-23 19:30 | NUR ---
RECEIVED BEDSIDE REPORT FROM DAY RN. PT AWAKE,ALERT, ORIENTED X2, BREATHING SPONTANEOUSLY AT ROOM AIR, LUNG SOUNDS ARE CLEAR. NOT IN ANY DISTRESS NOTED.IV ON RT CHEST, G 20 IV CANNULA NOTED ON HEPARIN DRIP 600U/H NEXT PTT TO BE DRAWN AT 2300. LUCIA CATHETER F16 ATTACHED TO URINE BAG DRAINING YELLOW URINE. ADMITTED A CASE OF SEPSIS, ALTERED LOC AND HEMOPTYSIS, PT DENIES COUGH. D DIMER IS ELEVATED. COVID PCR STILL PENDING. ON DROPLET ISOLATION FOR R/O. PT WITH RASH ON L BUTTOCKS HAS HYDRAGUARD ORDERED. POC DISCUSSED WITH PT. PT UNABLE TO VERBALIZED UNDERSTANDING. SAFETY MEASURES IN PLACE. CALL LIGHT IS WITHIN REACH.
[2020-04-23 20:00] VITALS: BP 147/53
[2020-04-23] MEDS: FENOFIBRATE 48 MG TAB PO SCH (20:09)
[2020-04-23] MEDS: ATORVASTATIN 20 MG TAB PO SCH (20:09)
--- NOTE | 2020-04-23 20:09 | NUR ---
VSS. ADMINISTERED JACKI MEDICATION PER ORDERS. BLOOD SUGAR 231 AT 1930 DAY RN ADMINISTERED INSULIN AT 1940 WILL HOLD DOSE AND RECHECK IN AM. JACKI LANTUS GIVEN SNACK AT BEDSIDE. POC REVIEWED WITH PT. CALL LIGHT IS WITHIN REACH. WILL CONTINUE TO MONITOR.
[2020-04-23] MEDS: INSULIN LANTUS 100 UNITS/ML 10 ML VIAL SUBQ SCH (20:12)
--- NOTE | 2020-04-23 22:21 | NUR ---
PT IS RESTING COMFORTABLY IN BED. SAFETY MEASURES ARE IN PLACE. CALL LIGHT IS WITHIN REACH.
--- NOTE | 2020-04-24 00:05 | NUR ---
SPOKE WITH PT'S DAUGHTER ALEJANDRA GAVE UPDATE. ALL CONCERNS ADDRESSED.
[2020-04-24] MEDS: NACL 0.9% 1,000 ML IV SCH ×2 (00:14→10:30)
[2020-04-24] MEDS: PIPERACILLIN/TAZOBACTAM 2.25 GM in DEXTROSE 5% 50 ML IV SCH ×2 (00:19→09:30)
[2020-04-24] MEDS: HYDRAGUARD CREAM TP SCH ×2 (00:20→12:33)
--- NOTE | 2020-04-24 00:40 | NUR ---
PTT 54.6 WITHIN THERAPEUTIC RANGE. NO CHANGE PER HEPARIN PROTOCOL
[2020-04-24] MEDS: ZOLPIDEM 5 MG TAB PO PRN (00:51)
--- NOTE | 2020-04-24 03:10 | NUR ---
RECEIVED PT IN STABLE CONDITION FROM CASSANDRA HARLEY FOR CONTINUITY OF CARE.
--- NOTE | 2020-04-24 03:10 | NUR ---
GAVE BEDSIDE REPORT TO JANEE RN. PT ENDORSED IN STABLE CONDITION.
[2020-04-24 04:30] VITALS: BP 157/93
[2020-04-24] MEDS: hePARIN / DEXT 5% PREMIX 250 ML IV PRN (04:57)
[2020-04-24] MEDS: BLOOD GLUCOSE MONITORING 1 DEV DEV FS SCH ×3 (06:07→17:19)
--- NOTE | 2020-04-24 06:07 | NUR ---
BLOOD SUGAR WAS CHECKED RESULT 128. NO INSULIN COVERAGE NEEDED.
--- NOTE | 2020-04-24 07:15 | NUR ---
ENDORSED PT IN STABLE CONDITION TO AM NURSE.
--- NOTE | 2020-04-24 07:16 | NUR ---
RECEIVED ENDORSEMENT FROM MEDICAL OFFICE SUPERVISOR, ASLEEP ON BED, BREATHING SPONTANEOUSLY AT ROOM AIR , NOT IN DISTRESS NOTED. WITH ONGOING HEPARIN DRIP 600UNITS/HOUR INFUSING AT RT BREAST, SAFETY MEASURES IN PLACE AND CONTINUE MONITOR.
[2020-04-24 08:00] VITALS: BP 102/65
[2020-04-24] MEDS ORDERED: lisinopriL 5 MG TAB PO SCH (09:00)
[2020-04-24] MEDS: PANTOPRAZOLE 40 MG TABEC PO SCH (09:28)
[2020-04-24] MEDS: ASPIRIN 81 MG TAB.CHEW PO SCH (09:29)
[2020-04-24 09:39] LABS: BASOPHILS # (AUTO) 0.1 K/uL (0.00-0.22); BASOPHILS % (AUTO) 1.1 % (0.0-2.0); EOSINOPHILS # (AUTO) 0.3 K/uL (0-0.4); EOSINOPHILS % (AUTO) 4.5 % (0.0-4.0); HEMATOCRIT 32.4 % (36-48); HEMOGLOBIN 11.1 g/dL (12.0-16.0); LYMPHOCYTES # (AUTO) 1.6 K/uL (2.5-16.5); LYMPHOCYTES % (AUTO) 22.7 % (20.5-51.1); MEAN CORPUSCULAR HEMOGLOBIN 30 pg (27-31); MEAN CORPUSCULAR HGB CONC 34 g/dL (33-37); MEAN CORPUSCULAR VOLUME 88.7 fL (80-94); MONOCYTES # (AUTO) 0.6 K/uL (0.8-1.0); MONOCYTES % (AUTO) 8.7 % (1.7-9.3); NEUTROPHILS # (AUTO) 4.3 K/uL (1.8-7.7); PLATELET COUNT (AUTO) 230 K/uL (140-450); RED BLOOD CELL COUNT(AUTO) 3.66 MIL/uL (4.20-5.40); RED CELL DISTRIBUTION WIDTH 13.8 % (11.6-13.7); WHITE BLOOD COUNT (AUTO) 6.8 K/uL (4.8-10.8)
[2020-04-24 09:42] LABS: ANION GAP 15.1 (8-16); CARBON DIOXIDE 23.7 mmol/L (21-32); CHLORIDE 112 mmol/L (98-107); GLUCOSE 163 mg/dL (74-106); POTASSIUM 3.8 mmol/L (3.5-5.1); SODIUM SERUM 147 mmol/L (136-145); UREA NITROGEN, BLOOD 37 mg/dL (7-18)
--- NOTE | 2020-04-24 09:43 | NUR ---
FULLY AWAKE AND ALERT, DUE MEDICATION GIVEN
[2020-04-24 09:50] LABS: MAGNESIUM 1.6 mg/dL (1.8-2.4); PHOSPHORUS 4.3 mg/dL (2.5-4.9)
[2020-04-24] MEDS ORDERED: PIPE50SO5 IV (10:32)
--- NOTE | 2020-04-24 10:56 | NUR ---
LAB RELAYED THE RESULT OF PTT-58.6. NO CHANGE IN HEPARIN DRIP PER PROTOCOL
[2020-04-24] MEDS: INSULIN LISPRO SLIDING SCALE 100 UNITS/ML VIAL SUBQ PRN (11:53)
--- NOTE | 2020-04-24 11:54 | NUR ---
GLUCOSE-247 HUMALOG 4UNITS SUBQ PER SLIDING GIVEN, ECHO DONE AT BEDSIDE.
[2020-04-24 12:00] VITALS: BP 109/63
[2020-04-24 12:35] VITALS: BP 109/63
--- NOTE | 2020-04-24 12:55 | NUR ---
WENDY CONTACTED AND SPOKE WITH NURSE BERT, REPORT GIVEN
--- NOTE | 2020-04-24 14:12 | NUR ---
STILL AWAITING FOR TRANSPORT, AFTERNOON CARE DONE BY CHAZ
--- NOTE | 2020-04-24 16:01 | NUR ---
[facility] CONTACTED TEL NO. [phone], ACCORDING TO THE STAFF HE WILL FOLLOW UP,
--- NOTE | 2020-04-24 16:48 | NUR ---
LAB CALLED, URINE CULTURE POSITIVE FOR E COLI, DR. BALTAZAR MADE AWARE, STILL FOR DISCHARGE WITH ANTIBIOTIC
--- NOTE | 2020-04-24 17:16 | NUR ---
GLUCOSE-109, NO INSULIN COVERAGE. LUCIA CATHETER REMOVED
--- NOTE | 2020-04-24 17:25 | NUR ---
DISCHARGED IN STABLE CONDITION BREATHING SPONTANEOUSLY AT ROOM, PICKED UP BY [facility]SP[facility] PERSONNEL PER ANKITA, DISCHARGE PACKET INSTRUCTION GIVEN
== END 2020-04-24 17:25 | DRG 871 ==
LOC: MED 08:04 → MTU 12:28
PROVIDERS: ADMIT Family Medicine; ATTEND Family Medicine
DX: A41.9 Sepsis, unspecified organism (principal); N17.0 Acute kidney failure with tubular necrosis; J96.01 Acute respiratory failure with hypoxia; I21.4 Non-ST elevation (NSTEMI) myocardial infarction; E44.1 Mild protein-calorie malnutrition; D68.59 Other primary thrombophilia; G93.40 Encephalopathy, unspecified; K92.2 Gastrointestinal hemorrhage, unspecified; R04.2 Hemoptysis; N39.0 Urinary tract infection, site not specified; E11.22 Type 2 diabetes mellitus with diabetic chronic kidney disease; E11.40 Type 2 diabetes mellitus with diabetic neuropathy, unspecified; E11.65 Type 2 diabetes mellitus with hyperglycemia; I12.9 Hypertensive chronic kidney disease with stage 1 through stage 4 chronic kidney disease, or unspecified chronic kidney disease; N18.31 Chronic kidney disease, stage 3a; R91.1 Solitary pulmonary nodule; Z68.35 Body mass index [BMI] 35.0-35.9, adult; Z86.19 Personal history of other infectious and parasitic diseases; Z86.718 Personal history of other venous thrombosis and embolism; Z86.73 Personal history of transient ischemic attack (TIA), and cerebral infarction without residual deficits; Z91.19 Patient's noncompliance with other medical treatment and regimen; Z20.828 Contact with and (suspected) exposure to other viral communicable diseases
CPT/HCPCS: 36415; 36600; 70450; 71045; 71250; 74150; 78582; 80048; 80053; 81001; 82150; 82550; 82728; 82803; 82948; 83036; 83605; 83615; 83690; 83735; 83880; 84100; 84436; 84439; 84443; 84479; 84484; 85025; 85379; 85384; 85610; 85730; 86140; 86886; 86900; 86901; 87040; 87081; 87086; 87420; 87804; 92610; 93005; 96372; 97110; 97112; 97161-GP; 99291; J0713; J1644; J1815; J2543; J7060; U0003

== ENCOUNTER 2020-10-05 08:50 | Inpatient (IN) | payer OTHER, SELFPAY ==
[~2020-10-05] VITALS: Ht 165.1 cm; Wt 97.5 kg
[~2020-10-05 08:50] MED LIST changes: -ACET-2619 PO; -AMIT10TA25 PO; -ASCO500T95 PO; -GABA100C PO; -HYDR-5092 PO; -LACT1TAB34 PO; -MECL-303 PO; +METF1000 PO; -METF500T PO; -NA P133E RC; -NUTR887L4 PO; -NUTR887L9 PO; +PIPE50SO5 IV; +TRI48 PO; +VITB12 PO
[2020-10-05 08:58] VITALS: BP 191/78
[2020-10-05] MEDS ORDERED: NACL 0.9% 1,000 ML IV ONE (09:10)
[2020-10-05 09:34] LABS: BASOPHILS % (AUTO) 0.5 % (0.0-2.0); EOSINOPHILS # (AUTO) 0.1 K/uL (0-0.4); EOSINOPHILS % (AUTO) 0.7 % (0.0-4.0); HEMATOCRIT 38.2 % (36-48); HEMOGLOBIN 12.8 g/dL (12.0-16.0); LYMPHOCYTES # (AUTO) 1.7 K/uL (2.5-16.5); LYMPHOCYTES % (AUTO) 17.6 % (20.5-51.1); MEAN CORPUSCULAR HEMOGLOBIN 31 pg (27-31); MEAN CORPUSCULAR HGB CONC 34 g/dL (33-37); MEAN CORPUSCULAR VOLUME 91.4 fL (80-94); MONOCYTES # (AUTO) 0.5 K/uL (0.8-1.0); MONOCYTES % (AUTO) 5.6 % (1.7-9.3); NEUTROPHILS # (AUTO) 7.4 K/uL (1.8-7.7); NEUTROPHILS % (AUTO) 75.6 % (42.2-75.2); PLATELET COUNT (AUTO) 347 K/uL (140-450); RED BLOOD CELL COUNT(AUTO) 4.18 MIL/uL (4.20-5.40); RED CELL DISTRIBUTION WIDTH 14.1 % (11.6-13.7); WHITE BLOOD COUNT (AUTO) 9.8 K/uL (4.8-10.8)
[2020-10-05 09:46] LABS: PROTHROMBIN TIME 10.2 secs (10.8-13.4)
[2020-10-05 09:53] LABS: APPEARANCE,URINE SL CLOUDY (CLEAR); BILIRUBIN,URINE NEGATIVE (NEGATIVE); BLOOD, URINE TRACE-I (NEGATIVE); COLOR,URINE YELLOW (YELLOW); LEUKOCYTE ESTERASE ,URINE NEGATIVE (NEGATIVE); NITRITE, URINE NEGATIVE (NEGATIVE); PH,URINE 5.5 (5.0-9.0); UGLUCOSE 2+ (NEGATIVE)
[2020-10-05 10:06] LABS: ANION GAP 18.9 (8-16); CHLORIDE 107 mmol/L (98-107); GLUCOSE 191 mg/dL (74-106); POTASSIUM 4.9 mmol/L (3.5-5.1); SODIUM SERUM 144 mmol/L (136-145); UREA NITROGEN, BLOOD 39 mg/dL (7-18)
[2020-10-05 10:07] LABS: CREATININE 1.8 mg/dL (0.6-1.3); LIPASE 99 U/L (73-393)
[2020-10-05 10:10] LABS: RBC,URINE 0-5 /HPF (0-5)
[2020-10-05 10:11] LABS: URINE AMORPHOUS URATE 1+ /HPF (None Seen); WBC,URINE 0 /HPF (0-5)
[2020-10-05] MEDS ORDERED: INSU10SU6 SUBQ (10:16)
[2020-10-05] MEDS ORDERED: MULT-1328 PO (10:16)
[2020-10-05] MEDS ORDERED: ASCO500T95 PO (10:16)
[2020-10-05 10:29] LABS: ASPARTATE AMINOTRANSFERASE 23 U/L (15-37); TOTAL BILIRUBIN 0.4 mg/dL (0.0-1.0)
[2020-10-05] MEDS ORDERED: DOCUSATE SODIUM 100 MG GELCAP PO PRN (12:10)
[2020-10-05] MEDS ORDERED: bisacodyL 10 MG SUPP RC PRN (12:10)
[2020-10-05] MEDS ORDERED: SODIUM PHOS / POTASSIUM PHOS 1 PKT PDR PO PRN (12:10)
[2020-10-05] MEDS ORDERED: POTASSIUM CHLORIDE 40 MEQ, LIDOCAINE MPF 1% 25 MG in NACL 0.9% 250 ML IV PRN (12:10)
[2020-10-05] MEDS ORDERED: MAG SULF 2000 MG/WATER PREMIX 50 ML IV PRN (12:10)
[2020-10-05] MEDS ORDERED: ONDANSETRON 4 MG/2 ML VIAL IM/IVP PRN (12:10)
[2020-10-05] MEDS ORDERED: MAGNESIUM HYDROXIDE 2400 MG/30 ML UDC PO PRN (12:10)
[2020-10-05] MEDS ORDERED: DEXTROSE 50% 50 ML SYR IVP PRN (12:10)
[2020-10-05] MEDS ORDERED: ACETAMINOPHEN 325 MG TAB PO PRN (12:10)
[2020-10-05] MEDS ORDERED: HYDROcodone/APAP 5/325 MG 1 TAB TAB PO PRN (12:10)
[2020-10-05 12:30] VITALS: BP 147/61
[2020-10-05 12:32] LABS: MAGNESIUM 1.5 mg/dL (1.8-2.4); PHOSPHORUS 2.9 mg/dL (2.5-4.9)
[2020-10-05] MEDS: NACL 0.9% 1,000 ML IV SCH ×2 (13:06→22:10)
[2020-10-05 16:00] VITALS: BP 153/62
[2020-10-05] MEDS: BLOOD GLUCOSE MONITORING 1 DEV DEV FS SCH ×2 (16:25→21:29)
[2020-10-05] MEDS ORDERED: MAGNESIUM OXIDE 400 MG TAB PO ONE (17:40)
[2020-10-05 20:00] VITALS: BP 140/83
[2020-10-05] MEDS ORDERED: NACL 0.9% IRR 250 ML BOTTLE IR SCH (21:00)
[2020-10-05] MEDS: DOCUSATE SODIUM 100 MG GELCAP PO SCH (21:20)
[2020-10-05] MEDS: ATORVASTATIN 20 MG TAB PO SCH (21:20)
[2020-10-05] MEDS: FENOFIBRATE 48 MG TAB PO SCH (21:21)
[2020-10-06] VITALS: BP 146/61
[2020-10-06] MEDS ORDERED: HYDRAGUARD CREAM TP SCH (01:00)
[2020-10-06 04:00] VITALS: BP 173/82
[2020-10-06 06:54] LABS: ANION GAP 15.2 (8-16); CARBON DIOXIDE 22.1 mmol/L (21-32); CHLORIDE 110 mmol/L (98-107); CREATININE 1.5 mg/dL (0.6-1.3); GLUCOSE 176 mg/dL (74-106); POTASSIUM 4.3 mmol/L (3.5-5.1); SODIUM SERUM 143 mmol/L (136-145); UREA NITROGEN, BLOOD 32 mg/dL (7-18)
[2020-10-06] MEDS: BLOOD GLUCOSE MONITORING 1 DEV DEV FS SCH ×4 (06:59→21:14)
[2020-10-06] MEDS: INSULIN LISPRO SLIDING SCALE 100 UNITS/ML VIAL SUBQ PRN ×4 (07:05→21:16)
[2020-10-06 07:09] LABS: BASOPHILS # (AUTO) 0.1 K/uL (0.00-0.22); BASOPHILS % (AUTO) 0.6 % (0.0-2.0); EOSINOPHILS # (AUTO) 0.2 K/uL (0-0.4); EOSINOPHILS % (AUTO) 1.9 % (0.0-4.0); HEMATOCRIT 36.7 % (36-48); HEMOGLOBIN 12.3 g/dL (12.0-16.0); LYMPHOCYTES # (AUTO) 2.5 K/uL (2.5-16.5); LYMPHOCYTES % (AUTO) 29.6 % (20.5-51.1); MEAN CORPUSCULAR HEMOGLOBIN 31 pg (27-31); MEAN CORPUSCULAR HGB CONC 34 g/dL (33-37); MEAN CORPUSCULAR VOLUME 91.4 fL (80-94); MONOCYTES # (AUTO) 0.5 K/uL (0.8-1.0); NEUTROPHILS # (AUTO) 5.3 K/uL (1.8-7.7); NEUTROPHILS % (AUTO) 61.9 % (42.2-75.2); PLATELET COUNT (AUTO) 322 K/uL (140-450); RED BLOOD CELL COUNT(AUTO) 4.01 MIL/uL (4.20-5.40); RED CELL DISTRIBUTION WIDTH 14.3 % (11.6-13.7); WHITE BLOOD COUNT (AUTO) 8.5 K/uL (4.8-10.8)
[2020-10-06] MEDS ORDERED: CLONIDINE HYDROCHLORIDE 0.1 MG TAB PO PRN (07:20)
[2020-10-06 08:00] VITALS: BP 171/67
[2020-10-06] MEDS: NACL 0.9% 1,000 ML IV SCH ×2 (08:10→18:19)
[2020-10-06] MEDS ORDERED: CYANOCOBALAMIN 100 MCG TAB PO SCH (09:00)
[2020-10-06] MEDS ORDERED: MISOPROSTOL 200 MCG TAB PO SCH (09:00)
[2020-10-06] MEDS: PANTOPRAZOLE 40 MG INJ VIAL IVP SCH (09:02)
[2020-10-06] MEDS: ASPIRIN 81 MG TAB.CHEW PO SCH (09:03)
[2020-10-06] MEDS: MULTIVITAMIN 1 TAB PO SCH (09:03)
[2020-10-06] MEDS: ASCORBIC ACID 500 MG TAB PO SCH (09:03)
[2020-10-06] MEDS: DOCUSATE SODIUM 100 MG GELCAP PO SCH ×2 (09:03→21:14)
[2020-10-06] MEDS: lisinopriL 5 MG TAB PO SCH (09:04)
[2020-10-06 12:00] VITALS: BP 131/72
[2020-10-06] MEDS: DRY DRESSING TP SCH (12:48)
[2020-10-06 16:00] VITALS: BP 159/78
[2020-10-06 20:00] VITALS: BP 144/66
[2020-10-06] MEDS: ATORVASTATIN 20 MG TAB PO SCH (21:14)
[2020-10-06] MEDS: FENOFIBRATE 48 MG TAB PO SCH (21:14)
[2020-10-07 04:00] VITALS: BP 182/81
[2020-10-07] MEDS: NACL 0.9% 1,000 ML IV SCH ×2 (04:09→14:10)
[2020-10-07] MEDS: BLOOD GLUCOSE MONITORING 1 DEV DEV FS SCH ×4 (05:43→20:52)
[2020-10-07] MEDS: INSULIN LISPRO SLIDING SCALE 100 UNITS/ML VIAL SUBQ PRN ×4 (05:44→20:49)
[2020-10-07 06:57] LABS: ANION GAP 17.9 (8-16); CARBON DIOXIDE 18.4 mmol/L (21-32); CHLORIDE 111 mmol/L (98-107); CREATININE 1.4 mg/dL (0.6-1.3); GLUCOSE 190 mg/dL (74-106); POTASSIUM 4.3 mmol/L (3.5-5.1); SODIUM SERUM 143 mmol/L (136-145); UREA NITROGEN, BLOOD 29 mg/dL (7-18)
[2020-10-07 07:00] LABS: BASOPHILS % (AUTO) 0.6 % (0.0-2.0); EOSINOPHILS # (AUTO) 0.1 K/uL (0-0.4); EOSINOPHILS % (AUTO) 1.7 % (0.0-4.0); HEMATOCRIT 32.3 % (36-48); LYMPHOCYTES # (AUTO) 2.3 K/uL (2.5-16.5); LYMPHOCYTES % (AUTO) 27.5 % (20.5-51.1); MEAN CORPUSCULAR HEMOGLOBIN 31 pg (27-31); MEAN CORPUSCULAR HGB CONC 34 g/dL (33-37); MONOCYTES # (AUTO) 0.6 K/uL (0.8-1.0); MONOCYTES % (AUTO) 6.6 % (1.7-9.3); NEUTROPHILS # (AUTO) 5.4 K/uL (1.8-7.7); NEUTROPHILS % (AUTO) 63.6 % (42.2-75.2); PLATELET COUNT (AUTO) 291 K/uL (140-450); RED BLOOD CELL COUNT(AUTO) 3.59 MIL/uL (4.20-5.40); WHITE BLOOD COUNT (AUTO) 8.5 K/uL (4.8-10.8)
[2020-10-07 08:00] VITALS: BP 126/59
[2020-10-07] MEDS: ASPIRIN 81 MG TAB.CHEW PO SCH (08:16)
[2020-10-07] MEDS: ASCORBIC ACID 500 MG TAB PO SCH (08:17)
[2020-10-07] MEDS: MULTIVITAMIN 1 TAB PO SCH (08:17)
[2020-10-07] MEDS: lisinopriL 5 MG TAB PO SCH (08:17)
[2020-10-07] MEDS: PANTOPRAZOLE 40 MG INJ VIAL IVP SCH (08:18)
[2020-10-07] MEDS: DOCUSATE SODIUM 100 MG GELCAP PO SCH ×2 (08:18→20:55)
[2020-10-07] MEDS: DRY DRESSING TP SCH (13:04)
[2020-10-07 16:00] VITALS: BP 145/89
[2020-10-07] MEDS: MORPHINE SULFATE 2 MG/ML SYR IVP PRN (17:48)
[2020-10-07] MEDS: ATORVASTATIN 20 MG TAB PO SCH (20:55)
[2020-10-07] MEDS: FENOFIBRATE 48 MG TAB PO SCH (20:55)
[2020-10-08] MEDS: MORPHINE SULFATE 2 MG/ML SYR IVP PRN (00:05)
[2020-10-08] MEDS: NACL 0.9% 1,000 ML IV SCH ×2 (00:10→09:16)
[2020-10-08 04:00] VITALS: BP 152/76
[2020-10-08] MEDS: BLOOD GLUCOSE MONITORING 1 DEV DEV FS SCH ×2 (06:43→11:58)
[2020-10-08 08:00] VITALS: BP 161/85
[2020-10-08] MEDS: DOCUSATE SODIUM 100 MG GELCAP PO SCH (09:05)
[2020-10-08] MEDS: ASCORBIC ACID 500 MG TAB PO SCH (09:06)
[2020-10-08] MEDS: ASPIRIN 81 MG TAB.CHEW PO SCH (09:06)
[2020-10-08] MEDS: MULTIVITAMIN 1 TAB PO SCH (09:07)
[2020-10-08] MEDS: lisinopriL 5 MG TAB PO SCH (09:07)
[2020-10-08] MEDS: PANTOPRAZOLE 40 MG INJ VIAL IVP SCH (09:08)
[2020-10-08] MEDS ORDERED: INTERDRY CLOTH TP SCH (12:10)
[2020-10-08 12:15] LABS: ANION GAP 14.7 (8-16); CARBON DIOXIDE 19.4 mmol/L (21-32); CHLORIDE 113 mmol/L (98-107); CREATININE 1.5 mg/dL (0.6-1.3); GLUCOSE 259 mg/dL (74-106); POTASSIUM 4.1 mmol/L (3.5-5.1); SODIUM SERUM 143 mmol/L (136-145); UREA NITROGEN, BLOOD 28 mg/dL (7-18)
[2020-10-08] MEDS: INSULIN LISPRO SLIDING SCALE 100 UNITS/ML VIAL SUBQ PRN (12:26)
[2020-10-08 12:39] LABS: BASOPHILS % (AUTO) 0.5 % (0.0-2.0); EOSINOPHILS # (AUTO) 0.1 K/uL (0-0.4); EOSINOPHILS % (AUTO) 2.1 % (0.0-4.0); HEMATOCRIT 31.4 % (36-48); HEMOGLOBIN 10.4 g/dL (12.0-16.0); LYMPHOCYTES # (AUTO) 1.3 K/uL (2.5-16.5); LYMPHOCYTES % (AUTO) 20.6 % (20.5-51.1); MEAN CORPUSCULAR HEMOGLOBIN 31 pg (27-31); MEAN CORPUSCULAR HGB CONC 33 g/dL (33-37); MEAN CORPUSCULAR VOLUME 91.9 fL (80-94); MONOCYTES # (AUTO) 0.5 K/uL (0.8-1.0); MONOCYTES % (AUTO) 7.4 % (1.7-9.3); NEUTROPHILS # (AUTO) 4.5 K/uL (1.8-7.7); NEUTROPHILS % (AUTO) 69.4 % (42.2-75.2); PLATELET COUNT (AUTO) 270 K/uL (140-450); RED BLOOD CELL COUNT(AUTO) 3.42 MIL/uL (4.20-5.40); RED CELL DISTRIBUTION WIDTH 14.1 % (11.6-13.7); WHITE BLOOD COUNT (AUTO) 6.5 K/uL (4.8-10.8)
[2020-10-08] MEDS ORDERED: SKINTEGRITY HYDROGEL TP SCH (13:00)
[2020-10-08] MEDS ORDERED: Z-GUARD PASTE TP SCH (13:00)
[2020-10-08] MEDS: DRY DRESSING TP SCH (13:06)
[2020-10-08 14:05] VITALS: BP 155/62
== END 2020-10-08 15:55 | DRG 70 ==
LOC: MED 08:50 → MTU 11:09
PROVIDERS: ADMIT Hospitalist; ATTEND Hospitalist
DX: G93.41 Metabolic encephalopathy (principal); N17.0 Acute kidney failure with tubular necrosis; E44.1 Mild protein-calorie malnutrition; E86.0 Dehydration; N18.32 Chronic kidney disease, stage 3b; K21.9 Gastro-esophageal reflux disease without esophagitis; Z66 Do not resuscitate; I12.9 Hypertensive chronic kidney disease with stage 1 through stage 4 chronic kidney disease, or unspecified chronic kidney disease; E11.22 Type 2 diabetes mellitus with diabetic chronic kidney disease; E83.42 Hypomagnesemia; E87.8 Other disorders of electrolyte and fluid balance, not elsewhere classified; Z20.822 Contact with and (suspected) exposure to COVID-19; I65.21 Occlusion and stenosis of right carotid artery; Z79.84 Long term (current) use of oral hypoglycemic drugs; Z79.82 Long term (current) use of aspirin; Z79.899 Other long term (current) drug therapy; Z86.73 Personal history of transient ischemic attack (TIA), and cerebral infarction without residual deficits; Z86.16 Personal history of COVID-19; Z68.35 Body mass index [BMI] 35.0-35.9, adult
CPT/HCPCS: 36415; 70450; 71045; 76770; 80048; 80053; 81001; 82140; 82948; 83605; 83690; 83735; 83880; 84100; 84484; 85025; 85610; 87040; 87081; 87086; 93005; 93880; 96360; 97110; 97112; 97163-GP; 97530; 99285; A6248; C9113; J1644; J2270

== ENCOUNTER 2020-10-28 15:08 | Inpatient (IN) | payer OTHER ==
[~2020-10-28] VITALS: Ht 152.4 cm; Wt 90.7 kg
[~2020-10-28 15:08] MED LIST changes: +ASCO500T95 PO; +INSU10SU6 SUBQ; +MULT-1328 PO; -PIPE50SO5 IV
--- NOTE | 2020-10-28 15:10 | NUR ---
BIBA TO BED 3
[2020-10-28 15:16] VITALS: BP 118/62
--- NOTE | 2020-10-28 15:20 | NUR ---
85 Y/O FEMALE BIBA FROM [facility] FOR ALOC C/O VOMITING X6 DAYS. PER EMS PT HAD UTI X 1 WEEK AND WAS TREATED WITH ANTIBIOTICS. PT HAS PERIODS OF CONFUSION, A/O X2- PERSON AND TIME, UNAWARE OF SITUATION AND LOCATION. GCS 14. PT HAS ABSESS/INFECTION TO R BREAST AND STATES SHE HAS BEEN TAKING ANTIBIOTICS, AREA IS GREEN/YELLOW AND FOUL SMELLING. PT DENIES FEVER/DIARRHEA. REDNESS TO SACRAL AREA. PT ALSO C/O LIGHTHEADEDNESS AND DIZZINESS BUT DENIES FALLS. DENIES PAIN. PT IN GOWN. LAYING IN BED WITH EVEN AND UNLABORED RESPIRATIONS. PT ON GLUING MACHINE OPERATOR AUTOMATIC. BED IN LOWEST POSITION, BRAKES LOCKED, X2 SIDERAILS UP FOR SAFETY. PMH: CHF, DMii,CKD, ANEMIA, PVD, HTN, PNEUMINITIS SEE CHART FOR EXTENSIVE HX NKDA
--- NOTE | 2020-10-28 15:29 | NUR ---
DR KOCH AT BEDSIDE EVALUATING PT
[2020-10-28] MEDS ORDERED: VANCOMYCIN 1,000 MG in DEXTROSE 5% 250 ML IV ONE (15:40)
[2020-10-28] MEDS ORDERED: NACL 0.9% 1,000 ML IV ONE ×2 (15:40→17:05)
--- NOTE | 2020-10-28 15:40 | NUR ---
WOUND PICTURES TAKEN, SIGNED BY DR KOCH AND PLACED IN CHART. PT C/O SACRAL PAIN, PT REPOSITIONED TO REMOVE PRESSURE OFF OF AREA.
--- NOTE | 2020-10-28 15:52 | NUR ---
EMT AT BEDSIDE FOR EKG
--- NOTE | 2020-10-28 15:58 | NUR ---
LAB AT BEDSIDE FOR BLOOD DRAW
--- NOTE | 2020-10-28 16:21 | NUR ---
US AT BEDSIDE
[2020-10-28 16:39] LABS: BASOPHILS % (AUTO) 0.1 % (0.0-2.0); HEMATOCRIT 37.6 % (36-48); HEMOGLOBIN 12.5 g/dL (12.0-16.0); LYMPHOCYTES # (AUTO) 1.8 K/uL (2.5-16.5); MEAN CORPUSCULAR HEMOGLOBIN 30 pg (27-31); MEAN CORPUSCULAR HGB CONC 33 g/dL (33-37); MEAN CORPUSCULAR VOLUME 90.1 fL (80-94); MONOCYTES # (AUTO) 0.8 K/uL (0.8-1.0); MONOCYTES % (AUTO) 6.9 % (1.7-9.3); NEUTROPHILS # (AUTO) 8.7 K/uL (1.8-7.7); PLATELET COUNT (AUTO) 332 K/uL (140-450); RED BLOOD CELL COUNT(AUTO) 4.18 MIL/uL (4.20-5.40); WHITE BLOOD COUNT (AUTO) 11.3 K/uL (4.8-10.8)
[2020-10-28] MEDS ORDERED: cefTRIAXone 1,000 MG VIAL ONE (17:04)
[2020-10-28 17:11] LABS: ALBUMIN 3.1 g/dL (3.4-5.0); ANION GAP 16.8 (8-16); ASPARTATE AMINOTRANSFERASE 26 U/L (15-37); CARBON DIOXIDE 19.9 mmol/L (21-32); CHLORIDE 110 mmol/L (98-107); CREATININE 2.7 mg/dL (0.6-1.3); GLUCOSE 182 mg/dL (74-106); POTASSIUM 4.7 mmol/L (3.5-5.1); SODIUM SERUM 142 mmol/L (136-145); TOTAL BILIRUBIN 0.5 mg/dL (0.0-1.0)
[2020-10-28 17:13] LABS: UREA NITROGEN, BLOOD 72 mg/dL (7-18)
[2020-10-28] MEDS ORDERED: VANCOMYCIN 1,000 MG VIAL ONE (17:18)
--- NOTE | 2020-10-28 17:23 | NUR ---
Patient taken to CT scan via gurney by [employer].
--- NOTE | 2020-10-28 17:41 | NUR ---
PT BACK FROM CT AND CONNECTED TO MONITOR
--- NOTE | 2020-10-28 18:03 | NUR ---
BED GOMEZ PLACED UNDER PT. PT STATES SHE WILL TRY TO PROVIDE URINE SAMPLE.
--- NOTE | 2020-10-28 18:13 | NUR ---
PT PROVIDED URINE SAMPLE. PT REPOSITIONED IN BED AND MADE COMFORTABLE. SAMPLE GIVEN TO FULL STACK PYTHON DEVELOPER
[2020-10-28] MEDS ORDERED: DOCUSATE SODIUM 100 MG GELCAP PO PRN (18:40)
[2020-10-28] MEDS ORDERED: ZOLPIDEM 5 MG TAB PO PRN (18:40)
[2020-10-28] MEDS ORDERED: HYDROcodone/APAP 5/325 MG 1 TAB TAB PO PRN (18:40)
[2020-10-28] MEDS ORDERED: MORPHINE SULFATE 2 MG/ML SYR IVP PRN (18:40)
[2020-10-28] MEDS ORDERED: ONDANSETRON 4 MG/2 ML VIAL IVP PRN (18:40)
[2020-10-28] MEDS ORDERED: LORazepam 2 MG/ML VIAL IM/IVP PRN (18:40)
[2020-10-28] MEDS ORDERED: NA P133E RC (18:41)
[2020-10-28] MEDS ORDERED: ACET-2619 PO (18:41)
[2020-10-28] MEDS ORDERED: ZINC220C29 PO (18:41)
[2020-10-28] MEDS ORDERED: DEXTROSE 50% 50 ML SYR IVP PRN (18:45)
[2020-10-28 18:59] LABS: BILIRUBIN,URINE NEGATIVE (NEGATIVE); BLOOD, URINE TRACE-I (NEGATIVE); COLOR,URINE YELLOW (YELLOW); LEUKOCYTE ESTERASE ,URINE 2+ (NEGATIVE); NITRITE, URINE POSITIVE (NEGATIVE); PH,URINE 5.5 (5.0-9.0); UGLUCOSE NEGATIVE (NEGATIVE)
[2020-10-28 19:06] LABS: APPEARANCE,URINE HAZY (CLEAR)
[2020-10-28 19:06] LABS: PROTHROMBIN TIME 11.3 secs (10.8-13.4)
[2020-10-28 19:12] LABS: RBC,URINE 0-5 /HPF (0-5); WBC,URINE TOO MANY TO COUNT /HPF (0-5)
[2020-10-28 19:16] LABS: CHOL/HDL RATIO 5.3 (1-4.5); FREE T4 (FREE THYROXINE) 1.88 ng/dL (0.76-1.46); MAGNESIUM 1.1 mg/dL (1.8-2.4); PHOSPHORUS 3.6 mg/dL (2.5-4.9); THYROID STIMULATING HORMONE 0.82 uIU/mL (0.34-3.74)
--- NOTE | 2020-10-28 19:18 | NUR ---
REPORT GIVEN TO TWILA TRUJILLO, TRANSFER OF CARE AT THIS TIME.
--- NOTE | 2020-10-28 19:30 | NUR ---
RECEIVED PATIENT AWAKE, ALERT, AND VERY PLEASANT. ASSISTED WIITH REPOSITIONING, WARM BLANKETS GIVEN.
--- NOTE | 2020-10-28 20:25 | NUR ---
REPORT CALLED TO CASSANDRA RUBIO
[2020-10-28 20:45] VITALS: BP 123/53
--- NOTE | 2020-10-28 20:45 | NUR ---
RECEIVED PATIENT FROM ER NURSE VIA [facility] FOR CONTINUITY OF CARE. ALERT AND ABLE TO MAKE NEEDS KNOWN. RESPIRATIONS EVEN, UNLABORED. NO S/S RESPIRATORY DISTRESS. S1/S2 AUSCULTATED. TELE MONITORING. SKIN ASSESSMENT COMPLETED. RIGHT BREAST CELLULITIS NOTED. SMALL SACRAL WOUND NOTED. IV SITE TO RIGHT WRIST 22G PATENT/INTACT, INFUSING FLUIDS WELL. ABDOMEN ROUND, SOFT, NONTENDER. BOWEL SOUNDS ACTIVE X4 QUADRANTS. PATIENT IS INCONTINENT OF B/B. ORIENTED PATIENT TO ROOM/STAFF/CALL LIGHT. MRSA SCREEN COMPLETED. SAFETY PRECAUTIONS IN PLACE. CALL LIGHT IN REACH.
--- NOTE | 2020-10-28 20:54 | NUR ---
to room 110A, ATTACHED TO CM. ACCOMPANIED BY RN AND EMT. Belongings list completed. Report to CASSANDRA RUBIO.
[2020-10-28] MEDS: NACL 0.9% 1,000 ML IV SCH (21:00)
[2020-10-28] MEDS ORDERED: CLINDAMYCIN 600 MG/4 ML VIAL ONE (21:12)
[2020-10-28] MEDS: CLINDAMYCIN 300 MG in DEXTROSE 5% 50 ML IV SCH (21:20)
[2020-10-28] MEDS: BLOOD GLUCOSE MONITORING 1 DEV DEV FS SCH (21:20)
--- NOTE | 2020-10-28 23:33 | NUR ---
PATIENT IS ASLEEP. NO S/S ACUTE DISTRESS. FREQUENT ROUNDS BY ALL STAFF. CALL LIGHT IN REACH. SAFETY PRECAUTIONS IN PLACE.
[2020-10-29] VITALS: BP 134/76
--- NOTE | 2020-10-29 01:38 | NUR ---
MADE ROUNDS. PATIENT IS ASLEEP. CALL LIGHT IN REACH. SAFETY PRECAUTIONS IN PLACE.
--- NOTE | 2020-10-29 03:00 | NUR ---
PATIENT IS ASLEEP.
[2020-10-29 04:00] VITALS: BP 149/99
[2020-10-29] MEDS: NACL 0.9% 1,000 ML IV SCH ×2 (04:08→14:40)
[2020-10-29] MEDS ORDERED: CLINDAMYCIN 600 MG/4 ML VIAL ONE (04:10)
[2020-10-29] MEDS: CLINDAMYCIN 300 MG in DEXTROSE 5% 50 ML IV SCH ×3 (04:18→21:00)
--- NOTE | 2020-10-29 05:00 | NUR ---
INCONTINENT CARE RENDERED WITH RESIDENT ENGINEER AT BEDSIDE.
[2020-10-29] MEDS: BLOOD GLUCOSE MONITORING 1 DEV DEV FS SCH ×4 (06:30→20:34)
[2020-10-29 07:01] LABS: BASOPHILS % (AUTO) 0.4 % (0.0-2.0); EOSINOPHILS % (AUTO) 0.2 % (0.0-4.0); HEMATOCRIT 33.9 % (36-48); HEMOGLOBIN 11.3 g/dL (12.0-16.0); LYMPHOCYTES # (AUTO) 2.4 K/uL (2.5-16.5); LYMPHOCYTES % (AUTO) 25.2 % (20.5-51.1); MEAN CORPUSCULAR HEMOGLOBIN 31 pg (27-31); MEAN CORPUSCULAR HGB CONC 33 g/dL (33-37); MEAN CORPUSCULAR VOLUME 91.7 fL (80-94); MONOCYTES # (AUTO) 0.7 K/uL (0.8-1.0); MONOCYTES % (AUTO) 7.6 % (1.7-9.3); NEUTROPHILS # (AUTO) 6.3 K/uL (1.8-7.7); NEUTROPHILS % (AUTO) 66.6 % (42.2-75.2); PLATELET COUNT (AUTO) 268 K/uL (140-450); RED CELL DISTRIBUTION WIDTH 14.3 % (11.6-13.7); WHITE BLOOD COUNT (AUTO) 9.5 K/uL (4.8-10.8)
[2020-10-29 07:09] LABS: ANION GAP 12.9 (8-16); CARBON DIOXIDE 22.7 mmol/L (21-32); CHLORIDE 114 mmol/L (98-107); CREATININE 2.2 mg/dL (0.6-1.3); GLUCOSE 144 mg/dL (74-106); POTASSIUM 4.6 mmol/L (3.5-5.1); SODIUM SERUM 145 mmol/L (136-145); UREA NITROGEN, BLOOD 59 mg/dL (7-18)
[2020-10-29 07:10] LABS: MAGNESIUM 1.1 mg/dL (1.8-2.4); PHOSPHORUS 3.9 mg/dL (2.5-4.9)
--- NOTE | 2020-10-29 07:30 | NUR ---
RECEIVED BEDSIDE REPORT FROM PASTRY ASSISTANT NURSE FOR CONTINUITY OF CARE. PT IS ASLEEP. BREATHING IS UNLABORED. CHEST RISE AND FALL SYMMETRICAL. PT IS ON RA. ON TELE MONITOR. SKIN IS WARM AND DRY. CELLULITIS TO THE RIGHT BREAST WITH DRESSING INTACT. SACRAL REDNESS WITH OPTIFOAM IN PLACE. PT IS STABLE AT THIS TIME. PLAN OF CARE DISCUSSED.
--- NOTE | 2020-10-29 07:55 | NUR ---
RECEIVED CALL FROM PHARMACY. PHARMACIST STATED THE ROCEPHIN ANTIBIOTIC IS ORDERED IM BUT IT IS AN IVPB MEDICATION. WILL CLARIFY AND ADJUST ORDER NEEDED.
[2020-10-29 08:00] VITALS: BP 128/68
--- NOTE | 2020-10-29 08:30 | NUR ---
SPOKE TO DR. QUIÑONES ON THE PHONE. INFORMED ME THAT HE WILL BE PERFORMING THE DEBRIDEMENT OF THE RIGHT BREAST AT 11 AM. INFORMED HIM THAT PT HAS BEEN NPO SINCE ARRIVING TO HOSPITAL. TEXTED DR. QUIÑONES BOTH CONTACT NUMBERS IN CHART TO GET CONSENT FOR SURGERY PT HAS ALOC. A&OX0.
--- NOTE | 2020-10-29 08:55 | NUR ---
PATIENT HAS BEEN SCREENED AND CATEGORIZED HIGH NUTRITION RISK. PATIENT WILL BE SEEN WITHIN 1-2 DAYS OF ADMISSION. 10/29/20-10/30/[address]
[2020-10-29] MEDS ORDERED: MAG SULF 2000 MG/WATER PREMIX 100 ML IV SCH (09:00)
[2020-10-29] MEDS ORDERED: cefTRIAXone 1,000 MG in LIDOCAINE MPF 1% 2.1 ML IM SCH (09:00)
--- NOTE | 2020-10-29 09:30 | NUR ---
WOUND CARE NURSE AT BEDSIDE. ASSESSED PT AND DISCUSSED PLAN WITH RN. HI WITH DRESSING FOR THE RIGHT BREAST WOUND AND Z GUARD FOR THE SACRAL REDNESS.
--- NOTE | 2020-10-29 09:48 | NUR ---
MAGNESIUM SULFATE 4 GM 100 ML STARTED. COSIGNED BY CASSANDRA PADILLA. MAGNESIUM LEVEL 1.1. WILL MONITOR PT.
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
[2020-10-29] MEDS ORDERED: Z-GUARD PASTE TP SCH (10:00)
--- NOTE | 2020-10-29 10:00 | NUR ---
PT WAS CHANGED AND REPOSITIONED. PT TOLERATED THE MOVEMENT WELL. PT DENIES PAIN OR DISTRESS AT THIS TIME. WILL CONTINUE TO MONITOR.
--- NOTE | 2020-10-29 11:30 | NUR ---
PT WAS TAKEN TO THE OR VIA GURNEY FOR DEBRIDEMENT OF RIGHT BREAST. WILL WAIT FOR PT TO RETURN.
[2020-10-29] MEDS ORDERED: PROPOFOL 200 MG/20 ML VIAL IV ONE (12:00)
[2020-10-29] MEDS ORDERED: ePHEDrine 50 MG/ML VIAL ONE (12:00)
[2020-10-29] MEDS ORDERED: ONDANSETRON 4 MG/2 ML VIAL ONE (12:00)
[2020-10-29] MEDS ORDERED: LIDOCAINE/EPI MPF 1%1:200000 30 ML VIAL INJ ONE (12:03)
[2020-10-29] MEDS ORDERED: BUPIVACAINE-MPF 0.25% 30 ML VIAL INJ ONE (12:04)
[2020-10-29] MEDS ORDERED: fentaNYL citrate 0.05 MG/ML VIAL ONE (12:05)
[2020-10-29] MEDS ORDERED: HYDROmorphone 1 MG/ML AMP IVP PRN (13:00)
--- NOTE | 2020-10-29 14:15 | NUR ---
PT ARRIVED TO UNIT VIA GURNEY FROM THE OR. PT IS STABLE. BREATHING IS UNLABORED. NO DISTRESS NOTED. VS STABLE. WOUND HAS DRESSING INTACT. IV IS IN THE LEFT UPPER ARM.
--- NOTE | 2020-10-29 14:30 | NUR ---
CLINDAMYCIN WAS ADMINISTERED LATE PT WAS IN PROCEDURE IN THE OR.
--- NOTE | 2020-10-29 14:30 | NUR ---
10/29/20 RD INITIAL ASSESSMENT COMPLETED PLEASE REFER TO NUTRITION ASSESSMENT UNDER CARE ACTIVITY FOR ESTIMATED NUTRITIONAL NEEDS. 1. RECOMMEND CCHO AND CARDIAC DIET 2. RECOMMEND JACKI BID AND GLUCERNA TID 3. RD TO FOLLOW-UP 2-3 DAYS, HIGH RISK SHANT GUTIERREZ, RD
[2020-10-29] MEDS: Z-GUARD PASTE TP SCH (14:32)
--- NOTE | 2020-10-29 15:08 | NUR ---
DR. KENT APPROVED RD RECOMMENDATIONS FOR [facility] 60GM MECHANICAL SOFT DIET WITH VITAMIN C 500 MG AND MULTIVITAMIN DAILY.
[2020-10-29 16:00] VITALS: BP 129/67
--- NOTE | 2020-10-29 16:00 | NUR ---
POST OP VITAL SIGNS COMPLETE. VS HAVE BEEN STABLE SINCE PT RETURNED TO UNIT. VITAL SIGN RECORD IN CHART. PT IS CURRENTLY ASLEEP. NO DISTRESS NOTED. BREATHING UNLABORED.
--- NOTE | 2020-10-29 17:09 | NUR ---
PT IS SLEEPING. NO DISTRESS NOTED. BREATHING IS UNLABORED. IV FLUIDS ARE INFUSING ORDERED. O2 SAT IS 98% ON RA. NO SIGN OF PAIN AT THIS TIME. WILL CONTINUE TO MONITOR.
[2020-10-29] MEDS: INSULIN LISPRO SLIDING SCALE 100 UNITS/ML VIAL SUBQ PRN ×2 (17:30→22:04)
--- NOTE | 2020-10-29 19:10 | NUR ---
ENDORSED PT TO DAY SHIFT NURSE FOR CONTINUITY OF CARE. PT IS STABLE AT THIS TIME. PLAN OF CARE DISCUSSED.
[2020-10-29 20:00] VITALS: BP 133/64
--- NOTE | 2020-10-29 20:00 | NUR ---
PATIENT WAS RECEIVED IN HER BED AWAKE AND VERBAL WITH CONFUSION. NO DISTRESS, SATURATING 99-100% AT ROOM AIR.
--- NOTE | 2020-10-29 21:00 | NUR ---
DAUGHTER CALLED OVER THE PHONE ASKING FOR UPDATES WITH HER MOTHER. Addendum: 10/30/20 at 0629 by Greg Mcdowell RN RN HILDA'S NAME WAS ALEJANDRA HIGH
--- NOTE | 2020-10-29 22:00 | NUR ---
CLEOCIN IV ATB WAS ADMINISTERED, 4 UNITS REGULAR INSULIN WAS GIVEN SQ FOR AN=[id number]
[2020-10-30] VITALS: BP 137/71
--- NOTE | 2020-10-30 | NUR ---
PATIENT WAS OBSERVED TO BE ASLEEP CALMLY.
[2020-10-30] MEDS: Z-GUARD PASTE TP SCH ×2 (01:00→13:27)
--- NOTE | 2020-10-30 02:00 | NUR ---
PATIENT WAS OBSERVED TO BE ASLEEP CALMLY.
[2020-10-30] MEDS: NACL 0.9% 1,000 ML IV SCH ×3 (02:30→20:40)
[2020-10-30 04:00] VITALS: BP 137/65
[2020-10-30] MEDS: CLINDAMYCIN 300 MG in DEXTROSE 5% 50 ML IV SCH ×3 (05:00→21:17)
[2020-10-30] MEDS: BLOOD GLUCOSE MONITORING 1 DEV DEV FS SCH ×4 (06:27→21:17)
[2020-10-30 06:51] LABS: ANION GAP 15.1 (8-16); CARBON DIOXIDE 21.3 mmol/L (21-32); CHLORIDE 114 mmol/L (98-107); GLUCOSE 151 mg/dL (74-106); POTASSIUM 4.4 mmol/L (3.5-5.1); SODIUM SERUM 146 mmol/L (136-145); UREA NITROGEN, BLOOD 55 mg/dL (7-18)
[2020-10-30 06:57] LABS: BASOPHILS # (AUTO) 0.1 K/uL (0.00-0.22); BASOPHILS % (AUTO) 0.5 % (0.0-2.0); EOSINOPHILS # (AUTO) 0.1 K/uL (0-0.4); EOSINOPHILS % (AUTO) 0.9 % (0.0-4.0); HEMATOCRIT 33.2 % (36-48); HEMOGLOBIN 10.9 g/dL (12.0-16.0); LYMPHOCYTES # (AUTO) 1.7 K/uL (2.5-16.5); LYMPHOCYTES % (AUTO) 14.1 % (20.5-51.1); MEAN CORPUSCULAR HEMOGLOBIN 30 pg (27-31); MEAN CORPUSCULAR HGB CONC 33 g/dL (33-37); MEAN CORPUSCULAR VOLUME 91.2 fL (80-94); MONOCYTES # (AUTO) 0.9 K/uL (0.8-1.0); MONOCYTES % (AUTO) 7.2 % (1.7-9.3); NEUTROPHILS # (AUTO) 9.3 K/uL (1.8-7.7); NEUTROPHILS % (AUTO) 77.3 % (42.2-75.2); PLATELET COUNT (AUTO) 224 K/uL (140-450); RED BLOOD CELL COUNT(AUTO) 3.64 MIL/uL (4.20-5.40); RED CELL DISTRIBUTION WIDTH 14.3 % (11.6-13.7)
--- NOTE | 2020-10-30 07:09 | NUR ---
ALL REPORTS WERE GIVEN. CONTINUATION OF CARE ENDORSED.
--- NOTE | 2020-10-30 07:10 | NUR ---
Received report from pm nurse Greg. Pt resting in bed, awake, respirations even & nonlabored in room air, no signs of distress. Call light within reach. Bed alarm on.
[2020-10-30 07:17] LABS: MAGNESIUM 2.7 mg/dL (1.8-2.4)
[2020-10-30 08:00] VITALS: BP 128/58
--- NOTE | 2020-10-30 08:10 | NUR ---
PATIENT AWAKE SITTING UP IN BED. BREATHING IS EVEN AND UNLABORED. PATIENT REMAINS ON ROOM AIR. ASSISTED PATIENT WITH FEEDING. ALL SAFETY MEASURES IN PLACE. WILL CONTINUE TO MONITOR.
[2020-10-30] MEDS: ASCORBIC ACID 500 MG TAB PO SCH (09:36)
[2020-10-30] MEDS: MULTIVITAMIN/MINERALS 1 TAB PO SCH (09:36)
--- NOTE | 2020-10-30 09:36 | NUR ---
PATIENT AWAKE. NO ACUTE DISTRESS NOTED. ROUTINE MEDICATION GIVEN. ALL SAFETY MEASURES IN PLACE. WILL CONTINUE TO MONITOR.
[2020-10-30 12:00] VITALS: BP 149/53
[2020-10-30] MEDS: INSULIN LISPRO SLIDING SCALE 100 UNITS/ML VIAL SUBQ PRN ×3 (12:02→21:25)
[2020-10-30] MEDS ORDERED: THERAHONEY GEL 42.5 GM TP SCH (13:00)
--- NOTE | 2020-10-30 13:00 | NUR ---
WOUND CARE NOT PROVIDED AT THIS TIME TO RIGHT BREAST. SURGICAL DRESSING STILL IN PLACE. CLEAN, DRY, AND INTACT.
--- NOTE | 2020-10-30 15:13 | NUR ---
Dr Mar at bedside to see patient. Physician request to inform family that biopsy results will take about 5 days to be ready, and to have family schedule a f/u appt at his office to discuss results.
--- NOTE | 2020-10-30 15:16 | NUR ---
RN spoke with daughter Rosibel on the phone and instructed to make appt with Dr Mar in 1 week to discuss biopsy results. Physician's office number and address provided to daughter. Daughter verbalized understanding and able to repeat back instructions.
[2020-10-30 16:00] VITALS: BP 148/68
--- NOTE | 2020-10-30 17:30 | NUR ---
PATIENT AWAKE WATCHING TV. NO ACUTE DISTRESS NOTED. BREATHING EVEN UNLABORED. ALL SAFETY MEASURES IN PLACE. WILL CONTINUE TO MONITOR.
--- NOTE | 2020-10-30 19:15 | NUR ---
ENDORSED TO SUBSTATION OPERATOR HELPER GENERATION NURSE OF CONTINUITY OF CARE. PATIENT STABLE. NO ACUTE DISTRESS NOTED BREATHING IS EVEN AND UNLABORED. SAFETY MEASURES IN PLACE.
[2020-10-30 20:00] VITALS: BP 136/81
--- NOTE | 2020-10-30 20:00 | NUR ---
RECEIVED REPORT FROM DAY SHIFT RN EARLIER REGARDING PT FOR CONTINUITY OF CARE. RECEIVED PATIENT LAYING DOWN ON BED, A/A/OX1 (TURKISH SPEAKING ONLY/AIRCRAFT ARMAMENT MECHANIC PROVIDED). NO SIGNS AND SYMPTOMS OF DISTRESS NOTED. PT DENIES ANY CHEST PAIN, SOB, PALPITATIONS, AND DIZZINESS. NO COMPLAIN AT THIS TIME. DISCUSS POC WITH THE PT AND VERBALIZED UNDERSTANDING. FALL PRECAUTION IMPLEMENTED AND INSTRUCTED TO CALL FOR ASSISTANCE AT ALL TIMES. CALL LIGHT WITHIN REACH. WILL CONTINUE POC AND MONITORING.
--- NOTE | 2020-10-30 22:00 | NUR ---
ADMINISTERED ALL SCHEDULED MEDICATIONS EARLIER. PATIENT TOLERATED WELL AND PROVIDED TEACHING. NO ADVERSE DRUG REACTION NOTED AND NO REPORTED COMPLAIN FROM THE PT.
[2020-10-31] VITALS: BP 131/56
--- NOTE | 2020-10-31 | NUR ---
PATIENT'S VITAL SIGNS STABLE, AFEBRILE, SAT 100% ON RA. NO COMPLAIN AT THIS TIME. SA ON NATURAL SCIENCE MANAGER, HR 68. WILL CONTINUE TO OBSERVE.
[2020-10-31] MEDS: NACL 0.9% 1,000 ML IV SCH ×2 (00:28→16:40)
[2020-10-31] MEDS: Z-GUARD PASTE TP SCH ×2 (00:51→12:02)
--- NOTE | 2020-10-31 02:00 | NUR ---
PATIENT ASLEEP, VISIBLE CHEST RISE AND FALL NOTED. SAFETY MEASURES IN PLACE.
[2020-10-31 04:00] VITALS: BP 134/66
--- NOTE | 2020-10-31 04:00 | NUR ---
PATIENT'S VITAL SIGNS STABLE, AFEBRILE, SAT 100% ON RA. NO COMPLAIN AT THIS TIME. SA ON REAMING MACHINE OPERATOR FOR PLASTIC, HR 63. WILL CONTINUE TO OBSERVE.
[2020-10-31] MEDS: CLINDAMYCIN 300 MG in DEXTROSE 5% 50 ML IV SCH ×3 (05:31→21:35)
[2020-10-31] MEDS: BLOOD GLUCOSE MONITORING 1 DEV DEV FS SCH ×4 (05:34→21:38)
--- NOTE | 2020-10-31 06:21 | NUR ---
PATIENT STABLE. NO S/S OF DISTRESS NOTED. ALL NEEDS ATTENDED. NO COMPLAIN AT THIS TIME. WILL ENDORSE THE PATIENT TO THE ONCOMING RN FOR CONTINUITY OF CARE.
--- NOTE | 2020-10-31 07:10 | NUR ---
RECEIVED BEDSIDE REPORT FROM RAIL PROJECT ENGINEER NURSE FOR CONTINUITY OF CARE. PT IS ASLEEP. CHEST RISE AND FALL SYMMETRICAL. BREATHING UNLABORED ON RA. ON TELE MONITORING, SR. PT IS INCONTINENT WITH DRY DIAPER IN PLACE. SKIN IS WARM AND DRY. WOUND ON THE RIGHT BREAST, S/P DEBRIDEMENT WITH NATALIYA INTACT. IV IS IN THE RIGHT AC 20 GAUGE INFUSING FLUIDS ORDERED. PT IS STABLE AT THIS TIME. FALL PRECAUTIONS IN PLACE. PLAN OF CARE DISCUSSED.
--- NOTE | 2020-10-31 07:38 | NUR ---
PATIENT STABLE. ENDORSED PATIENT TO DAY RN RL FOR CONTINUITY OF CARE. SIGNING OFF.
[2020-10-31 08:00] VITALS: BP 154/66
[2020-10-31] MEDS: MULTIVITAMIN/MINERALS 1 TAB PO SCH (09:00)
[2020-10-31] MEDS: ASCORBIC ACID 500 MG TAB PO SCH (09:00)
--- NOTE | 2020-10-31 09:15 | NUR ---
PT IS AWAKE, CONFUSED. ON RA WITH BREATHING UNLABORED. BREAKFAST AT BEDSIDE. PT WAS FED BY RN, MELI. TOLERATED FEEDING WELL. PT DENIES ANY PAIN. PT IS STABLE.
--- NOTE | 2020-10-31 11:20 | NUR ---
PT IS SLEEPING. NO DISTRESS NOTED. ON RA WITH BREATHING UNLABORED. IV FLUID IS INFUSING AND IV IS PATENT. PT IS STABLE.
[2020-10-31] MEDS: INSULIN LISPRO SLIDING SCALE 100 UNITS/ML VIAL SUBQ PRN ×3 (11:54→21:41)
--- NOTE | 2020-10-31 11:55 | NUR ---
PT WAS GIVEN 2 UNITS HUMALOG INSULIN PER SLIDING SCALE. BS READING WAS 166. MEDICATION EDUCATION WAS PROVIDED BUT PT IS CONFUSED, REINFORCEMENT NEEDED.
[2020-10-31 12:00] VITALS: BP 158/77
--- NOTE | 2020-10-31 13:50 | NUR ---
NOTIFIED DR. ZAVALA, URINE CULTURE CAME BACK WITH ECOLI ESBL. WILL WAIT FOR RESPONSE.
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
--- NOTE | 2020-10-31 14:00 | NUR ---
PT IS SLEEPING. CHEST IS RISING UP AND DOWN. WILL CONTINUE TO MONITOR.
--- NOTE | 2020-10-31 14:06 | NUR ---
DR. ZAVALA RESPONDED BACK ABOUT URINE CULTURE. ORDERED CONSULT WITH DR. STEELE. DR. STEELE WAS NOTIFIED AND ACKNOWLEDGED NEW CONSULT.
--- NOTE | 2020-10-31 14:41 | NUR ---
DR. ZAVALA PUT IN TELEPHONE ORDER FOR MEROPENEM PER PHARMACY. CALLED PHARMACY AND KAMALA STATED THAT ONLY INFECTIOUS DISEASE CAN ORDER MEROPENEM. DR. ZAVALA WAS NOTIFIED OF THIS. NO NEW ORDERS AT THIS TIME. DR. STEELE ALREADY NOTIFIED OF THE CONSULT.
[2020-10-31 16:00] VITALS: BP 139/52
--- NOTE | 2020-10-31 16:15 | NUR ---
PT IS SLEEPING. CHEST IS RISING UP AND DOWN. PT IS IN RA. PT IS STABLE. WILL CONTINUE TO MONITOR
--- NOTE | 2020-10-31 16:16 | NUR ---
DC PLANNING: ALL PAPERWORK FA[place]ED [place] [facility] [place] ON 11/01/20 PLAS CALL [facility] [place] BED [phone] AND [facility] INS[facility] BLANKET MAKER FOR TRANSPORT. CM TO FOLLOW Addendum: 11/04/20 at 1432 by Ankita Mantilla RN DC PLANNING: PATIENT HAS A DC ORDER FAXED TO [facility] AND PT CAN GO TO ROOM 44B UNDER THE CARE OF DR ZAVALA. # TO GIVE REPORT [phone]. FAXED THE REQUEST TO [facility] AWAITING FOR AUTH# FOR TRANSPORT.
--- NOTE | 2020-10-31 17:18 | NUR ---
PT'S BS WAS 199. PT WAS GIVEN 2 UNITS HUMALOG INSULIN PER SLIDING SCALE.
--- NOTE | 2020-10-31 18:45 | NUR ---
PT IS AWAKE AND CONFUSED. PT IS IN RA AND STABLE. DRESSING ON RIGHT BREAST IS INTACT. WILL CONTINUE TO MONITOR.
--- NOTE | 2020-10-31 19:10 | NUR ---
ENDORSED PT TO DAY SHIFT NURSE FOR CONTINUITY OF CARE. PT IS STABLE AT THIS TIME. PLAN OF CARE DISCUSSED.
--- NOTE | 2020-10-31 19:11 | NUR ---
RECEIVED PATIENT FROM AM NURSE FOR CONTINUITY OF CARE. PATIENT IS AWAKE, RESTING IN BED. TELE MONITOR IN PLACE. RESPIRATORY EVEN AND UNLABORED, ON ROOM AIR, NO SIGN OF DISTRESS NOTED. SKIN WARM, DRY, NON DIAPHORETIC, DRESSING ON THE RIGHT BREAST, S/P DEBRIDEMENT. IV ON RIGHT AC 20G, INTACT AND PATENT, IS INFUSING FLUID ORDER. PATIENT IS INCONTINENT, DIAPER IN PLACE, CLEAN AND DRY. PLAN OF CARE DISCUSSED. PRECAUTION IN PLACE. CALL LIGHT WITHIN REACH. WILL CONTINUE TO MONITOR.
[2020-10-31 20:00] VITALS: BP 130/44
[2020-10-31] MEDS ORDERED: CLINDAMYCIN 600 MG/4 ML VIAL ONE (21:00)
--- NOTE | 2020-10-31 21:39 | NUR ---
BLOOD SUGAR CHECK 194, 2UNITS INSULIN AND SCHEDULE MEDICATION GIVEN WITH EDUCATION. PATIENT TOLERATED WELL. PRECAUTION IN PLACE. CALL LIGHT WITHIN REACH. WILL CONTINUE TO MONITOR.
--- NOTE | 2020-10-31 22:30 | NUR ---
ASSIST VIDEO GAME TECHNICIAN TO CHANGE AND REPOSITION PATIENT. PATIENT TOLERATED WELL. NO SIGN OF DISTRESS NOTED. PRECAUTION IN PLACE. CALL LIGHT WITHIN REACH. WILL CONTINUE TO MONITOR.
[2020-11-01] VITALS: BP 150/52
--- NOTE | 2020-11-01 | NUR ---
ROUND CHECK. PATIENT IS SLEEPING, CHEST RISE AND FALL, NO SIGN OF DISTRESS NOTED. PRECAUTION IN PLACE. CALL LIGHT WITHIN REACH. WILL CONTINUE TO MONITOR.
[2020-11-01] MEDS: Z-GUARD PASTE TP SCH ×2 (01:16→13:00)
[2020-11-01] MEDS: NACL 0.9% 1,000 ML IV SCH ×3 (01:26→22:40)
--- NOTE | 2020-11-01 02:04 | NUR ---
ROUND CHECK. PATIENT IS SLEEPING, CHEST RISE AND FALL, NO SIGN OF DISTRESS NOTED. PRECAUTION IN PLACE. CALL LIGHT WITHIN REACH. WILL CONTINUE TO MONITOR.
[2020-11-01 04:00] VITALS: BP 130/55
--- NOTE | 2020-11-01 04:06 | NUR ---
HELP LEGAL TECHNICIAN TO CLEAN AND REPOSITION PATIENT. PATIENT TOLERATED WELL. NO SIGN OF DISTRESS NOTED. PRECAUTION IN PLACE. CALL LIGHT WITHIN REACH. WILL CONTINUE TO MONITOR.
[2020-11-01] MEDS ORDERED: MEROPENEM 500 MG VIAL IV ONE (04:08)
[2020-11-01] MEDS: MEROPENEM 500 MG in NACL 0.9% 50 ML IV SCH ×3 (04:29→20:10)
[2020-11-01] MEDS: INSULIN LISPRO SLIDING SCALE 100 UNITS/ML VIAL SUBQ PRN ×4 (06:53→20:35)
[2020-11-01] MEDS: BLOOD GLUCOSE MONITORING 1 DEV DEV FS SCH ×4 (06:53→20:21)
--- NOTE | 2020-11-01 06:53 | NUR ---
BLOOD SUGAR CHECK 151, 2UNITS INSULIN GIVEN WITH EDUCATION. PATIENT TOLERATED WELL. NO SIGN OF DISTRESS. PRECAUTION IN PLACE. CALL LIGHT WITHIN REACH. WILL CONTINUE TO MONITOR.
[2020-11-01 07:14] LABS: BASOPHILS # (AUTO) 0.1 K/uL (0.00-0.22); BASOPHILS % (AUTO) 0.6 % (0.0-2.0); EOSINOPHILS # (AUTO) 0.3 K/uL (0-0.4); EOSINOPHILS % (AUTO) 3.1 % (0.0-4.0); HEMATOCRIT 31.8 % (36-48); LYMPHOCYTES # (AUTO) 1.5 K/uL (2.5-16.5); LYMPHOCYTES % (AUTO) 17.4 % (20.5-51.1); MEAN CORPUSCULAR HEMOGLOBIN 30 pg (27-31); MEAN CORPUSCULAR HGB CONC 31 g/dL (33-37); MEAN CORPUSCULAR VOLUME 96.2 fL (80-94); MONOCYTES # (AUTO) 0.6 K/uL (0.8-1.0); NEUTROPHILS # (AUTO) 6.3 K/uL (1.8-7.7); NEUTROPHILS % (AUTO) 71.9 % (42.2-75.2); PLATELET COUNT (AUTO) 163 K/uL (140-450); RED BLOOD CELL COUNT(AUTO) 3.31 MIL/uL (4.20-5.40); RED CELL DISTRIBUTION WIDTH 15.1 % (11.6-13.7); WHITE BLOOD COUNT (AUTO) 8.7 K/uL (4.8-10.8)
--- NOTE | 2020-11-01 07:15 | NUR ---
ENDORSED PATIENT TO AM NURSE FOR CONTINUITY OF CARE. PATIENT IS STABLE.
--- NOTE | 2020-11-01 07:18 | NUR ---
RECEIVED REPORT FROM NIGHT NURSE PT IS AAOX2-3 ON ROOM AIR SATURATION OF 99-100% ON PUREE DIET AND LAST BLOOD SUGAR 151 MG/DL IV INTACT ON RIGHT AC WITH SODIUM CHLORIDE 0.9% AT 100 MLS/HR, SKIN INTACT BUT WITH SACRAL REDNESS AND DEBRIDEMENT OF RIGHT BREAST GANGRENE DONE ON 10/29/20 CLOSED WITH NATALIYA. PT BEDBOUND AND INCONTINENT. SAFETY MEASURES IN PLACE AND CALL LIGHT WITHIN REACH. WILL CONTINUE TO MONITOR.
[2020-11-01 08:00] VITALS: BP 146/69
[2020-11-01] MEDS: MULTIVITAMIN/MINERALS 1 TAB PO SCH (08:40)
[2020-11-01] MEDS: ASCORBIC ACID 500 MG TAB PO SCH (08:40)
--- NOTE | 2020-11-01 08:45 | NUR ---
SCHEDULED MEDICATION GIVEN CHECK VITAL SIGNS PRIOR TO MEDICATION BP 146/69 WI 74 PT ABLE TO TOLERATE WELL AND ATE 1005 OF HER FOOD. WILL CONTINUE TO MONITOR.,
--- NOTE | 2020-11-01 09:26 | NUR ---
(11/01/20) RD FOLLOW UP COMPLETED PLEASE REFER TO NUTRITION PROGRESS NOTE UNDER CARE ACTIVITY FOR ESTIMATED NUTRITION NEEDS. RD RECOMMENDATIONS: 1. CONTINUE CCHO 60 GM, CARDIAC, PUREE TOLERATED. 2. CONTINUE JACKI BID AND GLUCERNA TID 3. RD TO FOLLOW-UP 2-3 DAYS, HIGH RISK CASA WEAVER MS, RDN
--- NOTE | 2020-11-01 10:37 | NUR ---
UPON ASSESSMENT EDEMA WAS NOTED BILATERAL ARMS +2. ECCHYMOSIS BILATERAL WRISTS. CALL LIGHT IS WITHIN REACH. SAFETY PRECAUTIONS IN PLACE. WILL CONTINUE TO MONITOR.
[2020-11-01] MEDS ORDERED: HYDROXYZINE HYDROCHLORIDE 25 MG TAB PO PRN (11:00)
--- NOTE | 2020-11-01 11:12 | NUR ---
RECEIVED CRITICAL RESULTS FROM LAB AEROBIC CULTURE OF RIGHT BREAST MDRO STAPHYLOCOCCUS AUREUS MRSA DR NAIR AWARE,
[2020-11-01 12:00] VITALS: BP 148/61
--- NOTE | 2020-11-01 12:00 | NUR ---
ADMINISTERED IV FLUIDS. IV FLUID RUNNIN WELL. CALL LIGHT IS WITHIN REACH. WILL CONTINUE TO MONITOR.
--- NOTE | 2020-11-01 12:00 | NUR ---
ADMINISTERED 2 UNITS OF HUMALOG FOR BG OF 199MG/DL SQ ON ABDOMEN. CALL LIGHT IS WITHIN REACH. WILL CONTINUE TO MONITOR.
--- NOTE | 2020-11-01 12:38 | NUR ---
ADMINISTERED 500MG OF MEREM IVPB PER MD ORDER. IV INFUSION RUNNING WELL. CALL LIGHT WITHIN REACH. WILL CONTINUE TO MONITOR.
--- NOTE | 2020-11-01 14:15 | NUR ---
APPLIED OPTIFOAM ON SACRAL AREA AND HYDROGUARD GEL ON SKIN FLAPS, BOTTOM AND GROIN AREA. SACRAL AREA IS PINK AND BLANCHABLE, NO OPENING NOTED. CALL LIGHT IS WITHIN REACH. WILL CONTINUE TO MONITOR.
[2020-11-01 16:00] VITALS: BP 158/80
--- NOTE | 2020-11-01 16:17 | NUR ---
BLOOD SUGAR 224 MG/DL INSULIN COVERAGE OF 4 UNITS GIVEN. WILL CONTINUE TO MONITOR.
--- NOTE | 2020-11-01 19:26 | NUR ---
ENDORSED TO NIGHT NURSE FOR CONTINUITY OF CARE. PT IS STABLE.
--- NOTE | 2020-11-01 19:30 | NUR ---
RECEIVED PT IN STABLE CONDITION FROM AM NURSE. PT IS ON TELE MONITOR. BEDREST. ON CONTACT ISOLATION DUE TO MRSA MDRO BREAST ANS ESBL URINE. FAMILY AT BEDSIDE AND FOLLOWED CONTACT PRECAUTION. WITH JIMMY ZAMORA UPPER ARM. PT HAS IVF INFUSING WELL ON THE RT AC G#20 . CLEAR AND PATENT. ON WOUND BED DUE TO SACRAL WOUND. PLAN OF CARE DISCUSSED WITH FAMILY/PT. VERBALIZED UNDERSTANDING. INCONTINENT OF URINE AND STOOL. WILL CONTINUE TO MONITOR.
[2020-11-01 20:00] VITALS: BP 151/55
[2020-11-01] MEDS ORDERED: SODIUM PHOSPHATE 118 ML ENEM RC ONE (21:35)
--- NOTE | 2020-11-01 22:55 | NUR ---
FAMILY SAID PT WANTS TO GO BM. CHECKED THE LAST BM OF PT, IT WAS 10/30/20 . SUPPOSED TO GIVE FLEETS ENEMA X1 ORDRED, BUT WHEN CHECKED PT, ALREADY HAS SOFT MODERATE AMOUNT OF STOOL. CLEANED AND KEPT DRY.
[2020-11-02] VITALS: BP 134/59
--- NOTE | 2020-11-02 | NUR ---
V/S TAKEN AND STABLE. PT MOANS AT TIMES. WILL CONTINUE TO MONITOR.
[2020-11-02] MEDS: HYDROcodone/APAP 5/325 MG 1 TAB TAB PO PRN ×2 (00:17→08:03)
[2020-11-02] MEDS: NACL 0.9% 1,000 ML IV SCH ×3 (00:18→22:30)
[2020-11-02] MEDS: Z-GUARD PASTE TP SCH ×2 (01:00→12:30)
--- NOTE | 2020-11-02 01:00 | NUR ---
DRESSING ON RT BREAST CLEAN AND DRY. SACRAL DRESSING WITH STOOL. REMOVED , CLEANED WITH NS . APPLIED Z GUARD AND COVERED WITH OPTIFOAM DRESSING.
--- NOTE | 2020-11-02 02:00 | NUR ---
MADE ROUNDS. PT IS ASLEEP. NO S/S OF ANY DISCOMFORT NOTED.
[2020-11-02 04:00] VITALS: BP 152/77
[2020-11-02] MEDS: MEROPENEM 500 MG in NACL 0.9% 50 ML IV SCH ×3 (04:15→20:23)
[2020-11-02] MEDS: BLOOD GLUCOSE MONITORING 1 DEV DEV FS SCH ×5 (05:50→21:00)
[2020-11-02] MEDS: INSULIN LISPRO SLIDING SCALE 100 UNITS/ML VIAL SUBQ PRN ×4 (06:06→20:46)
--- NOTE | 2020-11-02 06:06 | NUR ---
LATEST BLOOD SUGAR CHECKED THIS AM,RESULT 207. INSULIN COVERAGE GIVEN SUBQ.
--- NOTE | 2020-11-02 07:22 | NUR ---
ENDORSED PT IN STABLE CONDITION TO AM JURSE FOR CONTINUITY OF CARE.
--- NOTE | 2020-11-02 07:25 | NUR ---
RECEIVED REPORT FROM NIGHT NURSE PT IS AAOX3 ON ROOM AIR SINUS RHYTHM OM THE MONITOR, ON PUREE DIET, LAST BLOOD SUGAR 207 MG/DL WITH IV INTACT ON RIGHT AC RUNNING SODIUM CHLORIDE 0/95 AT 100 MLS/HR SKIN NON INTACT WITH RIGHT BREAST WOUND WITH NATALIYA ANS SACRAL REDNESS AND BOTH UE EDEMA NON PITTING, BED BOUND, INCONTINENT. SAFETY MEASURES IN PLACE AND CALL LIGHT WITHIN REACH. WILL CONTINUE TO MONITOR.
[2020-11-02 08:00] VITALS: BP 174/64
--- NOTE | 2020-11-02 08:09 | NUR ---
PT COMPLAINS OF GENERALIZED PAIN 6/10 CHECK VITAL SIGNS PT TOLERATED WELL.WILL CONTINUE TO MONITOR
[2020-11-02] MEDS: MULTIVITAMIN/MINERALS 1 TAB PO SCH (08:22)
[2020-11-02] MEDS: DOCUSATE SODIUM 100 MG GELCAP PO SCH ×2 (08:22→20:24)
[2020-11-02] MEDS: ASCORBIC ACID 500 MG TAB PO SCH (08:22)
--- NOTE | 2020-11-02 08:34 | NUR ---
MEDICATION DUE GIVEN CHECK VITAL SIGNS PRIOR TO MEDICATION BP 174/64 FL 72 PATIENT TOLERATED WELL.
[2020-11-02] MEDS ORDERED: bisacodyL 10 MG SUPP RC PRN (08:40)
[2020-11-02] MEDS ORDERED: MAGNESIUM HYDROXIDE 2400 MG/30 ML UDC PO PRN (08:40)
[2020-11-02] MEDS ORDERED: DOCUSATE SODIUM 100 MG GELCAP PO SCH (09:00)
[2020-11-02] MEDS ORDERED: lisinopriL 5 MG TAB PO SCH (09:00)
[2020-11-02] MEDS ORDERED: ASCORBIC ACID 500 MG TAB PO SCH (09:00)
[2020-11-02] MEDS: ASPIRIN 81 MG TAB.CHEW PO SCH (09:12)
[2020-11-02] MEDS: ZINC SULF 220 MG CAP PO SCH (09:13)
--- NOTE | 2020-11-02 09:16 | NUR ---
BP MEDICATIONS LISINOPRIL 5 MG AND ASPIRIN 81 MG, ZINC 220 MG GIVEN PT IS AWAKE AND RESTING.
--- NOTE | 2020-11-02 11:19 | NUR ---
PATIENT CHANGED POSITION AND CHANGED SACRAL DRESSING. APPLIED Z GUARD ON THE SACRAL AREAS AND SKIN FOLDS. PT IS STABLE.
--- NOTE | 2020-11-02 11:32 | NUR ---
BLOOD SUGAR 207 MG/DL INSULIN COVERAGE 4 UNITS GIVEN.
[2020-11-02 12:00] VITALS: BP 161/45
--- NOTE | 2020-11-02 12:35 | NUR ---
MEDICATION DUE GIVEN MEROPENEM 500 MG GIVEN 50 ML INFUSING WELL. AND Z GUARD APPLIED ON SACRAL AREA.
[2020-11-02] MEDS ORDERED: amLODIPine 5 MG TAB PO SCH (13:15)
--- NOTE | 2020-11-02 13:29 | NUR ---
AMLODIPINE 5 MG GIVEN CHECK VITAL SIGNS BP 161/45 TN 66. CHANGE PT DRESSING ON THE RIGHT CHEST AND APPLIED THERAHONEY AND ISLAND DRESSING. PT TOLERATED WELL.
[2020-11-02 14:27] LABS: HEMATOCRIT 31.8 % (36-48); HEMOGLOBIN 10.5 g/dL (12.0-16.0); MEAN CORPUSCULAR HEMOGLOBIN 31 pg (27-31); MEAN CORPUSCULAR HGB CONC 33 g/dL (33-37); MEAN CORPUSCULAR VOLUME 93.2 fL (80-94); PLATELET COUNT (AUTO) 178 K/uL (140-450); RED BLOOD CELL COUNT(AUTO) 3.41 MIL/uL (4.20-5.40); RED CELL DISTRIBUTION WIDTH 14.6 % (11.6-13.7); WHITE BLOOD COUNT (AUTO) 7.5 K/uL (4.8-10.8)
[2020-11-02 14:40] LABS: ANION GAP 11.9 (8-16); CARBON DIOXIDE 19.8 mmol/L (21-32); CHLORIDE 116 mmol/L (98-107); CREATININE 1.3 mg/dL (0.6-1.3); EOSINOPHILS % (MANUAL) 1 % (0-4); GLUCOSE 205 mg/dL (74-106); LYMPHOCYTES % (MANUAL) 23 % (20-46); MONOCYTES % (MANUAL) 3 % (5-12); POTASSIUM 4.7 mmol/L (3.5-5.1); SODIUM SERUM 143 mmol/L (136-145); UREA NITROGEN, BLOOD 26 mg/dL (7-18)
[2020-11-02 16:00] VITALS: BP 153/66
--- NOTE | 2020-11-02 16:18 | NUR ---
BLOOD SUGAR 157 MG/DL INSULIN COVERAGE GIVEN 2 UNITS. PT IS RESTING.
--- NOTE | 2020-11-02 17:51 | NUR ---
ATARAX HCL 25 MG GIVEN PT COMPLAINING OF GENERALIZED ITCHINESS.
--- NOTE | 2020-11-02 19:23 | NUR ---
ENDORSED TO NIGHT NURSE FOR CONTINUITY OF CARE. PT IS STABLE
--- NOTE | 2020-11-02 19:24 | NUR ---
RECEIVED PT IN STABLE CONDITION FROM AM NURSE. PT IS BEDBOUND. ON TELE MONITOR. FAMILY MEMBERS AT BEDSIDE. HAS IVF INFUSING WELL ON THE RT AC G#20. CLEAR AND PATENT. SERA UPPER ARM SWOLLEN. WITH MULTIPLE BRUISES ON THE ARMS . WITH DRESSING ON THE RT BREAST CLEAN AND DRY. SACRAL REDNESS WITH DRESSING IN PLACED. ON WOUND BED. NEED TO BE TURNED TO SIDES Q2HRS. FREQ ROUNDS NEEDED. BED ON LOWEST POSITION. SIDE CAPUTO;S UP X2. CALL LIGHT PLACED WITHIN REACH. WILL CONTINUE TO MONITOR.
[2020-11-02 20:00] VITALS: BP 163/61
[2020-11-02] MEDS: ATORVASTATIN 20 MG TAB PO SCH (20:24)
[2020-11-02] MEDS: ACETAMINOPHEN 325 MG TAB PO PRN (20:25)
[2020-11-02] MEDS: LINEZOLID 600 MG TAB PO SCH (20:25)
[2020-11-02] MEDS ORDERED: CRUSHER, PILL MC ONE (20:27)
--- NOTE | 2020-11-02 20:46 | NUR ---
BLOOD SUGAR WAS CHECKED RESULT 220. INSULIN COVERAGE SUBQ ON RT UPPER ARM HUMALOG 4 UNITS GIVEN. PT HAD SOME PUDDING AND GLUCERNA .
--- NOTE | 2020-11-02 22:00 | NUR ---
HS BEEN REPOSITIONED FOR COMFORT AFTER HAVING MODERATE AMOUNT OF SOFT STOOL. SACRAL AREA WITH HEALED SKIN, NO REDNESS NOTED. BUT APPLIED Z GUARD AND COVERED WITH OPTIFOAM DRESSING.
[2020-11-03] VITALS: BP 158/54
[2020-11-03] MEDS: Z-GUARD PASTE TP SCH ×2 (01:00→12:24)
--- NOTE | 2020-11-03 01:00 | NUR ---
DRESSING ON THE RT BREAST WOUND WAS CHAANGED AFTER BEING CLEANED AND TOOK PICTURE.. NATALIYA IN PLACED.
[2020-11-03] MEDS: ACETAMINOPHEN 325 MG TAB PO PRN (02:56)
--- NOTE | 2020-11-03 02:56 | NUR ---
PT MOANING AND ASKED IF IN PAIN. SO MEDICATE ORDERED WITH TYLENOL ONLY PER FAMILY WANTS.
[2020-11-03 04:17] VITALS: BP 156/60
[2020-11-03] MEDS: MEROPENEM 500 MG in NACL 0.9% 50 ML IV SCH ×3 (04:19→20:18)
--- NOTE | 2020-11-03 04:30 | NUR ---
PT ASLEEP. NO S/S OF ANY DISCOMFORT.
--- NOTE | 2020-11-03 06:00 | NUR ---
CHECKED ON PT. ASLEEP. NO S/S OF ANY DISCOMFORT NOTED.
[2020-11-03] MEDS: BLOOD GLUCOSE MONITORING 1 DEV DEV FS SCH ×4 (06:07→20:29)
[2020-11-03] MEDS: INSULIN LISPRO SLIDING SCALE 100 UNITS/ML VIAL SUBQ PRN ×4 (06:08→20:31)
[2020-11-03 07:03] LABS: ANION GAP 13.6 (8-16); CARBON DIOXIDE 20.1 mmol/L (21-32); CHLORIDE 113 mmol/L (98-107); CREATININE 1.3 mg/dL (0.6-1.3); GLUCOSE 195 mg/dL (74-106); POTASSIUM 4.7 mmol/L (3.5-5.1); SODIUM SERUM 142 mmol/L (136-145); UREA NITROGEN, BLOOD 19 mg/dL (7-18)
[2020-11-03 07:06] LABS: BASOPHILS # (AUTO) 0.1 K/uL (0.00-0.22); BASOPHILS % (AUTO) 0.7 % (0.0-2.0); EOSINOPHILS # (AUTO) 0.4 K/uL (0-0.4); EOSINOPHILS % (AUTO) 4.2 % (0.0-4.0); HEMATOCRIT 32.8 % (36-48); HEMOGLOBIN 10.9 g/dL (12.0-16.0); LYMPHOCYTES # (AUTO) 2.7 K/uL (2.5-16.5); LYMPHOCYTES % (AUTO) 28.1 % (20.5-51.1); MEAN CORPUSCULAR HEMOGLOBIN 31 pg (27-31); MEAN CORPUSCULAR HGB CONC 33 g/dL (33-37); MONOCYTES # (AUTO) 0.8 K/uL (0.8-1.0); MONOCYTES % (AUTO) 7.9 % (1.7-9.3); NEUTROPHILS # (AUTO) 5.8 K/uL (1.8-7.7); NEUTROPHILS % (AUTO) 59.1 % (42.2-75.2); PLATELET COUNT (AUTO) 187 K/uL (140-450); RED BLOOD CELL COUNT(AUTO) 3.56 MIL/uL (4.20-5.40); RED CELL DISTRIBUTION WIDTH 14.7 % (11.6-13.7); WHITE BLOOD COUNT (AUTO) 9.8 K/uL (4.8-10.8)
--- NOTE | 2020-11-03 07:40 | NUR ---
RECEIVED REPORT FROM WORKFORCE DEVELOPMENT PROGRAM DIRECTOR NURSE FOR CONTINUITY OF CARE. PT IS AWAKE, A&OX2. ON RA WITH BREATHING UNLABORED. PT IS INCONTINENT WITH DRY DIAPER IN PLACE. SKIN IS WARM AND DRY. IV IS IN THE RIGHT AC 20 GAUGE INFUSING FLUIDS ORDERED. WOUND ON THE RIGHT BREAST, S/P DEBRIDEMENT WITH DRY DRESSING INTACT. PT IS STABLE. CONTACT PRECAUTIONS FOR MRSA/MDRO WOUND AND ESBL URINE.
--- NOTE | 2020-11-03 07:52 | NUR ---
ENDORSED PT IN STABLE CONDITION TO AM NURSE.
[2020-11-03 08:00] VITALS: BP 167/72
[2020-11-03] MEDS: LINEZOLID 600 MG TAB PO SCH ×2 (09:12→21:13)
[2020-11-03] MEDS: MULTIVITAMIN/MINERALS 1 TAB PO SCH (09:12)
[2020-11-03] MEDS: DOCUSATE SODIUM 100 MG GELCAP PO SCH ×2 (09:13→20:16)
[2020-11-03] MEDS: ZINC SULF 220 MG CAP PO SCH (09:13)
[2020-11-03] MEDS: lisinopriL 5 MG TAB PO SCH (09:13)
[2020-11-03] MEDS: ASPIRIN 81 MG TAB.CHEW PO SCH (09:13)
[2020-11-03] MEDS: ASCORBIC ACID 500 MG TAB PO SCH (09:14)
--- NOTE | 2020-11-03 09:30 | NUR ---
PT IS SLEEPING. NO DISTRESS NOTED. CHEST RISE AND FALL SYMMETRICAL. IV FLUIDS ARE INFUSING ORDERED. PT IS STABLE.
--- NOTE | 2020-11-03 11:18 | NUR ---
BS READING IS 155. HUMALOG INSULIN 2 UNITS WAS GIVEN PER SLIDING SCALE. MEDICATION EDUCATION WAS PROVIDED. PT NEEDS REINFORCEMENT.
[2020-11-03 12:00] VITALS: BP 124/82
--- NOTE | 2020-11-03 13:26 | NUR ---
ROUNDED ON PT. SHE IS SITTING UP IN BED, AWAKE. BREATHING IS UNLABORED ON RA. NO DISTRESS NOTED. PT DENIES PAIN. PT WAS GIVEN ENSURE TO DRINK AND WATER. NEEDS HAVE BEEN MET.
--- NOTE | 2020-11-03 15:00 | NUR ---
PT IS AWAKE AND TALKING. ANSWERES APPROPRIATELY TO QUESTIONS. OFFERED A SNACK AND WATER TO DRINK BUT PT REFUSED. PT HAS HAD A POOR APPETITE. EDUCATED ON THE IMPORTANCE OF ORAL INTAKE. PT VERBALIZED UNDERSTANDING. PT IS STABLE.
[2020-11-03] MEDS: NACL 0.9% 1,000 ML IV SCH ×2 (15:31→20:50)
[2020-11-03 16:00] VITALS: BP 136/52
--- NOTE | 2020-11-03 16:45 | NUR ---
BS READING WAS 164. HUMALOG INSULIN, 2 UNITS, WAS GIVEN PER SLIDING SCALE. PT TOLERATED IT WELL. PT IS BACK TO SLEEP. NO DISTRESS AT THIS TIME.
--- NOTE | 2020-11-03 18:05 | NUR ---
PT IS SLEEPING. BREATHING IS UNLABORED ON RA. DIAPER IS DRY AND IN PLACE. PT IS STABLE.
--- NOTE | 2020-11-03 19:20 | NUR ---
ENDORSED PT TO CUSTOM GRINDER NURSE FOR CONTINUITY OF CARE. PT IS AWAKE WITH FAMILY AT THE BEDSIDE. PT STABLE AT THIS TIME. PLAN OF CARE DISCUSSED.
--- NOTE | 2020-11-03 19:21 | NUR ---
RECEIVED REPORT ON BEDSIDE FROM DAYSHIFT RN, FAMILY MEMBERS WERE PRESENT. PT IS AAOX2, COMPLAINS OF RIGHT BREAST PAIN WITH 8/10 PAIN SCALE, ENCOURAGED NONPHARMACOLOGICAL INTERVENTION (DISTRACTION, REPOSITION), CURRENTLY IN ROOM AIR, NO SIGN OF SOB, IV FLUIDS INFUSING, SAFETY MEASURES IMPLEMENTED, AND CALL LIGHT WITHIN REACH. POC DISCUSSED AND WILL GIVE PAIN MEDICATION ORDERED.
[2020-11-03 20:00] VITALS: BP 145/65
--- NOTE | 2020-11-03 20:10 | NUR ---
PT IS AWAKE, DAUGHTERS ARE AT BEDSIDE, HOB OF ELEVATED, V/S TAKEN, DUE MEDS GIVEN ORDERED, TOLERATED WELL, WILL CONTINUE TO MONITOR, NO A/R NOTED, KEPT COMFORTABLE, CALL LIGHT WITHIN REACH.
[2020-11-03] MEDS: ATORVASTATIN 20 MG TAB PO SCH (20:17)
--- NOTE | 2020-11-03 21:14 | NUR ---
HOB ELEVATED, ZYVOX 600 MG PO GIVEN ORDERED, NO A/R NOTED, CALL LIGHT WITHIN REACH.
[2020-11-04] VITALS: BP_SYST 155; BP_SYST 168; BP_DIAS 51; BP_DIAS 52
--- NOTE | 2020-11-04 | NUR ---
V/S TAKEN, REPOSITIONED, DENIES PAIN, NO DISTRESS, KEPT WARM AND COMFORTABLE, CALL LIGHT WITHIN REACH.
[2020-11-04] MEDS: Z-GUARD PASTE TP SCH ×2 (01:23→13:51)
--- NOTE | 2020-11-04 01:23 | NUR ---
PERFORMED PERINEAL CARE AND APPLIED Z-GUARD PASTE ON RIGHT AND LEFT BUTTOCKS. TOLERATED PROCEDURE AND MADE SURE PT COMFORTABLE. CALL LIGHT WITHIN REACH AND WARM BLANKET PROVIDED.
[2020-11-04 04:00] VITALS: BP 153/57
[2020-11-04] MEDS: MEROPENEM 500 MG in NACL 0.9% 50 ML IV SCH ×2 (05:42→13:42)
[2020-11-04] MEDS ORDERED: hydrALAZINE 20 MG/ML VIAL IVP PRN (06:30)
[2020-11-04] MEDS: BLOOD GLUCOSE MONITORING 1 DEV DEV FS SCH ×3 (06:54→16:46)
[2020-11-04] MEDS: NACL 0.9% 1,000 ML IV SCH (06:54)
[2020-11-04] MEDS: INSULIN LISPRO SLIDING SCALE 100 UNITS/ML VIAL SUBQ PRN ×3 (07:00→16:43)
[2020-11-04 07:01] LABS: BASOPHILS % (AUTO) 0.6 % (0.0-2.0); EOSINOPHILS # (AUTO) 0.3 K/uL (0-0.4); EOSINOPHILS % (AUTO) 3.1 % (0.0-4.0); HEMATOCRIT 32.3 % (36-48); HEMOGLOBIN 10.7 g/dL (12.0-16.0); LYMPHOCYTES % (AUTO) 23.8 % (20.5-51.1); MEAN CORPUSCULAR HEMOGLOBIN 30 pg (27-31); MEAN CORPUSCULAR HGB CONC 33 g/dL (33-37); MEAN CORPUSCULAR VOLUME 91.2 fL (80-94); MONOCYTES # (AUTO) 0.6 K/uL (0.8-1.0); MONOCYTES % (AUTO) 7.8 % (1.7-9.3); NEUTROPHILS # (AUTO) 5.3 K/uL (1.8-7.7); NEUTROPHILS % (AUTO) 64.7 % (42.2-75.2); PLATELET COUNT (AUTO) 190 K/uL (140-450); RED BLOOD CELL COUNT(AUTO) 3.54 MIL/uL (4.20-5.40); RED CELL DISTRIBUTION WIDTH 14.9 % (11.6-13.7); WHITE BLOOD COUNT (AUTO) 8.3 K/uL (4.8-10.8)
[2020-11-04 07:08] LABS: ANION GAP 10.1 (8-16); CARBON DIOXIDE 22.8 mmol/L (21-32); CHLORIDE 113 mmol/L (98-107); CREATININE 1.2 mg/dL (0.6-1.3); GLUCOSE 209 mg/dL (74-106); POTASSIUM 4.9 mmol/L (3.5-5.1); SODIUM SERUM 141 mmol/L (136-145); UREA NITROGEN, BLOOD 18 mg/dL (7-18)
--- NOTE | 2020-11-04 07:27 | NUR ---
PATIENT STABLE, NO DISTRESS, DENIES PAIN, KEPT COMFORTABLE, ALL NEEDS ATTENDED, CALL LIGHT WITHIN REACH. BEDSIDE ENDORSEMENT GIVEN TO AM SHIFT RN.
--- NOTE | 2020-11-04 07:32 | NUR ---
RECEIVED BEDSIDE REPORT FROM NIGHTSHIFT NURSE. PT RESTING IN BED. PT ABLE TO MAKE SOME NEEDS KNOWN. RESPIRATIONS EVEN AND UNLABORED WITH NO SOB OR RESPIRATORY DISTRESS. SKIN WARM AND DRY TO TOUCH. SAFETY MEASURES IN PLACE. WILL CONTINUE TO MONITOR
[2020-11-04 08:00] VITALS: BP 120/48
[2020-11-04] MEDS: ASPIRIN 81 MG TAB.CHEW PO SCH (09:09)
[2020-11-04] MEDS: MULTIVITAMIN/MINERALS 1 TAB PO SCH (09:09)
[2020-11-04] MEDS: lisinopriL 5 MG TAB PO SCH (09:10)
[2020-11-04] MEDS: ASCORBIC ACID 500 MG TAB PO SCH (09:10)
[2020-11-04] MEDS ORDERED: ZINC SULF 220 MG CAP PO SCH (09:11)
[2020-11-04] MEDS: LINEZOLID 600 MG TAB PO SCH (09:12)
[2020-11-04] MEDS: DOCUSATE SODIUM 100 MG GELCAP PO SCH (09:13)
--- NOTE | 2020-11-04 09:15 | NUR ---
ADMINISTERED SCHED MED PRESCRIBED PER MD ORDER. PT TOLERATED WELL. MEDICATION EDUCATION PERFORMED. PT VERBALIZED UNDERSTANDING. SAFETY MEASURES IN PLACE. WILL CONTINUE TO MONITOR
--- NOTE | 2020-11-04 11:35 | NUR ---
PT BS IS 266. WILL COVER WITH PRESCRIBED INSULIN.
[2020-11-04 12:00] VITALS: BP 127/57
--- NOTE | 2020-11-04 12:00 | NUR ---
ADMINISTERED PRN MEDICATION. PT TOLERATED WELL. MEDICATION EDUCATION PERFORMED AND VERBALIZED UNDERSTANDING. SAFETY MEASURES IN PLACE AND WILL CONTINUE TO MONITOR.
--- NOTE | 2020-11-04 13:15 | NUR ---
PT IS IN BED WATCHING TELEVISION. PT IS ON RA WITH VISIBLE CHEST RISING AND FALLING WITH NO DISTRESS. I ASSISTED STONE POLISHER WITH CLEANING PT. IV IS INTACT. PT IS STABLE AND TOLERATED REPOSITION AND CLEANING. PT DENIES ANY PAIN. WILL CONTINUE TO MONITOR.
--- NOTE | 2020-11-04 13:42 | NUR ---
11/04/20 RD FOLLOW UP COMPLETED PLEASE REFER TO NUTRITION ASSESSMENT UNDER CARE ACTIVITY FOR ESTIMATED NUTRITIONAL NEEDS. 1. CONTINUE MECHANICAL SOFT RENAL CCHO DIET 2. CONTINUE GLUCERNA BID 3. ENCOURAGE INCREASING PO INTAKE 4. RD TO FOLLOW-UP 3-5 DAYS, MODERATE RISK SHANT GUTIERREZ, RD
--- NOTE | 2020-11-04 15:04 | NUR ---
PT RESTING IN BED. ABLE TO MAKE NEEDS KNOWN. RESPIRATIONS EVEN AND UNLABORED WITH NO SOB OR RESPIRATORY DISTRESS. SKIN WARM AND DRY TO TOUCH. WILL CONTINUE TO MONITOR
[2020-11-04 16:00] VITALS: BP 124/75
--- NOTE | 2020-11-04 17:20 | NUR ---
CALLED [facility] TO GIVE REPORT, THE NURSE TAKING THE PATIENT IS NOT READY. LEFT CALLBACK PHONE NUMBER. WILL CALL AGAIN SOON. SAFETY MEASURES IN PLACE. WILL CONTINUE TO MONITOR
[2020-11-04] MEDS ORDERED: MERO500V16 IV (17:26)
[2020-11-04] MEDS ORDERED: LINE600T4 IV (17:27)
[2020-11-04 17:33] VITALS: BP 124/75
--- NOTE | 2020-11-04 19:05 | NUR ---
PRIOR TO TRANSPORTATION ARRIVAL, REPORT ALREADY GIVEN TO NURSE AT [facility]. VERBALIZED UNDERSTANDING. REPORT GIVEN TO TRANSPORTATION TEAM, VERBALIZED UNDERSTANDING. PT IS BEEN TRANSFER TO [facility]. PT UP TO DATE ON VACCINES. PT TO GO WITH IV FOR ATB. REMOVED TELE BOX AND RETURNED TO [facility], REMOVED ID BAND AND ALLERGY BAND. GATHERED PATIENTS BELONGINGS. PT IS STABLE AND COOPERATING TO GO HOME AT [facility]
== END 2020-11-04 19:12 | DRG 853 ==
LOC: MED 15:08 → MTU 18:42
PROVIDERS: ADMIT Family Medicine; ATTEND Family Medicine
PROC: 0JB60ZZ Excision of Chest Subcutaneous Tissue and Fascia, Open Approach (ICD-10-PCS; principal; 2020-10-29 11:30)
DX: A41.9 Sepsis, unspecified organism (principal); G93.41 Metabolic encephalopathy; N17.0 Acute kidney failure with tubular necrosis; N39.0 Urinary tract infection, site not specified; Z16.12 Extended spectrum beta lactamase (ESBL) resistance; I13.0 Hypertensive heart and chronic kidney disease with heart failure and stage 1 through stage 4 chronic kidney disease, or unspecified chronic kidney disease; N61.0 Mastitis without abscess; Z91.018 Allergy to other foods; I50.9 Heart failure, unspecified; Z86.73 Personal history of transient ischemic attack (TIA), and cerebral infarction without residual deficits; E78.5 Hyperlipidemia, unspecified; G90.8 Other disorders of autonomic nervous system; E11.22 Type 2 diabetes mellitus with diabetic chronic kidney disease; F03.90 Unspecified dementia, unspecified severity, without behavioral disturbance, psychotic disturbance, mood disturbance, and anxiety; N18.31 Chronic kidney disease, stage 3a; K57.90 Diverticulosis of intestine, part unspecified, without perforation or abscess without bleeding; B96.20 Unspecified Escherichia coli [E. coli] as the cause of diseases classified elsewhere; K80.20 Calculus of gallbladder without cholecystitis without obstruction; B95.62 Methicillin resistant Staphylococcus aureus infection as the cause of diseases classified elsewhere
CPT/HCPCS: 36415; 70450; 71045; 76641; 80048; 80053; 81001; 82150; 82948; 83036; 83605; 83690; 83735; 83880; 84100; 84439; 84443; 84484; 85025; 85610; 85730; 87040; 87070; 87075; 87081; 87086; 87186; 87205; 88304; 93005; 96361; 96365; 96366; 96367; 99291; J0360; J0696; J1170; J1644; J1815; J2001; J2185; J2405; J2704; J3010; J3370; J3475; J3490; J7060; J7120

== ENCOUNTER 2020-12-02 09:15 | Emergency (ER) | payer OTHER ==
[~2020-12-02] VITALS: Ht 160 cm; Wt 74.8 kg
[~2020-12-02 09:15] MED LIST changes: +ACET-2619 PO; +LINE600T4 IV; +MERO500V16 IV; +NA P133E RC; +ZINC220C29 PO
--- NOTE | 2020-12-02 09:20 | NUR ---
BIBA BLS TO ER BED 7
[2020-12-02 09:27] VITALS: BP 162/78
--- NOTE | 2020-12-02 09:41 | NUR ---
85 FEMALE BIBA FROM [facility] DUE TO RECTAL PAIN X3 DAYS. PER EMS "FACILITY CALLED TO SCHEDULE AN MD APPT FOR PATIENT, BUT WAS A MONTH OUT AND THE SISTER WAS UPSET AND REQUESTED THE PT COME TO THE ER TO BE SEEN." PT BASELINE A&O X2 AND USUALLY CRYING/UPSET. PMH: DM, HTN, HYPERLIPIDEMIA ALLERGIES: CHOCOLATE
--- NOTE | 2020-12-02 09:58 | NUR ---
[facility] CALLED TO INQUIRE ABOUT PT STATUS. PER [facility] PT HAS STATED "HER INTESTINES HURT ALONG WITH DYSURIA." UA WAS COMPLETED AT FACILITY AND CAME BACK NEGATIVE. DENIES N/V/D.
--- NOTE | 2020-12-02 10:02 | NUR ---
EMT AT BEDSIDE FOR EKG
--- NOTE | 2020-12-02 10:18 | NUR ---
IV INSERTION ATTEMPTED BY 2 RN'S. MADE AWARE AND US IV INSERTION HAS BEEN SET UP
--- NOTE | 2020-12-02 10:41 | NUR ---
LAB BEDSIDE WITH PT
[2020-12-02 10:54] LABS: BASOPHILS # (AUTO) 0.1 K/uL (0.00-0.22); BASOPHILS % (AUTO) 0.7 % (0.0-2.0); EOSINOPHILS # (AUTO) 0.2 K/uL (0-0.4); EOSINOPHILS % (AUTO) 2.1 % (0.0-4.0); HEMATOCRIT 33.3 % (36-48); HEMOGLOBIN 11.2 g/dL (12.0-16.0); LYMPHOCYTES # (AUTO) 2.3 K/uL (2.5-16.5); LYMPHOCYTES % (AUTO) 21.7 % (20.5-51.1); MEAN CORPUSCULAR HEMOGLOBIN 31 pg (27-31); MEAN CORPUSCULAR HGB CONC 34 g/dL (33-37); MEAN CORPUSCULAR VOLUME 90.4 fL (80-94); MONOCYTES # (AUTO) 0.6 K/uL (0.8-1.0); NEUTROPHILS # (AUTO) 7.4 K/uL (1.8-7.7); NEUTROPHILS % (AUTO) 69.5 % (42.2-75.2); PLATELET COUNT (AUTO) 425 K/uL (140-450); RED BLOOD CELL COUNT(AUTO) 3.68 MIL/uL (4.20-5.40); RED CELL DISTRIBUTION WIDTH 14.8 % (11.6-13.7); WHITE BLOOD COUNT (AUTO) 10.6 K/uL (4.8-10.8)
--- NOTE | 2020-12-02 10:55 | NUR ---
BEDSIDE OBTAINING IV THROUGH US
[2020-12-02 11:07] LABS: APPEARANCE,URINE CLOUDY (CLEAR); BILIRUBIN,URINE NEGATIVE (NEGATIVE); BLOOD, URINE 1+ (NEGATIVE); COLOR,URINE YELLOW (YELLOW); LEUKOCYTE ESTERASE ,URINE 3+ (NEGATIVE); NITRITE, URINE NEGATIVE (NEGATIVE); UGLUCOSE NEGATIVE (NEGATIVE)
[2020-12-02 11:09] LABS: ANION GAP 12.5 (8-16); ASPARTATE AMINOTRANSFERASE 20 U/L (15-37); CARBON DIOXIDE 24.5 mmol/L (21-32); CHLORIDE 106 mmol/L (98-107); CREATININE 1.9 mg/dL (0.6-1.3); GLUCOSE 256 mg/dL (74-106); LIPASE 88 U/L (73-393); SODIUM SERUM 138 mmol/L (136-145); TOTAL BILIRUBIN 0.3 mg/dL (0.0-1.0); UREA NITROGEN, BLOOD 53 mg/dL (7-18)
[2020-12-02 11:22] LABS: RBC,URINE NONE SEEN /HPF (0-5); WBC,URINE TOO MANY TO COUNT /HPF (0-5)
[2020-12-02] MEDS: MORPHINE SULFATE 4 MG/ML SYR IVP ONE (11:24)
--- NOTE | 2020-12-02 11:24 | NUR ---
PT TAKEN TO CT VIA ANKITA
--- NOTE | 2020-12-02 11:30 | NUR ---
PT RETURNED TO BED [address] V[address] [facility]
--- NOTE | 2020-12-02 11:54 | NUR ---
PT CURRENTLY RESTING WITH EYES CLOSED BEDSIDE. VITAL SIGNS STABLE. BED IN LOWEST POSITION WITH SIDERAIL X2 UP AND LOCKED. WILL CONTINUE TO MONITOR
[2020-12-02] MEDS ORDERED: cefTRIAXone 1,000 MG VIAL ONE (12:01)
[2020-12-02] MEDS: NACL 0.9% 500 ML IV ONE (12:12)
[2020-12-02] MEDS: MIDAZOLAM 2 MG/2 ML VIAL IVP ONE (12:49)
[2020-12-02] MEDS: SODIUM PHOSPHATE 118 ML ENEM RC ONE ×2 (13:53→16:48)
--- NOTE | 2020-12-02 15:06 | NUR ---
PT CURRENTLY RESTING BEDSIDE WITH EYES CLOSED. EQUAL CHEST RISE AND FALL NOTED. BED IN LOWEST POSITION WITH SIDERAIL X2 UP. VITAL SIGNS STABLE. WILL CONTINUE TO MONITOR
--- NOTE | 2020-12-02 15:34 | NUR ---
SPOKE WITH CASSANDRA CORNELIUS FROM [facility] FOR PT UPDATES.
--- NOTE | 2020-12-02 16:01 | NUR ---
TRANSPORT ARRANGED FOR PT. EMS TO [facility] AT 1800 FOR TRANSPORTATION BACK TO FACILITY
--- NOTE | 2020-12-02 16:52 | NUR ---
PT CURRENTLY RESTING WITH EYES CLOSED. EQUAL CHEST RISE AND FALL NOTED. VITAL SIGNS TAKEN AND STABLE. BED IN LOWEST POSITION WITH SIDERAIL X2 UP. WILL CONTINUE TO MONITOR
--- NOTE | 2020-12-02 17:25 | NUR ---
CALLED AND GAVE REPORT CASSANDRA GALDAMEZ AT [facility]. REPORT HAS BEEN GIVEN AND PATIENT IS READY FOR TRANSPORT
[2020-12-02 17:59] VITALS: BP 144/66
--- NOTE | 2020-12-02 17:59 | NUR ---
[facility] BEDSIDE FOR PT TRANSPORTATION. REPORT GIVEN
--- NOTE | 2020-12-02 18:00 | NUR ---
PATIENT TRANSPORTATED BY [facility] [place] [facility] REPORT CALLED TO CASSANDRA GALDAMEZ AT [facility] Patient discharged with v/s stable. Written and verbal after care instructions given and explained. Patient verbalized understanding. Ambulance Transport with to [facility]. All questions addressed prior to discharge. Advised to follow up with PMD.
== END 2020-12-02 18:00 ==
LOC: MED 09:15
DX: K56.41 Fecal impaction (principal); N39.0 Urinary tract infection, site not specified; I50.9 Heart failure, unspecified; E11.9 Type 2 diabetes mellitus without complications; E11.22 Type 2 diabetes mellitus with diabetic chronic kidney disease; I12.9 Hypertensive chronic kidney disease with stage 1 through stage 4 chronic kidney disease, or unspecified chronic kidney disease; N18.9 Chronic kidney disease, unspecified; E78.5 Hyperlipidemia, unspecified; Z79.899 Other long term (current) drug therapy; Z79.82 Long term (current) use of aspirin
CPT/HCPCS: 36415; 74176; 80053; 81001; 83690; 85025; 87086; 93005; 96361; 96365; 96375; 99285; J0696; J2250; J2270; J7030

== ENCOUNTER 2020-12-08 12:12 | Emergency (ER) | payer OTHER ==
[~2020-12-08] VITALS: Ht 167.6 cm; Wt 99.8 kg
[2020-12-08 12:23] VITALS: BP 91/47
[2020-12-08] MEDS ORDERED: SODIUM PHOSPHATE 118 ML ENEM RC ONE (12:45)
[2020-12-08] MEDS ORDERED: LORazepam 2 MG/ML VIAL IVP ONE (12:45)
[2020-12-08] MEDS ORDERED: MAGNESIUM CITRATE 300 ML BTL PO ONE (12:45)
--- NOTE | 2020-12-08 13:11 | NUR ---
PT BROUGHT TO BED 7 VIA ANK[facility]
--- NOTE | 2020-12-08 13:23 | NUR ---
85 Y/O F BIBA FROM [facility] FOR CONT ABD PAIN THAT HAS CONTINUED AFTER BEING DISCHARGED FROM [facility] 10 DAYS AGO. PORTILLO FROM [facility] [place] CALLED FOR REPORT. PORTILLO STATED PT HAS BEEN HAVING ABD PAIN 02/08. UNKNOWN LAST BM. PT IS AOX1, ONLY 1ST NAME. PMHX: SEE CHART MEDS: SEE CHART NKDA, FOOD ALLERGY TO CHOCOLATE. PER PORTILLO [facility] [place], REPORT WAS CALLED IN TO ADRYAN. Addendum: 12/08/20 at 1502 by [email or web address] 85 Y/O F BIBA FROM [facility] [place] FOR CONT ABD PAIN THAT HAS CONTINUED AFTER BEING DISCHARGED FROM [facility] 10 DAYS AGO. PT LAST SEEN DUE TO RECTAL PAIN FROM CONSTRIPATION. PORTILLO FROM [facility] [place] WAS CALLED FOR REPORT. PORTILLO STATED PT HAS BEEN HAVING ABD PAIN 02/08. UNKNOWN LAST BM. PT IS AOX1, ONLY 1ST NAME. PMHX: DM, HTN, HYPERLIPIDEMIA MEDS: SEE CHART NKDA, FOOD ALLERGY TO CHOCOLATE.
--- NOTE | 2020-12-08 13:23 | NUR ---
Francisco rudd in [facility] - 12/08/20 at 1323 by [email or web address] PT PUT INTO ROOM 7
[2020-12-08 13:37] LABS: BASOPHILS # (AUTO) 0.1 K/uL (0.00-0.22); BASOPHILS % (AUTO) 0.7 % (0.0-2.0); EOSINOPHILS # (AUTO) 0.2 K/uL (0-0.4); EOSINOPHILS % (AUTO) 1.6 % (0.0-4.0); HEMATOCRIT 35.6 % (36-48); HEMOGLOBIN 11.4 g/dL (12.0-16.0); LYMPHOCYTES # (AUTO) 2.1 K/uL (2.5-16.5); LYMPHOCYTES % (AUTO) 19.4 % (20.5-51.1); MEAN CORPUSCULAR HEMOGLOBIN 30 pg (27-31); MEAN CORPUSCULAR HGB CONC 32 g/dL (33-37); MEAN CORPUSCULAR VOLUME 91.9 fL (80-94); MONOCYTES # (AUTO) 0.6 K/uL (0.8-1.0); NEUTROPHILS # (AUTO) 7.6 K/uL (1.8-7.7); NEUTROPHILS % (AUTO) 72.3 % (42.2-75.2); PLATELET COUNT (AUTO) 415 K/uL (140-450); RED BLOOD CELL COUNT(AUTO) 3.87 MIL/uL (4.20-5.40); RED CELL DISTRIBUTION WIDTH 15.2 % (11.6-13.7); WHITE BLOOD COUNT (AUTO) 10.6 K/uL (4.8-10.8)
[2020-12-08 13:50] LABS: ALBUMIN 2.9 g/dL (3.4-5.0); ANION GAP 12.5 (8-16); ASPARTATE AMINOTRANSFERASE 19 U/L (15-37); CARBON DIOXIDE 25.3 mmol/L (21-32); CHLORIDE 106 mmol/L (98-107); CREATININE 1.9 mg/dL (0.6-1.3); GLUCOSE 110 mg/dL (74-106); LIPASE 96 U/L (73-393); POTASSIUM 5.8 mmol/L (3.5-5.1); SODIUM SERUM 138 mmol/L (136-145); TOTAL BILIRUBIN 0.2 mg/dL (0.0-1.0); UREA NITROGEN, BLOOD 46 mg/dL (7-18)
[2020-12-08] MEDS ORDERED: SODIUM ZIRCONIUM CYCLOSILICATE 10 GM POWD.PACK PO ONE (14:05)
[2020-12-08] MEDS ORDERED: NACL 0.9% 1,000 ML IV ONE (14:05)
--- NOTE | 2020-12-08 14:54 | NUR ---
pt currently resting with eyes closed. bed in lowest position with siderail x2 up. vital signs stable. will continue to monitor
--- NOTE | 2020-12-08 15:02 | NUR ---
XRAY BEDSIDE WITH PT
--- NOTE | 2020-12-08 16:01 | NUR ---
DR. DAVIS BEDSIDE EVALUATING PT
--- NOTE | 2020-12-08 16:08 | NUR ---
PT CURRENTLY RESTING WITH EYES CLOSED BEDSIDE. EQUAL CHEST RISE AND FALL NOTED. PT STILL ON MONITOR AND VITAL SIGNS STABLE. BED IN LOWEST POSITION WITH SIDERAIL X2 UP. WILL CONTINUE TO MONITOR.
--- NOTE | 2020-12-08 17:20 | NUR ---
pt currently resting bedside with eyes closed. bed in lowest position with siderails x2 up. hob is elevated and pt is covered. vital signs stable. will continue to monitor
[2020-12-08 17:32] LABS: ALBUMIN 2.6 g/dL (3.4-5.0); ANION GAP 12.6 (8-16); ASPARTATE AMINOTRANSFERASE 17 U/L (15-37); CHLORIDE 108 mmol/L (98-107); CREATININE 1.8 mg/dL (0.6-1.3); GLUCOSE 138 mg/dL (74-106); POTASSIUM 5.6 mmol/L (3.5-5.1); SODIUM SERUM 139 mmol/L (136-145); TOTAL BILIRUBIN 0.2 mg/dL (0.0-1.0); UREA NITROGEN, BLOOD 42 mg/dL (7-18)
[2020-12-08] MEDS ORDERED: MIRABULK PO (17:47)
--- NOTE | 2020-12-08 18:09 | NUR ---
REPORT HAS BEEN CALLED AND GIVEN TO CASSANDRA NUNES AT [facility] [place]. [facility] ETA [phone] FOR PT.
[2020-12-08 19:02] VITALS: BP 150/57
--- NOTE | 2020-12-08 19:03 | NUR ---
Patient discharged with v/s stable. Written and verbal after care instructions given and explained. Patient alert, oriented and verbalized understanding of instructions. Ambulance Transport with to senior living. All questions addressed prior to discharge. ID band removed. Patient advised to follow up with PMD. Rx of MIRALAX given. Patient educated on indication of medication including possible reaction and side effects. Opportunity to ask questions provided and answered.
== END 2020-12-08 19:02 | disposition home or self-care (01) ==
LOC: MED 12:12
DX: K62.89 Other specified diseases of anus and rectum (principal); E11.22 Type 2 diabetes mellitus with diabetic chronic kidney disease; I13.0 Hypertensive heart and chronic kidney disease with heart failure and stage 1 through stage 4 chronic kidney disease, or unspecified chronic kidney disease; N18.9 Chronic kidney disease, unspecified; I50.9 Heart failure, unspecified
CPT/HCPCS: 36415; 74022; 80053; 83690; 85025; 96361; 96374; 99284; J2060; J7030

== ENCOUNTER 2022-03-24 03:09 | Inpatient (IN) | payer OTHER ==
[~2022-03-24] VITALS: Ht 162.6 cm; Wt 79.4 kg
[~2022-03-24 03:09] MED LIST changes: +AMIT25TA28 PO; +AMLO5TAB PO; -ATOR20TA PO; +ATOR40TA PO; +CYT100 PO; -INSU100I7 SQ; +INSU100V19 SQ; +INSU10SU2 SC; -INSU10SU6 SUBQ; +LEVO-481 PO; +MEGE20TA PO; +MEMA5TAB PO; +METF-1274 PO; -METF1000 PO; +MIRABULK PO; -MISO200T PO; +SLIDE SUBQ; +TAMS0.4C96 PO
--- NOTE | 2022-03-24 03:09 | NUR ---
PT LEATHA ALS. TAKEN TO BED 11
[2022-03-24 03:10] VITALS: BP 135/68
--- NOTE | 2022-03-24 03:10 | NUR ---
BIBA FOR ALTERED AND HYPOGLYCEMIC, EMS ARRIVED PT GCS 7 AND BS 41, 1 MG GLUCAGON GIVEN IM, PT BECAME GCS 10, HX- DM ON INSULIN, DEMENTIA, CKD.PT PLACED IN GOWN AND TEAROOM HOST, EKG OBTAINED AND GIVEN TO DR RIVAS FOR EVALUATION, IV OBTAINED, PT DIAPER CHANGED, PT HAD A LARGE BM, PT HAS LUCIA IN PLACE FOR FACILITY. PT FROM [facility].
--- NOTE | 2022-03-24 03:17 | NUR ---
Dr. Edmonds examining patient.
--- NOTE | 2022-03-24 03:20 | NUR ---
PT HAS POLST DNR IN CHART
[2022-03-24 03:39] LABS: BASOPHILS # (AUTO) 0.1 K/uL (0.00-0.22); BASOPHILS % (AUTO) 1.3 % (0.0-2.0); EOSINOPHILS # (AUTO) 0.1 K/uL (0-0.4); EOSINOPHILS % (AUTO) 0.7 % (0.0-4.0); HEMATOCRIT 24.2 % (36-48); HEMOGLOBIN 7.8 g/dL (12.0-16.0); LYMPHOCYTES # (AUTO) 1.8 K/uL (2.5-16.5); LYMPHOCYTES % (AUTO) 25.4 % (20.5-51.1); MEAN CORPUSCULAR HEMOGLOBIN 29 pg (27-31); MEAN CORPUSCULAR HGB CONC 32 g/dL (33-37); MEAN CORPUSCULAR VOLUME 90.7 fL (80-94); MONOCYTES # (AUTO) 0.8 K/uL (0.8-1.0); MONOCYTES % (AUTO) 11.8 % (1.7-9.3); NEUTROPHILS # (AUTO) 4.3 K/uL (1.8-7.7); NEUTROPHILS % (AUTO) 60.8 % (42.2-75.2); PLATELET COUNT (AUTO) 405 K/uL (140-450); RED BLOOD CELL COUNT(AUTO) 2.67 MIL/uL (4.20-5.40); RED CELL DISTRIBUTION WIDTH 15.2 % (11.6-13.7); WHITE BLOOD COUNT (AUTO) 7.1 K/uL (4.8-10.8)
[2022-03-24 03:40] LABS: APPEARANCE,URINE CLEAR (CLEAR); BILIRUBIN,URINE NEGATIVE (NEGATIVE); BLOOD, URINE NEGATIVE (NEGATIVE); COLOR,URINE YELLOW (YELLOW); LEUKOCYTE ESTERASE ,URINE 1+ (NEGATIVE); NITRITE, URINE POSITIVE (NEGATIVE); PH,URINE 8.5 (5.0-9.0); UGLUCOSE TRACE (NEGATIVE)
[2022-03-24 03:52] LABS: RBC,URINE 0-5 /HPF (0-5); TRIPLE PHOSPHATE CRYSTAL,UR 0-10 /HPF (None Seen)
[2022-03-24 04:03] LABS: ALBUMIN 2.4 g/dL (3.4-5.0); ANION GAP 17.4 (8-16); ASPARTATE AMINOTRANSFERASE 31 U/L (15-37); CARBON DIOXIDE 19.1 mmol/L (21-32); CHLORIDE 109 mmol/L (98-107); GLUCOSE 64 mg/dL (74-106); POTASSIUM 5.5 mmol/L (3.5-5.1); SODIUM SERUM 140 mmol/L (136-145); TOTAL BILIRUBIN 0.2 mg/dL (0.0-1.0)
[2022-03-24 04:04] LABS: UREA NITROGEN, BLOOD 68 mg/dL (7-18)
[2022-03-24 04:05] LABS: LIPASE 97 U/L (73-393)
[2022-03-24] MEDS ORDERED: NACL 0.9% 500 ML IV ONE (04:55)
[2022-03-24] MEDS ORDERED: OSELTAMIVIR PHOSPHATE 75 MG CAP PO ONE (04:55)
--- NOTE | 2022-03-24 04:57 | NUR ---
PT SPEAKING AND MORE ALERT THAN, ANSWERING SOME QUESTIONS.
[2022-03-24] MEDS ORDERED: cefTRIAXone 1,000 MG VIAL ONE (05:09)
--- NOTE | 2022-03-24 06:09 | NUR ---
Patient will be admitted to care of DR ZAVALA. Admited to MED/SURG. Will go to room 126 B. Belongings list completed. Report to LYLY TRUJILLO.
[2022-03-24 06:20] VITALS: BP 150/52
--- NOTE | 2022-03-24 06:20 | NUR ---
PT TRANSPORTED TO ROOM 126B VIA GURNEY FROM ER. PT IS AAOX2. PT IS ON RA. PT HAS LUCIA CATHETER DRAINING CLEAR YELLOW URINE. PT HAS 18 GAUGE ON LEFT WRIST SALINE LOCK. PT IS BEDREST. PT IS POSITIVE FOR INFLUENZA A. EDUCATED PT CONTAMINATION CONSULTANT LIGHT. CALL LIGHT WITHIN REACH. HEAD OF THE BED RAISED. BED AT THE LOWEST POSITION. WILL CONTINUE TO MONITOR THE PT.
--- NOTE | 2022-03-24 07:30 | NUR ---
ENDORSED PT TO DAY SHIFT CASSANDRA HORN FOR CONTINUITY OF CARE. PT IS STABLE.
--- NOTE | 2022-03-24 07:31 | NUR ---
RECEIVED REPORT FROM RELAY OPERATOR NURSE FOR CONTINUITY OF CARE. PATIENT LYING DOWN IN BED. NO DISTRESS NOTED. DENIES PAIN. AAOX4, IV SITE INTACT, PATENT, AND ON SALINE LOCK. LUCIA CATHETER IN PLACE. REVIEWED PLAN OF CARE WITH PATIENT. VERBALIZED UNDERSTANDING. SAFETY MEASURES IN PLACE, CALL LIGHT WITHIN REACH. WILL CONTINUE TO MONITOR.
[2022-03-24 08:00] VITALS: BP 148/84
[2022-03-24] MEDS ORDERED: ONDANSETRON 4 MG/2 ML VIAL IM/IVP PRN (08:10)
[2022-03-24] MEDS: NACL 0.9% 1,000 ML IV SCH (08:10)
[2022-03-24] MEDS ORDERED: POTASSIUM CHLORIDE 10 MEQ TABER PO PRN (08:10)
[2022-03-24] MEDS ORDERED: DOCUSATE SODIUM 100 MG GELCAP PO PRN (08:10)
[2022-03-24] MEDS ORDERED: ACETAMINOPHEN 325 MG TAB PO PRN (08:10)
[2022-03-24] MEDS ORDERED: HYDROcodone/APAP 7.5/325 MG 1 TAB PO PRN (08:10)
[2022-03-24] MEDS ORDERED: ZOLPIDEM 5 MG TAB PO PRN (08:10)
[2022-03-24 08:49] LABS: PROTHROMBIN TIME 10.4 secs (10.8-13.4)
[2022-03-24] MEDS: PANTOPRAZOLE 40 MG TABEC PO SCH (09:00)
[2022-03-24] MEDS: amLODIPine 5 MG TAB PO SCH (09:00)
[2022-03-24] MEDS: AMITRIPTYLINE 25 MG TAB PO SCH ×2 (09:00→21:53)
[2022-03-24] MEDS: ASPIRIN 81 MG TAB.CHEW PO SCH (09:00)
[2022-03-24 09:12] LABS: CHOL/HDL RATIO 4.8 (1-4.5); FREE T4 (FREE THYROXINE) 1.28 ng/dL (0.76-1.46); MAGNESIUM 1.8 mg/dL (1.8-2.4); PHOSPHORUS 4.8 mg/dL (2.5-4.9); THYROID STIMULATING HORMONE 1.35 uIU/mL (0.34-3.74)
--- NOTE | 2022-03-24 10:11 | NUR ---
SCHEDULED MEDICATIONS DUE GIVEN. WILL CONTINUE TO MONITOR.
--- NOTE | 2022-03-24 13:00 | NUR ---
PATIENT LYING DOWN IN BED SLEEPING, AROUSABLE BY VOICE. NO DISTRESS NOTED. WILL CONTINUE TO MONITOR.
--- NOTE | 2022-03-24 13:41 | NUR ---
PATIENT HAS BEEN SCREENED AND CATEGORIZED MODERATE NUTRITION RISK. PATIENT WILL BE SEEN WITHIN 3-5 DAYS OF ADMISSION. 03/27/2211/28/[address]
[2022-03-24] MEDS ORDERED: DEXTROSE 50% 50 ML SYR IVP PRN (15:15)
[2022-03-24 16:00] VITALS: BP 117/77
[2022-03-24] MEDS: BLOOD GLUCOSE MONITORING 1 DEV DEV FS SCH ×2 (17:12→21:55)
--- NOTE | 2022-03-24 19:25 | NUR ---
RECD. RESTING IN BED, AWAKE, A/OX2-3. RESPIRATION EVEN AND UNLABORED. IV OF NS INFUSING AT 60 ML/HR, LEFT WRIST G18. SAFETY MEASURES ENFORCED. SIDE RAILS UP. BED IN THE LOWEST POSITION. WITH OCCASIONAL UNPRODUCTIVE COUGH, O2 SAT - 96% ON ROOM AIR. DENIES PAIN 0/10.
--- NOTE | 2022-03-24 20:00 | NUR ---
Patient's Plan of Care was discussed and reviewed with SILICA SPRAY MIXER: REYNALDO MOISE
--- NOTE | 2022-03-24 21:45 | NUR ---
SNACK FOR THE NIGHT GIVEN.
[2022-03-24] MEDS: TAMSULOSIN 0.4 MG CAP PO SCH (21:54)
[2022-03-24] MEDS: ATORVASTATIN 20 MG TAB PO SCH (21:55)
[2022-03-24] MEDS: INSULIN LISPRO SLIDING SCALE 100 UNITS/ML VIAL SUBQ PRN (21:55)
[2022-03-24] MEDS: FENOFIBRATE 48 MG TAB PO SCH (22:26)
[2022-03-25] VITALS: BP 132/59
--- NOTE | 2022-03-25 | NUR ---
RESTING IN BED STILL AWAKE, TALKING A LOT. NO RESPIRATORY DISTRESS NOTED.
[2022-03-25] MEDS: NACL 0.9% 1,000 ML IV SCH ×2 (00:50→18:07)
[2022-03-25] MEDS: Z-GUARD PASTE TP SCH ×2 (01:00→12:03)
--- NOTE | 2022-03-25 02:00 | NUR ---
REPOSITIONED IN BED WITH PILLOWS FOR COMFORT.
--- NOTE | 2022-03-25 04:00 | NUR ---
HAS SOFT MEDIUM BM. CLEANSED AND MADE COMFORTABLE IN BED WITH PILLOWS.
[2022-03-25] MEDS: guaiFENesin DM 200/20 MG-10 ML 10 ML UDC PO PRN ×2 (05:26→11:45)
--- NOTE | 2022-03-25 05:26 | NUR ---
WITH COUGHING IN BED, MEDICATED WITH ROBITUSSIN PER MD ORDER.
[2022-03-25] MEDS: BLOOD GLUCOSE MONITORING 1 DEV DEV FS SCH ×4 (05:48→21:33)
[2022-03-25] MEDS: INSULIN LISPRO SLIDING SCALE 100 UNITS/ML VIAL SUBQ PRN ×2 (05:51→21:34)
[2022-03-25 06:44] LABS: ANION GAP 16.2 (8-16); CARBON DIOXIDE 15.1 mmol/L (21-32); CHLORIDE 112 mmol/L (98-107); GLUCOSE 179 mg/dL (74-106); POTASSIUM 5.3 mmol/L (3.5-5.1); SODIUM SERUM 138 mmol/L (136-145); UREA NITROGEN, BLOOD 62 mg/dL (7-18)
[2022-03-25 07:08] LABS: T4 (THYROXINE) 7.7 ug/dL (4.5-12.0)
--- NOTE | 2022-03-25 07:20 | NUR ---
CONDITION REMAIN STABLE. ENDORSED TO AM SHIFT NURSE FOR CONTINUITY OF CARE.
[2022-03-25 08:00] VITALS: BP 132/59
[2022-03-25] MEDS ORDERED: SODIUM ZIRCONIUM CYCLOSILICATE 10 GM POWD.PACK PO SCH (08:10)
[2022-03-25 08:16] LABS: BASOPHILS # (AUTO) 0.1 K/uL (0.00-0.22); BASOPHILS % (AUTO) 0.5 % (0.0-2.0); EOSINOPHILS % (AUTO) 0.2 % (0.0-4.0); HEMATOCRIT 23.4 % (36-48); HEMOGLOBIN 7.3 g/dL (12.0-16.0); LYMPHOCYTES # (AUTO) 3.5 K/uL (2.5-16.5); LYMPHOCYTES % (AUTO) 27.4 % (20.5-51.1); MEAN CORPUSCULAR HEMOGLOBIN 29 pg (27-31); MEAN CORPUSCULAR HGB CONC 31 g/dL (33-37); MEAN CORPUSCULAR VOLUME 91.3 fL (80-94); MONOCYTES # (AUTO) 0.7 K/uL (0.8-1.0); MONOCYTES % (AUTO) 5.6 % (1.7-9.3); NEUTROPHILS # (AUTO) 8.4 K/uL (1.8-7.7); NEUTROPHILS % (AUTO) 66.3 % (42.2-75.2); PLATELET COUNT (AUTO) 354 K/uL (140-450); RED BLOOD CELL COUNT(AUTO) 2.56 MIL/uL (4.20-5.40); RED CELL DISTRIBUTION WIDTH 15.7 % (11.6-13.7); WHITE BLOOD COUNT (AUTO) 12.6 K/uL (4.8-10.8)
[2022-03-25] MEDS: amLODIPine 5 MG TAB PO SCH (09:54)
[2022-03-25] MEDS: PANTOPRAZOLE 40 MG TABEC PO SCH (09:54)
[2022-03-25] MEDS: ASPIRIN 81 MG TAB.CHEW PO SCH (09:54)
[2022-03-25] MEDS: AMITRIPTYLINE 25 MG TAB PO SCH ×2 (09:54→21:10)
[2022-03-25 16:00] VITALS: BP 129/61
--- NOTE | 2022-03-25 19:35 | NUR ---
RECEIVED PT FROM DAY RN FOR CONTINUITY OF CARE. PT AWAKE, ALERT AND ORIENTED X 1. ON ROOM AIR, O2 SAT AT 99%.. DENIES PAIN OR SOB AT THIS TIME. NO S/SX OF DISTRESS. ALL PRECAUTIONS IN PLACE. CALL LIGHT WITHIN REACH. WILL CONTINUE TO MONITOR.
[2022-03-25] MEDS: TAMSULOSIN 0.4 MG CAP PO SCH (21:10)
[2022-03-25] MEDS: ATORVASTATIN 20 MG TAB PO SCH (21:10)
[2022-03-25] MEDS: FENOFIBRATE 48 MG TAB PO SCH (21:10)
--- NOTE | 2022-03-25 21:15 | NUR ---
BLOOD SUGAR WAS 308. INSULIN COVERAGE GIVEN. WILL CONTINUE TO MONITOR.
--- NOTE | 2022-03-25 21:15 | NUR ---
SCHEDULED MEDICATIONS GIVEN. PT TOLERATED WELL. CALL LIGHT WITHIN REACH.WILL CONTINUE TO MONITOR.
[2022-03-26] VITALS: BP 122/54
[2022-03-26] MEDS: Z-GUARD PASTE TP SCH ×2 (01:05→13:42)
--- NOTE | 2022-03-26 02:04 | NUR ---
PATIENT IN BED SLEEPING, AROUSABLE BY VOICE. NO S/SX OF DISTRESS NOTED.CALL LIGHT WITHIN REACH. WILL CONTINUE TO MONITOR.
[2022-03-26 05:44] LABS: BASOPHILS % (AUTO) 0.5 % (0.0-2.0); EOSINOPHILS # (AUTO) 0.1 K/uL (0-0.4); EOSINOPHILS % (AUTO) 1.2 % (0.0-4.0); HEMATOCRIT 22.6 % (36-48); HEMOGLOBIN 7.3 g/dL (12.0-16.0); LYMPHOCYTES # (AUTO) 3.1 K/uL (2.5-16.5); LYMPHOCYTES % (AUTO) 37.6 % (20.5-51.1); MEAN CORPUSCULAR HEMOGLOBIN 29 pg (27-31); MEAN CORPUSCULAR HGB CONC 32 g/dL (33-37); MEAN CORPUSCULAR VOLUME 91.1 fL (80-94); MONOCYTES # (AUTO) 0.6 K/uL (0.8-1.0); MONOCYTES % (AUTO) 7.7 % (1.7-9.3); NEUTROPHILS # (AUTO) 4.4 K/uL (1.8-7.7); PLATELET COUNT (AUTO) 346 K/uL (140-450); RED BLOOD CELL COUNT(AUTO) 2.48 MIL/uL (4.20-5.40); RED CELL DISTRIBUTION WIDTH 15.5 % (11.6-13.7); WHITE BLOOD COUNT (AUTO) 8.2 K/uL (4.8-10.8)
[2022-03-26 05:49] LABS: ANION GAP 14.4 (8-16); CARBON DIOXIDE 19.4 mmol/L (21-32); CHLORIDE 114 mmol/L (98-107); CREATININE 2.9 mg/dL (0.6-1.3); GLUCOSE 163 mg/dL (74-106); POTASSIUM 4.8 mmol/L (3.5-5.1); SODIUM SERUM 143 mmol/L (136-145); UREA NITROGEN, BLOOD 56 mg/dL (7-18)
[2022-03-26] MEDS: BLOOD GLUCOSE MONITORING 1 DEV DEV FS SCH ×4 (06:19→21:00)
--- NOTE | 2022-03-26 06:54 | NUR ---
BLOOD SUGAR WAS 150. NO COVERAGE NEEDED.
--- NOTE | 2022-03-26 06:54 | NUR ---
PT IS STABLE. NO ACUTE EVENTS THROUGHOUT THE NIGHT. NO S/SX OF DISTRESS AT THIS TIME. NO COMPLAINS OF PAIN. ALL PRECAUTIONS IN PLACE. CALL LIGHT WITHIN REACH. WILL ENDORSE TO AM SHIFT NURSE.
[2022-03-26 08:00] VITALS: BP 122/54
[2022-03-26] MEDS: PANTOPRAZOLE 40 MG TABEC PO SCH (08:36)
[2022-03-26] MEDS: AMITRIPTYLINE 25 MG TAB PO SCH ×2 (08:37→21:00)
[2022-03-26] MEDS: ASPIRIN 81 MG TAB.CHEW PO SCH (08:37)
[2022-03-26] MEDS: amLODIPine 5 MG TAB PO SCH (08:37)
[2022-03-26] MEDS: NACL 0.9% 1,000 ML IV SCH (09:31)
[2022-03-26] MEDS ORDERED: OSELTAMIVIR PHOSPHATE 75 MG CAP PO SCH (09:33)
[2022-03-26 16:00] VITALS: BP 122/62
[2022-03-26] MEDS: INSULIN LISPRO SLIDING SCALE 100 UNITS/ML VIAL SUBQ PRN ×2 (16:41→23:23)
[2022-03-26] MEDS: guaiFENesin DM 200/20 MG-10 ML 10 ML UDC PO PRN (17:28)
[2022-03-26] MEDS ORDERED: FUROSEMIDE 20 MG/2 ML VIAL IVP ONE ×2 (17:55→17:59)
--- NOTE | 2022-03-26 19:30 | NUR ---
RECEIVED PT FROM DAY RN FOR CONTINUITY OF CARE. PT AWAKE, ALERT AND ORIENTED X 1. ON ROOM AIR, O2 SAT AT 99%.PT EATING TAMALES BROUGHT BY DAUGHTER. DENIES PAIN OR SOB AT THIS TIME. NO S/SX OF DISTRESS. ALL PRECAUTIONS IN PLACE. CALL LIGHT WITHIN REACH. WILL CONTINUE TO MONITOR.
[2022-03-26] MEDS ORDERED: PIPERACILLIN/TAZOBACTAM 2.25 GM VIAL IV ONE (20:20)
[2022-03-26] MEDS: PIPERACILLIN/TAZOBACTAM 2.25 GM in DEXTROSE 5% 50 ML IV SCH (21:00)
[2022-03-26] MEDS: ATORVASTATIN 20 MG TAB PO SCH (21:00)
[2022-03-26] MEDS: FENOFIBRATE 48 MG TAB PO SCH (21:00)
--- NOTE | 2022-03-26 21:45 | NUR ---
SCHEDULED MEDICATIONS GIVEN. PT TOLERATED WELL. CALL LIGHT WITHIN REACH.WILL CONTINUE TO MONITOR.
--- NOTE | 2022-03-26 23:00 | NUR ---
BLOOD SUGAR WAS 350. INSULIN COVERAGE GIVEN. PT TOLERATED WELL.WILL CONTINUE TO MONITOR.
--- NOTE | 2022-03-26 23:20 | NUR ---
WAS CALLED TO PT BEDSIDE. PT FEELING SOB AND GIVEN PRN ALBUTEROL TX. PT TOLERATED TX WELL AND LEFT SATING 100% ON 2LNC.
[2022-03-27] VITALS: BP 149/79
[2022-03-27] MEDS: Z-GUARD PASTE TP SCH ×2 (01:40→13:00)
[2022-03-27] MEDS: ALBUTEROL 0.083% 2.5 MG/3 ML NEBU INH PRN ×2 (02:55→11:44)
--- NOTE | 2022-03-27 03:00 | NUR ---
PATIENT IN BED SLEEPING, AROUSABLE BY VOICE. NO S/SX OF DISTRESS NOTED.CALL LIGHT WITHIN REACH. WILL CONTINUE TO MONITOR.
[2022-03-27] MEDS ORDERED: PIPERACILLIN/TAZOBACTAM 2.25 GM VIAL IV ONE (04:06)
[2022-03-27] MEDS: PIPERACILLIN/TAZOBACTAM 2.25 GM in DEXTROSE 5% 50 ML IV SCH ×3 (04:26→21:15)
--- NOTE | 2022-03-27 04:42 | NUR ---
SCHEDULED MEDICATIONS GIVEN. PT TOLERATED WELL. CALL LIGHT WITHIN REACH.WILL CONTINUE TO MONITOR.
[2022-03-27 05:35] LABS: BASOPHILS % (AUTO) 0.1 % (0.0-2.0); EOSINOPHILS % (AUTO) 0.3 % (0.0-4.0); HEMATOCRIT 24.2 % (36-48); HEMOGLOBIN 7.7 g/dL (12.0-16.0); LYMPHOCYTES # (AUTO) 0.9 K/uL (2.5-16.5); LYMPHOCYTES % (AUTO) 7.8 % (20.5-51.1); MEAN CORPUSCULAR HEMOGLOBIN 29 pg (27-31); MEAN CORPUSCULAR HGB CONC 32 g/dL (33-37); MEAN CORPUSCULAR VOLUME 90.7 fL (80-94); MONOCYTES # (AUTO) 0.6 K/uL (0.8-1.0); MONOCYTES % (AUTO) 5.5 % (1.7-9.3); NEUTROPHILS # (AUTO) 9.4 K/uL (1.8-7.7); NEUTROPHILS % (AUTO) 86.3 % (42.2-75.2); PLATELET COUNT (AUTO) 377 K/uL (140-450); RED BLOOD CELL COUNT(AUTO) 2.67 MIL/uL (4.20-5.40); RED CELL DISTRIBUTION WIDTH 15.8 % (11.6-13.7); WHITE BLOOD COUNT (AUTO) 10.9 K/uL (4.8-10.8)
[2022-03-27] MEDS: BLOOD GLUCOSE MONITORING 1 DEV DEV FS SCH ×4 (06:00→21:13)
[2022-03-27] MEDS: INSULIN LISPRO SLIDING SCALE 100 UNITS/ML VIAL SUBQ PRN ×2 (06:17→11:30)
[2022-03-27 06:36] LABS: ANION GAP 18.2 (8-16); CARBON DIOXIDE 15.6 mmol/L (21-32); CHLORIDE 113 mmol/L (98-107); CREATININE 3.1 mg/dL (0.6-1.3); GLUCOSE 243 mg/dL (74-106); POTASSIUM 4.8 mmol/L (3.5-5.1); SODIUM SERUM 142 mmol/L (136-145); UREA NITROGEN, BLOOD 52 mg/dL (7-18)
[2022-03-27 08:00] VITALS: BP 149/79
[2022-03-27] MEDS: ASPIRIN 81 MG TAB.CHEW PO SCH (08:34)
[2022-03-27] MEDS: OSELTAMIVIR PHOSPHATE 75 MG CAP PO SCH (08:57)
[2022-03-27] MEDS: PANTOPRAZOLE 40 MG TABEC PO SCH (08:57)
[2022-03-27] MEDS: amLODIPine 5 MG TAB PO SCH (08:57)
[2022-03-27] MEDS: AMITRIPTYLINE 25 MG TAB PO SCH ×2 (08:57→21:16)
[2022-03-27] MEDS: guaiFENesin DM 200/20 MG-10 ML 10 ML UDC PO PRN (08:58)
--- NOTE | 2022-03-27 10:21 | NUR ---
MRSA nares positive. made aware
--- NOTE | 2022-03-27 13:01 | NUR ---
RT CALLED A COUPLE TIMES FOR SOB. TREATMENTS GIVEN, PT IS FEELING BETTER.
[2022-03-27 16:00] VITALS: BP 138/79
[2022-03-27] MEDS: ATORVASTATIN 20 MG TAB PO SCH (21:16)
[2022-03-27] MEDS: FENOFIBRATE 48 MG TAB PO SCH (21:16)
[2022-03-28] VITALS: BP 134/66
[2022-03-28] MEDS: Z-GUARD PASTE TP SCH ×2 (01:00→12:33)
[2022-03-28] MEDS: PIPERACILLIN/TAZOBACTAM 2.25 GM in DEXTROSE 5% 50 ML IV SCH ×3 (05:00→21:59)
[2022-03-28 05:53] LABS: BASOPHILS % (AUTO) 0.2 % (0.0-2.0); EOSINOPHILS # (AUTO) 0.5 K/uL (0-0.4); EOSINOPHILS % (AUTO) 7.7 % (0.0-4.0); HEMATOCRIT 22.2 % (36-48); HEMOGLOBIN 7.1 g/dL (12.0-16.0); LYMPHOCYTES # (AUTO) 1.9 K/uL (2.5-16.5); LYMPHOCYTES % (AUTO) 27.9 % (20.5-51.1); MEAN CORPUSCULAR HEMOGLOBIN 29 pg (27-31); MEAN CORPUSCULAR HGB CONC 32 g/dL (33-37); MEAN CORPUSCULAR VOLUME 89.8 fL (80-94); MONOCYTES # (AUTO) 0.6 K/uL (0.8-1.0); MONOCYTES % (AUTO) 8.6 % (1.7-9.3); NEUTROPHILS # (AUTO) 3.8 K/uL (1.8-7.7); NEUTROPHILS % (AUTO) 55.6 % (42.2-75.2); PLATELET COUNT (AUTO) 341 K/uL (140-450); RED BLOOD CELL COUNT(AUTO) 2.47 MIL/uL (4.20-5.40); RED CELL DISTRIBUTION WIDTH 15.6 % (11.6-13.7); WHITE BLOOD COUNT (AUTO) 6.9 K/uL (4.8-10.8)
[2022-03-28] MEDS: INSULIN LISPRO SLIDING SCALE 100 UNITS/ML VIAL SUBQ PRN ×2 (06:11→12:29)
[2022-03-28] MEDS: BLOOD GLUCOSE MONITORING 1 DEV DEV FS SCH ×4 (06:11→21:58)
[2022-03-28 06:30] LABS: ANION GAP 17.3 (8-16); CARBON DIOXIDE 17.4 mmol/L (21-32); CHLORIDE 115 mmol/L (98-107); CREATININE 3.2 mg/dL (0.6-1.3); GLUCOSE 186 mg/dL (74-106); POTASSIUM 4.7 mmol/L (3.5-5.1); SODIUM SERUM 145 mmol/L (136-145); UREA NITROGEN, BLOOD 52 mg/dL (7-18)
[2022-03-28 08:00] VITALS: BP 132/56
--- NOTE | 2022-03-28 08:00 | NUR ---
RECEIVED PATIENT FROM PM NURSE, ORIENTED X 2, PLEASANTLY CONFUSED, NO C/O PAIN OR DISCOMFORT, WILL ASSUME ALL CARE OF PATIENT AT THIS TIME,
[2022-03-28] MEDS: ASPIRIN 81 MG TAB.CHEW PO SCH (09:49)
[2022-03-28] MEDS: PANTOPRAZOLE 40 MG TABEC PO SCH (09:50)
[2022-03-28] MEDS: amLODIPine 5 MG TAB PO SCH (09:50)
[2022-03-28] MEDS: AMITRIPTYLINE 25 MG TAB PO SCH ×2 (09:50→21:00)
[2022-03-28] MEDS: OSELTAMIVIR PHOSPHATE 75 MG CAP PO SCH (09:51)
[2022-03-28] MEDS: MUPIROCIN CA NASAL 2% 1GM TUBE NS SCH (09:52)
--- NOTE | 2022-03-28 11:29 | NUR ---
03/28/2022 RD INITIAL ASSESSMENT COMPLETED. PLEASE REFER TO NUTRITION ASSESSMENT UNDER CARE ACTIVITY FOR ESTIMATED NUTRITIONAL NEEDS. 1.[facility], MECHANICAL SOFT DIET 2.MONITOR BLOOD GLUCOSE 3.RD TO FOLLOW-UP IN 5-7 DAYS PATIENT IS LOW RISK. NOEMY HOWARD RD
--- NOTE | 2022-03-28 17:00 | NUR ---
BLOOD SUGAR 144, NO INSULIN NEEDED AT THIS TIME
[2022-03-28 17:11] VITALS: BP 99/62
--- NOTE | 2022-03-28 19:30 | NUR ---
RECEIVED REPORT FROM DAY SHIFT NURSE FOR CONTINUITY OF CARE. PATIENT IS A&O X1-2, KISWAHILI SPEAKING. PATIENT IS ON ROOM AIR, BREATHING IS NORMAL WITH SYMMETRICAL RISE AND FALL OF CHEST. PATIENT'S IV IS A 18G LEFT HAND, RUNNING NS TKO. PATIENT IS ON CONTACT PRECAUTIONS FOR INFLUENZA A. PATIENT IS SITTING HIGH-FOWLERS POSITION. WILL CONTINUE TO OBSERVE PATIENT.
[2022-03-28 20:00] VITALS: BP 125/56
[2022-03-28] MEDS: FENOFIBRATE 48 MG TAB PO SCH (21:00)
[2022-03-28] MEDS: ATORVASTATIN 20 MG TAB PO SCH (21:00)
--- NOTE | 2022-03-29 | NUR ---
PATIENT HAD REFUSED HER 2100 MEDICATIONS, PUSHING PILLS AWAY THEY'RE OFFERED. PATIENT'S BREATHING IS NORMAL WITH SYMMETRICAL RISE AND FALL OF CHEST. WILL CONTINUE TO OBSERVE PATIENT.
[2022-03-29] MEDS: INSULIN LISPRO SLIDING SCALE 100 UNITS/ML VIAL SUBQ PRN ×3 (00:45→17:33)
[2022-03-29] MEDS: Z-GUARD PASTE TP SCH ×2 (01:00→13:29)
--- NOTE | 2022-03-29 03:00 | NUR ---
LOOKED IN ON PATIENT. PATIENT'S O2 SATURATION WAS LOW; PLACED PATIENT ON 2L NC. O2 WASN'T IMPROVING MUCH, INCREASED TO 3L. PATIENT O2 NOW 97%.
[2022-03-29 04:00] VITALS: BP 177/53
--- NOTE | 2022-03-29 05:00 | NUR ---
ASKED GHISLAINE FROM RT TO LOOK AT PATIENT WITH ME AND HELP TRANSLATE WHAT PATIENT WAS SAYING. GHISLAINE STATED PATIENT WAS SAYING CONFUSING THINGS BUT WAS VERY NERVOUS AND SUGGESTED AN ANTIANXIETY MEDICATION BASED ON THE CONVERSATION. GHISLAINE ALSO DECREASED PATIENT'S O2 TO 2L ON NC. PATIENT SATURATION IS 100%. MESSAGED DR. HARDIN FOR ATIVAN. WILL CONTINUE TO OBSERVE PATIENT.
[2022-03-29] MEDS: PIPERACILLIN/TAZOBACTAM 2.25 GM in DEXTROSE 5% 50 ML IV SCH (05:46)
[2022-03-29 06:01] LABS: BASOPHILS # (AUTO) 0.1 K/uL (0.00-0.22); BASOPHILS % (AUTO) 0.7 % (0.0-2.0); EOSINOPHILS # (AUTO) 0.8 K/uL (0-0.4); EOSINOPHILS % (AUTO) 9.1 % (0.0-4.0); HEMATOCRIT 23.3 % (36-48); HEMOGLOBIN 7.6 g/dL (12.0-16.0); LYMPHOCYTES # (AUTO) 2.8 K/uL (2.5-16.5); LYMPHOCYTES % (AUTO) 30.9 % (20.5-51.1); MEAN CORPUSCULAR HEMOGLOBIN 29 pg (27-31); MEAN CORPUSCULAR HGB CONC 33 g/dL (33-37); MEAN CORPUSCULAR VOLUME 89.2 fL (80-94); MONOCYTES # (AUTO) 0.6 K/uL (0.8-1.0); NEUTROPHILS # (AUTO) 4.8 K/uL (1.8-7.7); NEUTROPHILS % (AUTO) 52.3 % (42.2-75.2); PLATELET COUNT (AUTO) 384 K/uL (140-450); RED BLOOD CELL COUNT(AUTO) 2.61 MIL/uL (4.20-5.40); RED CELL DISTRIBUTION WIDTH 15.9 % (11.6-13.7); WHITE BLOOD COUNT (AUTO) 9.2 K/uL (4.8-10.8)
--- NOTE | 2022-03-29 06:30 | NUR ---
DR HARDIN MESSAGED BACK AUTHORIZING ONE TIME DOSE OF ATIVAN 1MG IVP. WILL PUT ORDER INTO SYSTEM.
[2022-03-29] MEDS ORDERED: LORazepam 2 MG/ML VIAL IVP SCH (07:09)
[2022-03-29 07:41] LABS: CHLORIDE 116 mmol/L (98-107); CREATININE 3.1 mg/dL (0.6-1.3); GLUCOSE 108 mg/dL (74-106); POTASSIUM 4.6 mmol/L (3.5-5.1); SODIUM SERUM 147 mmol/L (136-145); UREA NITROGEN, BLOOD 46 mg/dL (7-18)
[2022-03-29 08:00] VITALS: BP 111/41
--- NOTE | 2022-03-29 08:00 | NUR ---
ENDORSED TO DAY SHIFT NURSE FOR HENRIETTA FOR CONTINUITY OF CARE. PATIENT IS STABLE.
[2022-03-29] MEDS: BLOOD GLUCOSE MONITORING 1 DEV DEV FS SCH ×4 (08:06→21:59)
[2022-03-29 08:07] LABS: ANION GAP 18.8 (8-16); CARBON DIOXIDE 16.8 mmol/L (21-32)
[2022-03-29] MEDS ORDERED: GENTAMICIN PER PHARMACY MC PRN (08:20)
[2022-03-29] MEDS: ASPIRIN 81 MG TAB.CHEW PO SCH (09:00)
[2022-03-29] MEDS: AMITRIPTYLINE 25 MG TAB PO SCH ×2 (09:00→21:24)
[2022-03-29] MEDS: amLODIPine 5 MG TAB PO SCH (09:00)
[2022-03-29] MEDS: OSELTAMIVIR PHOSPHATE 75 MG CAP PO SCH (09:00)
[2022-03-29] MEDS: PANTOPRAZOLE 40 MG TABEC PO SCH (09:00)
[2022-03-29] MEDS: MUPIROCIN CA NASAL 2% 1GM TUBE NS SCH (09:00)
[2022-03-29] MEDS ORDERED: NACL 0.9% IV SCH (10:00)
[2022-03-29] MEDS ORDERED: GENTAMICIN IV SCH (10:00)
[2022-03-29] MEDS ORDERED: Gentamicin Per Pharmacy MC (11:04)
[2022-03-29 15:40] VITALS: BP 111/41
[2022-03-29 16:00] VITALS: BP 101/55
--- NOTE | 2022-03-29 19:45 | NUR ---
ENDORSE PATIENT TO PM SHIFT NURSE WITH STABLE CONDITION, PATIENT IS CONFUSED. PIV AT L. HAND SALINE LOCK, D/C ORDER PRESENT
--- NOTE | 2022-03-29 19:55 | NUR ---
GET THE REPORT FROM MORNING NURSE ASHA PATIENT IS AOX1, ALL FALL PRECAUTION MEASURE ARE IN PLACE, CALL LIGHT IS WITHIN THE REACH, WILL CONTINUE TO MONITOR PATIENT.
[2022-03-29 20:00] VITALS: BP 119/43
[2022-03-29] MEDS: ATORVASTATIN 20 MG TAB PO SCH (21:25)
[2022-03-29] MEDS: FENOFIBRATE 48 MG TAB PO SCH (21:25)
--- NOTE | 2022-03-29 22:02 | NUR ---
PATIENT IS LYING ON BED, NO ANY COMPLAIN OF PAIN OR SHORTNESS OF BREATH AT THIS TIME, VITAL SIGN IS WITHIN THE NORMAL RANGE, ALL SCHEDULE MEDICATION IS GIVEN PER DOCTOR ORDER, PATIENT BLOOD SUGAR IS 134, NO INSULIN COVERAGE IS NEEDED AT THIS TIME, CALL LIGHT IS WITHIN THE REACH, WILL CONTINUE TO MONITOR PATIENT.
[2022-03-30] MEDS: Z-GUARD PASTE TP SCH ×2 (00:17→12:44)
--- NOTE | 2022-03-30 00:21 | NUR ---
PATIENT IS LYING ON BED,NO ANY COMPLAIN OF PAIN OR SHORTNESS OF BREATH AT THIS TIME, CALL LIGHT IS WITHIN THE REACH, WILL CONTINUE TO MONITOR PATIENT.
[2022-03-30 04:00] VITALS: BP 109/60
--- NOTE | 2022-03-30 04:10 | NUR ---
PATIENT IS LYING ON BED, NO ANY COMPLAIN OF PAIN OR SHORTNESS OF BREATH AT THIS TIME, VITAL SIGN IS WITHIN THE NORMAL RANGE, CALL LIGHT IS WITHIN THE REACH, WILL CONTINUE TO MONITOR PATIENT.
[2022-03-30 06:21] LABS: BASOPHILS % (AUTO) 0.5 % (0.0-2.0); EOSINOPHILS # (AUTO) 0.5 K/uL (0-0.4); EOSINOPHILS % (AUTO) 5.4 % (0.0-4.0); HEMATOCRIT 23.9 % (36-48); HEMOGLOBIN 7.6 g/dL (12.0-16.0); LYMPHOCYTES # (AUTO) 3.3 K/uL (2.5-16.5); LYMPHOCYTES % (AUTO) 38.4 % (20.5-51.1); MEAN CORPUSCULAR HEMOGLOBIN 29 pg (27-31); MEAN CORPUSCULAR HGB CONC 32 g/dL (33-37); MEAN CORPUSCULAR VOLUME 90.4 fL (80-94); MONOCYTES # (AUTO) 0.6 K/uL (0.8-1.0); MONOCYTES % (AUTO) 7.5 % (1.7-9.3); NEUTROPHILS # (AUTO) 4.2 K/uL (1.8-7.7); NEUTROPHILS % (AUTO) 48.2 % (42.2-75.2); PLATELET COUNT (AUTO) 399 K/uL (140-450); RED BLOOD CELL COUNT(AUTO) 2.64 MIL/uL (4.20-5.40); RED CELL DISTRIBUTION WIDTH 15.9 % (11.6-13.7); WHITE BLOOD COUNT (AUTO) 8.6 K/uL (4.8-10.8)
[2022-03-30] MEDS: BLOOD GLUCOSE MONITORING 1 DEV DEV FS SCH ×3 (06:32→17:09)
[2022-03-30] MEDS: INSULIN LISPRO SLIDING SCALE 100 UNITS/ML VIAL SUBQ PRN ×2 (06:41→17:10)
--- NOTE | 2022-03-30 06:41 | NUR ---
PATIENT BLOOD SUGAR IS 154, 2 UNIT INSULIN IS GIVEN PER DOCTOR ORDER, CALL LIGHT IS WITHIN THE REACH, WILL CONTINUE TO MONITOR PATIENT.
[2022-03-30 07:06] LABS: ANION GAP 16.6 (8-16); CARBON DIOXIDE 16.1 mmol/L (21-32); CHLORIDE 117 mmol/L (98-107); POTASSIUM 4.7 mmol/L (3.5-5.1); SODIUM SERUM 145 mmol/L (136-145)
[2022-03-30 07:07] LABS: GLUCOSE 166 mg/dL (74-106); UREA NITROGEN, BLOOD 45 mg/dL (7-18)
[2022-03-30 07:08] LABS: CREATININE 2.9 mg/dL (0.6-1.3)
--- NOTE | 2022-03-30 07:30 | NUR ---
GAVE THE REPORT TO MORNING NURSE ADZE FOR CONTINUOS OF CARE, PATIENT IS STABLE.
--- NOTE | 2022-03-30 08:00 | NUR ---
Received patient resting in bed, alert and oriented x 3, icelandic speaking, not in any form of distress. assessment done and documented. will continue to monitor.
[2022-03-30] MEDS: PANTOPRAZOLE 40 MG TABEC PO SCH (10:00)
[2022-03-30] MEDS: OSELTAMIVIR PHOSPHATE 75 MG CAP PO SCH (10:01)
[2022-03-30] MEDS: AMITRIPTYLINE 25 MG TAB PO SCH (10:01)
[2022-03-30] MEDS: MUPIROCIN CA NASAL 2% 1GM TUBE NS SCH (10:01)
[2022-03-30] MEDS: ASPIRIN 81 MG TAB.CHEW PO SCH (10:01)
[2022-03-30] MEDS: amLODIPine 5 MG TAB PO SCH (10:01)
--- NOTE | 2022-03-30 13:06 | NUR ---
referral packet sent to [facility] [place]. spoke with Devin who reports patient accepted to room 42A, Dr Kaye following physician, call report number [phone] IE request form faxed to [facility] transport.
[2022-03-30 15:47] VITALS: BP 109/60
[2022-03-30 16:00] VITALS: BP 147/59
--- NOTE | 2022-03-30 19:32 | NUR ---
GET THE REPORT FROM MORNING NURSE ADZE , PATIENT IS AOX1-2 , PATIENT IS RECEIVING OXYGEN 2 LITER VIA NASAL CANNULA , ALL FALL PRECAUTION MEASURE ARE IN PLACE, CALL LIGHT IS WITHIN THE REACH, WILL CONTINUE TO MONITOR PATIENT.
--- NOTE | 2022-03-30 20:30 | NUR ---
[facility] IS HERE TO AGRICULTURAL TECHNICAL OFFICER THE PATIENT , PATIENT LEFT TO CEC WITH DENISE , VITAL SIGN IS WITHIN THE NORMAL RANGE. PATIENT IS STALE.
== END 2022-03-30 20:30 | DRG 871 ==
LOC: MED 03:09 → MMU 05:16
PROVIDERS: ADMIT Family Medicine; ATTEND Family Medicine
DX: A41.9 Sepsis, unspecified organism (principal); E43 Unspecified severe protein-calorie malnutrition; J96.20 Acute and chronic respiratory failure, unspecified whether with hypoxia or hypercapnia; N17.0 Acute kidney failure with tubular necrosis; I13.0 Hypertensive heart and chronic kidney disease with heart failure and stage 1 through stage 4 chronic kidney disease, or unspecified chronic kidney disease; N39.0 Urinary tract infection, site not specified; E87.20 Acidosis, unspecified; E11.649 Type 2 diabetes mellitus with hypoglycemia without coma; J10.1 Influenza due to other identified influenza virus with other respiratory manifestations; Z20.822 Contact with and (suspected) exposure to COVID-19; J45.909 Unspecified asthma, uncomplicated; E11.22 Type 2 diabetes mellitus with diabetic chronic kidney disease; I50.9 Heart failure, unspecified; E78.2 Mixed hyperlipidemia; D63.8 Anemia in other chronic diseases classified elsewhere; E87.5 Hyperkalemia; N18.31 Chronic kidney disease, stage 3a; B96.4 Proteus (mirabilis) (morganii) as the cause of diseases classified elsewhere; Z79.4 Long term (current) use of insulin; Z68.30 Body mass index [BMI] 30.0-30.9, adult
CPT/HCPCS: 36415; 71045; 76770; 80048; 80053; 81001; 82150; 82948; 83036; 83605; 83690; 83735; 83880; 84100; 84436; 84439; 84443; 84479; 84484; 85025; 85610; 85730; 87040; 87081; 87086; 93005; 94640; 96365; 99285; J0696; J1580; J1815; J1940; J2543; J7060; J7613; Q0092

== ENCOUNTER 2022-04-24 22:29 | Inpatient (IN) | payer OTHER ==
[~2022-04-24] VITALS: Ht 160 cm; Wt 68.0 kg
[2022-04-24 22:29] VITALS: BP 127/50
[~2022-04-24 22:29] MED LIST changes: -CYT100 PO; -DOCU-299 PO; -GLIM2TAB PO; +Gentamicin Per Pharmacy MC; -INSU10SU2 SC; -LEVO-481 PO; -LINE600T4 IV; -LISI5TAB18 PO; -MAGN400S60 PR; -MEGE20TA PO; -MEMA5TAB PO; -MERO500V16 IV; -METF-1274 PO; -MULT-1328 PO; -NA P133E RC; -TRI48 PO; -ZINC220C29 PO
[2022-04-24 23:57] LABS: BASOPHILS # (AUTO) 0.1 K/uL (0.00-0.22); BASOPHILS % (AUTO) 0.5 % (0.0-2.0); EOSINOPHILS # (AUTO) 0.3 K/uL (0-0.4); EOSINOPHILS % (AUTO) 2.6 % (0.0-4.0); HEMATOCRIT 26.2 % (36-48); HEMOGLOBIN 8.5 g/dL (12.0-16.0); LYMPHOCYTES # (AUTO) 2.7 K/uL (2.5-16.5); LYMPHOCYTES % (AUTO) 25.4 % (20.5-51.1); MEAN CORPUSCULAR HEMOGLOBIN 29 pg (27-31); MEAN CORPUSCULAR HGB CONC 33 g/dL (33-37); MEAN CORPUSCULAR VOLUME 88.1 fL (80-94); MONOCYTES # (AUTO) 0.8 K/uL (0.8-1.0); MONOCYTES % (AUTO) 7.2 % (1.7-9.3); NEUTROPHILS # (AUTO) 6.8 K/uL (1.8-7.7); NEUTROPHILS % (AUTO) 64.3 % (42.2-75.2); PLATELET COUNT (AUTO) 441 K/uL (140-450); RED BLOOD CELL COUNT(AUTO) 2.97 MIL/uL (4.20-5.40); RED CELL DISTRIBUTION WIDTH 15.4 % (11.6-13.7); WHITE BLOOD COUNT (AUTO) 10.6 K/uL (4.8-10.8)
[2022-04-25 00:42] LABS: ALBUMIN 2.3 g/dL (3.4-5.0); ANION GAP 18.2 (8-16); ASPARTATE AMINOTRANSFERASE 23 U/L (15-37); CARBON DIOXIDE 15.8 mmol/L (21-32); CHLORIDE 110 mmol/L (98-107); CREATININE 3.6 mg/dL (0.6-1.3); GLUCOSE 316 mg/dL (74-106); SODIUM SERUM 138 mmol/L (136-145); TOTAL BILIRUBIN 0.2 mg/dL (0.0-1.0)
[2022-04-25 00:44] LABS: UREA NITROGEN, BLOOD 92 mg/dL (7-18)
[2022-04-25] MEDS ORDERED: NACL 0.9% 1,000 ML IV ONE ×2 (00:55→03:25)
[2022-04-25 01:56] LABS: APPEARANCE,URINE CLOUDY (CLEAR); BILIRUBIN,URINE NEGATIVE (NEGATIVE); BLOOD, URINE 3+ (NEGATIVE); COLOR,URINE YELLOW (YELLOW); LEUKOCYTE ESTERASE ,URINE 2+ (NEGATIVE); NITRITE, URINE NEGATIVE (NEGATIVE); UGLUCOSE 1+ (NEGATIVE)
[2022-04-25 02:16] LABS: WBC,URINE TOO MANY TO COUNT /HPF (0-5)
[2022-04-25] MEDS ORDERED: cefTRIAXone 1,000 MG VIAL ONE (02:44)
[2022-04-25] MEDS ORDERED: MORPHINE SULFATE 2 MG/ML SYR IVP PRN (07:05)
[2022-04-25] MEDS ORDERED: ZOLPIDEM 10 MG TAB PO PRN (07:05)
[2022-04-25] MEDS ORDERED: DOCUSATE SODIUM 100 MG GELCAP PO PRN (07:05)
[2022-04-25] MEDS ORDERED: MAG SULF 2000 MG/WATER PREMIX 50 ML IV PRN (07:05)
[2022-04-25] MEDS ORDERED: LORazepam 2 MG/ML VIAL IVP PRN (07:05)
[2022-04-25] MEDS ORDERED: ACETAMINOPHEN 325 MG TAB PO PRN (07:05)
[2022-04-25] MEDS ORDERED: SODIUM POLYSTYRENE 15 GM/60 ML UDBTL PO ONE (07:05)
[2022-04-25] MEDS ORDERED: ONDANSETRON 4 MG/2 ML VIAL IVP PRN (07:05)
[2022-04-25] MEDS ORDERED: POTASSIUM CHLORIDE 10 MEQ TABER PO PRN (07:05)
[2022-04-25] MEDS: BLOOD GLUCOSE MONITORING 1 DEV DEV FS SCH ×4 (07:49→21:00)
[2022-04-25] MEDS: INSULIN LISPRO SLIDING SCALE 100 UNITS/ML VIAL SUBQ PRN ×2 (07:56→23:50)
[2022-04-25] MEDS: AMITRIPTYLINE 25 MG TAB PO SCH ×2 (10:03→22:24)
[2022-04-25] MEDS: ASPIRIN 81 MG TAB.CHEW PO SCH (10:03)
[2022-04-25] MEDS: amLODIPine 5 MG TAB PO SCH (10:04)
[2022-04-25 12:00] VITALS: BP 139/62
[2022-04-25] MEDS ORDERED: DEXTROSE 50% 50 ML SYR IVP PRN (13:20)
[2022-04-25 16:00] VITALS: BP 127/70
[2022-04-25] MEDS ORDERED: CITRIC ACID/SODIUM CITRATE 30 ML UDC PO SCH (19:30)
[2022-04-25 20:00] VITALS: BP 150/43
[2022-04-25 20:42] LABS: ANION GAP 16.3 (8-16); CARBON DIOXIDE 16.1 mmol/L (21-32); CHLORIDE 113 mmol/L (98-107); CREATININE 3.3 mg/dL (0.6-1.3); GLUCOSE 245 mg/dL (74-106); SODIUM SERUM 139 mmol/L (136-145)
[2022-04-25 20:52] LABS: POTASSIUM 6.4 mmol/L (3.5-5.1); UREA NITROGEN, BLOOD 83 mg/dL (7-18)
[2022-04-25] MEDS ORDERED: INSULIN REGULAR, HUMAN 100 UNIT/ML VIAL IVP SCH ×3 (21:00→22:15)
[2022-04-25] MEDS ORDERED: SODIUM ZIRCONIUM CYCLOSILICATE 10 GM POWD.PACK PO SCH ×2 (21:04→22:15)
[2022-04-25] MEDS ORDERED: SODIUM ZIRCONIUM CYCLOSILICATE 10 GM POWD.PACK PO ONE (21:05)
[2022-04-25] MEDS ORDERED: FUROSEMIDE 40 MG/4 ML VIAL IVP SCH ×2 (21:05→22:15)
[2022-04-25] MEDS ORDERED: SODIUM BICARBONATE 8.4% 150 MEQ in DEXTROSE 5% 1,000 ML IV SCH (21:05)
[2022-04-25] MEDS ORDERED: SODIUM BICARBONATE 8.4% PFS 50 MEQ/50 ML SYR IVP SCH ×2 (21:10→22:15)
[2022-04-25] MEDS ORDERED: SODIUM BICARBONATE 8.4% 50 MEQ/50 ML VIAL ONE (22:12)
[2022-04-25] MEDS: TAMSULOSIN 0.4 MG CAP PO SCH (22:24)
[2022-04-25] MEDS: CALCIUM GLUC 1 GM/50 mL NS BAG 50 ML IV SCH ×2 (23:00→23:42)
[2022-04-26] VITALS: BP 133/51
[2022-04-26 04:00] VITALS: BP 128/83
[2022-04-26 04:08] LABS: ANION GAP 18.1 (8-16); CHLORIDE 110 mmol/L (98-107); CREATININE 3.3 mg/dL (0.6-1.3); GLUCOSE 268 mg/dL (74-106); POTASSIUM 5.1 mmol/L (3.5-5.1); SODIUM SERUM 141 mmol/L (136-145); UREA NITROGEN, BLOOD 78 mg/dL (7-18)
[2022-04-26] MEDS: BLOOD GLUCOSE MONITORING 1 DEV DEV FS SCH ×4 (06:43→21:54)
[2022-04-26 07:35] LABS: ANION GAP 15.1 (8-16); BASOPHILS % (AUTO) 0.5 % (0.0-2.0); CARBON DIOXIDE 22.7 mmol/L (21-32); CHLORIDE 109 mmol/L (98-107); CREATININE 3.3 mg/dL (0.6-1.3); EOSINOPHILS # (AUTO) 0.2 K/uL (0-0.4); EOSINOPHILS % (AUTO) 2.7 % (0.0-4.0); GLUCOSE 137 mg/dL (74-106); HEMATOCRIT 25.8 % (36-48); HEMOGLOBIN 8.4 g/dL (12.0-16.0); LYMPHOCYTES # (AUTO) 1.5 K/uL (2.5-16.5); LYMPHOCYTES % (AUTO) 18.3 % (20.5-51.1); MEAN CORPUSCULAR HEMOGLOBIN 29 pg (27-31); MEAN CORPUSCULAR HGB CONC 33 g/dL (33-37); MEAN CORPUSCULAR VOLUME 87.3 fL (80-94); MONOCYTES # (AUTO) 0.7 K/uL (0.8-1.0); MONOCYTES % (AUTO) 8.6 % (1.7-9.3); NEUTROPHILS # (AUTO) 5.7 K/uL (1.8-7.7); NEUTROPHILS % (AUTO) 69.9 % (42.2-75.2); PLATELET COUNT (AUTO) 403 K/uL (140-450); POTASSIUM 4.8 mmol/L (3.5-5.1); RED BLOOD CELL COUNT(AUTO) 2.95 MIL/uL (4.20-5.40); RED CELL DISTRIBUTION WIDTH 15.8 % (11.6-13.7); SODIUM SERUM 142 mmol/L (136-145); WHITE BLOOD COUNT (AUTO) 8.1 K/uL (4.8-10.8)
[2022-04-26 08:00] VITALS: BP 130/66
[2022-04-26 08:14] LABS: UREA NITROGEN, BLOOD 79 mg/dL (7-18)
[2022-04-26] MEDS ORDERED: SODIUM ZIRCONIUM CYCLOSILICATE 10 GM POWD.PACK PO SCH (09:00)
[2022-04-26] MEDS ORDERED: CITRIC ACID/SODIUM CITRATE 30 ML UDC PO SCH (09:00)
[2022-04-26] MEDS ORDERED: SODIUM ZIRCONIUM CYCLOSILICATE 10 GM POWD.PACK PO ONE (09:00)
[2022-04-26] MEDS: AMITRIPTYLINE 25 MG TAB PO SCH ×2 (10:06→21:20)
[2022-04-26] MEDS: ASPIRIN 81 MG TAB.CHEW PO SCH (10:07)
[2022-04-26] MEDS: amLODIPine 5 MG TAB PO SCH (10:07)
[2022-04-26 12:00] VITALS: BP 125/61
[2022-04-26] MEDS: SODIUM ZIRCONIUM CYCLOSILICATE 10 GM POWD.PACK PO SCH (13:54)
[2022-04-26 16:00] VITALS: BP 128/69
[2022-04-26] MEDS: INSULIN LISPRO SLIDING SCALE 100 UNITS/ML VIAL SUBQ PRN ×2 (17:01→21:54)
[2022-04-26 20:00] VITALS: BP 140/58
[2022-04-26] MEDS: SODIUM BICARBONATE 650 MG TAB PO SCH (21:19)
[2022-04-26] MEDS: TAMSULOSIN 0.4 MG CAP PO SCH (21:19)
[2022-04-27] VITALS: BP 131/45
[2022-04-27 04:00] VITALS: BP 122/44
[2022-04-27] MEDS: INSULIN LISPRO SLIDING SCALE 100 UNITS/ML VIAL SUBQ PRN ×2 (06:35→17:13)
[2022-04-27] MEDS: BLOOD GLUCOSE MONITORING 1 DEV DEV FS SCH ×4 (06:35→21:07)
[2022-04-27 07:06] LABS: BASOPHILS % (AUTO) 0.4 % (0.0-2.0); EOSINOPHILS # (AUTO) 0.2 K/uL (0-0.4); EOSINOPHILS % (AUTO) 1.2 % (0.0-4.0); HEMATOCRIT 24.6 % (36-48); HEMOGLOBIN 7.9 g/dL (12.0-16.0); LYMPHOCYTES # (AUTO) 1.6 K/uL (2.5-16.5); LYMPHOCYTES % (AUTO) 12.5 % (20.5-51.1); MEAN CORPUSCULAR HEMOGLOBIN 28 pg (27-31); MEAN CORPUSCULAR HGB CONC 32 g/dL (33-37); MEAN CORPUSCULAR VOLUME 86.9 fL (80-94); MONOCYTES # (AUTO) 0.7 K/uL (0.8-1.0); NEUTROPHILS # (AUTO) 10.6 K/uL (1.8-7.7); NEUTROPHILS % (AUTO) 80.9 % (42.2-75.2); PLATELET COUNT (AUTO) 402 K/uL (140-450); RED BLOOD CELL COUNT(AUTO) 2.83 MIL/uL (4.20-5.40); RED CELL DISTRIBUTION WIDTH 15.2 % (11.6-13.7); WHITE BLOOD COUNT (AUTO) 13.1 K/uL (4.8-10.8)
[2022-04-27 07:24] LABS: ANION GAP 17.4 (8-16); CARBON DIOXIDE 22.7 mmol/L (21-32); CHLORIDE 105 mmol/L (98-107); CREATININE 3.4 mg/dL (0.6-1.3); GLUCOSE 226 mg/dL (74-106); POTASSIUM 5.1 mmol/L (3.5-5.1); SODIUM SERUM 140 mmol/L (136-145)
[2022-04-27 07:25] LABS: UREA NITROGEN, BLOOD 76 mg/dL (7-18)
[2022-04-27 08:00] VITALS: BP 143/86
[2022-04-27] MEDS: FLUCONAZOLE 100 MG TAB PO SCH (08:32)
[2022-04-27] MEDS: ASPIRIN 81 MG TAB.CHEW PO SCH (08:32)
[2022-04-27] MEDS: AMITRIPTYLINE 25 MG TAB PO SCH ×2 (08:32→20:45)
[2022-04-27] MEDS: SODIUM ZIRCONIUM CYCLOSILICATE 10 GM POWD.PACK PO SCH (08:32)
[2022-04-27] MEDS: amLODIPine 5 MG TAB PO SCH (08:33)
[2022-04-27] MEDS: SODIUM BICARBONATE 650 MG TAB PO SCH ×2 (08:33→20:44)
[2022-04-27 12:00] VITALS: BP 113/50
[2022-04-27 16:00] VITALS: BP 134/55
[2022-04-27 20:00] VITALS: BP 139/43
[2022-04-27] MEDS: TAMSULOSIN 0.4 MG CAP PO SCH (20:44)
[2022-04-28] VITALS: BP 112/52
[2022-04-28 04:00] VITALS: BP 112/45
[2022-04-28] MEDS: BLOOD GLUCOSE MONITORING 1 DEV DEV FS SCH ×3 (06:50→16:28)
[2022-04-28 06:59] LABS: BASOPHILS # (AUTO) 0.1 K/uL (0.00-0.22); BASOPHILS % (AUTO) 0.6 % (0.0-2.0); EOSINOPHILS # (AUTO) 0.4 K/uL (0-0.4); EOSINOPHILS % (AUTO) 4.5 % (0.0-4.0); HEMATOCRIT 24.3 % (36-48); LYMPHOCYTES # (AUTO) 2.3 K/uL (2.5-16.5); LYMPHOCYTES % (AUTO) 26.7 % (20.5-51.1); MEAN CORPUSCULAR HEMOGLOBIN 29 pg (27-31); MEAN CORPUSCULAR HGB CONC 33 g/dL (33-37); MEAN CORPUSCULAR VOLUME 87.3 fL (80-94); MONOCYTES # (AUTO) 0.7 K/uL (0.8-1.0); MONOCYTES % (AUTO) 7.9 % (1.7-9.3); NEUTROPHILS # (AUTO) 5.3 K/uL (1.8-7.7); NEUTROPHILS % (AUTO) 60.3 % (42.2-75.2); PLATELET COUNT (AUTO) 387 K/uL (140-450); RED BLOOD CELL COUNT(AUTO) 2.78 MIL/uL (4.20-5.40); RED CELL DISTRIBUTION WIDTH 15.3 % (11.6-13.7); WHITE BLOOD COUNT (AUTO) 8.7 K/uL (4.8-10.8)
[2022-04-28 07:12] LABS: ANION GAP 15.9 (8-16); CARBON DIOXIDE 22.8 mmol/L (21-32); CHLORIDE 107 mmol/L (98-107); CREATININE 3.5 mg/dL (0.6-1.3); GLUCOSE 212 mg/dL (74-106); POTASSIUM 4.7 mmol/L (3.5-5.1); SODIUM SERUM 141 mmol/L (136-145)
[2022-04-28 07:31] LABS: UREA NITROGEN, BLOOD 75 mg/dL (7-18)
[2022-04-28 08:00] VITALS: BP 137/53
[2022-04-28] MEDS: amLODIPine 5 MG TAB PO SCH (10:21)
[2022-04-28] MEDS: AMITRIPTYLINE 25 MG TAB PO SCH (10:22)
[2022-04-28] MEDS: SODIUM BICARBONATE 650 MG TAB PO SCH (10:22)
[2022-04-28] MEDS: ASPIRIN 81 MG TAB.CHEW PO SCH (10:22)
[2022-04-28] MEDS: SODIUM ZIRCONIUM CYCLOSILICATE 10 GM POWD.PACK PO SCH (10:23)
[2022-04-28] MEDS: FLUCONAZOLE 100 MG TAB PO SCH (10:27)
[2022-04-28] MEDS ORDERED: [UNRECOGNIZED DRUG - CODE] PO (11:40)
[2022-04-28] MEDS ORDERED: FLUC100T1 PO (11:40)
[2022-04-28 12:00] VITALS: BP 107/60
[2022-04-28] MEDS: INSULIN LISPRO SLIDING SCALE 100 UNITS/ML VIAL SUBQ PRN ×2 (12:41→16:30)
[2022-04-28 14:08] VITALS: BP 107/60
[2022-04-28 16:00] VITALS: BP 134/53
== END 2022-04-28 19:40 | DRG 682 ==
LOC: MED 22:29 → MTU 04-25 03:25
PROVIDERS: ADMIT General Practice; ATTEND General Practice
DX: N17.0 Acute kidney failure with tubular necrosis (principal); I50.43 Acute on chronic combined systolic (congestive) and diastolic (congestive) heart failure; N39.0 Urinary tract infection, site not specified; I13.0 Hypertensive heart and chronic kidney disease with heart failure and stage 1 through stage 4 chronic kidney disease, or unspecified chronic kidney disease; E87.20 Acidosis, unspecified; E86.0 Dehydration; E87.5 Hyperkalemia; Z20.822 Contact with and (suspected) exposure to COVID-19; E11.22 Type 2 diabetes mellitus with diabetic chronic kidney disease; K21.9 Gastro-esophageal reflux disease without esophagitis; D63.8 Anemia in other chronic diseases classified elsewhere; I25.10 Atherosclerotic heart disease of native coronary artery without angina pectoris; N18.30 Chronic kidney disease, stage 3 unspecified; Z91.018 Allergy to other foods; Z79.4 Long term (current) use of insulin
CPT/HCPCS: 36415; 71045; 80048; 80053; 81001; 82948; 83036; 83605; 83735; 83880; 85025; 87040; 87081; 87086; 96361; 96365; 99285; J0610; J0696; J1644; J1940; J3475; J3490; J7060; Q0092

== ENCOUNTER 2022-10-26 16:23 | Inpatient (IN) | payer OTHER ==
[~2022-10-26] VITALS: Ht 157.5 cm; Wt 75.7 kg
[2022-10-26] MEDS: SODIUM BICARBONATE 8.4% 50 MEQ in NACL 0.45% 1,000 ML IV SCH (07:00)
[2022-10-26] MEDS: AMITRIPTYLINE 25 MG TAB PO SCH (10:00)
[~2022-10-26 16:23] MED LIST changes: +FLUC100T1 PO; -Gentamicin Per Pharmacy MC; +[UNRECOGNIZED DRUG - CODE] PO
[2022-10-26 16:27] VITALS: BP 149/72; PULSE 98; RESP 17; TEMP 97.4; O2SAT 97
--- NOTE | 2022-10-26 16:36 | NUR ---
87 YO F LEATHA FROM [facility] FOR UTI EVALUTATION. PT C/O BURNING WITH URINATION, RETENSION, URGENCY X 10 DAYS, CHILLS, TINGLING TO BILAT HANDS AND FEET. PT ON ANTIBIOTICS W/O RELIEF. AOX3. SAFETY MAINTAINED. HX: DEMENTIA
[2022-10-26 17:18] LABS: BASOPHILS # (AUTO) 0.1 K/uL (0.00-0.22); BASOPHILS % (AUTO) 0.7 % (0.0-2.0); EOSINOPHILS # (AUTO) 0.4 K/uL (0-0.4); EOSINOPHILS % (AUTO) 3.4 % (0.0-4.0); HEMATOCRIT 22.3 % (36-48); HEMOGLOBIN 7.4 g/dL (12.0-16.0); LYMPHOCYTES # (AUTO) 3.4 K/uL (2.5-16.5); LYMPHOCYTES % (AUTO) 32.1 % (20.5-51.1); MEAN CORPUSCULAR HEMOGLOBIN 29 pg (27-31); MEAN CORPUSCULAR HGB CONC 33 g/dL (33-37); MEAN CORPUSCULAR VOLUME 86.9 fL (80-94); MONOCYTES # (AUTO) 0.9 K/uL (0.8-1.0); MONOCYTES % (AUTO) 8.9 % (1.7-9.3); NEUTROPHILS # (AUTO) 5.8 K/uL (1.8-7.7); NEUTROPHILS % (AUTO) 54.9 % (42.2-75.2); PLATELET COUNT (AUTO) 459 K/uL (140-450); RED BLOOD CELL COUNT(AUTO) 2.57 MIL/uL (4.20-5.40); RED CELL DISTRIBUTION WIDTH 17.3 % (11.6-13.7); WHITE BLOOD COUNT (AUTO) 10.6 K/uL (4.8-10.8)
[2022-10-26 17:24] LABS: ALBUMIN 2.3 g/dL (3.4-5.0); ASPARTATE AMINOTRANSFERASE 22 U/L (15-37); CREATININE 2.8 mg/dL (0.6-1.3); GLUCOSE 140 mg/dL (74-106); TOTAL BILIRUBIN 0.2 mg/dL (0.0-1.0)
[2022-10-26 17:25] LABS: APPEARANCE,URINE CLOUDY (CLEAR); BILIRUBIN,URINE NEGATIVE (NEGATIVE); BLOOD, URINE 2+ (NEGATIVE); COLOR,URINE YELLOW (YELLOW); LEUKOCYTE ESTERASE ,URINE 3+ (NEGATIVE); NITRITE, URINE NEGATIVE (NEGATIVE); UGLUCOSE NEGATIVE (NEGATIVE)
[2022-10-26 17:34] LABS: RBC,URINE 20-50 /HPF (0-5)
[2022-10-26 17:37] LABS: ANION GAP 18.1 (8-16); CHLORIDE 110 mmol/L (98-107); SODIUM SERUM 137 mmol/L (136-145)
[2022-10-26 17:43] LABS: POTASSIUM 7.1 mmol/L (3.5-5.1); UREA NITROGEN, BLOOD 77 mg/dL (7-18)
[2022-10-26] MEDS ORDERED: INSULIN REGULAR, HUMAN 100 UNIT/ML VIAL IV ONE (17:45)
[2022-10-26] MEDS ORDERED: SODIUM POLYSTYRENE 15 GM/60 ML UDBTL PO ONE (17:45)
[2022-10-26] MEDS ORDERED: DEXTROSE 50% 50 ML SYR IVP ONE (17:45)
[2022-10-26] MEDS ORDERED: SODIUM BICARBONATE 8.4% 100 MEQ in DEXTROSE 5% 1,000 ML IV SCH (17:45)
[2022-10-26] MEDS ORDERED: FUROSEMIDE 40 MG/4 ML VIAL IVP ONE (17:45)
[2022-10-26] MEDS ORDERED: NACL 0.9% 1,000 ML IV ONE (17:45)
[2022-10-26] MEDS ORDERED: CALCIUM GLUCONATE 10% 1,000 MG in NACL 0.9% 50 ML IV ONE (17:55)
--- NOTE | 2022-10-26 18:07 | NUR ---
CALLED PHARMACY FOR MEDICATION ORDER. WILL SEND TO THE FLOOR
--- NOTE | 2022-10-26 18:56 | NUR ---
SWABBED FOR CLIFFORD AND WALKED TO LAB
[2022-10-26 18:57] VITALS: O2SAT 97
[2022-10-26] MEDS ORDERED: PIPERACILLIN/TAZOBACTAM 3.375 GM in DEXTROSE 5% 50 ML IV ONE (19:10)
[2022-10-26] MEDS ORDERED: HYDROcodone/APAP 5/325 MG 1 TAB TAB PO PRN (19:10)
--- NOTE | 2022-10-26 19:13 | NUR ---
COMPUTER OPERATIONS TECHNICIAN DR GAUILERA CALLED TO REQUESTED ABG WHEN PT IN ICU FLOOR
[2022-10-26] MEDS ORDERED: DEXTROSE 50% 50 ML SYR IVP PRN (19:20)
[2022-10-26 19:42] LABS: ANION GAP 17.7 (8-16); CHLORIDE 110 mmol/L (98-107); CREATININE 2.8 mg/dL (0.6-1.3); GLUCOSE 187 mg/dL (74-106); SODIUM SERUM 137 mmol/L (136-145)
[2022-10-26 19:47] LABS: POTASSIUM 6.7 mmol/L (3.5-5.1)
[2022-10-26 19:49] LABS: UREA NITROGEN, BLOOD 74 mg/dL (7-18)
[2022-10-26] MEDS ORDERED: CALCIUM GLUC 1 GM/50 mL NS BAG 50 ML IV ONE (19:51)
[2022-10-26] MEDS ORDERED: MEROPENEM 1,000 MG in NACL 0.9% 50 ML IV SCH (20:00)
--- NOTE | 2022-10-26 20:22 | NUR ---
Patient will be admitted to care of JENNI GILLESPIE. Admited to ICU. Will go to room BED 2. Belongings list completed. Report to PARISA TRUJILLO.
[2022-10-26] MEDS ORDERED: PIPERACILLIN/TAZOBACTAM 3.375 GM VIAL IV ONE (20:33)
[2022-10-26 21:00] VITALS: PULSE 101; RESP 20; O2SAT 99
--- NOTE | 2022-10-26 21:00 | NUR ---
RECEIVED PT FROM ER NURSE ON [facility] AT 2100 WITH DIAGNOSIS OF HYPERKALEMIA. PT ARRIVED TO UNIT ALERT AND ORIENTED X3. PT MICRONESIAN SPEAKING ONLY WITH MINIMAL LUXEMBOURGISH. NO S/S OF DISTRESS UPON ARRIVAL. LUNG SOUND CLEAR TO AUSCULTATION WITH SPO2 95% ROOM AIR. PT EXERT LABORED BREATHING WITH CHEST RISE AND FALL SYMMETRICALLY. EYES OPEN SPONTANEOUSLY AND TRACKING WITH PERRLA. PT WITH SINUS TACHYCARDIA ON ALL TERRAIN VEHICLE TECHNICIAN WITH NO COMPLAINTS OF CHEST PAIN OR HEADACHE. SKIN CLEAN AND DRY WITH WOUNDS ON BUTTOCK. LEFT FA 20G IV PERIPHERAL WITH ANTIBIOTIC RUNNING. LUCIA INSERTED IN ER WITH CLOUDY AND YELLOW URINE IN THE BAG. PT COMMUNICATE CLEARLY IN MICRONESIAN. BUT REFUSED TO SPEAK TO REPLANTER. CONTINUE TO MONITOR AND CONTINUE OF CARE FOR PATIENT
[2022-10-26] MEDS ORDERED: MEROPENEM 1,000 MG VIAL IV ONE (21:42)
[2022-10-26] MEDS ORDERED: AMITRIPTYLINE 10 MG TAB ONE (21:43)
[2022-10-26] MEDS: ATORVASTATIN 20 MG TAB PO SCH (21:45)
[2022-10-26] MEDS: TAMSULOSIN 0.4 MG CAP PO SCH (21:45)
[2022-10-26] MEDS: BLOOD GLUCOSE MONITORING 1 DEV DEV FS SCH (21:48)
[2022-10-26] MEDS ORDERED: CRUSHER, PILL MC ONE (21:52)
[2022-10-26 22:00] VITALS: BP 161/60; PULSE 101; RESP 32; TEMP 97; O2SAT 95
[2022-10-26] MEDS: INSULIN LISPRO SLIDING SCALE 100 UNITS/ML VIAL SUBQ PRN (22:29)
[2022-10-26 23:40] LABS: ANION GAP 18.6 (8-16); CARBON DIOXIDE 15.9 mmol/L (21-32); CHLORIDE 111 mmol/L (98-107); CREATININE 2.8 mg/dL (0.6-1.3); GLUCOSE 231 mg/dL (74-106); SODIUM SERUM 139 mmol/L (136-145)
[2022-10-26 23:41] LABS: POTASSIUM 6.5 mmol/L (3.5-5.1); UREA NITROGEN, BLOOD 78 mg/dL (7-18)
[2022-10-27] VITALS (11 sets, daily range): BP systolic 104–160; BP diastolic 45–92; PULSE 74–100; RESP 17–32; TEMP 96.5–97.5; O2SAT 94–99
[2022-10-27] MEDS ORDERED: DEXTROSE 50% 50 ML SYR IVP SCH (00:05)
[2022-10-27] MEDS ORDERED: INSULIN REGULAR, HUMAN 100 UNIT/ML VIAL IV SCH (00:05)
[2022-10-27] MEDS ORDERED: CALCIUM CHLORIDE 10% 1,000 MG in NACL 0.9% 100 ML IV ONE (00:05)
[2022-10-27] MEDS ORDERED: SODIUM BICARBONATE 8.4% PFS 50 MEQ/50 ML SYR IVP SCH (00:05)
[2022-10-27] MEDS ORDERED: CALCIUM CHLORIDE 10% 100 MG/ML SYR IVP ONE (00:30)
--- NOTE | 2022-10-27 07:00 | NUR ---
RECEIVED REPOSRT FROM PARISA TRUJILLO PT IS ALERT AND ORIENTED TO NAME AND PLACE ON ROOM AIN VS HR 76 BP 114/45 RR 25 02SAT 99% SR-ST ON THE MONITOR. PT K LECEL IS 6.5 PT HAS LEFT FA IV AND RIGHT FA IV PT IS ON NA BICARB AT 100ML/HR PT IS ON MERREM IV FOR UTI PT ON F/C DRAINING YELLOW CREAM URINE PT IS INCONTIUNENT OF BM HAS MODERATE SOFT STOOL TODAY PT HAS 2 OPEN WOUND ON THE SACRAL AREA DRESSING CHANGE. PT IS COOPERATIVE CALM AND KEPT SAFE AND COMFORTABLE CONTNUE TO MONITOR.
[2022-10-27] MEDS: BLOOD GLUCOSE MONITORING 1 DEV DEV FS SCH ×4 (07:30→21:02)
--- NOTE | 2022-10-27 07:33 | NUR ---
ENDORSED TO DAY SHIFT CASSANDRA LOMBARDO FOR CONTINUITY OF CARE
--- NOTE | 2022-10-27 08:47 | NUR ---
PATIENT HAS BEEN SCREENED AND CATEGORIZED MODERATE NUTRITION RISK. PATIENT WILL BE SEEN WITHIN 3-5 DAYS OF ADMISSION. 10/29/22-10/31/[address]
[2022-10-27] MEDS: SODIUM BICARBONATE 8.4% 50 MEQ in NACL 0.45% 1,000 ML IV SCH ×2 (08:53→20:44)
[2022-10-27] MEDS: MEROPENEM 1,000 MG in NACL 0.9% 50 ML IV SCH ×2 (08:54→20:34)
[2022-10-27] MEDS: ASPIRIN 81 MG TAB.CHEW PO SCH (08:54)
[2022-10-27] MEDS: amLODIPine 5 MG TAB PO SCH (08:54)
[2022-10-27] MEDS: SODIUM ZIRCONIUM CYCLOSILICATE 10 GM POWD.PACK PO SCH (08:56)
[2022-10-27] MEDS ORDERED: ENOXAPARIN 30 MG/0.3 ML SYR SUBQ SCH (09:00)
[2022-10-27 09:02] LABS: BASOPHILS # (AUTO) 0.1 K/uL (0.00-0.22); BASOPHILS % (AUTO) 0.5 % (0.0-2.0); EOSINOPHILS # (AUTO) 0.2 K/uL (0-0.4); EOSINOPHILS % (AUTO) 2.3 % (0.0-4.0); HEMATOCRIT 21.9 % (36-48); HEMOGLOBIN 7.4 g/dL (12.0-16.0); LYMPHOCYTES # (AUTO) 2.1 K/uL (2.5-16.5); LYMPHOCYTES % (AUTO) 19.8 % (20.5-51.1); MEAN CORPUSCULAR HEMOGLOBIN 28 pg (27-31); MEAN CORPUSCULAR HGB CONC 34 g/dL (33-37); MEAN CORPUSCULAR VOLUME 83.7 fL (80-94); MONOCYTES # (AUTO) 0.7 K/uL (0.8-1.0); MONOCYTES % (AUTO) 6.9 % (1.7-9.3); NEUTROPHILS # (AUTO) 7.5 K/uL (1.8-7.7); NEUTROPHILS % (AUTO) 70.5 % (42.2-75.2); PLATELET COUNT (AUTO) 413 K/uL (140-450); RED BLOOD CELL COUNT(AUTO) 2.62 MIL/uL (4.20-5.40); RED CELL DISTRIBUTION WIDTH 17.5 % (11.6-13.7); WHITE BLOOD COUNT (AUTO) 10.7 K/uL (4.8-10.8)
[2022-10-27] MEDS: AMITRIPTYLINE 25 MG TAB PO SCH ×2 (09:03→20:33)
[2022-10-27] MEDS: INSULIN LISPRO SLIDING SCALE 100 UNITS/ML VIAL SUBQ PRN ×4 (09:05→20:46)
--- NOTE | 2022-10-27 09:35 | NUR ---
DR. GRIJALVA CAME IN AND SEE PT TODAY GET UPDATE ANSWERED QUESTIONS MAG LEVEL 1.5 TODAY CBC RESULT IS IN PENDING CMP CALLED LAB TO FOLLOW UP RESULT. Addendum: 10/27/22 at 1027 by GRUPO MATOS RN ERROR ENTRY ON NAME CORRECTION DR. YARBROUGH CAME IN FOR PT UPDATE.
[2022-10-27 09:49] LABS: ALBUMIN 2.1 g/dL (3.4-5.0); ANION GAP 16.5 (8-16); ASPARTATE AMINOTRANSFERASE 19 U/L (15-37); CARBON DIOXIDE 20.6 mmol/L (21-32); CHLORIDE 108 mmol/L (98-107); CREATININE 2.8 mg/dL (0.6-1.3); GLUCOSE 202 mg/dL (74-106); SODIUM SERUM 139 mmol/L (136-145); TOTAL BILIRUBIN 0.3 mg/dL (0.0-1.0)
[2022-10-27 09:59] LABS: POTASSIUM 6.1 mmol/L (3.5-5.1)
[2022-10-27 10:00] LABS: UREA NITROGEN, BLOOD 71 mg/dL (7-18)
--- NOTE | 2022-10-27 10:03 | NUR ---
DR ZACARIAS CAME IN AND SEE PT GET UPDATE ANSWERED ALL QUESTION NO NEW ORDER GIVEN.
--- NOTE | 2022-10-27 10:22 | NUR ---
CALLED DR. YARBROUGH AND MADE AWARE OF BMP RESULT TODAY READ BACK RESULT K=6.1 AND CREA LEVEL 2.8 ORDER TO GIVE LOKELMA 10 GM NOW AND REPEAT BMP AT 1700 RBVTO.
[2022-10-27] MEDS ORDERED: SODIUM ZIRCONIUM CYCLOSILICATE 10 GM POWD.PACK PO SCH (10:23)
--- NOTE | 2022-10-27 10:46 | NUR ---
DNR STATUS Pt.'s daughter Manju Miles called and enquired about pt.'s condition. Info. given on pt.'s ICU admission and condition. She confirmed that pt. and family has elected and signed DNR orders. POSLT in chart noted signed by Dr. Hinds on . Pt. primary RN Rina notified.
--- NOTE | 2022-10-27 10:47 | NUR ---
FIELD LABORER ARIELLE CALLED DAUGHTER PT HAS POLST AND CLARIFY CODE STATUS CONFIRMED DNR STATUS
[2022-10-27] MEDS: HYDROcodone/APAP 5/325 MG 1 TAB TAB PO PRN (13:28)
[2022-10-27] MEDS ORDERED: Z-GUARD PASTE TP PRN ×2 (13:50→15:05)
--- NOTE | 2022-10-27 14:55 | NUR ---
WOUND CARE NOTE: PT. ADMITTED WITH MASD TO SACRAL AND PERINEUM. AREA. PT. WITH DANA SCALE MODERATE TO HI RISK. POC DISCUSSED WITH PRIMARY RN GALINA. INTEGUMENTARY: -ORAL MEMBRANE PINK INTACT, LIPS, CHEEKS SKIN DRY, NO OPEN WOUNDS -MULTIPLE ECCHYMOSIS TO EXTREMITIES, FURTHER ECCHYMOSIS -MOISTURE ASSOCIATED SKIN DAMAGE(MASD) TO: B/L GROINS, PERINEUM, SKIN MOIST AND RED -SACRAL MASD HEALING SCAR TISSUES, 2 SITES: RIGHT SACRAL 1X0.5CM PINK, NATALIA WOUND SKIN PEELING. LEFT SACRAL 2X1CM NATALIA WOUND SKIN PEELING. RECOMMENDATIONS: -NATALIA-CARE Q2H AND APPLY Z GUARD TO R/L GROINS, PERINEUM BID AND PRN IF SOILING -CLEANSE SACRALCOCCYX WITH MILD SOAP AND WATER, PAT DRY, APPLY Z GUARD, COVER WITH FOAM DRESSING QD AND PRN IF SOILING -APPLY FOAM DRESSING TO BONY PROMINENCE DAILY AND PRN IF SOILING PREVENTION -APPLY SKIN PREP WIPE TO BLE AND LEFT HEEL BID, GRINDER HARDBOARD AND APPLY HEEL PROTECTORS TO BILATERAL HEELS WITH PILLOWS OFFLOADING -POSITIONING: TURN AND REPOSITION PATIENT Q 2H OR SOONER USE PILLOWS TO KEEP BONY PROMINENCES FROM DIRECT CONTACT WITH SURFACES USE REPOSITIONING WEDGES TO PROVIDE 30-DEGREE ANGLE FOR SIDE LYING POSITIONS OFFLOADING OR FOAM DRESSING TO ALL TUBING TO PREVENT MEDICAL DEVICES RELATED PRESSURE INJURY -RE-EVALUATING AND MANAGING INCONTINENCE MONITOR SKIN CONDITION DURING POSITION CHANGE DO NOT MASSAGE REDNESS, BONY PROMINENCES FREQUENT NATALIA-CARE AND PROVIDE BARRIER CREAMS PRN IF SOILING MOISTURE CONTROL BY ABSORBENT PAD TO WICK AND HOLD MOISTURE. KEEP SKIN DRY AND PROTECT FROM FRICTION -MANAGE FRICTION/SHEAR/MOBILITY KEEP HOB AT THE LOWEST LEVEL OF ELEVATION NO MORE THAN 30 DEGREES UNLESS OTHERWISE CONTRAINDICATED USE LIFT SHEET TO MOVE PATIENT AND PREVENT LATERAL SHEER. PROTECT HEELS, ELBOWS BONY PROMINENCES WITH SKIN BERRIES OR FOAM DRESSING IF EXPOSED TO FRICTION OFFLOAD BILATERAL HEELS BY PLACING PILLOWS UNDER CALVES AT ALL TIMES, UNLESS OTHERWISE CONTRAINDICATED -PRESSURE REDISTRIBUTION SURFACE THERAPY GUERRERO ISOFLEX MATTRESS -NUTRITION: PLEASE FOLLOW RD RECOMMENDATIONS AND OFFER NUTRITION SUPPLEMENTS IF ORDERED.
--- NOTE | 2022-10-27 16:16 | NUR ---
TRANSFER PT TO TELEMETRY RM 124 A REPORT GIVEN TO GEORGIE RN PT VS WNL NO CO PAIN NO SOB LUCIA CATH 700 OUTPUT. BELONGINGS WITH PT NO ELECTRONICS. KEPT SAFE AND LOCKED BED AND LOW CALL LIGHT WITHIN REACH NURSE AT BEDSIDE.
--- NOTE | 2022-10-27 16:20 | NUR ---
RECEIVED PATIENT TRANSFERRED FROM ICU. ESTONIAN SPEAKING. NOT IN ANY FORM OF DISTRESS. LUCIA CATHETER IN PLACE WITH CLOUDY DRAINAGE NOTED. PATIENT DENIES ANY PAIN OR DISCOMFORT AT THIS TIME. PLAN OF CARE DISCUSSED. PATIENT VERBALIZED UNDERSTANDING.
--- NOTE | 2022-10-27 16:27 | NUR ---
DC PLANNING 87YO FEMALE PATIENT ,A RESIDENT OF [facility] ADMITTED TO ICU FOR SEVERE HYPERKALEMIA. PATIENT HAS HX OF CKD,DM,ANEMIA AND CHF.NEPHRO ON BOARD BUT NO DIALYSIS RECOMMENDED AT THIS TIME.FRANYD CATH WAS PLACED. PATIENT ALSO HAS SYMPTOMS OF CYSTITIS WITH DYSURIA AND WAS ON ZOSYN AND FLUCONAZOLE WITH NO IMPROVEMENT.URINE CULTURE (+) FOR MAXINE GLABRATA.MEROPENEM WAS GIVEN. FLUCONAZOLE AND ZOSYN WERE DISCONTINUED..ID CONSULT REQUESTED.K+ TRENDING DOWN. PATIENT WAS DOWNGRADED TO TELEMETRY AND WAS TRANSFERRED TO ROOM 124-A.DC PLAN-BACK TO [facility] WHEN PATIENT CONDITION IMPROVES AND PATIENT RESPONDS TO TX.CM TO FOLLOW. Addendum: 11/01/22 at 1650 by Ankita Mantilla RN DC PLANNING: PATIENT HAS A DC ORDER TO RETURN TO [facility]. FAXED ALL PAPER WORK PER LYSSA PATIENT CAN GO TO ROOM 14C .# TO GIVE REPORT [phone] ARRANGED TRANSPORT WITH [facility] ETA 1900 . NOTIFIED CHUCK TRUJILLO. CM TO FOLLOW Addendum: 11/01/22 at 2810 by Ankita Mantilla RN DC PLANNING CALLED [facility] STATED IT"S CLOSED FOR THE BRYANNA. CALLED A CALL A CAR [phone] SPOKE WITH NIA SCHEDULED THE DIE PRESSER TIME 6:30 pm. NOTIFIED EMANUEL CHARGE NURSE. AVE TO FOLLOW
[2022-10-27 17:11] LABS: ANION GAP 14.7 (8-16); CARBON DIOXIDE 22.9 mmol/L (21-32); CHLORIDE 106 mmol/L (98-107); CREATININE 2.7 mg/dL (0.6-1.3); GLUCOSE 177 mg/dL (74-106); POTASSIUM 5.6 mmol/L (3.5-5.1); SODIUM SERUM 138 mmol/L (136-145)
[2022-10-27 17:26] LABS: UREA NITROGEN, BLOOD 67 mg/dL (7-18)
--- NOTE | 2022-10-27 19:30 | NUR ---
RECEIVED PT FROM DAY RN FOR CONTINUITY OF CARE. PT AWAKE, ALERT AND ORIENTED X 2,YORUBA SPEAKING, ON ROOM AIR BREATHING EVEN AND UNLABORED. NO S/SX OF DISTRESS AT THIS MOMENT. IV ON L FA G 20,R UPPER ARM G22, PATENT AND INTACT. POC DISCUSSED. ALL PRECAUTIONS IN PLACE. CALL LIGHT WITHIN REACH. WILL CONTINUE TO MONITOR.
[2022-10-27] MEDS ORDERED: MAG SULF 2000 MG/WATER PREMIX 50 ML IV ONE (20:05)
[2022-10-27] MEDS: ATORVASTATIN 20 MG TAB PO SCH (20:33)
[2022-10-27] MEDS: TAMSULOSIN 0.4 MG CAP PO SCH (20:33)
--- NOTE | 2022-10-27 21:00 | NUR ---
SCHEDULED MEDICATIONS GIVEN. PT TOLERATED WELL. BLOOD SUGAR WAS 263, INSULIN COVERAGE GIVEN.
[2022-10-28] VITALS (9 sets, daily range): BP systolic 116–142; BP diastolic 50–78; PULSE 76–99; RESP 17–20; TEMP 97.2–98.8; O2SAT 92–99
--- NOTE | 2022-10-28 02:30 | NUR ---
PT ASLEEP.BREATHING EVEN AND UNLABORED, NO S/SX OF RESPIRATORY DISTRESS.ALL SAFETY PRECAUTIONS IN PLACE. CALL LIGHT WITHIN REACH . WILL CONTINUE TO MONITOR.
[2022-10-28] MEDS: Z-GUARD PASTE TP SCH ×2 (03:29→14:08)
[2022-10-28 05:26] LABS: BASOPHILS # (AUTO) 0.1 K/uL (0.00-0.22); BASOPHILS % (AUTO) 0.8 % (0.0-2.0); EOSINOPHILS # (AUTO) 0.5 K/uL (0-0.4); EOSINOPHILS % (AUTO) 4.9 % (0.0-4.0); HEMOGLOBIN 6.5 g/dL (12.0-16.0); LYMPHOCYTES # (AUTO) 3.1 K/uL (2.5-16.5); LYMPHOCYTES % (AUTO) 33.3 % (20.5-51.1); MEAN CORPUSCULAR HEMOGLOBIN 28 pg (27-31); MEAN CORPUSCULAR HGB CONC 34 g/dL (33-37); MONOCYTES % (AUTO) 10.6 % (1.7-9.3); NEUTROPHILS # (AUTO) 4.6 K/uL (1.8-7.7); NEUTROPHILS % (AUTO) 50.4 % (42.2-75.2); PLATELET COUNT (AUTO) 382 K/uL (140-450); RED BLOOD CELL COUNT(AUTO) 2.29 MIL/uL (4.20-5.40); RED CELL DISTRIBUTION WIDTH 17.5 % (11.6-13.7); WHITE BLOOD COUNT (AUTO) 9.2 K/uL (4.8-10.8)
[2022-10-28 05:33] LABS: HEMATOCRIT 19.3 % (36-48)
[2022-10-28 05:44] LABS: ANION GAP 16.4 (8-16); CARBON DIOXIDE 21.9 mmol/L (21-32); CHLORIDE 106 mmol/L (98-107); CREATININE 2.7 mg/dL (0.6-1.3); GLUCOSE 142 mg/dL (74-106); POTASSIUM 5.3 mmol/L (3.5-5.1); SODIUM SERUM 139 mmol/L (136-145); UREA NITROGEN, BLOOD 69 mg/dL (7-18)
[2022-10-28] MEDS: SODIUM BICARBONATE 8.4% 50 MEQ in NACL 0.45% 1,000 ML IV SCH ×2 (05:45→08:51)
[2022-10-28] MEDS: BLOOD GLUCOSE MONITORING 1 DEV DEV FS SCH ×4 (06:16→20:24)
--- NOTE | 2022-10-28 06:58 | NUR ---
ORDERS RECEIVED FROM DR GARCIA.CALLED DAUGHTER ALEJANDRA AND LEFT MESSAGE FROM THE BLOOD TRANSFUSION CONSENT.
--- NOTE | 2022-10-28 07:00 | NUR ---
PT IS STABLE. NO ACUTE EVENTS THROUGHOUT THE NIGHT. ALL NEEDS MET. NO S/SX OF DISTRESS AT THE MOMENT. ALL PRECAUTIONS IN PLACE. CALL LIGHT WITHIN REACH. WILL ENDORSE TO MORNING SHIFT NURSE.
[2022-10-28] MEDS: AMITRIPTYLINE 25 MG TAB PO SCH ×2 (08:53→20:22)
[2022-10-28] MEDS: SODIUM ZIRCONIUM CYCLOSILICATE 10 GM POWD.PACK PO SCH (08:54)
[2022-10-28] MEDS: ASPIRIN 81 MG TAB.CHEW PO SCH (08:54)
[2022-10-28] MEDS: amLODIPine 5 MG TAB PO SCH (08:54)
--- NOTE | 2022-10-28 09:12 | NUR ---
FNS CONSULT FOR PATIENT ON WOUNDS/PRESSURE ULCER RECEIVED ON 10/28/22. PATIENT WILL BE SEEN IN 1-2 DAYS OF RECEIVING CONSULT. DAVID KITCHEN RD
[2022-10-28] MEDS: MEROPENEM 1,000 MG in NACL 0.9% 50 ML IV SCH ×2 (10:29→20:23)
[2022-10-28] MEDS ORDERED: INSULIN REGULAR, HUMAN 100 UNIT/ML VIAL IVP SCH (12:15)
[2022-10-28] MEDS ORDERED: EPOETIN ALFA-EPBX 10,000 UNITS/ML VIAL IV SCH (12:15)
[2022-10-28] MEDS ORDERED: DEXTROSE 50% 50 ML SYR IVP SCH (12:15)
[2022-10-28] MEDS ORDERED: SODIUM BICARBONATE 8.4% PFS 50 MEQ/50 ML SYR IVP SCH (12:15)
[2022-10-28] MEDS: INSULIN LISPRO SLIDING SCALE 100 UNITS/ML VIAL SUBQ PRN ×3 (14:08→21:29)
--- NOTE | 2022-10-28 14:58 | NUR ---
10/28/22 RD INITIAL ASSESSMENT COMPLETED PLEASE REFER TO NUTRITION ASSESSMENT UNDER CARE ACTIVITY FOR ESTIMATED NUTRITIONAL NEEDS. 1. CONTINUE CCHO/RENAL/MECHANICAL SOFT/ LOW SODIUM DIET TOLERATED 2. RD RECOMMENDS PROSOURCE BID FOR WOUNDS WHICH WILL PROVIDE 120 CALORIES AND 30 GRAMS OF PROTEIN. 3. RD ENCOURAGES PATIENT TO FOLLOW DIABETES AND RENAL EDUCATION ONCE SHE LEAVES THE HOSPITAL. 4. RD TO FOLLOW-UP 3-5 DAYS, MODERATE RISK DAVID KITCHEN RD
--- NOTE | 2022-10-28 19:15 | NUR ---
RECEIVED PT FROM MORNING SHIFT NURSE. PT IS AOX4, ON BEDBOUND WITH DAUGHTER ON BEDSIDE. PT IS AZERI SPEAKING, ABLE TO VERBALIZE NEEDS AND ABLE TO FOLLOW COMMANDS. PT IS ON ROOM AIR AND ON CARDIAC DIET. PT HAS IV ON LEFT FOREARM GAUGE 20, RUNNING WITH SODIUM BICARB AT 100ML/HR AND LEFT UPPER ARM GAUGE 22, SALINE LOCK. PT HAS WOUND ON BILATERAL BUTTOCKS. NO COMPLAIN OF PAIN AT THIS TIME. NO S/S OF RESPIRATORY DISTRESS NOTED. ALL SAFETY MEASURES IMPLEMENTED. BED IN LOW POSITION, BED WHEELS ON LOCK AND CALL LIGHT WITHIN REACH.
[2022-10-28] MEDS: ATORVASTATIN 20 MG TAB PO SCH (20:22)
[2022-10-28] MEDS: DOCUSATE SODIUM 250 MG GELCAP PO SCH (20:22)
[2022-10-28] MEDS: POLYETHYLENE GLYCOL 17 GM/PKT PO SCH (20:23)
[2022-10-28] MEDS: PANTOPRAZOLE 40 MG INJ VIAL IVP SCH (20:24)
[2022-10-28] MEDS: TAMSULOSIN 0.4 MG CAP PO SCH (20:39)
--- NOTE | 2022-10-28 20:39 | NUR ---
ALL SCHEDULED AND PRESCRIBED MEDICATION WAS GIVEN TO PT PER MD ORDER. ALL SAFETY MEASURES IMPLEMENTED. BED IN LOW POSITION, BED WHEELS ON LOCK AND CALL LIGHT WITHIN REACH.
--- NOTE | 2022-10-28 21:29 | NUR ---
PT BLOOD GLUCOSE IS 229. HUMALOG INSULIN 4 UNITS WAS GIVEN TO PT.
[2022-10-29] VITALS (9 sets, daily range): BP systolic 128–134; BP diastolic 51–95; PULSE 90–98; RESP 18; TEMP 97.4–99.3; O2SAT 92–99
--- NOTE | 2022-10-29 | NUR ---
PT IS ON SLEEP. CHEST RISE AND FALL SYMMETRICALLY NOTED. RESPIRATION IS EVEN AND UNLABORED. ALL SAFETY MEASURES IMPLEMENTED, BED IN LOW POSITION, BED WHEELS ON LOCK AND CALL LIGHT WITHIN REACH.
[2022-10-29] MEDS: Z-GUARD PASTE TP SCH ×2 (01:22→13:00)
--- NOTE | 2022-10-29 02:00 | NUR ---
CHECKED THE PT, STILL ON SLEEP. CHEST RISE AND FALL SYMMETRICALLY NOTED. RESPIRATION IS EVEN AND UNLABORED. ALL SAFETY MEASURES IMPLEMENTED, BED IN LOW POSITION, BED WHEELS ON LOCK AND CALL LIGHT WITHIN REACH.
[2022-10-29] MEDS: SODIUM BICARBONATE 8.4% 50 MEQ in NACL 0.45% 1,000 ML IV SCH ×3 (03:03→23:51)
--- NOTE | 2022-10-29 04:00 | NUR ---
MORNING CARE WAS DONE TO PT. CHANGED GOWN, LINEN, CHUCKS AND BLANKET. NO COMPLAIN OF PAIN. NO S/S OF RESPIRATORY DISTRESS NOTED. ALL SAFETY MEASURES IMPLEMENTED, BED IN LOW POSITION, BED WHEELS ON LOCK AND CALL LIGHT WITHIN REACH.
[2022-10-29 05:35] LABS: BASOPHILS # (AUTO) 0.1 K/uL (0.00-0.22); BASOPHILS % (AUTO) 0.8 % (0.0-2.0); EOSINOPHILS # (AUTO) 0.5 K/uL (0-0.4); EOSINOPHILS % (AUTO) 5.3 % (0.0-4.0); HEMATOCRIT 19.7 % (36-48); HEMOGLOBIN 6.5 g/dL (12.0-16.0); LYMPHOCYTES # (AUTO) 3.4 K/uL (2.5-16.5); LYMPHOCYTES % (AUTO) 37.4 % (20.5-51.1); MEAN CORPUSCULAR HEMOGLOBIN 29 pg (27-31); MEAN CORPUSCULAR HGB CONC 33 g/dL (33-37); MONOCYTES % (AUTO) 11.1 % (1.7-9.3); NEUTROPHILS # (AUTO) 4.1 K/uL (1.8-7.7); NEUTROPHILS % (AUTO) 45.4 % (42.2-75.2); PLATELET COUNT (AUTO) 349 K/uL (140-450); RED BLOOD CELL COUNT(AUTO) 2.26 MIL/uL (4.20-5.40); RED CELL DISTRIBUTION WIDTH 18.1 % (11.6-13.7); WHITE BLOOD COUNT (AUTO) 9.2 K/uL (4.8-10.8)
[2022-10-29 05:42] LABS: ALBUMIN 1.8 g/dL (3.4-5.0); ANION GAP 14.4 (8-16); ASPARTATE AMINOTRANSFERASE 22 U/L (15-37); CARBON DIOXIDE 22.9 mmol/L (21-32); CHLORIDE 105 mmol/L (98-107); CREATININE 2.8 mg/dL (0.6-1.3); GLUCOSE 234 mg/dL (74-106); POTASSIUM 5.3 mmol/L (3.5-5.1); SODIUM SERUM 137 mmol/L (136-145); TOTAL BILIRUBIN 0.3 mg/dL (0.0-1.0); UREA NITROGEN, BLOOD 68 mg/dL (7-18)
--- NOTE | 2022-10-29 05:49 | NUR ---
SEEN PT'S BLOOD RESULT OF HEMOGLOBIN-6.5 AND HEMATOCRIT-19.7 DIDN'T REPORT CRITICAL LAB TO MD DUE TO SAME VALUE OF HEMOGLOBIN AND INCREASE HEMATOCRIT.
[2022-10-29] MEDS: BLOOD GLUCOSE MONITORING 1 DEV DEV FS SCH ×4 (06:33→20:35)
[2022-10-29] MEDS: INSULIN LISPRO SLIDING SCALE 100 UNITS/ML VIAL SUBQ PRN ×4 (06:33→20:50)
--- NOTE | 2022-10-29 06:33 | NUR ---
PT BLOOD GLUCOSE IS 259. HUMALOG INSULIN 6 UNITS WAS GIVEN TO PT.
--- NOTE | 2022-10-29 07:21 | NUR ---
PT IS STABLE. ENDORSED PT TO MORNING SHIFT NURSE FOR CONTINUITY OF CARE.
[2022-10-29] MEDS: amLODIPine 5 MG TAB PO SCH (10:04)
[2022-10-29] MEDS: AMITRIPTYLINE 25 MG TAB PO SCH ×2 (10:05→20:36)
[2022-10-29] MEDS: POLYETHYLENE GLYCOL 17 GM/PKT PO SCH ×2 (10:05→20:37)
[2022-10-29] MEDS: PANTOPRAZOLE 40 MG INJ VIAL IVP SCH ×2 (10:05→20:33)
[2022-10-29] MEDS: DOCUSATE SODIUM 250 MG GELCAP PO SCH ×2 (10:05→20:36)
[2022-10-29] MEDS: SODIUM ZIRCONIUM CYCLOSILICATE 10 GM POWD.PACK PO SCH (10:06)
[2022-10-29] MEDS: MEROPENEM 1,000 MG in NACL 0.9% 50 ML IV SCH (10:21)
--- NOTE | 2022-10-29 12:00 | NUR ---
blood transfusion started. Dr. Hinds made aware patient has antibody. vital signs WNL. will monitor closely.
--- NOTE | 2022-10-29 14:20 | NUR ---
FOUND PATIENT ON NASAL CANNULA
--- NOTE | 2022-10-29 15:30 | NUR ---
blood transfusion completed. no reaction noted. patient tolerated blood transfusion well. will continue to monitor.
--- NOTE | 2022-10-29 19:15 | NUR ---
RECEIVED PT FROM MORNING SHIFT NURSE. PT IS AOX4, BEDBOUND, ALBANIAN SPEAKING, ABLE TO VERBALIZE NEEDS AND ABLE TO FOLLOW COMMANDS. PT IS ON 2L NC AND ON CARDIAC DIET. PT HAS IV ON LEFT HAND GAUGE 22 RUNNING WITH SODIUM BICARB AT 100ML/HR. PT HAS BILATERAL BUTTOCKS WOUND. NO COMPLAIN OF PAIN. NO S/S OF RESPIRATORY DISTRESS NOTED. ALL SAFETY MEASURES IMPLEMENTED. BED IN LOW POSITION, BED WHEELS ON LOCK AND CALL LIGHT WITHIN REACH.
[2022-10-29] MEDS: TAMSULOSIN 0.4 MG CAP PO SCH (20:36)
[2022-10-29] MEDS: ATORVASTATIN 20 MG TAB PO SCH (20:36)
--- NOTE | 2022-10-29 20:50 | NUR ---
PT BLOOD GLUCOSE IS 209. HUMALOG INSULIN 4 UNITS WAS GIVEN TO PT.
--- NOTE | 2022-10-29 22:00 | NUR ---
FEED THE PT WITH SANDWICH PER PT REQUEST. NO COMPLAIN OF PAIN. NO S/S OF RESPIRATORY DISTRESS NOTED. ALL SAFETY MEASURES IMPLEMENTED. BED IN LOW POSITION, BED WHEELS ON LOCK AND CALL LIGHT WITHIN REACH
[2022-10-30] VITALS (8 sets, daily range): BP systolic 130–158; BP diastolic 62–76; PULSE 83–114; RESP 18–20; TEMP 98–98.9; O2SAT 96–99
--- NOTE | 2022-10-30 | NUR ---
PT IS ON SLEEP. CHEST RISE AND FALL SYMMETRICALLY NOTED. RESPIRATION IS EVEN AND UNLABORED. ALL SAFETY MEASURES IMPLEMENTED. BED IN LOW POSITION, BED WHEELS ON LOCK AND CALL LIGHT WITHIN REACH.
[2022-10-30] MEDS: Z-GUARD PASTE TP SCH ×2 (01:18→13:49)
--- NOTE | 2022-10-30 02:00 | NUR ---
CHECKED THE PT, STILL ON SLEEP. CHEST RISE AND FALL SYMMETRICALLY NOTED. RESPIRATION IS EVEN AND UNLABORED. ALL SAFETY MEASURES IMPLEMENTED. BED IN LOW POSITION, BED WHEELS ON LOCK AND CALL LIGHT WITHIN REACH.
--- NOTE | 2022-10-30 04:40 | NUR ---
TICKET COLLECTOR OR USHER MADE ME AWARE THAT PT REFUSED BLOOD WITHDRAWAL THIS MORNING. EDUCATED THE PT BUT STILL PT REFUSED IT.
[2022-10-30] MEDS: INSULIN LISPRO SLIDING SCALE 100 UNITS/ML VIAL SUBQ PRN ×4 (06:32→20:46)
--- NOTE | 2022-10-30 06:32 | NUR ---
PT BLOOD GLUCOSE IS 152. HUMALOG INSULIN 2 UNITS WAS GIVEN TO PT.
[2022-10-30] MEDS: BLOOD GLUCOSE MONITORING 1 DEV DEV FS SCH ×4 (06:36→20:33)
--- NOTE | 2022-10-30 07:29 | NUR ---
PT IS STABLE. ENDORSED PT TO MORNING SHIFT NURSE FOR CONTINUITY OF CARE.
--- NOTE | 2022-10-30 07:30 | NUR ---
RECEIVED PT FROM [employer] DRIVER NURSE FOR CONTINUITY OF CARE. PT IS SLEEPING, VISIBLE CHEST RISE/FALL. RESPIRATIONS EVEN AND UNLABORED ON 2L NC. L HAND 22G INFUSING IVF @ 100. SKIN WARM AND DRY. NO DISTRESS NOTED, CALL LIGHT WITHIN REACH.
[2022-10-30] MEDS: amLODIPine 5 MG TAB PO SCH (09:07)
[2022-10-30] MEDS: DOCUSATE SODIUM 250 MG GELCAP PO SCH ×2 (09:08→20:30)
[2022-10-30] MEDS: AMITRIPTYLINE 25 MG TAB PO SCH ×2 (09:08→20:30)
[2022-10-30] MEDS: SODIUM ZIRCONIUM CYCLOSILICATE 10 GM POWD.PACK PO SCH (09:11)
[2022-10-30] MEDS: POLYETHYLENE GLYCOL 17 GM/PKT PO SCH ×2 (09:20→20:47)
[2022-10-30] MEDS: PANTOPRAZOLE 40 MG INJ VIAL IVP SCH ×2 (09:51→20:29)
[2022-10-30] MEDS: SODIUM BICARBONATE 8.4% 50 MEQ in NACL 0.45% 1,000 ML IV SCH ×2 (12:04→20:47)
--- NOTE | 2022-10-30 12:22 | NUR ---
BLOOD GLUCOSE 222- INSULIN GIVEN PER SLIDING SCALE, PT TOLERATED WELL. Addendum: 10/30/22 at 1949 by Joycelyn Fisher LVN BLOOD SUGAR 182
[2022-10-30 15:44] LABS: BASOPHILS % (AUTO) 0.4 % (0.0-2.0); EOSINOPHILS # (AUTO) 0.3 K/uL (0-0.4); EOSINOPHILS % (AUTO) 2.9 % (0.0-4.0); HEMATOCRIT 25.2 % (36-48); HEMOGLOBIN 7.9 g/dL (12.0-16.0); LYMPHOCYTES # (AUTO) 3.3 K/uL (2.5-16.5); LYMPHOCYTES % (AUTO) 34.1 % (20.5-51.1); MEAN CORPUSCULAR HEMOGLOBIN 28 pg (27-31); MEAN CORPUSCULAR HGB CONC 32 g/dL (33-37); MEAN CORPUSCULAR VOLUME 89.3 fL (80-94); MONOCYTES # (AUTO) 0.8 K/uL (0.8-1.0); MONOCYTES % (AUTO) 8.5 % (1.7-9.3); NEUTROPHILS # (AUTO) 5.3 K/uL (1.8-7.7); NEUTROPHILS % (AUTO) 54.1 % (42.2-75.2); PLATELET COUNT (AUTO) 303 K/uL (140-450); RED BLOOD CELL COUNT(AUTO) 2.82 MIL/uL (4.20-5.40); RED CELL DISTRIBUTION WIDTH 17.3 % (11.6-13.7); WHITE BLOOD COUNT (AUTO) 9.8 K/uL (4.8-10.8)
[2022-10-30 16:05] LABS: ANION GAP 11.9 (8-16); CARBON DIOXIDE 26.3 mmol/L (21-32); CHLORIDE 103 mmol/L (98-107); CREATININE 2.8 mg/dL (0.6-1.3); GLUCOSE 207 mg/dL (74-106); POTASSIUM 5.2 mmol/L (3.5-5.1); SODIUM SERUM 136 mmol/L (136-145)
[2022-10-30 16:10] LABS: UREA NITROGEN, BLOOD 66 mg/dL (7-18)
--- NOTE | 2022-10-30 16:45 | NUR ---
BLOOD GLUCOSE 222, INSULIN GIVEN PER SLIDING SCALE.
--- NOTE | 2022-10-30 19:10 | NUR ---
ENDORSED PT TO CONVERTING TECHNICIAN NURSE FOR CONTINUITY OF CARE. PT IS STABLE.
--- NOTE | 2022-10-30 19:11 | NUR ---
RECEIVED PT FROM MORNING SHIFT NURSE. PT IS AOX4, BEDBOUND, HUNGARIAN SPEAKING, ABLE TO VERBALIZE NEEDS AND ABLE TO FOLLOW COMMANDS. PT IS ON 2L NC AND ON CARDIAC DIET. PT HAS IV ON LEFT FOREARM GAUGE 22 RUNNING WITH SODIUM BICARB AT 100ML/HR. PT HAS BILATERAL BUTTOCKS WOUND. NO COMPLAIN OF PAIN. NO S/S OF RESPIRATORY DISTRESS NOTED. ALL SAFETY MEASURES IMPLEMENTED. BED IN LOW POSITION, BED WHEELS ON LOCK AND CALL LIGHT WITHIN REACH.
[2022-10-30] MEDS: ATORVASTATIN 20 MG TAB PO SCH (20:29)
[2022-10-30] MEDS: TAMSULOSIN 0.4 MG CAP PO SCH (20:30)
--- NOTE | 2022-10-30 20:47 | NUR ---
ALL SCHEDULED AND PRESCRIBED MEDICATION WAS GIVEN TO PT PER MD ORDER. PT BLOOD GLUCOSE IS 256. HUMALOG INSULIN 6 UNITS WAS GIVEN TO PT. ALL SAFETY MEASURES IMPLEMENTED. BED IN LOW POSITION, BED WHEELS ON LOCK AND CALL LIGHT WITHIN REACH.
--- NOTE | 2022-10-30 22:00 | NUR ---
FEED THE PT WITH TURKEY SANDWICH. NO COMPLAIN OF PAIN. NO S/S OF RESPIRATORY DISTRESS NOTED. ALL SAFETY MEASURES IMPLEMENTED. BED IN LOW POSITION, BED WHEELS ON LOCK AND CALL LIGHT WITHIN REACH.
[2022-10-31] VITALS (8 sets, daily range): BP systolic 111–163; BP diastolic 37–86; PULSE 95–108; RESP 18–20; TEMP 97.1–100.5; O2SAT 95–97
[2022-10-31] MEDS: Z-GUARD PASTE TP SCH ×2 (01:29→15:33)
--- NOTE | 2022-10-31 04:00 | NUR ---
MORNING CARE WAS DONE TO PT. CLEANED PT, CHANGED DIAPER, LINENS, GOWN AND BLANKET. ALL SAFETY MEASURES IMPLEMENTED. BED IN LOW POSITION, BED WHEELS ON LOCK AND CALL LIGHT WITHIN REACH.
--- NOTE | 2022-10-31 06:00 | NUR ---
PT BLOOD GLUCOSE IS 175. HUMALOG INSULIN 2 UNITS WAS GIVEN TO PT.
[2022-10-31] MEDS: INSULIN LISPRO SLIDING SCALE 100 UNITS/ML VIAL SUBQ PRN ×2 (06:37→16:44)
[2022-10-31] MEDS: BLOOD GLUCOSE MONITORING 1 DEV DEV FS SCH ×4 (06:37→21:00)
[2022-10-31] MEDS: SODIUM BICARBONATE 8.4% 50 MEQ in NACL 0.45% 1,000 ML IV SCH ×2 (06:39→10:22)
--- NOTE | 2022-10-31 07:22 | NUR ---
PT IS STABLE. ENDORSED PT TO MORNING SHIFT NURSE FOR CONTINUITY OF CARE.
--- NOTE | 2022-10-31 07:23 | NUR ---
RECEIVED BEDSIDE REPORT FROM SENIOR ARCHITECT/DESIGN MANAGER NURSE. PT IS ASLEEP, AWAKEN BY NAME. NO SIGNS OF DISTRESS, CALL LIGHT WITHIN REACH.
--- NOTE | 2022-10-31 07:46 | NUR ---
PT CURRENTLY ON 2L NASAL CANNULA, SATURATION 96%. NASAL CANNULA FOUND AT BEDSIDE SATURATION WAS 91% ON ROOM AIR. WILL CONTINUE TO MONITOR.
[2022-10-31] MEDS: AMITRIPTYLINE 25 MG TAB PO SCH ×2 (08:29→20:52)
[2022-10-31] MEDS: amLODIPine 5 MG TAB PO SCH (08:30)
[2022-10-31] MEDS: SODIUM ZIRCONIUM CYCLOSILICATE 10 GM POWD.PACK PO SCH (08:31)
[2022-10-31] MEDS: PANTOPRAZOLE 40 MG INJ VIAL IVP SCH (08:38)
[2022-10-31] MEDS: DOCUSATE SODIUM 250 MG GELCAP PO SCH ×2 (08:38→20:51)
[2022-10-31] MEDS: POLYETHYLENE GLYCOL 17 GM/PKT PO SCH ×2 (08:39→20:53)
[2022-10-31 08:57] LABS: BASOPHILS # (AUTO) 0.1 K/uL (0.00-0.22); BASOPHILS % (AUTO) 0.6 % (0.0-2.0); EOSINOPHILS # (AUTO) 0.3 K/uL (0-0.4); EOSINOPHILS % (AUTO) 2.4 % (0.0-4.0); HEMATOCRIT 23.6 % (36-48); LYMPHOCYTES % (AUTO) 32.2 % (20.5-51.1); MEAN CORPUSCULAR HEMOGLOBIN 29 pg (27-31); MEAN CORPUSCULAR HGB CONC 34 g/dL (33-37); MEAN CORPUSCULAR VOLUME 84.6 fL (80-94); MONOCYTES # (AUTO) 0.9 K/uL (0.8-1.0); MONOCYTES % (AUTO) 7.5 % (1.7-9.3); NEUTROPHILS # (AUTO) 7.1 K/uL (1.8-7.7); NEUTROPHILS % (AUTO) 57.3 % (42.2-75.2); PLATELET COUNT (AUTO) 362 K/uL (140-450); RED BLOOD CELL COUNT(AUTO) 2.79 MIL/uL (4.20-5.40); RED CELL DISTRIBUTION WIDTH 16.6 % (11.6-13.7); WHITE BLOOD COUNT (AUTO) 12.3 K/uL (4.8-10.8)
[2022-10-31 09:15] LABS: ANION GAP 15.1 (8-16); CARBON DIOXIDE 22.9 mmol/L (21-32); CHLORIDE 104 mmol/L (98-107); CREATININE 2.9 mg/dL (0.6-1.3); GLUCOSE 147 mg/dL (74-106); SODIUM SERUM 137 mmol/L (136-145)
[2022-10-31 09:22] LABS: UREA NITROGEN, BLOOD 61 mg/dL (7-18)
--- NOTE | 2022-10-31 13:00 | NUR ---
PT WOUND CLEANED, Z GUARD AND DRESSING PLACED. BILATERAL WOUND ON BUTTOCKS ARE NOTED, DRY WITH NO DRAINAGE, NO PHOTO TAKEN THE UNIT CAMERA IS BROKEN. INFORMED CHARGE NURSE.
--- NOTE | 2022-10-31 15:00 | NUR ---
At 1230, I found patient panting and nasal cannula hanging from her face. I placed NC back on her and checked to see how much oxygen she was currently on, 2L. I showed her my stethoscope and asked if I could listen to her. Her saturations were 98%. Will continue to monitor her. At 1500, I found patient in bed talking with a family member. I told them that I'd come back, but family member said it was okay to do my job. I asked the patient if I could listen to her, she agreed. Patient sounded clear and was saturating at 99% on 2L. Will continue to monitor her.
--- NOTE | 2022-10-31 16:00 | NUR ---
IV REMOVED. PATIENT'S BILATERAL HANDS ARE SWOLLEN, HARD STICK. MD IS AWARE.
--- NOTE | 2022-10-31 19:05 | NUR ---
GAVE BED SIDE REPORT TO THE UTILIZATION REVIEW NURSE NURSE FOR CONTINUITY OF CARE. PT IS STABLE AND NO SIGN OF DISTRESS. CALL LIGHT WITHIN REACH.
--- NOTE | 2022-10-31 20:00 | NUR ---
febrile 100.5 f - will refer to md Addendum: 11/01/22 at 0748 by Zoraida Delatorre RN at 2029 dr. bedoya replied , made order - will carry out . Addendum: 11/01/22 at 0754 by Zoraida Delatorre RN received pt w/ out iv access chip garcía rn md aware about it .
[2022-10-31] MEDS ORDERED: ACETAMINOPHEN 325 MG TAB PO PRN (20:35)
[2022-10-31] MEDS: TAMSULOSIN 0.4 MG CAP PO SCH (20:52)
[2022-10-31] MEDS: ATORVASTATIN 20 MG TAB PO SCH (20:53)
[2022-10-31] MEDS: PANTOPRAZOLE 40 MG TABEC PO SCH (20:53)
--- NOTE | 2022-10-31 22:30 | NUR ---
temp re check 98. 7 f , will cont. to monitor
[2022-11-01] VITALS: BP 115/58; PULSE 103; PULSE 98; RESP 20; TEMP 98.7; O2SAT 98
[2022-11-01] MEDS: Z-GUARD PASTE TP SCH ×2 (01:00→13:00)
[2022-11-01] MEDS: HYDROcodone/APAP 5/325 MG 1 TAB TAB PO PRN (01:22)
[2022-11-01 04:00] VITALS: BP 111/60; PULSE 73; PULSE 88; RESP 20; TEMP 98.8; O2SAT 98
--- NOTE | 2022-11-01 04:00 | NUR ---
am bedside care , buttocks scally but still skin intact - w/ protective opti foam - will endorse
[2022-11-01] MEDS: BLOOD GLUCOSE MONITORING 1 DEV DEV FS SCH ×3 (06:06→17:17)
[2022-11-01 06:57] LABS: ANION GAP 15.5 (8-16); CARBON DIOXIDE 23.7 mmol/L (21-32); CHLORIDE 104 mmol/L (98-107); GLUCOSE 201 mg/dL (74-106); POTASSIUM 5.2 mmol/L (3.5-5.1); SODIUM SERUM 138 mmol/L (136-145); UREA NITROGEN, BLOOD 59 mg/dL (7-18)
--- NOTE | 2022-11-01 07:00 | NUR ---
refused humalog - bs 200 - will endorsed
[2022-11-01 07:19] LABS: BASOPHILS % (AUTO) 0.4 % (0.0-2.0); EOSINOPHILS # (AUTO) 0.3 K/uL (0-0.4); EOSINOPHILS % (AUTO) 3.1 % (0.0-4.0); HEMATOCRIT 22.6 % (36-48); HEMOGLOBIN 7.7 g/dL (12.0-16.0); LYMPHOCYTES # (AUTO) 3.1 K/uL (2.5-16.5); LYMPHOCYTES % (AUTO) 33.1 % (20.5-51.1); MEAN CORPUSCULAR HEMOGLOBIN 29 pg (27-31); MEAN CORPUSCULAR HGB CONC 34 g/dL (33-37); MEAN CORPUSCULAR VOLUME 85.2 fL (80-94); MONOCYTES # (AUTO) 1.1 K/uL (0.8-1.0); MONOCYTES % (AUTO) 11.2 % (1.7-9.3); NEUTROPHILS # (AUTO) 4.9 K/uL (1.8-7.7); NEUTROPHILS % (AUTO) 52.2 % (42.2-75.2); PLATELET COUNT (AUTO) 334 K/uL (140-450); RED BLOOD CELL COUNT(AUTO) 2.65 MIL/uL (4.20-5.40); RED CELL DISTRIBUTION WIDTH 16.8 % (11.6-13.7); WHITE BLOOD COUNT (AUTO) 9.4 K/uL (4.8-10.8)
--- NOTE | 2022-11-01 07:20 | NUR ---
RECEIVED PT FROM RETAIL TIRE SALES MANAGER FOR CONTINUITY OF CARE. ALERT AND ORIENTED X 4. RESP. EVEN AND UNLABORED. ON CONT. O2 @ 2L/NC. NO IV ACCESS. BILATERAL EDEMA TO RUE. NOT IN ANY DISTRESS NOTED. CALL LIGHT KEPT WITHIN REACH. WILL CONTINUE TO MONITOR.
--- NOTE | 2022-11-01 07:38 | NUR ---
endorsed pt awake , o2 sat 99 % , endorsed to micchelle to remind md about abx , and md have to update the resuscitation code , lambertle verbalizes understanding .
[2022-11-01 08:00] VITALS: BP 111/56; PULSE 101; PULSE 81; PULSE 90; RESP 18; TEMP 97.3; TEMP 98.3; O2SAT 97
[2022-11-01] MEDS ORDERED: BUME1TAB92 PO (10:14)
--- NOTE | 2022-11-01 10:45 | NUR ---
SEEN BY DR. MUÑOZ.
[2022-11-01] MEDS: DOCUSATE SODIUM 250 MG GELCAP PO SCH (10:47)
[2022-11-01] MEDS: SODIUM ZIRCONIUM CYCLOSILICATE 10 GM POWD.PACK PO SCH (10:48)
[2022-11-01] MEDS: PANTOPRAZOLE 40 MG TABEC PO SCH (10:48)
[2022-11-01] MEDS: AMITRIPTYLINE 25 MG TAB PO SCH (10:48)
--- NOTE | 2022-11-01 10:48 | NUR ---
SCHEDULED MEDICATIONS GIVEN. TOLERATED WELL.
[2022-11-01] MEDS: POLYETHYLENE GLYCOL 17 GM/PKT PO SCH (10:49)
[2022-11-01] MEDS: amLODIPine 5 MG TAB PO SCH (10:53)
[2022-11-01] MEDS ORDERED: BUMETANIDE 1 MG/4 ML VIAL IM SCH (11:00)
[2022-11-01 12:00] VITALS: PULSE 83
[2022-11-01] MEDS: INSULIN LISPRO SLIDING SCALE 100 UNITS/ML VIAL SUBQ PRN ×2 (12:25→17:19)
--- NOTE | 2022-11-01 14:43 | NUR ---
11/01/22 RD FOLLOW UP COMPLETED. PLEASE REFER TO NUTRITION ASSESSMENT UNDER CARE ACTIVITY FOR ESTIMATED NUTRITIONAL NEEDS. 1. CONTINUE CCHO/RENAL/MECHANICAL SOFT/ LOW SODIUM DIET TOLERATED 2. CONTINUE PROSOURCE BID FOR WOUNDS WHICH WILL PROVIDE 120 CALORIES AND 30 GRAMS OF PROTEIN; RECOMMEND GLUCERNA (180 KCAL, 10 GRAMS PRO) 1X/DAY DUE TO LOW PO INTAKE. 3. RD TO FOLLOW-UP IN 3-5 DAYS PATIENT IS MODERATE RISK. NOEMY HOWARD RD
[2022-11-01 16:00] VITALS: PULSE 83
--- NOTE | 2022-11-01 17:17 | NUR ---
BS CHECKED 197. INSULIN WAS GIVEN PER SLIDING SCALE.
--- NOTE | 2022-11-01 18:30 | NUR ---
RECEIVED CALL FROM [facility]. SPOKE TO [facility] WILL PICK PT AT 1900. [place] [facility]
--- NOTE | 2022-11-01 18:55 | NUR ---
RECEIVED NEW ORDER FROM DR. MUÑOZ, MAY REMOVED F/C. ORDER NOTED AND CARRIED OUT. F/C REMOVED. TOLERATED WELL.
--- NOTE | 2022-11-01 19:03 | NUR ---
CALLED [facility]. REPORT GIVEN TO SCOT.
--- NOTE | 2022-11-01 19:20 | NUR ---
RECEIVED PT AWAKE , NID , RA 98 % , NO MORE FC , VOIDED THRU DIAPER , FOR DIC[facility]ARGE TO [facility] , W/ DISCHARGE ORDERS FROM DR. MUÑOZ , PER [facility] JUST WAIT THE [facility] , THE 2 COPIES OF DISCHARGE PACKET IS ALREADY PRINTED OUT BY [facility] .
--- NOTE | 2022-11-01 20:25 | NUR ---
BP 118 / 60 , RR 18 , RA 98 % , WY 86 , T 98 , 8 F , NOT IN DISTRESS , NO IV ACCESS . STORE PLANNER BY TRANSPORT W/ STABLE CONDITION , 2 DISCHARGE PACKET GIVEN TO TRANSPORT CREW INCLUDING THE ORIG COPY OF POLST . SKIN INTACT ONLY SCALLY DRY SKIN ON BUTTOCKS . Addendum: 11/01/22 at 2100 by Zoraida Delatorre RN AT 2036 - PT'S DAUGHTER CALL TO GET THE UPDATE
[2022-11-08] MEDS ORDERED: EPOETIN ALFA-EPBX 10,000 UNITS/ML VIAL SUBQ SCH (09:00)
== END 2022-11-01 19:25 | DRG 640 ==
LOC: MED 16:23 → MTU 19:09 → MIC 20:08 → MTU 10-27 16:10
PROVIDERS: ADMIT Internal Medicine; ATTEND Internal Medicine
PROC: 30233N1 Transfusion of Nonautologous Red Blood Cells into Peripheral Vein, Percutaneous Approach (ICD-10-PCS; principal; 2022-10-29)
DX: E87.5 Hyperkalemia (principal); E43 Unspecified severe protein-calorie malnutrition; K92.2 Gastrointestinal hemorrhage, unspecified; N39.0 Urinary tract infection, site not specified; R65.10 Systemic inflammatory response syndrome (SIRS) of non-infectious origin without acute organ dysfunction; I13.0 Hypertensive heart and chronic kidney disease with heart failure and stage 1 through stage 4 chronic kidney disease, or unspecified chronic kidney disease; N18.4 Chronic kidney disease, stage 4 (severe); D62 Acute posthemorrhagic anemia; E87.20 Acidosis, unspecified; E78.5 Hyperlipidemia, unspecified; D63.8 Anemia in other chronic diseases classified elsewhere; I25.10 Atherosclerotic heart disease of native coronary artery without angina pectoris; F03.A0 Unspecified dementia, mild, without behavioral disturbance, psychotic disturbance, mood disturbance, and anxiety; F32.A Depression, unspecified; K21.9 Gastro-esophageal reflux disease without esophagitis; Z66 Do not resuscitate; K59.00 Constipation, unspecified; I50.9 Heart failure, unspecified; Z20.822 Contact with and (suspected) exposure to COVID-19; E11.22 Type 2 diabetes mellitus with diabetic chronic kidney disease; Z91.09 Other allergy status, other than to drugs and biological substances; Z79.899 Other long term (current) drug therapy; Z68.30 Body mass index [BMI] 30.0-30.9, adult
CPT/HCPCS: 36415; 71045; 80048; 80053; 81001; 82272; 82803; 83605; 83735; 85025; 86886; 86900; 86901; 86920; 87040; 87081; 87086; 93005; 96361; 96374; 96375; 99291; C9113; J0610; J1815; J1940; J2185; J2543; J3475; J3490; J7060; P9016; Q5106

== ENCOUNTER 2022-11-20 09:03 | Inpatient (IN) | payer OTHER ==
[~2022-11-20] VITALS: Ht 154.9 cm; Wt 79.4 kg
[~2022-11-20 09:03] MED LIST changes: +BUME1TAB92 PO; +MAG SULF 2000 MG/WATER PREMIX 50 ML IV PRN
--- NOTE | 2022-11-20 09:04 | NUR ---
BIBA BLS TO ER BED 5
[2022-11-20 09:16] VITALS: BP 135/71; PULSE 94; RESP 17; TEMP 98.1; O2SAT 98
--- NOTE | 2022-11-20 09:22 | NUR ---
BLOOD GLUCOSE 378
[2022-11-20] MEDS ORDERED: NACL 0.9% 500 ML IV SCH (09:25)
--- NOTE | 2022-11-20 09:42 | NUR ---
87 y/o female biba from [facility] for c/o abnormal labs. Per facility, patient's HGB is 7.0. Patient is currently on 2LPM of oxygen via nasal cannula. Patient is noted with edema to right arm and left arm. Right arm has more edema than left. Patient has a skin tear to right elbow. Patient is noted with multiple diffuse bruising to bilateral arms. Patient is bed bound. Patient denies any SOB, nausea or vomiting. Medical History: DM, Hyperkalemia, CKD, CAD, CHF NKDA
[2022-11-20 09:48] LABS: BASOPHILS # (AUTO) 0.1 K/uL (0.00-0.22); BASOPHILS % (AUTO) 0.6 % (0.0-2.0); EOSINOPHILS # (AUTO) 0.2 K/uL (0-0.4); EOSINOPHILS % (AUTO) 2.2 % (0.0-4.0); HEMATOCRIT 21.2 % (36-48); HEMOGLOBIN 7.1 g/dL (12.0-16.0); LYMPHOCYTES # (AUTO) 2.5 K/uL (2.5-16.5); LYMPHOCYTES % (AUTO) 25.2 % (20.5-51.1); MEAN CORPUSCULAR HEMOGLOBIN 29 pg (27-31); MEAN CORPUSCULAR HGB CONC 33 g/dL (33-37); MEAN CORPUSCULAR VOLUME 88.1 fL (80-94); MONOCYTES # (AUTO) 0.9 K/uL (0.8-1.0); MONOCYTES % (AUTO) 8.7 % (1.7-9.3); NEUTROPHILS # (AUTO) 6.3 K/uL (1.8-7.7); NEUTROPHILS % (AUTO) 63.3 % (42.2-75.2); PLATELET COUNT (AUTO) 403 K/uL (140-450); RED BLOOD CELL COUNT(AUTO) 2.41 MIL/uL (4.20-5.40); RED CELL DISTRIBUTION WIDTH 16.4 % (11.6-13.7)
[2022-11-20 10:06] LABS: ALBUMIN 1.9 g/dL (3.4-5.0); ANION GAP 15.6 (8-16); ASPARTATE AMINOTRANSFERASE 20 U/L (15-37); CARBON DIOXIDE 20.5 mmol/L (21-32); CHLORIDE 107 mmol/L (98-107); CREATININE 3.3 mg/dL (0.6-1.3); POTASSIUM 5.1 mmol/L (3.5-5.1); SODIUM SERUM 138 mmol/L (136-145); TOTAL BILIRUBIN 0.2 mg/dL (0.0-1.0)
--- NOTE | 2022-11-20 10:30 | NUR ---
Incontinent care provided. Fresh linen provided.
[2022-11-20 10:56] LABS: GLUCOSE 395 mg/dL (74-106); UREA NITROGEN, BLOOD 97 mg/dL (7-18)
[2022-11-20 11:25] LABS: ACETONE, SERUM NEGATIVE (NEGATIVE)
--- NOTE | 2022-11-20 12:10 | NUR ---
Patient is laying in bed, call light is within reach. All needs met by staff. No signs of distress.
[2022-11-20 12:26] LABS: PROTHROMBIN TIME 10.6 secs (10.8-13.4)
[2022-11-20] MEDS ORDERED: NACL 0.9% 1,000 ML IV ONE (12:40)
[2022-11-20 12:53] LABS: ANION GAP 14.7 (8-16); CARBON DIOXIDE 21.3 mmol/L (21-32); CHLORIDE 105 mmol/L (98-107); CREATININE 3.2 mg/dL (0.6-1.3); SODIUM SERUM 136 mmol/L (136-145)
[2022-11-20 12:59] LABS: GLUCOSE 412 mg/dL (74-106)
[2022-11-20 13:00] LABS: UREA NITROGEN, BLOOD 97 mg/dL (7-18)
[2022-11-20] MEDS ORDERED: DEXTROSE 50% 50 ML SYR IVP PRN (13:35)
[2022-11-20] MEDS ORDERED: DOCU250S85 PO (14:20)
[2022-11-20] MEDS ORDERED: MIRABULK PO (14:20)
--- NOTE | 2022-11-20 14:20 | NUR ---
Patient will be admitted to care of Dr. Garcia. Admited to Telemetry. Will go to room 113. Belongings list completed. Report to CASSANDRA Emmanuel.
[2022-11-20 15:25] LABS: APPEARANCE,URINE CLEAR (CLEAR); BILIRUBIN,URINE NEGATIVE (NEGATIVE); BLOOD, URINE 3+ (NEGATIVE); COLOR,URINE YELLOW (YELLOW); LEUKOCYTE ESTERASE ,URINE 3+ (NEGATIVE); NITRITE, URINE NEGATIVE (NEGATIVE); UGLUCOSE 1+ (NEGATIVE)
[2022-11-20 15:27] LABS: RBC,URINE TOO NUMEROUS TO COUN /HPF (0-5); TRICHOMONAS,URINE None Seen /HPF (None Seen); YEAST,URINE None Seen /HPF (None Seen)
[2022-11-20 15:28] LABS: RED BLOOD CELL CASTS,URINE 0-10 /LPF (None Seen)
--- NOTE | 2022-11-20 16:08 | NUR ---
The patient's care was reviewed and supervised by COLBY ANDRADE RN.
[2022-11-20] MEDS ORDERED: POTASSIUM CHLORIDE 10 MEQ TABER PO PRN (16:15)
[2022-11-20] MEDS ORDERED: MORPHINE SULFATE 2 MG/ML SYR IVP PRN (16:15)
[2022-11-20] MEDS ORDERED: DOCUSATE SODIUM 100 MG GELCAP PO PRN (16:15)
[2022-11-20] MEDS ORDERED: ACETAMINOPHEN 325 MG TAB PO PRN (16:15)
[2022-11-20] MEDS ORDERED: ONDANSETRON 4 MG/2 ML VIAL IVP PRN (16:15)
[2022-11-20] MEDS ORDERED: ZOLPIDEM 10 MG TAB PO PRN (16:15)
[2022-11-20] MEDS ORDERED: BLOOD GLUCOSE MONITORING 1 DEV DEV FS SCH (16:30)
[2022-11-20] MEDS: INSULIN LISPRO SLIDING SCALE 100 UNITS/ML VIAL SUBQ PRN (16:59)
[2022-11-20] MEDS: BLOOD GLUCOSE MONITORING 1 DEV DEV FS SCH (17:01)
[2022-11-20] MEDS ORDERED: bisacodyL 10 MG SUPP RC PRN (17:10)
[2022-11-20] MEDS ORDERED: SODIUM PHOSPHATE 118 ML ENEM RC PRN (17:10)
[2022-11-20] MEDS ORDERED: ACETAMINOPHEN EXTRA STRENGTH 500 MG TAB PO PRN (17:10)
[2022-11-20 17:34] LABS: MAGNESIUM 1.8 mg/dL (1.8-2.4); PHOSPHORUS 4.4 mg/dL (2.5-4.9)
[2022-11-20 19:44] VITALS: RESP 20; O2SAT 98
--- NOTE | 2022-11-20 19:57 | NUR ---
PT HGB 7.1, DR. MARTINEZ ORDER TO TO HAVE BLOOD TRANSFUSION X1 PACK.
[2022-11-20 20:00] VITALS: BP 139/74; PULSE 93; PULSE 95; RESP 20; TEMP 97.8; O2SAT 96
--- NOTE | 2022-11-20 20:10 | NUR ---
CALLED DAUGHTER FOR BLOOD TRANSFUSION CONSENT X 2. DAUGHTER DOES NOT ANSWER, LEAVE MESSAGE VIA VOICE MAIL.
--- NOTE | 2022-11-20 21:00 | NUR ---
PT SIGNED BLOOD TRANSFUSION PAPER. DAUGHTER ALEJANDRA TAPIA CALLED BACK AGREE WITH MOTHER BLOOD TRANSFUSION CONSENT.
[2022-11-20] MEDS ORDERED: cefTRIAXone 1,000 MG VIAL ONE (21:28)
[2022-11-20] MEDS: AMITRIPTYLINE 25 MG TAB PO SCH (21:42)
[2022-11-20] MEDS: ATORVASTATIN 20 MG TAB PO SCH (21:43)
[2022-11-20] MEDS: TAMSULOSIN 0.4 MG CAP PO SCH (21:43)
[2022-11-20] MEDS: INSULIN LANTUS 100 UNITS/ML 10 ML VIAL SUBQ SCH (21:56)
--- NOTE | 2022-11-20 23:10 | NUR ---
STARTS BLOOD TRANSFUSION, PT IS ON STABLE CONDITION, AWAKE AND ALERT. B/P=149/52, P-99, T-98.7, R-18. DENIES OF PAIN.
--- NOTE | 2022-11-20 23:25 | NUR ---
BLOOD TRANSFUSION INFUSING WELL. B/P-143/50, T-98.5, P-92, R-20.
--- NOTE | 2022-11-20 23:40 | NUR ---
PT IS AWAKE AND ALERT. ON STABLE CONDITION. TRANSFUSION IS INFUSING WELL. B/P-147/53, R-20, P-91, T-98.0.
[2022-11-21] VITALS: BP 144/86; PULSE 92; RESP 20; TEMP 97.4; O2SAT 97
[2022-11-21] MEDS: BLOOD GLUCOSE MONITORING 1 DEV DEV FS SCH ×6 (00:15→23:59)
[2022-11-21] MEDS: INSULIN LISPRO SLIDING SCALE 100 UNITS/ML VIAL SUBQ PRN (00:17)
--- NOTE | 2022-11-21 00:17 | NUR ---
PT BLOOD SUGAR = 178 = 2 UNITS HUMALOG ADMINISTERED
--- NOTE | 2022-11-21 03:40 | NUR ---
BLOOD TRANSFUSION COMPLETED. PT IS ON STABLE CONDITION, AWAKE, ALERT AND VERB ALLY RESPONSIVE. B/P-143/86, R-18, P-88, T-97.8
[2022-11-21 04:00] VITALS: BP 143/86; PULSE 88; PULSE 91; RESP 18; TEMP 97.8; O2SAT 99
[2022-11-21 05:32] LABS: APPEARANCE,URINE CLEAR (CLEAR); BILIRUBIN,URINE NEGATIVE (NEGATIVE); BLOOD, URINE 2+ (NEGATIVE); COLOR,URINE YELLOW (YELLOW); LEUKOCYTE ESTERASE ,URINE 3+ (NEGATIVE); NITRITE, URINE NEGATIVE (NEGATIVE); UGLUCOSE 1+ (NEGATIVE)
[2022-11-21 05:42] LABS: RBC,URINE 50-80 /HPF (0-5); TRICHOMONAS,URINE None Seen /HPF (None Seen); YEAST,URINE None Seen /HPF (None Seen)
--- NOTE | 2022-11-21 06:52 | NUR ---
BLOOD SUGAR CHECKED = 109, NO SLIDING SCALE COVERAGE.
[2022-11-21 06:53] LABS: BASOPHILS % (AUTO) 0.6 % (0.0-2.0); EOSINOPHILS # (AUTO) 0.2 K/uL (0-0.4); EOSINOPHILS % (AUTO) 2.6 % (0.0-4.0); HEMATOCRIT 36.4 % (36-48); HEMOGLOBIN 12.1 g/dL (12.0-16.0); LYMPHOCYTES # (AUTO) 1.8 K/uL (2.5-16.5); LYMPHOCYTES % (AUTO) 24.1 % (20.5-51.1); MEAN CORPUSCULAR HEMOGLOBIN 29 pg (27-31); MEAN CORPUSCULAR HGB CONC 33 g/dL (33-37); MEAN CORPUSCULAR VOLUME 87.4 fL (80-94); MONOCYTES # (AUTO) 0.7 K/uL (0.8-1.0); MONOCYTES % (AUTO) 8.7 % (1.7-9.3); NEUTROPHILS # (AUTO) 4.8 K/uL (1.8-7.7); PLATELET COUNT (AUTO) 327 K/uL (140-450); RED BLOOD CELL COUNT(AUTO) 4.16 MIL/uL (4.20-5.40); RED CELL DISTRIBUTION WIDTH 15.5 % (11.6-13.7); WHITE BLOOD COUNT (AUTO) 7.6 K/uL (4.8-10.8)
[2022-11-21 07:06] LABS: CARBON DIOXIDE 21.7 mmol/L (21-32); CHLORIDE 110 mmol/L (98-107); GLUCOSE 83 mg/dL (74-106); POTASSIUM 4.7 mmol/L (3.5-5.1); SODIUM SERUM 142 mmol/L (136-145)
[2022-11-21 07:09] LABS: UREA NITROGEN, BLOOD 90 mg/dL (7-18)
--- NOTE | 2022-11-21 07:30 | NUR ---
RECEIVED PT FROM CONCESSION STAND ATTENDANT. PT WAS LYING IN BED. NO SIGNS OF RESPIRATORY DISTRESS OR DISCOMFORT NOTED. BREATHING EVEN AND UNLABORED. PT Is IN ROOM AIR 97% NO C/O OF PAIN AT THIS TIME. WILL CONTINUE TO MONITOR. CALL LIGHTS KEPT WITHIN REACH
[2022-11-21 08:00] VITALS: BP 155/67; PULSE 110; PULSE 81; RESP 18; RESP 20; TEMP 97.3; O2SAT 98
[2022-11-21] MEDS: DOCUSATE SODIUM 100 MG GELCAP PO SCH (09:00)
[2022-11-21] MEDS: AMITRIPTYLINE 25 MG TAB PO SCH ×2 (09:53→20:34)
[2022-11-21] MEDS: BUMETANIDE 1 MG TAB PO SCH (09:54)
[2022-11-21] MEDS: ASCORBIC ACID 500 MG TAB PO SCH (09:55)
[2022-11-21] MEDS: amLODIPine 5 MG TAB PO SCH (09:56)
[2022-11-21] MEDS: CYANOCOBALAMIN 100 MCG TAB PO SCH (09:56)
[2022-11-21] MEDS: POLYETHYLENE GLYCOL 17 GM/PKT PO SCH (09:56)
--- NOTE | 2022-11-21 11:49 | NUR ---
PATIENT HAS BEEN SCREENED AND CATEGORIZED MODERATE NUTRITION RISK. PATIENT WILL BE SEEN WITHIN 3-5 DAYS OF ADMISSION. / ERINN BANG RD
[2022-11-21 12:00] VITALS: BP 126/58; PULSE 88; PULSE 97; RESP 18; TEMP 97.6; O2SAT 99
--- NOTE | 2022-11-21 12:25 | NUR ---
BLOOD SUGAR CHECKED 51,. PRN D50 WAS ADMINISTERED
[2022-11-21 16:00] VITALS: BP 132/66; PULSE 87; RESP 18; TEMP 98.1; O2SAT 99
--- NOTE | 2022-11-21 17:50 | NUR ---
BLOOD SUGAR CHECKED 76, INSULIN WAS NOT ADMINISTERED
--- NOTE | 2022-11-21 19:10 | NUR ---
PT WAS REPORTED TO THE NIGHT STAFF FOR CONTINUITY OF CARE. PT WAS STABLE, LYING COMFORTABLY IN BED. CALL LIGHTS KEPT WITHIN REACH
--- NOTE | 2022-11-21 19:45 | NUR ---
RECEIVED PT FROM DAY RN FOR CONTINUITY OF CARE. PT AWAKE, ALERT AND ORIENTED X 4, ON ROOM AIR, BREATHING EVEN AND UNLABORED. NO S/SX OF DISTRESS.PT IS STABLE. ALL PRECAUTIONS IN PLACE. CALL LIGHT WITHIN REACH. WILL CONTINUE TO MONITOR.
[2022-11-21 20:00] VITALS: BP 157/70; PULSE 95; PULSE 96; RESP 18; TEMP 98.5; O2SAT 97; O2SAT 99
[2022-11-21] MEDS: ATORVASTATIN 20 MG TAB PO SCH (20:33)
[2022-11-21] MEDS: TAMSULOSIN 0.4 MG CAP PO SCH (20:34)
[2022-11-21] MEDS: INSULIN LANTUS 100 UNITS/ML 10 ML VIAL SUBQ SCH (20:48)
--- NOTE | 2022-11-21 21:00 | NUR ---
SCHEDULED MEDICATIONS GIVEN. PT TOLERATED WELL. WILL CONTINUE TO MONITOR.
[2022-11-21] MEDS: LORazepam 2 MG/ML VIAL IVP PRN (21:46)
--- NOTE | 2022-11-21 23:11 | NUR ---
PT ASLEEP. NO S/SX OF DISTRESS NOTED. CHEST RISE AND FALL NOTED. ALL PRECAUTIONS IN PLACE. CALL LIGHT WITHIN REACH. WILL CONTINUE TO MONITOR.
[2022-11-22] VITALS: BP 158/72; PULSE 104; PULSE 96; RESP 24; TEMP 98.1; O2SAT 97
--- NOTE | 2022-11-22 03:15 | NUR ---
PT ASLEEP. CHEST RISE AND FALL NOTED. ALL PRECAUTIONS IN PLACE. CALL LIGHT WITHIN REACH. WILL CONTINUE TO MONITOR.
[2022-11-22 04:00] VITALS: BP 105/66; PULSE 91; PULSE 94; RESP 19; TEMP 97.2; O2SAT 97
[2022-11-22] MEDS: BLOOD GLUCOSE MONITORING 1 DEV DEV FS SCH ×3 (06:22→18:07)
[2022-11-22 06:33] LABS: BASOPHILS % (AUTO) 0.4 % (0.0-2.0); EOSINOPHILS # (AUTO) 0.3 K/uL (0-0.4); EOSINOPHILS % (AUTO) 2.8 % (0.0-4.0); HEMATOCRIT 30.9 % (36-48); HEMOGLOBIN 10.2 g/dL (12.0-16.0); LYMPHOCYTES # (AUTO) 2.7 K/uL (2.5-16.5); LYMPHOCYTES % (AUTO) 26.5 % (20.5-51.1); MEAN CORPUSCULAR HEMOGLOBIN 29 pg (27-31); MEAN CORPUSCULAR HGB CONC 33 g/dL (33-37); MEAN CORPUSCULAR VOLUME 88.6 fL (80-94); MONOCYTES % (AUTO) 10.1 % (1.7-9.3); NEUTROPHILS % (AUTO) 60.2 % (42.2-75.2); PLATELET COUNT (AUTO) 404 K/uL (140-450); RED BLOOD CELL COUNT(AUTO) 3.49 MIL/uL (4.20-5.40)
[2022-11-22 06:49] LABS: ANION GAP 15.4 (8-16); CARBON DIOXIDE 20.7 mmol/L (21-32); CHLORIDE 112 mmol/L (98-107); GLUCOSE 70 mg/dL (74-106); POTASSIUM 5.1 mmol/L (3.5-5.1); SODIUM SERUM 143 mmol/L (136-145)
--- NOTE | 2022-11-22 06:54 | NUR ---
PT IS STABLE. NO ACUTE EVENTS OVERNIGHT. NO S/SX OF DISTRESS AT THE MOMENT. ALL NEEDS MET. NO PAIN AT THIS MOMENT. ALL PRECAUTIONS IN PLACE. CALL LIGHT WITHIN REACH. WILL ENDORSE TO AM SHIFT NURSE.
[2022-11-22 06:59] LABS: UREA NITROGEN, BLOOD 84 mg/dL (7-18)
[2022-11-22 07:12] LABS: FERRITIN 127 ng/mL (15-150); FOLIC ACID > 20.00 ng/mL (>3.0)
--- NOTE | 2022-11-22 07:25 | NUR ---
RECEIVED PT FROM NATUROPATH NURSE FOR CONTINUITY OF CARE. PT IS SLEEPING. VISIBLE CHEST RISE/FALL. RESPIRATIONS EVEN AND UNLABORED ON RA. SKIN WARM AND DRY. IV ON R CHEST 22G AND L WRIST 24G. PUREWICK IN PLACE, SUCTION ON. CALL LIGHT WITHIN REACH, ALL SAFETY PRECAUTIONS IN PLACE.
[2022-11-22 08:00] VITALS: BP 115/71; PULSE 87; PULSE 89; RESP 18; TEMP 97.3; O2SAT 99
[2022-11-22] MEDS: amLODIPine 5 MG TAB PO SCH (08:39)
[2022-11-22] MEDS: ASCORBIC ACID 500 MG TAB PO SCH (08:40)
[2022-11-22] MEDS: BUMETANIDE 1 MG TAB PO SCH (08:40)
[2022-11-22] MEDS: AMITRIPTYLINE 25 MG TAB PO SCH ×3 (08:40→21:30)
[2022-11-22] MEDS: POLYETHYLENE GLYCOL 17 GM/PKT PO SCH (08:41)
[2022-11-22] MEDS: DOCUSATE SODIUM 100 MG GELCAP PO SCH (08:41)
[2022-11-22] MEDS: CYANOCOBALAMIN 100 MCG TAB PO SCH (08:47)
--- NOTE | 2022-11-22 08:47 | NUR ---
PT RELUCTANT TO TAKE MEDICATION. PROVIDED PT TEACHING REGARDING MEDICATIONS BEING GIVEN AND IMPORTANCE OF TAKING ALL MEDICATION PRESCRIBED. PT TOOK ALL MEDICATION THEN YELLS "NOW GET OUT, LEAVE ME ALONE. I DONT WANT YOU BOTHERING ME". PT SWINGING ARMS AT NURSE.
--- NOTE | 2022-11-22 09:35 | NUR ---
WOUND CARE NOTE: PT IS AWAKE, ABLE TO CHEW FOOD REQUIRES ASSISTANCE FOR ADLS. PT. ADMITTED WITH RIGHT ELBOW SKIN TEAR TODAY'S ASSESSMENT DRY STABLE SCAB. BILATERAL UE MULTIPLE ECCHYMOSIS WITH +3 EDEMA SKIN THIN AND EASILY TO TORN, MASD TO GROINS AND BUTTOCKS, SKIN MOIST, RED . PT. WITH LOW DANA SCALE AT HIGH RISK, CONTINUE TO FOLLOW PRESSURE INJURY PREVENTION INTERVENTIONS. RECOMMENDATIONS. -PAINT RIGHT ELBOW WITH BETADINE SWAP STICKS BID AND EDGER OPERATOR -POSITIONING: TURN AND REPOSITION PATIENT Q 2H OR SOONER USE PILLOWS TO KEEP BONY PROMINENCES FROM DIRECT CONTACT WITH SURFACES USE REPOSITIONING WEDGES TO PROVIDE 30-DEGREE ANGLE FOR SIDE LYING POSITIONS OFFLOADING OR FOAM DRESSING TO ALL TUBING TO PREVENT MEDICAL DEVICES RELATED PRESSURE INJURY -RE-EVALUATING AND MANAGING INCONTINENCE MONITOR SKIN CONDITION DURING POSITION CHANGE DO NOT MASSAGE REDNESS, BONY PROMINENCES FREQUENT NATALIA-CARE AND PROVIDE BARRIER CREAMS PRN IF SOILING MOISTURE CONTROL BY OFFER BED GOMEZ/URINAL /ABSORBENT PAD TO WICK AND HOLD MOISTURE KEEP SKIN DRY AND PROTECT FROM FRICTION -MANAGE FRICTION/SHEAR/MOBILITY KEEP HOB AT THE LOWEST LEVEL OF ELEVATION NO MORE THAN 30 DEGREE UNLESS OTHERWISE CONTRAINDICATED USE LIFT SHEET OR TRANSFER DEVICE TO MOVE PATIENT AND PREVENT LATERAL SHEER. PROTECT HEELS, ELBOWS BONY PROMINENCES WITH SKIN BERRIES OR FOAM DRESSING IF EXPOSED TO FRICTION OFFLOAD BILATERAL HEELS BY PLACING PILLOWS UNDER CALVES AT ALL TIMES, UNLESS OTHERWISE CONTRAINDICATED -PRESSURE REDISTRIBUTION SURFACE THERAPY GUERRERO ISOFLEX MATTRESS -NUTRITION: PLEASE FOLLOW RD RECOMMENDATIONS AND OFFER NUTRITION SUPPLEMENTS IF ORDERED. PLEASE CONTACT WOUND CARE NURSE FOR ANY QUESTION AND CHANGE OF WOUND CONDITION.
[2022-11-22 12:00] VITALS: BP 150/70; PULSE 85; PULSE 93; RESP 18; TEMP 97.5; O2SAT 98
[2022-11-22] MEDS ORDERED: ACETAMINOPHEN 325 MG TAB PO PRN (12:55)
[2022-11-22] MEDS: GAUZE TP SCH (13:00)
--- NOTE | 2022-11-22 13:10 | NUR ---
PT ASSISTED TO EATING HER LUNCH. TOLERATING WELL.
--- NOTE | 2022-11-22 14:56 | NUR ---
Homeowner Association Manager As per Jessica. Ange, pt. has [place] [facility] [place], has been dx. with depression, takes Amitriptyline 25mg. every 12 hours and sees a psychiatrist quarterly. Pt. does not have a DPOA. Pts. Two contacts on the face sheet, are pts. children, Rosibel Anderson, and other daughter, Manju Miles, both visit pt. often. Pt is a full assist, total care, pt. is bed bound. Once pt. is medically cleared, she will discharge back [place] [facility] OBSTETRICS TECHNICIAN will remain available as needed.
[2022-11-22 16:00] VITALS: BP 113/77; PULSE 92; PULSE 95; RESP 18; TEMP 99; O2SAT 99
--- NOTE | 2022-11-22 17:39 | NUR ---
PATIENTS BLOOD GLUCOSE WAS 97, NO COVERAGE NEEDED.
--- NOTE | 2022-11-22 19:30 | NUR ---
ENDORSED PT TO CABLE INSTALLER REPAIRER NURSE FOR CONTINUITY OF CARE. PT IS STABLE.
--- NOTE | 2022-11-22 19:31 | NUR ---
RECEIVED PT ON BED SLEEPING, RESPIRATION OF CHEST RISE AND FALL SYMMETRICAL. IV SITE ON RIGHT FOREARM INTACT AND PATENT. PT IS ON SALINE LOCK.
[2022-11-22 20:00] VITALS: BP 150/64; PULSE 101; PULSE 95; RESP 20; TEMP 95; O2SAT 98
[2022-11-22] MEDS: TAMSULOSIN 0.4 MG CAP PO SCH ×2 (21:00→21:31)
[2022-11-22] MEDS: ATORVASTATIN 20 MG TAB PO SCH ×2 (21:00→21:31)
--- NOTE | 2022-11-22 21:00 | NUR ---
PT REFUSED NIGHT TIME ORAL MEDICATIONS (ELAVIL, FLOMAX & LIPITOR). EXPLAINED RISKS A& BENEFITS X3, PT STILL REFUSED. PT IS AGITATED WHEN OFFERED MEDS.
[2022-11-22] MEDS: INSULIN LANTUS 100 UNITS/ML 10 ML VIAL SUBQ SCH (21:42)
[2022-11-22] MEDS: LORazepam 2 MG/ML VIAL IVP PRN (22:24)
--- NOTE | 2022-11-22 22:24 | NUR ---
PT AGITATED AND YELLING, ATIVAN ADMINISTERED ORDERED.
[2022-11-23] VITALS: BP 117/78; PULSE 106; PULSE 75; RESP 20; TEMP 98.6; O2SAT 98
[2022-11-23] MEDS: BLOOD GLUCOSE MONITORING 1 DEV DEV FS SCH ×3 (00:51→12:10)
[2022-11-23] MEDS: INSULIN LISPRO SLIDING SCALE 100 UNITS/ML VIAL SUBQ PRN (00:52)
--- NOTE | 2022-11-23 00:52 | NUR ---
BLOOD SUGAR CHECKED = 163 = 2 UNITS HUMALOG INSULIN ADMINISTERED.
[2022-11-23] MEDS: GAUZE TP SCH ×2 (01:00→13:57)
[2022-11-23 04:00] VITALS: BP 154/84; PULSE 102; PULSE 96; RESP 20; TEMP 98.4; O2SAT 98
[2022-11-23 06:44] LABS: BASOPHILS # (AUTO) 0.1 K/uL (0.00-0.22); BASOPHILS % (AUTO) 0.5 % (0.0-2.0); EOSINOPHILS # (AUTO) 0.3 K/uL (0-0.4); EOSINOPHILS % (AUTO) 2.8 % (0.0-4.0); HEMATOCRIT 29.2 % (36-48); HEMOGLOBIN 9.8 g/dL (12.0-16.0); LYMPHOCYTES # (AUTO) 2.8 K/uL (2.5-16.5); LYMPHOCYTES % (AUTO) 28.3 % (20.5-51.1); MEAN CORPUSCULAR HEMOGLOBIN 29 pg (27-31); MEAN CORPUSCULAR HGB CONC 33 g/dL (33-37); MEAN CORPUSCULAR VOLUME 87.9 fL (80-94); MONOCYTES % (AUTO) 10.1 % (1.7-9.3); NEUTROPHILS # (AUTO) 5.8 K/uL (1.8-7.7); NEUTROPHILS % (AUTO) 58.3 % (42.2-75.2); PLATELET COUNT (AUTO) 404 K/uL (140-450); RED BLOOD CELL COUNT(AUTO) 3.33 MIL/uL (4.20-5.40); RED CELL DISTRIBUTION WIDTH 15.9 % (11.6-13.7); WHITE BLOOD COUNT (AUTO) 9.9 K/uL (4.8-10.8)
[2022-11-23 06:46] LABS: ANION GAP 17.5 (8-16); CARBON DIOXIDE 19.6 mmol/L (21-32); CHLORIDE 111 mmol/L (98-107); CREATININE 3.2 mg/dL (0.6-1.3); GLUCOSE 93 mg/dL (74-106); POTASSIUM 5.1 mmol/L (3.5-5.1); SODIUM SERUM 143 mmol/L (136-145)
[2022-11-23 06:48] LABS: UREA NITROGEN, BLOOD 86 mg/dL (7-18)
--- NOTE | 2022-11-23 06:55 | NUR ---
BLOOD SUGAR CHECKED = 85, NO SLIDING SCALE COVERAGE.
--- NOTE | 2022-11-23 07:30 | NUR ---
PT IS ON BED, SLEEPING AND IS ON STABLE CONDITION. SAFETY MEASURES ARE IN PLACE, ENDORSED TO DAY SHIFT NURSE FOR CONTINUITY OF CARE.
--- NOTE | 2022-11-23 07:31 | NUR ---
RECEIVED PT FROM WIRE DRAWING MACHINE TENDER NURSE FOR CONTINUITY OF CARE. PT IS SLEEPING VISIBLE CHEST RISE/FALL. RESPIRATIONS EVEN AND UNLABORED ON RA. CALL LIGHT WITHIN REACH. ALL SAFETY PRECAUTIONS IN PLACE.
[2022-11-23 08:00] VITALS: BP 108/78; PULSE 100; PULSE 95; RESP 16; RESP 19; TEMP 97.5; O2SAT 97; O2SAT 99
[2022-11-23] MEDS: ASCORBIC ACID 500 MG TAB PO SCH (09:17)
[2022-11-23] MEDS: DOCUSATE SODIUM 100 MG GELCAP PO SCH (09:17)
[2022-11-23] MEDS: amLODIPine 5 MG TAB PO SCH (09:17)
[2022-11-23] MEDS: BUMETANIDE 1 MG TAB PO SCH (09:18)
[2022-11-23] MEDS: POLYETHYLENE GLYCOL 17 GM/PKT PO SCH (09:18)
[2022-11-23] MEDS: AMITRIPTYLINE 25 MG TAB PO SCH (09:18)
--- NOTE | 2022-11-23 09:18 | NUR ---
PT IN BED WATCHING TV AND EATING BREAKFAST WITH ASSISTANCE FROM LEAD TANK MECHANIC. PT IS AOX2 TALKING, COOPERATIVE WITH SIMPLE COMMANDS/ANSWERING QUESTIONS. ALL SCHEDULED MORNING MEDS ADMINISTERED. PT TOLERATING WELL.
[2022-11-23] MEDS: CYANOCOBALAMIN 100 MCG TAB PO SCH (09:33)
--- NOTE | 2022-11-23 11:13 | NUR ---
RECEIVED ORDER FOR PATIENT TO GO BACK TO SNF FOR CONTINUE OF CARE. [place] ALL PAPERWORK [place] [facility] SPOKE WITH AKHIL AT [facility] AT [address] [place] [address]. PATIENT WILL BE GOING TO ROOM [facility] UNDER DR HARDIN. TRANSPORTATION ARRANGED WITH [facility] FOR A 1400 LAY OUT INSPECTOR TIME. WILL CALL AND CONFIRM WITH [facility] WHEN FAX CONFIRMATION COMES BACK NURSE DESIREE AND DAUGHTER ALEJANDRA AWARE OF THE ABOVE INFORMATION,. Addendum: 11/23/22 at 1328 by ESTELA NICOLAS TRANSPORT VENDORS INFORMATION IS [facility] FOR A 1500 LAY OUT INSPECTOR TIME.
[2022-11-23 12:00] VITALS: BP 125/68; PULSE 95; PULSE 99; RESP 16; TEMP 97.7; O2SAT 96
--- NOTE | 2022-11-23 13:21 | NUR ---
CALLED [facility] GAVE REPORT TO RUDOLHP FOR CONTINUITY OF PATIENT CARE. ENDORSED DR AGUILERA WILL BE FOLLOWING OUTPATIENT AND TO GIVE THREAD REELER A CALL ONCE PATIENT IS BACK AT FACILITY. PER RUDOLPH SHE NEEDS TO SPEAK TO HER DON ABOUT PT BEING ACCEPTED DUE TO CURRENT LABS.
--- NOTE | 2022-11-23 14:18 | NUR ---
IV'S REMOVED. PACKED PT BELONGINGS AND DC PAPERWORK IN PT BELONGINGS BAG. HANDED TO TRANSPORT. TRANSPORT STAFF ARRIVE AND WHEELED PT VIA GURNEY TO FRONT LOBBY. PT IN STABLE CONDITION DC TO [facility].
== END 2022-11-23 14:19 | DRG 871 ==
LOC: MED 09:03 → MTU 12:43
PROVIDERS: ADMIT Family Medicine; ATTEND Family Medicine
PROC: 30233N1 Transfusion of Nonautologous Red Blood Cells into Peripheral Vein, Percutaneous Approach (ICD-10-PCS; principal; 2022-11-20)
DX: A41.9 Sepsis, unspecified organism (principal); I50.33 Acute on chronic diastolic (congestive) heart failure; N17.0 Acute kidney failure with tubular necrosis; I13.0 Hypertensive heart and chronic kidney disease with heart failure and stage 1 through stage 4 chronic kidney disease, or unspecified chronic kidney disease; N39.0 Urinary tract infection, site not specified; D63.1 Anemia in chronic kidney disease; E66.01 Morbid (severe) obesity due to excess calories; Z66 Do not resuscitate; E87.5 Hyperkalemia; Z68.33 Body mass index [BMI] 33.0-33.9, adult; N18.30 Chronic kidney disease, stage 3 unspecified; E11.22 Type 2 diabetes mellitus with diabetic chronic kidney disease; M24.411 Recurrent dislocation, right shoulder; F03.90 Unspecified dementia, unspecified severity, without behavioral disturbance, psychotic disturbance, mood disturbance, and anxiety; K21.9 Gastro-esophageal reflux disease without esophagitis; E83.51 Hypocalcemia; Z87.440 Personal history of urinary (tract) infections; Z79.899 Other long term (current) drug therapy; Z79.82 Long term (current) use of aspirin; Z91.018 Allergy to other foods
CPT/HCPCS: 36415; 36430; 71045; 76770; 80048; 80053; 81001; 82009; 82570; 82607; 82728; 82746; 82948; 83036; 83540; 83605; 83735; 83880; 84100; 84156; 84300; 84484; 85025; 85610; 85730; 86886; 86900; 86901; 86920; 87040; 87086; 93005; 96360; 99285; J0696; J1644; J1815; J2060; J3475; J7060; P9016; Q0092

== ENCOUNTER 2023-03-18 09:29 | Inpatient (IN) | payer OTHER ==
[~2023-03-18] VITALS: Ht 157.5 cm; Wt 54.4 kg
[~2023-03-18 09:29] MED LIST changes: -BISA-213 RC; +DOCU250S85 PO; -FLUC100T1 PO; -MAG SULF 2000 MG/WATER PREMIX 50 ML IV PRN; -SLIDE SUBQ
[2023-03-18 09:45] VITALS: BP_SYST 11; BP_SYST 111; BP_DIAS 73; PULSE 86; RESP 22; TEMP 97.5; O2SAT 95
[2023-03-18 10:58] LABS: BASOPHILS % (AUTO) 0.1 % (0.0-2.0); EOSINOPHILS % (AUTO) 0.2 % (0.0-4.0); HEMOGLOBIN 7.3 g/dL (12.0-16.0); LYMPHOCYTES # (AUTO) 1.1 K/uL (2.5-16.5); LYMPHOCYTES % (AUTO) 9.9 % (20.5-51.1); MEAN CORPUSCULAR HEMOGLOBIN 29 pg (27-31); MEAN CORPUSCULAR HGB CONC 32 g/dL (33-37); MEAN CORPUSCULAR VOLUME 91.9 fL (80-94); MONOCYTES # (AUTO) 0.5 K/uL (0.8-1.0); MONOCYTES % (AUTO) 4.2 % (1.7-9.3); NEUTROPHILS # (AUTO) 9.6 K/uL (1.8-7.7); NEUTROPHILS % (AUTO) 85.6 % (42.2-75.2); PLATELET COUNT (AUTO) 526 K/uL (140-450); RED BLOOD CELL COUNT(AUTO) 2.51 MIL/uL (4.20-5.40); RED CELL DISTRIBUTION WIDTH 16.4 % (11.6-13.7); WHITE BLOOD COUNT (AUTO) 11.2 K/uL (4.8-10.8)
[2023-03-18 11:00] VITALS: O2SAT 98
[2023-03-18 11:31] LABS: ALANINE AMINOTRANSFERASE 20 U/L (12-78); ALBUMIN 1.9 g/dL (3.4-5.0); ALKALINE PHOSPHATASE 174 U/L (50-136); ANION GAP 19.7 (8-16); ASPARTATE AMINOTRANSFERASE 26 U/L (15-37); CALCIUM 8.3 mg/dL (8.5-10.1); CARBON DIOXIDE 15.9 mmol/L (21-32); CHLORIDE 111 mmol/L (98-107); CREATININE 3.8 mg/dL (0.6-1.3); GLUCOSE 51 mg/dL (74-106); POTASSIUM 5.6 mmol/L (3.5-5.1); SODIUM SERUM 141 mmol/L (136-145); TOTAL BILIRUBIN 0.2 mg/dL (0.0-1.0); TOTAL PROTEIN, SERUM 7.8 g/dL (6.4-8.2)
[2023-03-18 11:37] LABS: UREA NITROGEN, BLOOD 108 mg/dL (7-18)
[2023-03-18 11:55] LABS: FLU A ANTIGEN negative (NEGATIVE); FLU B ANTIGEN NEGATIVE (NEGATIVE)
[2023-03-18 13:00] LABS: LACTIC ACID 0.8 mmol/L (0.4-2.0)
[2023-03-18 13:42] VITALS: O2SAT 100
[2023-03-18] MEDS ORDERED: NACL 0.9% 1,000 ML IV ONE (14:05)
[2023-03-18] MEDS ORDERED: SODIUM POLYSTYRENE 15 GM/60 ML UDBTL PO ONE (15:15)
[2023-03-18] MEDS ORDERED: CALCIUM CHLORIDE 10% 100 MG/ML SYR IVP ONE (15:15)
[2023-03-18] MEDS ORDERED: DEXTROSE 50% 50 ML SYR IVP ONE ×2 (15:15→15:55)
[2023-03-18 15:55] VITALS: O2SAT 100
[2023-03-18 19:03] VITALS: PULSE 94; RESP 32; O2SAT 98
[2023-03-18] MEDS: ALBUTEROL SULFATE/IPRATROPIU 3 ML SOL IH SCH (19:03)
[2023-03-18 20:12] LABS: BILIRUBIN,URINE NEGATIVE (NEGATIVE); BLOOD, URINE 3+ (NEGATIVE); COLOR,URINE YELLOW (YELLOW); LEUKOCYTE ESTERASE ,URINE 2+ (NEGATIVE); NITRITE, URINE NEGATIVE (NEGATIVE); PROTEIN,URINE 3+ (NEGATIVE); UGLUCOSE TRACE (NEGATIVE); UROBILINOGEN,URINE 0.2 EU/dL (0.2 - 1)
[2023-03-18 20:31] LABS: APPEARANCE,URINE HAZY (CLEAR)
[2023-03-18] MEDS ORDERED: HYDROcodone/APAP 5/325 MG 1 TAB TAB PO PRN (20:55)
[2023-03-18] MEDS ORDERED: NACL 0.9% 1,000 ML IV SCH (20:55)
[2023-03-18] MEDS ORDERED: ACETAMINOPHEN 325 MG TAB PO PRN (20:55)
[2023-03-18] MEDS ORDERED: ONDANSETRON 4 MG/2 ML VIAL IVP PRN (20:55)
[2023-03-18] MEDS ORDERED: NON-FORMULARY ITEM (Cranberry Fruit Concentrate (Cranberry) 450 MG) PO SCH (21:00)
[2023-03-18] MEDS ORDERED: PIPERACILLIN/TAZOBACTAM 2.25 GM VIAL IV ONE (21:02)
[2023-03-18] MEDS: PIPERACILLIN/TAZOBACTAM 2.25 GM in DEXTROSE 5% 50 ML IV SCH (21:09)
[2023-03-18 21:23] LABS: BACTERIA,URINE 3+ /HPF (None Seen); RBC,URINE TOO NUMEROUS TO COUN /HPF (0-5); SQUAMOUS EPITHELIAL CELL,UR 0-3 (FEW) /LPF (0-3 (FEW)); WBC,URINE TOO MANY TO COUNT /HPF (0-5)
[2023-03-18] MEDS: BLOOD GLUCOSE MONITORING 1 DEV DEV FS SCH (23:22)
[2023-03-18] MEDS: TAMSULOSIN 0.4 MG CAP PO SCH (23:32)
[2023-03-18] MEDS: ATORVASTATIN 20 MG TAB PO SCH (23:34)
[2023-03-18] MEDS: INSULIN LANTUS 100 UNITS/ML 10 ML VIAL SUBQ SCH (23:37)
[2023-03-18] MEDS: INSULIN LISPRO SLIDING SCALE 100 UNITS/ML VIAL SUBQ PRN (23:38)
[2023-03-19] VITALS (10 sets, daily range): BP systolic 124–141; BP diastolic 43–61; PULSE 64–133; RESP 18–30; TEMP 97–98.1; O2SAT 86–100
[2023-03-19] MEDS: AMITRIPTYLINE 25 MG TAB PO SCH ×3 (00:24→21:00)
[2023-03-19] MEDS: ALBUTEROL SULFATE/IPRATROPIU 3 ML SOL IH SCH ×4 (01:12→14:22)
[2023-03-19] MEDS ORDERED: PIPERACILLIN/TAZOBACTAM 2.25 GM VIAL IV ONE (05:03)
[2023-03-19] MEDS: PIPERACILLIN/TAZOBACTAM 2.25 GM in DEXTROSE 5% 50 ML IV SCH ×3 (05:18→21:08)
[2023-03-19 07:44] LABS: EOSINOPHILS % (AUTO) 0.1 % (0.0-4.0); HEMATOCRIT 20.2 % (36-48); LYMPHOCYTES # (AUTO) 1.2 K/uL (2.5-16.5); LYMPHOCYTES % (AUTO) 7.5 % (20.5-51.1); MEAN CORPUSCULAR HEMOGLOBIN 29 pg (27-31); MEAN CORPUSCULAR HGB CONC 31 g/dL (33-37); MEAN CORPUSCULAR VOLUME 92.2 fL (80-94); MONOCYTES # (AUTO) 0.5 K/uL (0.8-1.0); MONOCYTES % (AUTO) 3.4 % (1.7-9.3); PLATELET COUNT (AUTO) 453 K/uL (140-450); RED CELL DISTRIBUTION WIDTH 16.3 % (11.6-13.7); WHITE BLOOD COUNT (AUTO) 15.7 K/uL (4.8-10.8)
[2023-03-19 07:58] LABS: HEMOGLOBIN 6.4 g/dL (12.0-16.0)
[2023-03-19] MEDS: BLOOD GLUCOSE MONITORING 1 DEV DEV FS SCH ×4 (08:21→21:30)
[2023-03-19] MEDS: DEXTROSE 50% 50 ML SYR IVP PRN (08:22)
[2023-03-19] MEDS ORDERED: BUMETANIDE 1 MG TAB PO SCH (09:00)
[2023-03-19] MEDS: CYANOCOBALAMIN 100 MCG TAB PO SCH (09:00)
[2023-03-19] MEDS ORDERED: SODIUM ZIRCONIUM CYCLOSILICATE 5 GM PO SCH (09:00)
[2023-03-19] MEDS: DOCUSATE SODIUM 250 MG GELCAP PO SCH (09:00)
[2023-03-19 09:15] LABS: ANION GAP 19.3 (8-16); CALCIUM 8.6 mg/dL (8.5-10.1); CARBON DIOXIDE 13.9 mmol/L (21-32); CHLORIDE 114 mmol/L (98-107); CREATININE 3.9 mg/dL (0.6-1.3); GLUCOSE 71 mg/dL (74-106); POTASSIUM 5.2 mmol/L (3.5-5.1); SODIUM SERUM 142 mmol/L (136-145)
[2023-03-19 09:19] LABS: MAGNESIUM 1.7 mg/dL (1.8-2.4); PHOSPHORUS 6.3 mg/dL (2.5-4.9)
[2023-03-19 09:45] LABS: UREA NITROGEN, BLOOD 107 mg/dL (7-18)
[2023-03-19] MEDS: DEXAMETHASONE 10 MG/ML VIAL IVP SCH (10:20)
[2023-03-19] MEDS: ASPIRIN 81 MG TAB.CHEW PO SCH (10:21)
[2023-03-19] MEDS: SODIUM ZIRCONIUM CYCLOSILICATE 10 GM POWD.PACK PO SCH (10:21)
[2023-03-19] MEDS: ASCORBIC ACID 500 MG TAB PO SCH (10:22)
[2023-03-19] MEDS: amLODIPine 5 MG TAB PO SCH (10:22)
[2023-03-19] MEDS: POLYETHYLENE GLYCOL 17 GM/PKT PO SCH (10:23)
[2023-03-19] MEDS ORDERED: SODIUM ZIRCONIUM CYCLOSILICATE 10 GM POWD.PACK PO SCH (10:33)
[2023-03-19] MEDS ORDERED: remdesivir COMMUNICATION ORDER 1 EA MISC MC PRN (10:40)
[2023-03-19] MEDS ORDERED: VANCOMYCIN PER PHARMACY MC PRN (10:40)
[2023-03-19] MEDS ORDERED: VANCOMYCIN 500 MG in DEXTROSE 5% 100 ML IV SCH (11:15)
[2023-03-19] MEDS: EPOETIN ALFA 10,000 UNITS/ML VIAL IV SCH (11:50)
[2023-03-19] MEDS ORDERED: remdesivir CLINICAL MONITORING 1 EA MISC MC PRN (13:00)
[2023-03-19] MEDS: FUROSEMIDE 20 MG/2 ML VIAL IVP SCH ×2 (13:48→21:22)
[2023-03-19] MEDS ORDERED: REMDESIVIR. 200 MG in NACL 0.9% 100 ML IV SCH (14:30)
[2023-03-19] MEDS ORDERED: LOVENOX 1MG/KG Q24H SUBQ SCH (14:45)
[2023-03-19] MEDS ORDERED: ALBUMIN HUMAN 25% 200 ML IV ONE ×2 (17:50→17:52)
[2023-03-19] MEDS ORDERED: ALBUTEROL SULFATE/IPRATROPIU 3 ML SOL IH PRN (20:15)
[2023-03-19] MEDS ORDERED: DILTIAZEM 25 MG/5 ML VIAL IVP ONE (20:45)
[2023-03-19] MEDS: ATORVASTATIN 20 MG TAB PO SCH (21:00)
[2023-03-19] MEDS: INSULIN LANTUS 100 UNITS/ML 10 ML VIAL SUBQ SCH (21:00)
[2023-03-19] MEDS: METOPROLOL 25 MG TAB PO SCH (21:00)
[2023-03-19] MEDS: TAMSULOSIN 0.4 MG CAP PO SCH (21:00)
[2023-03-20] VITALS (18 sets, daily range): BP systolic 111–155; BP diastolic 48–76; PULSE 87–128; RESP 15–24; TEMP 96.7–98.3; O2SAT 91–100
[2023-03-20] MEDS: ALBUTEROL SULFATE/IPRATROPIU 3 ML SOL IH SCH ×4 (01:15→19:50)
[2023-03-20] MEDS: PIPERACILLIN/TAZOBACTAM 2.25 GM in DEXTROSE 5% 50 ML IV SCH ×3 (05:00→21:50)
[2023-03-20] MEDS: FUROSEMIDE 20 MG/2 ML VIAL IVP SCH ×3 (05:01→21:48)
[2023-03-20] MEDS: DEXTROSE 50% 50 ML SYR IVP PRN (06:52)
[2023-03-20] MEDS: BLOOD GLUCOSE MONITORING 1 DEV DEV FS SCH ×4 (06:52→22:30)
[2023-03-20 07:09] LABS: ALANINE AMINOTRANSFERASE 32 U/L (12-78); ALBUMIN 2.5 g/dL (3.4-5.0); ALKALINE PHOSPHATASE 334 U/L (50-136); ASPARTATE AMINOTRANSFERASE 51 U/L (15-37); CALCIUM 8.2 mg/dL (8.5-10.1); CARBON DIOXIDE 24.8 mmol/L (21-32); CHLORIDE 104 mmol/L (98-107); CREATININE 2.4 mg/dL (0.6-1.3); GLUCOSE 63 mg/dL (74-106); POTASSIUM 3.8 mmol/L (3.5-5.1); SODIUM SERUM 141 mmol/L (136-145); TOTAL BILIRUBIN 0.4 mg/dL (0.0-1.0); TOTAL PROTEIN, SERUM 7.3 g/dL (6.4-8.2); UREA NITROGEN, BLOOD 48 mg/dL (7-18)
[2023-03-20 07:13] LABS: LYMPHOCYTES # (AUTO) 1.8 K/uL (2.5-16.5); MEAN CORPUSCULAR HEMOGLOBIN 30 pg (27-31); MEAN CORPUSCULAR HGB CONC 34 g/dL (33-37); MEAN CORPUSCULAR VOLUME 89.5 fL (80-94); MONOCYTES # (AUTO) 0.6 K/uL (0.8-1.0); MONOCYTES % (AUTO) 5.6 % (1.7-9.3); NEUTROPHILS # (AUTO) 7.8 K/uL (1.8-7.7); PLATELET COUNT (AUTO) 392 K/uL (140-450); RED BLOOD CELL COUNT(AUTO) 2.02 MIL/uL (4.20-5.40); RED CELL DISTRIBUTION WIDTH 16.1 % (11.6-13.7); WHITE BLOOD COUNT (AUTO) 10.1 K/uL (4.8-10.8)
[2023-03-20 07:32] LABS: HEMOGLOBIN 6.1 g/dL (12.0-16.0)
[2023-03-20 07:33] LABS: HEMATOCRIT 18.1 % (36-48)
[2023-03-20 08:23] LABS: MAGNESIUM 1.6 mg/dL (1.8-2.4); PHOSPHORUS 4.4 mg/dL (2.5-4.9)
[2023-03-20 08:31] LABS: LYMPHOCYTES % (AUTO) 17.7 % (20.5-51.1); NEUTROPHILS % (AUTO) 76.7 % (42.2-75.2)
[2023-03-20] MEDS: POLYETHYLENE GLYCOL 17 GM/PKT PO SCH ×2 (08:44→09:00)
[2023-03-20] MEDS: SODIUM ZIRCONIUM CYCLOSILICATE 10 GM POWD.PACK PO SCH ×2 (08:44→09:00)
[2023-03-20] MEDS: METOPROLOL 25 MG TAB PO SCH ×3 (08:45→21:46)
[2023-03-20] MEDS: ASPIRIN 81 MG TAB.CHEW PO SCH ×2 (08:45→09:00)
[2023-03-20] MEDS: amLODIPine 5 MG TAB PO SCH ×2 (08:45→09:00)
[2023-03-20] MEDS: ASCORBIC ACID 500 MG TAB PO SCH ×2 (08:45→09:00)
[2023-03-20] MEDS: AMITRIPTYLINE 25 MG TAB PO SCH ×3 (08:46→21:45)
[2023-03-20] MEDS: DEXAMETHASONE 10 MG/ML VIAL IVP SCH (08:46)
[2023-03-20] MEDS: DOCUSATE SODIUM 250 MG GELCAP PO SCH ×2 (08:46→09:00)
[2023-03-20] MEDS: CYANOCOBALAMIN 100 MCG TAB PO SCH (08:47)
[2023-03-20] MEDS ORDERED: VANCOMYCIN 750 MG in DEXTROSE 5% 250 ML IV SCH (09:30)
[2023-03-20] MEDS ORDERED: CALCIUM GLUC 1 GM/50 mL NS BAG 50 ML IV ONE (11:10)
[2023-03-20] MEDS ORDERED: MAG SULF 2000 MG/WATER PREMIX 50 ML IV SCH (12:00)
[2023-03-20] MEDS: REMDESIVIR. 100 MG in NACL 0.9% 100 ML IV SCH (14:41)
[2023-03-20] MEDS: ATORVASTATIN 20 MG TAB PO SCH (21:42)
[2023-03-20] MEDS: TAMSULOSIN 0.4 MG CAP PO SCH (21:45)
[2023-03-20] MEDS: INSULIN LANTUS 100 UNITS/ML 10 ML VIAL SUBQ SCH (22:41)
[2023-03-20] MEDS: INSULIN LISPRO SLIDING SCALE 100 UNITS/ML VIAL SUBQ PRN (22:43)
[2023-03-21] VITALS (17 sets, daily range): BP systolic 70–155; BP diastolic 40–81; PULSE 73–108; RESP 16–22; TEMP 96.4–97.7; O2SAT 79–98
[2023-03-21] MEDS: ALBUTEROL SULFATE/IPRATROPIU 3 ML SOL IH SCH ×4 (01:20→18:57)
[2023-03-21] MEDS: FUROSEMIDE 20 MG/2 ML VIAL IVP SCH ×3 (04:05→23:26)
[2023-03-21] MEDS: PIPERACILLIN/TAZOBACTAM 2.25 GM in DEXTROSE 5% 50 ML IV SCH ×3 (04:05→23:26)
[2023-03-21] MEDS: BLOOD GLUCOSE MONITORING 1 DEV DEV FS SCH ×4 (07:00→21:51)
[2023-03-21 07:05] LABS: HEMOGLOBIN 8.4 g/dL (12.0-16.0); LYMPHOCYTES # (AUTO) 1.4 K/uL (2.5-16.5); LYMPHOCYTES % (AUTO) 14.9 % (20.5-51.1); MEAN CORPUSCULAR HEMOGLOBIN 30 pg (27-31); MEAN CORPUSCULAR HGB CONC 34 g/dL (33-37); MEAN CORPUSCULAR VOLUME 89.8 fL (80-94); MONOCYTES # (AUTO) 0.8 K/uL (0.8-1.0); MONOCYTES % (AUTO) 8.2 % (1.7-9.3); NEUTROPHILS % (AUTO) 76.9 % (42.2-75.2); PLATELET COUNT (AUTO) 367 K/uL (140-450); RED BLOOD CELL COUNT(AUTO) 2.79 MIL/uL (4.20-5.40); RED CELL DISTRIBUTION WIDTH 14.7 % (11.6-13.7); WHITE BLOOD COUNT (AUTO) 9.2 K/uL (4.8-10.8)
[2023-03-21 07:34] LABS: ALANINE AMINOTRANSFERASE 39 U/L (12-78); ALBUMIN 2.3 g/dL (3.4-5.0); ALKALINE PHOSPHATASE 271 U/L (50-136); ANION GAP 15.4 (8-16); ASPARTATE AMINOTRANSFERASE 50 U/L (15-37); CARBON DIOXIDE 26.2 mmol/L (21-32); CHLORIDE 104 mmol/L (98-107); CREATININE 2.5 mg/dL (0.6-1.3); GLUCOSE 71 mg/dL (74-106); MAGNESIUM 2.1 mg/dL (1.8-2.4); PHOSPHORUS 4.6 mg/dL (2.5-4.9); POTASSIUM 3.6 mmol/L (3.5-5.1); SODIUM SERUM 142 mmol/L (136-145); TOTAL BILIRUBIN 0.4 mg/dL (0.0-1.0); TOTAL PROTEIN, SERUM 6.9 g/dL (6.4-8.2); UREA NITROGEN, BLOOD 46 mg/dL (7-18)
[2023-03-21] MEDS: POLYETHYLENE GLYCOL 17 GM/PKT PO SCH (09:00)
[2023-03-21] MEDS: DEXAMETHASONE 10 MG/ML VIAL IVP SCH (09:01)
[2023-03-21] MEDS: AMITRIPTYLINE 25 MG TAB PO SCH ×2 (09:09→21:32)
[2023-03-21] MEDS: CYANOCOBALAMIN 100 MCG TAB PO SCH (09:09)
[2023-03-21] MEDS: amLODIPine 5 MG TAB PO SCH (09:10)
[2023-03-21] MEDS: DOCUSATE SODIUM 250 MG GELCAP PO SCH (09:10)
[2023-03-21] MEDS: ASCORBIC ACID 500 MG TAB PO SCH (09:10)
[2023-03-21] MEDS: ASPIRIN 81 MG TAB.CHEW PO SCH (09:11)
[2023-03-21] MEDS: SODIUM ZIRCONIUM CYCLOSILICATE 10 GM POWD.PACK PO SCH (09:11)
[2023-03-21] MEDS: METOPROLOL 25 MG TAB PO SCH (09:11)
[2023-03-21] MEDS: CYANOCOBALAMIN 1,000 MCG TAB PO SCH (09:36)
[2023-03-21] MEDS ORDERED: NACL 0.9% 500 ML IV ONE (14:25)
[2023-03-21] MEDS: REMDESIVIR. 100 MG in NACL 0.9% 100 ML IV SCH (15:02)
[2023-03-21] MEDS ORDERED: VANCOMYCIN 750 MG in DEXTROSE 5% 250 ML IV SCH (20:00)
[2023-03-21] MEDS: METOPROLOL 50 MG TAB PO SCH (21:33)
[2023-03-21] MEDS: TAMSULOSIN 0.4 MG CAP PO SCH (21:34)
[2023-03-21] MEDS: INSULIN LANTUS 100 UNITS/ML 10 ML VIAL SUBQ SCH (21:58)
[2023-03-21] MEDS: APIXABAN 2.5 MG TAB PO SCH (22:11)
[2023-03-22] VITALS (17 sets, daily range): BP systolic 88–178; BP diastolic 40–88; PULSE 63–101; RESP 17–22; TEMP 96.3–98.1; O2SAT 79–100
[2023-03-22] MEDS: ALBUTEROL SULFATE/IPRATROPIU 3 ML SOL IH SCH ×4 (01:52→19:44)
[2023-03-22] MEDS: PIPERACILLIN/TAZOBACTAM 2.25 GM in DEXTROSE 5% 50 ML IV SCH ×3 (06:48→22:07)
[2023-03-22] MEDS: FUROSEMIDE 20 MG/2 ML VIAL IVP SCH ×3 (06:56→22:09)
[2023-03-22 07:26] LABS: BASOPHILS % (AUTO) 0.1 % (0.0-2.0); HEMATOCRIT 27.9 % (36-48); LYMPHOCYTES # (AUTO) 1.8 K/uL (2.5-16.5); LYMPHOCYTES % (AUTO) 12.2 % (20.5-51.1); MEAN CORPUSCULAR HEMOGLOBIN 30 pg (27-31); MEAN CORPUSCULAR HGB CONC 32 g/dL (33-37); MEAN CORPUSCULAR VOLUME 91.9 fL (80-94); NEUTROPHILS # (AUTO) 11.8 K/uL (1.8-7.7); NEUTROPHILS % (AUTO) 80.7 % (42.2-75.2); PLATELET COUNT (AUTO) 480 K/uL (140-450); RED BLOOD CELL COUNT(AUTO) 3.03 MIL/uL (4.20-5.40); RED CELL DISTRIBUTION WIDTH 15.6 % (11.6-13.7); WHITE BLOOD COUNT (AUTO) 14.6 K/uL (4.8-10.8)
[2023-03-22] MEDS: BLOOD GLUCOSE MONITORING 1 DEV DEV FS SCH ×4 (07:30→22:26)
[2023-03-22 07:45] LABS: MAGNESIUM 2.1 mg/dL (1.8-2.4); PHOSPHORUS 5.3 mg/dL (2.5-4.9)
[2023-03-22 07:48] LABS: ALANINE AMINOTRANSFERASE 48 U/L (12-78); ALBUMIN 2.4 g/dL (3.4-5.0); ALKALINE PHOSPHATASE 282 U/L (50-136); ANION GAP 17.7 (8-16); ASPARTATE AMINOTRANSFERASE 51 U/L (15-37); CALCIUM 8.1 mg/dL (8.5-10.1); CARBON DIOXIDE 25.3 mmol/L (21-32); CHLORIDE 102 mmol/L (98-107); CREATININE 3.1 mg/dL (0.6-1.3); GLUCOSE 110 mg/dL (74-106); SODIUM SERUM 141 mmol/L (136-145); TOTAL BILIRUBIN 0.5 mg/dL (0.0-1.0); TOTAL PROTEIN, SERUM 7.5 g/dL (6.4-8.2)
[2023-03-22 08:09] LABS: UREA NITROGEN, BLOOD 71 mg/dL (7-18)
[2023-03-22] MEDS ORDERED: ALBUMIN HUMAN 25% 50 ML IV SCH (09:00)
[2023-03-22] MEDS: DEXAMETHASONE 10 MG/ML VIAL IVP SCH (09:24)
[2023-03-22] MEDS: AMITRIPTYLINE 25 MG TAB PO SCH ×2 (09:25→22:09)
[2023-03-22] MEDS: METOPROLOL 50 MG TAB PO SCH ×2 (09:25→21:00)
[2023-03-22] MEDS: POLYETHYLENE GLYCOL 17 GM/PKT PO SCH (09:26)
[2023-03-22] MEDS: APIXABAN 2.5 MG TAB PO SCH ×2 (09:27→22:34)
[2023-03-22] MEDS: CYANOCOBALAMIN 1,000 MCG TAB PO SCH (09:28)
[2023-03-22] MEDS: DOCUSATE SODIUM 250 MG GELCAP PO SCH (09:28)
[2023-03-22] MEDS: ASCORBIC ACID 500 MG TAB PO SCH (09:28)
[2023-03-22] MEDS: EPOETIN ALFA 10,000 UNITS/ML VIAL IV SCH (09:33)
[2023-03-22] MEDS: REMDESIVIR. 100 MG in NACL 0.9% 100 ML IV SCH (14:00)
[2023-03-22] MEDS: INSULIN LISPRO SLIDING SCALE 100 UNITS/ML VIAL SUBQ PRN ×2 (17:42→22:39)
[2023-03-22] MEDS: TAMSULOSIN 0.4 MG CAP PO SCH (22:10)
[2023-03-22] MEDS: INSULIN LANTUS 100 UNITS/ML 10 ML VIAL SUBQ SCH (22:35)
[2023-03-23] VITALS (9 sets, daily range): BP systolic 94–147; BP diastolic 46–78; PULSE 60–91; RESP 17–20; TEMP 96.5–97.2; O2SAT 97–100
[2023-03-23] MEDS: ALBUTEROL SULFATE/IPRATROPIU 3 ML SOL IH SCH ×2 (01:45→07:12)
[2023-03-23] MEDS: PIPERACILLIN/TAZOBACTAM 2.25 GM in DEXTROSE 5% 50 ML IV SCH ×2 (05:05→13:00)
[2023-03-23] MEDS: FUROSEMIDE 20 MG/2 ML VIAL IVP SCH (05:07)
[2023-03-23] MEDS: BLOOD GLUCOSE MONITORING 1 DEV DEV FS SCH ×3 (06:36→16:09)
[2023-03-23] MEDS: INSULIN LISPRO SLIDING SCALE 100 UNITS/ML VIAL SUBQ PRN ×2 (06:48→11:38)
[2023-03-23 07:25] LABS: ALANINE AMINOTRANSFERASE 38 U/L (12-78); ALBUMIN 2.6 g/dL (3.4-5.0); ALKALINE PHOSPHATASE 233 U/L (50-136); ANION GAP 18.8 (8-16); ASPARTATE AMINOTRANSFERASE 30 U/L (15-37); CALCIUM 7.9 mg/dL (8.5-10.1); CARBON DIOXIDE 24.1 mmol/L (21-32); CHLORIDE 101 mmol/L (98-107); CREATININE 3.9 mg/dL (0.6-1.3); GLUCOSE 199 mg/dL (74-106); HEMATOCRIT 26.9 % (36-48); HEMOGLOBIN 8.6 g/dL (12.0-16.0); LYMPHOCYTES # (AUTO) 1.2 K/uL (2.5-16.5); LYMPHOCYTES % (AUTO) 10.4 % (20.5-51.1); MEAN CORPUSCULAR HEMOGLOBIN 30 pg (27-31); MEAN CORPUSCULAR HGB CONC 32 g/dL (33-37); MEAN CORPUSCULAR VOLUME 92.4 fL (80-94); MONOCYTES # (AUTO) 0.9 K/uL (0.8-1.0); MONOCYTES % (AUTO) 7.9 % (1.7-9.3); NEUTROPHILS # (AUTO) 9.2 K/uL (1.8-7.7); NEUTROPHILS % (AUTO) 81.7 % (42.2-75.2); PLATELET COUNT (AUTO) 355 K/uL (140-450); POTASSIUM 3.9 mmol/L (3.5-5.1); RED BLOOD CELL COUNT(AUTO) 2.92 MIL/uL (4.20-5.40); RED CELL DISTRIBUTION WIDTH 15.8 % (11.6-13.7); SODIUM SERUM 140 mmol/L (136-145); TOTAL BILIRUBIN 0.5 mg/dL (0.0-1.0); TOTAL PROTEIN, SERUM 6.8 g/dL (6.4-8.2); WHITE BLOOD COUNT (AUTO) 11.3 K/uL (4.8-10.8)
[2023-03-23 07:29] LABS: UREA NITROGEN, BLOOD 93 mg/dL (7-18)
[2023-03-23] MEDS: MIDODRINE 5 MG TAB PO SCH ×2 (07:41→12:35)
[2023-03-23 07:59] LABS: MAGNESIUM 1.9 mg/dL (1.8-2.4); PHOSPHORUS 5.9 mg/dL (2.5-4.9)
[2023-03-23] MEDS: DEXAMETHASONE 10 MG/ML VIAL IVP SCH (09:00)
[2023-03-23] MEDS: DOCUSATE SODIUM 250 MG GELCAP PO SCH (09:00)
[2023-03-23] MEDS: METOPROLOL 50 MG TAB PO SCH (09:00)
[2023-03-23] MEDS: APIXABAN 2.5 MG TAB PO SCH (09:00)
[2023-03-23] MEDS: POLYETHYLENE GLYCOL 17 GM/PKT PO SCH (09:00)
[2023-03-23] MEDS: AMITRIPTYLINE 25 MG TAB PO SCH (09:00)
[2023-03-23] MEDS: ASCORBIC ACID 500 MG TAB PO SCH (09:00)
[2023-03-23] MEDS: CYANOCOBALAMIN 1,000 MCG TAB PO SCH (09:00)
[2023-03-23] MEDS ORDERED: ALBUMIN HUMAN 25% 100 ML IV SCH (11:45)
[2023-03-23] MEDS ORDERED: FUROSEMIDE 40 MG/4 ML VIAL IVP SCH (13:00)
[2023-03-23] MEDS: REMDESIVIR. 100 MG in NACL 0.9% 100 ML IV SCH (14:00)
[2023-03-23] MEDS ORDERED: METO50TA99 PO (16:04)
[2023-03-23] MEDS ORDERED: PIPE50SO5 IV (16:04)
[2023-03-23] MEDS ORDERED: PRO5 PO (16:04)
[2023-03-23] MEDS ORDERED: Vancomycin Per Pharmacy MC (16:04)
[2023-03-23] MEDS ORDERED: APIX2.5 PO (16:04)
[2023-03-23] MEDS ORDERED: FURO-570 PO (16:04)
== END 2023-03-23 18:45 | DRG 871 ==
LOC: MED 09:29 → MTU 15:15
PROVIDERS: ADMIT Preventive Medicine Preventive Medicine/Occupational Environmental Medicine; ATTEND Preventive Medicine Preventive Medicine/Occupational Environmental Medicine
PROC: 02HV33Z Insertion of Infusion Device into Superior Vena Cava, Percutaneous Approach (ICD-10-PCS; principal; 2023-03-19)
PROC: B548ZZA Ultrasonography of Superior Vena Cava, Guidance (ICD-10-PCS; 2023-03-19)
PROC: 5A1D70Z Performance of Urinary Filtration, Intermittent, Less than 6 Hours Per Day (ICD-10-PCS; 2023-03-19)
PROC: 30233N1 Transfusion of Nonautologous Red Blood Cells into Peripheral Vein, Percutaneous Approach (ICD-10-PCS; 2023-03-20)
PROC: 5A1D70Z Performance of Urinary Filtration, Intermittent, Less than 6 Hours Per Day (ICD-10-PCS; 2023-03-20)
PROC: XW033E5 Introduction of Remdesivir Anti-infective into Peripheral Vein, Percutaneous Approach, New Technology Group 5 (ICD-10-PCS; 2023-03-20)
PROC: 5A1D70Z Performance of Urinary Filtration, Intermittent, Less than 6 Hours Per Day (ICD-10-PCS; 2023-03-23)
DX: A41.9 Sepsis, unspecified organism (principal); I50.33 Acute on chronic diastolic (congestive) heart failure; J12.82 Pneumonia due to coronavirus disease 2019; J96.01 Acute respiratory failure with hypoxia; U07.1 COVID-19; N17.0 Acute kidney failure with tubular necrosis; N39.0 Urinary tract infection, site not specified; I13.0 Hypertensive heart and chronic kidney disease with heart failure and stage 1 through stage 4 chronic kidney disease, or unspecified chronic kidney disease; N18.4 Chronic kidney disease, stage 4 (severe); E11.65 Type 2 diabetes mellitus with hyperglycemia; D75.839 Thrombocytosis, unspecified; E83.39 Other disorders of phosphorus metabolism; E83.42 Hypomagnesemia; E83.51 Hypocalcemia; D63.1 Anemia in chronic kidney disease; F03.90 Unspecified dementia, unspecified severity, without behavioral disturbance, psychotic disturbance, mood disturbance, and anxiety; E88.09 Other disorders of plasma-protein metabolism, not elsewhere classified; E87.5 Hyperkalemia; Z66 Do not resuscitate; E11.22 Type 2 diabetes mellitus with diabetic chronic kidney disease; I48.0 Paroxysmal atrial fibrillation; E83.52 Hypercalcemia; I25.10 Atherosclerotic heart disease of native coronary artery without angina pectoris; K21.9 Gastro-esophageal reflux disease without esophagitis; Z79.01 Long term (current) use of anticoagulants; Z99.2 Dependence on renal dialysis
CPT/HCPCS: 36415; 36430; 71045; 80048; 80053; 80202; 81001; 82948; 83605; 83735; 84100; 85025; 85651; 86140; 86886; 86900; 86901; 86920; 87040; 87086; 92526; 93005; 94640; 96374; 96375; 97110; 97530; 99291; J0885; J1100; J1644; J1815; J1940; J2543; J3370; J3420; J3475; J3490; J7060; P9016; P9046; Q0092

== ENCOUNTER 2023-03-25 10:28 | Inpatient (IN) | payer OTHER ==
[~2023-03-25] VITALS: Ht 152.4 cm; Wt 80.7 kg
[~2023-03-25 10:28] MED LIST changes: +APIX2.5 PO; +FURO-570 PO; +METO50TA99 PO; +PIPE50SO5 IV; +PRO5 PO; +Vancomycin Per Pharmacy MC
[2023-03-25 10:43] VITALS: BP 128/48; PULSE 82; RESP 18; TEMP 97; O2SAT 97
[2023-03-25 11:20] LABS: HEMATOCRIT 27.1 % (36-48); HEMOGLOBIN 8.8 g/dL (12.0-16.0); MEAN CORPUSCULAR HEMOGLOBIN 30 pg (27-31); MEAN CORPUSCULAR HGB CONC 32 g/dL (33-37); MEAN CORPUSCULAR VOLUME 93.3 fL (80-94); PLATELET COUNT (AUTO) 326 K/uL (140-450); RED BLOOD CELL COUNT(AUTO) 2.91 MIL/uL (4.20-5.40); RED CELL DISTRIBUTION WIDTH 16.2 % (11.6-13.7); WHITE BLOOD COUNT (AUTO) 19.8 K/uL (4.8-10.8)
[2023-03-25 11:33] LABS: ALANINE AMINOTRANSFERASE 29 U/L (12-78); ALBUMIN 2.4 g/dL (3.4-5.0); ALKALINE PHOSPHATASE 185 U/L (50-136); ANION GAP 12.7 (8-16); ASPARTATE AMINOTRANSFERASE 23 U/L (15-37); CALCIUM 7.9 mg/dL (8.5-10.1); CARBON DIOXIDE 27.5 mmol/L (21-32); CHLORIDE 104 mmol/L (98-107); CREATININE 3.4 mg/dL (0.6-1.3); GLUCOSE 106 mg/dL (74-106); POTASSIUM 4.2 mmol/L (3.5-5.1); SODIUM SERUM 140 mmol/L (136-145); TOTAL BILIRUBIN 0.5 mg/dL (0.0-1.0)
[2023-03-25 11:35] LABS: UREA NITROGEN, BLOOD 71 mg/dL (7-18)
[2023-03-25 12:19] LABS: BASOPHILS % (MANUAL) 0 % (0-2); EOSINOPHILS % (MANUAL) 1 % (0-4); LYMPHOCYTES % (MANUAL) 4 % (20-46); METAMYELOCYTES % 3 % (0-0); MONOCYTES % (MANUAL) 3 % (5-12)
[2023-03-25 12:20] LABS: PLATELET ESTIMATE ADEQUATE
[2023-03-25] MEDS ORDERED: NUTR30LI3 PO (13:27)
[2023-03-25] MEDS ORDERED: VITA1TAB44 PO (13:27)
[2023-03-25] MEDS ORDERED: ONDANSETRON 4 MG/2 ML VIAL IVP PRN (13:30)
[2023-03-25] MEDS ORDERED: DEXTROSE 50% 50 ML SYR IVP PRN (13:30)
[2023-03-25] MEDS ORDERED: ALBUTEROL 0.083% 2.5 MG/3 ML NEBU INH PRN (13:30)
[2023-03-25] MEDS ORDERED: PIPERACILLIN/TAZOBACTAM 2.25 GM VIAL IV ONE ×2 (13:54→21:13)
[2023-03-25] MEDS: PIPERACILLIN/TAZOBACTAM 2.25 GM in DEXTROSE 5% 50 ML IV SCH ×2 (13:59→21:29)
[2023-03-25] MEDS: BLOOD GLUCOSE MONITORING 1 DEV DEV FS SCH ×2 (16:40→21:29)
[2023-03-25] MEDS: METOPROLOL 25 MG TAB PO SCH (21:00)
[2023-03-25] MEDS: FUROSEMIDE 40 MG TAB PO SCH (21:00)
[2023-03-25] MEDS: ATORVASTATIN 20 MG TAB PO SCH (21:00)
[2023-03-25] MEDS: APIXABAN 2.5 MG TAB PO SCH (21:00)
[2023-03-25] MEDS: DOCUSATE SODIUM 100 MG GELCAP PO SCH (21:00)
[2023-03-26] VITALS (11 sets, daily range): BP systolic 122–156; BP diastolic 44–67; PULSE 63–78; RESP 14–22; TEMP 98–99.9; O2SAT 96–100
[2023-03-26] MEDS ORDERED: PIPERACILLIN/TAZOBACTAM 2.25 GM VIAL IV ONE (04:48)
[2023-03-26] MEDS: PIPERACILLIN/TAZOBACTAM 2.25 GM in DEXTROSE 5% 50 ML IV SCH ×3 (04:56→21:10)
[2023-03-26] MEDS: BLOOD GLUCOSE MONITORING 1 DEV DEV FS SCH ×4 (06:23→21:10)
[2023-03-26 07:38] LABS: BASOPHILS % (AUTO) 0.1 % (0.0-2.0); EOSINOPHILS % (AUTO) 0.1 % (0.0-4.0); HEMATOCRIT 29.3 % (36-48); HEMOGLOBIN 9.2 g/dL (12.0-16.0); LYMPHOCYTES # (AUTO) 1.3 K/uL (2.5-16.5); LYMPHOCYTES % (AUTO) 7.4 % (20.5-51.1); MEAN CORPUSCULAR HEMOGLOBIN 30 pg (27-31); MEAN CORPUSCULAR HGB CONC 32 g/dL (33-37); MEAN CORPUSCULAR VOLUME 95.6 fL (80-94); MONOCYTES # (AUTO) 0.8 K/uL (0.8-1.0); MONOCYTES % (AUTO) 4.5 % (1.7-9.3); NEUTROPHILS # (AUTO) 15.8 K/uL (1.8-7.7); NEUTROPHILS % (AUTO) 87.9 % (42.2-75.2); PLATELET COUNT (AUTO) 268 K/uL (140-450); RED BLOOD CELL COUNT(AUTO) 3.06 MIL/uL (4.20-5.40); RED CELL DISTRIBUTION WIDTH 16.3 % (11.6-13.7); WHITE BLOOD COUNT (AUTO) 17.9 K/uL (4.8-10.8)
[2023-03-26 07:59] LABS: CALCIUM 8.1 mg/dL (8.5-10.1); CARBON DIOXIDE 25.5 mmol/L (21-32); CHLORIDE 102 mmol/L (98-107); CREATININE 3.8 mg/dL (0.6-1.3); GLUCOSE 156 mg/dL (74-106); POTASSIUM 4.5 mmol/L (3.5-5.1); SODIUM SERUM 142 mmol/L (136-145)
[2023-03-26 08:02] LABS: UREA NITROGEN, BLOOD 79 mg/dL (7-18)
[2023-03-26] MEDS: ECOTRIN 81 MG TABEC PO SCH (09:00)
[2023-03-26] MEDS: FUROSEMIDE 40 MG TAB PO SCH (09:00)
[2023-03-26] MEDS: APIXABAN 2.5 MG TAB PO SCH ×2 (09:00→21:00)
[2023-03-26] MEDS ORDERED: PANTOPRAZOLE 40 MG TABEC PO SCH (09:00)
[2023-03-26] MEDS: DOCUSATE SODIUM 100 MG GELCAP PO SCH ×2 (09:00→21:00)
[2023-03-26] MEDS: METOPROLOL 25 MG TAB PO SCH ×2 (09:00→21:00)
[2023-03-26] MEDS: ALBUTEROL SULFATE/IPRATROPIU 3 ML SOL IH PRN (13:08)
[2023-03-26] MEDS ORDERED: ALBUMIN HUMAN 25% 100 ML IV ONE ×2 (15:53→15:55)
[2023-03-26] MEDS ORDERED: MIDODRINE 5 MG TAB PO SCH (16:01)
[2023-03-26] MEDS: FUROSEMIDE 40 MG/4 ML VIAL IVP SCH (17:20)
[2023-03-26] MEDS: ATORVASTATIN 20 MG TAB PO SCH (21:00)
[2023-03-27] VITALS (7 sets, daily range): BP systolic 113–135; BP diastolic 34–87; PULSE 59–74; RESP 16–20; TEMP 96.6–97.9; O2SAT 88–100
[2023-03-27] MEDS ORDERED: Z-GUARD PASTE TP ONE (03:05)
[2023-03-27] MEDS: PIPERACILLIN/TAZOBACTAM 2.25 GM in DEXTROSE 5% 50 ML IV SCH ×3 (05:37→20:57)
[2023-03-27] MEDS: BLOOD GLUCOSE MONITORING 1 DEV DEV FS SCH ×4 (06:04→20:57)
[2023-03-27 07:18] LABS: BASOPHILS % (AUTO) 0.1 % (0.0-2.0); EOSINOPHILS % (AUTO) 0.2 % (0.0-4.0); HEMATOCRIT 25.4 % (36-48); LYMPHOCYTES % (AUTO) 6.8 % (20.5-51.1); MEAN CORPUSCULAR HEMOGLOBIN 30 pg (27-31); MEAN CORPUSCULAR HGB CONC 32 g/dL (33-37); MEAN CORPUSCULAR VOLUME 95.2 fL (80-94); MONOCYTES # (AUTO) 0.6 K/uL (0.8-1.0); MONOCYTES % (AUTO) 4.2 % (1.7-9.3); NEUTROPHILS # (AUTO) 13.3 K/uL (1.8-7.7); NEUTROPHILS % (AUTO) 88.7 % (42.2-75.2); PLATELET COUNT (AUTO) 208 K/uL (140-450); RED BLOOD CELL COUNT(AUTO) 2.67 MIL/uL (4.20-5.40); RED CELL DISTRIBUTION WIDTH 17.1 % (11.6-13.7); WHITE BLOOD COUNT (AUTO) 14.9 K/uL (4.8-10.8)
[2023-03-27 07:37] LABS: PHOSPHORUS 5.1 mg/dL (2.5-4.9)
[2023-03-27 07:48] LABS: ANION GAP 21.3 (8-16); CALCIUM 8.1 mg/dL (8.5-10.1); CARBON DIOXIDE 23.8 mmol/L (21-32); CHLORIDE 102 mmol/L (98-107); CREATININE 2.7 mg/dL (0.6-1.3); GLUCOSE 146 mg/dL (74-106); POTASSIUM 4.1 mmol/L (3.5-5.1); SODIUM SERUM 143 mmol/L (136-145); UREA NITROGEN, BLOOD 52 mg/dL (7-18)
[2023-03-27] MEDS: ALBUTEROL SULFATE/IPRATROPIU 3 ML SOL IH PRN (08:11)
[2023-03-27] MEDS: METOPROLOL 25 MG TAB PO SCH ×2 (09:59→21:00)
[2023-03-27] MEDS: ECOTRIN 81 MG TABEC PO SCH (09:59)
[2023-03-27] MEDS: DOCUSATE SODIUM 100 MG GELCAP PO SCH ×2 (09:59→21:00)
[2023-03-27] MEDS: APIXABAN 2.5 MG TAB PO SCH ×2 (09:59→21:00)
[2023-03-27] MEDS: FUROSEMIDE 40 MG/4 ML VIAL IVP SCH ×2 (10:52→18:16)
[2023-03-27] MEDS: PANTOPRAZOLE 40 MG INJ VIAL IVP SCH (10:52)
[2023-03-27] MEDS: INSULIN LISPRO SLIDING SCALE 100 UNITS/ML VIAL SUBQ PRN (12:12)
[2023-03-27] MEDS: Z-GUARD PASTE TP SCH (13:56)
[2023-03-27] MEDS: ATORVASTATIN 20 MG TAB PO SCH (21:00)
[2023-03-28] VITALS: BP 116/65; PULSE 77; PULSE 81; RESP 16; TEMP 98.5; O2SAT 95
[2023-03-28] MEDS: Z-GUARD PASTE TP SCH ×2 (01:00→13:32)
[2023-03-28 04:00] VITALS: BP 131/103; PULSE 80; PULSE 84; RESP 18; TEMP 98.1; O2SAT 95
[2023-03-28] MEDS: PIPERACILLIN/TAZOBACTAM 2.25 GM in DEXTROSE 5% 50 ML IV SCH ×2 (04:28→13:30)
[2023-03-28] MEDS: BLOOD GLUCOSE MONITORING 1 DEV DEV FS SCH ×3 (06:38→17:54)
[2023-03-28 07:00] LABS: EOSINOPHILS % (AUTO) 0.3 % (0.0-4.0); HEMATOCRIT 25.2 % (36-48); LYMPHOCYTES # (AUTO) 1.1 K/uL (2.5-16.5); LYMPHOCYTES % (AUTO) 9.6 % (20.5-51.1); MEAN CORPUSCULAR HEMOGLOBIN 30 pg (27-31); MEAN CORPUSCULAR HGB CONC 32 g/dL (33-37); MEAN CORPUSCULAR VOLUME 94.7 fL (80-94); MONOCYTES # (AUTO) 0.8 K/uL (0.8-1.0); MONOCYTES % (AUTO) 7.2 % (1.7-9.3); NEUTROPHILS # (AUTO) 9.3 K/uL (1.8-7.7); NEUTROPHILS % (AUTO) 82.9 % (42.2-75.2); PLATELET COUNT (AUTO) 199 K/uL (140-450); RED BLOOD CELL COUNT(AUTO) 2.67 MIL/uL (4.20-5.40); RED CELL DISTRIBUTION WIDTH 17.2 % (11.6-13.7); WHITE BLOOD COUNT (AUTO) 11.2 K/uL (4.8-10.8)
[2023-03-28 07:15] LABS: ALANINE AMINOTRANSFERASE 17 U/L (12-78); ALBUMIN 2.5 g/dL (3.4-5.0); ALKALINE PHOSPHATASE 130 U/L (50-136); ANION GAP 23.9 (8-16); ASPARTATE AMINOTRANSFERASE 14 U/L (15-37); CALCIUM 8.1 mg/dL (8.5-10.1); CARBON DIOXIDE 22.3 mmol/L (21-32); CHLORIDE 103 mmol/L (98-107); CREATININE 3.4 mg/dL (0.6-1.3); GLUCOSE 137 mg/dL (74-106); PHOSPHORUS 5.4 mg/dL (2.5-4.9); POTASSIUM 4.2 mmol/L (3.5-5.1); SODIUM SERUM 145 mmol/L (136-145); TOTAL BILIRUBIN 0.7 mg/dL (0.0-1.0); UREA NITROGEN, BLOOD 59 mg/dL (7-18)
[2023-03-28 08:00] VITALS: BP 138/66; PULSE 80; PULSE 88; RESP 22; TEMP 96.7; O2SAT 100; O2SAT 95
[2023-03-28 08:02] VITALS: O2SAT 95
[2023-03-28] MEDS: PANTOPRAZOLE 40 MG INJ VIAL IVP SCH (09:56)
[2023-03-28] MEDS: FUROSEMIDE 40 MG/4 ML VIAL IVP SCH (09:57)
[2023-03-28] MEDS: ECOTRIN 81 MG TABEC PO SCH (10:01)
[2023-03-28] MEDS: DOCUSATE SODIUM 100 MG GELCAP PO SCH (10:03)
[2023-03-28] MEDS: APIXABAN 2.5 MG TAB PO SCH (10:03)
[2023-03-28] MEDS: METOPROLOL 25 MG TAB PO SCH (10:04)
[2023-03-28] MEDS ORDERED: METO25TA PO (10:48)
[2023-03-28] MEDS ORDERED: APIX2.5 PO (10:48)
[2023-03-28 12:00] VITALS: BP 157/77; PULSE 79; RESP 20; TEMP 98.3; O2SAT 98
[2023-03-28] MEDS: INSULIN LISPRO SLIDING SCALE 100 UNITS/ML VIAL SUBQ PRN (13:29)
[2023-03-28] MEDS ORDERED: FOAM DRESSING TP PRN (13:40)
[2023-03-28] MEDS ORDERED: NYSTATIN POW 100 MU/GM 15 GM BTL TP PRN (13:40)
[2023-03-28] MEDS ORDERED: Z-GUARD PASTE TP SCH (14:35)
[2023-03-28 16:00] VITALS: BP 131/103; PULSE 75; PULSE 84; RESP 20; TEMP 96.9; O2SAT 100
[2023-03-28] MEDS ORDERED: DOCUSATE 100 MG/10 ML UDC PO SCH (21:00)
[2023-03-29] MEDS ORDERED: NYSTATIN POW 100 MU/GM 15 GM BTL TP SCH (01:00)
[2023-03-29] MEDS ORDERED: Z-GUARD PASTE TP SCH (01:00)
[2023-03-31] MEDS ORDERED: FOAM DRESSING TP SCH (09:00)
== END 2023-03-28 17:55 | DRG 314 ==
LOC: MED 10:28 → MTU 13:33 → MIC 03-26 00:44 → MTU 03-27 06:35
PROVIDERS: ADMIT Internal Medicine; ATTEND Internal Medicine
PROC: 5A1D70Z Performance of Urinary Filtration, Intermittent, Less than 6 Hours Per Day (ICD-10-PCS; 2023-03-25)
PROC: 05HM33Z Insertion of Infusion Device into Right Internal Jugular Vein, Percutaneous Approach (ICD-10-PCS; principal; 2023-03-26)
PROC: 02PYX3Z Removal of Infusion Device from Great Vessel, External Approach (ICD-10-PCS; 2023-03-26)
PROC: 5A1D70Z Performance of Urinary Filtration, Intermittent, Less than 6 Hours Per Day (ICD-10-PCS; 2023-03-26)
DX: T82.898A Other specified complication of vascular prosthetic devices, implants and grafts, initial encounter (principal); A41.9 Sepsis, unspecified organism; G93.41 Metabolic encephalopathy; I50.33 Acute on chronic diastolic (congestive) heart failure; N18.6 End stage renal disease; N17.0 Acute kidney failure with tubular necrosis; J18.9 Pneumonia, unspecified organism; E43 Unspecified severe protein-calorie malnutrition; I13.2 Hypertensive heart and chronic kidney disease with heart failure and with stage 5 chronic kidney disease, or end stage renal disease; I24.89 Other forms of acute ischemic heart disease; E83.39 Other disorders of phosphorus metabolism; E11.65 Type 2 diabetes mellitus with hyperglycemia; F03.90 Unspecified dementia, unspecified severity, without behavioral disturbance, psychotic disturbance, mood disturbance, and anxiety; I48.0 Paroxysmal atrial fibrillation; Z66 Do not resuscitate; D64.9 Anemia, unspecified; Z20.822 Contact with and (suspected) exposure to COVID-19; E11.22 Type 2 diabetes mellitus with diabetic chronic kidney disease; K21.9 Gastro-esophageal reflux disease without esophagitis; Z91.09 Other allergy status, other than to drugs and biological substances; Z79.899 Other long term (current) drug therapy; Z99.2 Dependence on renal dialysis; Z79.01 Long term (current) use of anticoagulants; Y84.9 Medical procedure, unspecified as the cause of abnormal reaction of the patient, or of later complication, without mention of misadventure at the time of the procedure; Y92.9 Unspecified place or not applicable; Z68.38 Body mass index [BMI] 38.0-38.9, adult
CPT/HCPCS: 36415; 70450; 71045; 80048; 80053; 82140; 82948; 83540; 83735; 83880; 84100; 84484; 85025; 85651; 86140; 87040; 87081; 87086; 93005; 99285; C9113; J1644; J1815; J1940; J2543; J7060; P9046; Q0092

== ENCOUNTER 2023-03-29 14:14 | Inpatient (IN) | payer OTHER ==
[~2023-03-29] VITALS: Ht 162.6 cm; Wt 75.7 kg
[~2023-03-29 14:14] MED LIST changes: -FURO-570 PO; +METO25TA PO; -METO50TA99 PO; +NUTR30LI3 PO; -PIPE50SO5 IV; -PRO5 PO; +VITA1TAB44 PO; -Vancomycin Per Pharmacy MC
[2023-03-29 14:58] VITALS: BP 122/68; PULSE 78; RESP 18; TEMP 97.9; O2SAT 97
[2023-03-29 17:17] LABS: BASOPHILS % (AUTO) 0.1 % (0.0-2.0); EOSINOPHILS # (AUTO) 0.1 K/uL (0-0.4); EOSINOPHILS % (AUTO) 0.8 % (0.0-4.0); HEMATOCRIT 22.1 % (36-48); HEMOGLOBIN 7.1 g/dL (12.0-16.0); LYMPHOCYTES # (AUTO) 1.9 K/uL (2.5-16.5); LYMPHOCYTES % (AUTO) 19.9 % (20.5-51.1); MEAN CORPUSCULAR HEMOGLOBIN 30 pg (27-31); MEAN CORPUSCULAR HGB CONC 32 g/dL (33-37); MEAN CORPUSCULAR VOLUME 94.6 fL (80-94); MONOCYTES # (AUTO) 0.8 K/uL (0.8-1.0); MONOCYTES % (AUTO) 7.9 % (1.7-9.3); NEUTROPHILS # (AUTO) 6.9 K/uL (1.8-7.7); NEUTROPHILS % (AUTO) 71.3 % (42.2-75.2); PLATELET COUNT (AUTO) 174 K/uL (140-450); RED BLOOD CELL COUNT(AUTO) 2.33 MIL/uL (4.20-5.40); RED CELL DISTRIBUTION WIDTH 18.1 % (11.6-13.7); WHITE BLOOD COUNT (AUTO) 9.6 K/uL (4.8-10.8)
[2023-03-29 17:36] LABS: ALANINE AMINOTRANSFERASE 9 U/L (12-78); ALBUMIN 2.3 g/dL (3.4-5.0); ALKALINE PHOSPHATASE 111 U/L (50-136); ANION GAP 23.9 (8-16); ASPARTATE AMINOTRANSFERASE 10 U/L (15-37); CALCIUM 8.5 mg/dL (8.5-10.1); CARBON DIOXIDE 20.4 mmol/L (21-32); CHLORIDE 103 mmol/L (98-107); GLUCOSE 146 mg/dL (74-106); POTASSIUM 4.3 mmol/L (3.5-5.1); SODIUM SERUM 143 mmol/L (136-145); TOTAL BILIRUBIN 0.6 mg/dL (0.0-1.0); TOTAL PROTEIN, SERUM 5.8 g/dL (6.4-8.2)
[2023-03-29 17:48] LABS: CREATININE 4.4 mg/dL (0.6-1.3); UREA NITROGEN, BLOOD 68 mg/dL (7-18)
[2023-03-29 17:59] LABS: THYROID STIMULATING HORMONE 1.16 uIU/mL (0.34-3.74)
[2023-03-29 18:08] LABS: INR 1.05 (0.8-1.2); PARTIAL THROMBOPLASTIN TIME 30.5 secs (22-35.6)
[2023-03-29 18:30] LABS: FREE T4 (FREE THYROXINE) 1.03 ng/dL (0.76-1.46)
[2023-03-29 18:55] LABS: LACTIC ACID 0.9 mmol/L (0.4-2.0)
[2023-03-29] MEDS ORDERED: ACETAMINOPHEN 325 MG TAB PO PRN (20:35)
[2023-03-29] MEDS ORDERED: POTASSIUM CHLORIDE 10 MEQ TABER PO PRN (20:35)
[2023-03-29] MEDS ORDERED: DOCUSATE SODIUM 100 MG GELCAP PO PRN (20:35)
[2023-03-29] MEDS ORDERED: NACL 0.9% 1,000 ML IV SCH (20:35)
[2023-03-29] MEDS ORDERED: guaiFENesin DM 200/20 MG-10 ML 10 ML UDC PO PRN (20:35)
[2023-03-29] MEDS ORDERED: HYDROcodone/APAP 7.5/325 MG 1 TAB PO PRN (20:35)
[2023-03-29] MEDS ORDERED: ZOLPIDEM 5 MG TAB PO PRN (20:35)
[2023-03-29] MEDS ORDERED: ONDANSETRON 4 MG/2 ML VIAL IM/IVP PRN (20:35)
[2023-03-29] MEDS: APIXABAN 2.5 MG TAB PO SCH (21:00)
[2023-03-29] MEDS: METOPROLOL 25 MG TAB PO SCH (23:30)
[2023-03-29] MEDS: ATORVASTATIN 20 MG TAB PO SCH (23:30)
[2023-03-30] VITALS (8 sets, daily range): BP systolic 110–137; BP diastolic 39–85; PULSE 66–92; RESP 16–19; TEMP 97–98; O2SAT 95–99
[2023-03-30] MEDS ORDERED: DEXTROSE 50% 50 ML SYR IVP PRN (06:25)
[2023-03-30] MEDS ORDERED: ALBUTEROL SULFATE/IPRATROPIU 3 ML SOL IH PRN (06:25)
[2023-03-30 07:03] LABS: BASOPHILS % (AUTO) 0.1 % (0.0-2.0); EOSINOPHILS # (AUTO) 0.1 K/uL (0-0.4); EOSINOPHILS % (AUTO) 0.7 % (0.0-4.0); HEMATOCRIT 22.8 % (36-48); HEMOGLOBIN 7.2 g/dL (12.0-16.0); LYMPHOCYTES # (AUTO) 1.8 K/uL (2.5-16.5); LYMPHOCYTES % (AUTO) 20.6 % (20.5-51.1); MEAN CORPUSCULAR HEMOGLOBIN 30 pg (27-31); MEAN CORPUSCULAR HGB CONC 32 g/dL (33-37); MEAN CORPUSCULAR VOLUME 95.4 fL (80-94); MONOCYTES # (AUTO) 0.7 K/uL (0.8-1.0); MONOCYTES % (AUTO) 8.2 % (1.7-9.3); NEUTROPHILS # (AUTO) 6.2 K/uL (1.8-7.7); NEUTROPHILS % (AUTO) 70.4 % (42.2-75.2); PLATELET COUNT (AUTO) 185 K/uL (140-450); RED BLOOD CELL COUNT(AUTO) 2.39 MIL/uL (4.20-5.40); RED CELL DISTRIBUTION WIDTH 17.3 % (11.6-13.7); WHITE BLOOD COUNT (AUTO) 8.9 K/uL (4.8-10.8)
[2023-03-30] MEDS ORDERED: PIPERACILLIN/TAZOBACTAM 2.25 GM VIAL IV ONE (07:20)
[2023-03-30 07:57] LABS: ALANINE AMINOTRANSFERASE 15 U/L (12-78); ALBUMIN 2.5 g/dL (3.4-5.0); ALKALINE PHOSPHATASE 115 U/L (50-136); ANION GAP 27.5 (8-16); ASPARTATE AMINOTRANSFERASE 14 U/L (15-37); CALCIUM 8.1 mg/dL (8.5-10.1); CARBON DIOXIDE 20.1 mmol/L (21-32); CHLORIDE 104 mmol/L (98-107); GLUCOSE 143 mg/dL (74-106); POTASSIUM 4.6 mmol/L (3.5-5.1); SODIUM SERUM 147 mmol/L (136-145); TOTAL BILIRUBIN 0.6 mg/dL (0.0-1.0); TOTAL PROTEIN, SERUM 6.2 g/dL (6.4-8.2)
[2023-03-30] MEDS: PIPERACILLIN/TAZOBACTAM 2.25 GM in DEXTROSE 5% 50 ML IV SCH ×3 (08:00→20:03)
[2023-03-30 08:01] LABS: UREA NITROGEN, BLOOD 76 mg/dL (7-18)
[2023-03-30 08:03] LABS: CREATININE 4.8 mg/dL (0.6-1.3)
[2023-03-30] MEDS: BLOOD GLUCOSE MONITORING 1 DEV DEV FS SCH ×4 (08:12→20:31)
[2023-03-30] MEDS: PANTOPRAZOLE 40 MG TABEC PO SCH (09:00)
[2023-03-30] MEDS: METOPROLOL 25 MG TAB PO SCH ×2 (09:00→20:42)
[2023-03-30] MEDS: ASPIRIN 81 MG TAB.CHEW PO SCH (09:00)
[2023-03-30] MEDS: CYANOCOBALAMIN 1,000 MCG TAB PO SCH (09:00)
[2023-03-30] MEDS: AMITRIPTYLINE 25 MG TAB PO SCH ×2 (09:00→20:41)
[2023-03-30] MEDS: BUMETANIDE 1 MG TAB PO SCH (09:00)
[2023-03-30] MEDS: ASCORBIC ACID 500 MG TAB PO SCH (09:00)
[2023-03-30] MEDS: APIXABAN 2.5 MG TAB PO SCH ×2 (09:00→20:46)
[2023-03-30] MEDS: amLODIPine 5 MG TAB PO SCH (09:00)
[2023-03-30] MEDS ORDERED: NYSTATIN POW 100 MU/GM 15 GM BTL TP PRN (16:40)
[2023-03-30] MEDS: DEXT 5% / NACL 0.9% 1,000 ML IV SCH (17:08)
[2023-03-30] MEDS: TAMSULOSIN 0.4 MG CAP PO SCH (20:42)
[2023-03-30] MEDS: ATORVASTATIN 20 MG TAB PO SCH (20:55)
[2023-03-31] VITALS (9 sets, daily range): BP systolic 106–138; BP diastolic 33–71; PULSE 69–80; RESP 16–20; TEMP 96.1–98.1; O2SAT 94–99
[2023-03-31] MEDS: NYSTATIN POW 100 MU/GM 15 GM BTL TP SCH ×2 (01:00→12:41)
[2023-03-31] MEDS: PIPERACILLIN/TAZOBACTAM 2.25 GM in DEXTROSE 5% 50 ML IV SCH ×3 (04:58→20:05)
[2023-03-31] MEDS: INSULIN LISPRO SLIDING SCALE 100 UNITS/ML VIAL SUBQ PRN ×3 (06:35→20:39)
[2023-03-31] MEDS: BLOOD GLUCOSE MONITORING 1 DEV DEV FS SCH ×4 (06:38→20:40)
[2023-03-31 07:26] LABS: BASOPHILS % (AUTO) 0.2 % (0.0-2.0); EOSINOPHILS % (AUTO) 0.7 % (0.0-4.0); HEMATOCRIT 21.4 % (36-48); LYMPHOCYTES % (AUTO) 15.5 % (20.5-51.1); MEAN CORPUSCULAR HEMOGLOBIN 30 pg (27-31); MEAN CORPUSCULAR HGB CONC 32 g/dL (33-37); MEAN CORPUSCULAR VOLUME 94.5 fL (80-94); MONOCYTES # (AUTO) 0.5 K/uL (0.8-1.0); MONOCYTES % (AUTO) 7.8 % (1.7-9.3); NEUTROPHILS # (AUTO) 4.7 K/uL (1.8-7.7); NEUTROPHILS % (AUTO) 75.8 % (42.2-75.2); PLATELET COUNT (AUTO) 147 K/uL (140-450); RED BLOOD CELL COUNT(AUTO) 2.27 MIL/uL (4.20-5.40); WHITE BLOOD COUNT (AUTO) 6.1 K/uL (4.8-10.8)
[2023-03-31 07:37] LABS: HEMOGLOBIN 6.8 g/dL (12.0-16.0)
[2023-03-31 08:19] LABS: ALANINE AMINOTRANSFERASE 11 U/L (12-78); ALBUMIN 2.2 g/dL (3.4-5.0); ALKALINE PHOSPHATASE 106 U/L (50-136); ANION GAP 18.6 (8-16); ASPARTATE AMINOTRANSFERASE 12 U/L (15-37); CALCIUM 8.2 mg/dL (8.5-10.1); CARBON DIOXIDE 26.3 mmol/L (21-32); CHLORIDE 102 mmol/L (98-107); CREATININE 2.8 mg/dL (0.6-1.3); GLUCOSE 216 mg/dL (74-106); POTASSIUM 3.9 mmol/L (3.5-5.1); SODIUM SERUM 143 mmol/L (136-145); TOTAL BILIRUBIN 0.5 mg/dL (0.0-1.0); TOTAL PROTEIN, SERUM 5.9 g/dL (6.4-8.2); UREA NITROGEN, BLOOD 31 mg/dL (7-18)
[2023-03-31] MEDS: ASPIRIN 81 MG TAB.CHEW PO SCH (09:10)
[2023-03-31] MEDS: APIXABAN 2.5 MG TAB PO SCH ×2 (09:10→20:22)
[2023-03-31] MEDS: AMITRIPTYLINE 25 MG TAB PO SCH ×2 (09:10→20:15)
[2023-03-31] MEDS: ASCORBIC ACID 500 MG TAB PO SCH (09:11)
[2023-03-31] MEDS: BUMETANIDE 1 MG TAB PO SCH (09:11)
[2023-03-31] MEDS: METOPROLOL 25 MG TAB PO SCH ×2 (09:11→20:40)
[2023-03-31] MEDS: amLODIPine 5 MG TAB PO SCH (09:11)
[2023-03-31] MEDS: PANTOPRAZOLE 40 MG TABEC PO SCH (09:11)
[2023-03-31] MEDS: CYANOCOBALAMIN 1,000 MCG TAB PO SCH (09:20)
[2023-03-31] MEDS: Z-GUARD PASTE TP SCH (14:56)
[2023-03-31] MEDS: DEXT 5% / NACL 0.9% 1,000 ML IV SCH (17:16)
[2023-03-31] MEDS: TAMSULOSIN 0.4 MG CAP PO SCH (20:15)
[2023-03-31] MEDS: ATORVASTATIN 20 MG TAB PO SCH (20:21)
[2023-03-31 22:02] LABS: HEMATOCRIT 27.8 % (36-48); HEMOGLOBIN 9.2 g/dL (12.0-16.0)
[2023-04-01] VITALS: BP 122/66; PULSE 73; PULSE 75; RESP 16; TEMP 97.5; O2SAT 96
[2023-04-01] MEDS: NYSTATIN POW 100 MU/GM 15 GM BTL TP SCH ×2 (01:00→11:53)
[2023-04-01 04:00] VITALS: BP 130/57; PULSE 71; PULSE 75; RESP 16; TEMP 96.8; O2SAT 97
[2023-04-01] MEDS: PIPERACILLIN/TAZOBACTAM 2.25 GM in DEXTROSE 5% 50 ML IV SCH ×2 (05:01→11:53)
[2023-04-01] MEDS: INSULIN LISPRO SLIDING SCALE 100 UNITS/ML VIAL SUBQ PRN (06:38)
[2023-04-01] MEDS: BLOOD GLUCOSE MONITORING 1 DEV DEV FS SCH ×3 (06:39→16:30)
[2023-04-01 06:52] LABS: BASOPHILS % (AUTO) 0.2 % (0.0-2.0); EOSINOPHILS % (AUTO) 0.5 % (0.0-4.0); HEMATOCRIT 27.9 % (36-48); HEMOGLOBIN 9.1 g/dL (12.0-16.0); LYMPHOCYTES # (AUTO) 0.7 K/uL (2.5-16.5); LYMPHOCYTES % (AUTO) 10.9 % (20.5-51.1); MEAN CORPUSCULAR HEMOGLOBIN 30 pg (27-31); MEAN CORPUSCULAR HGB CONC 33 g/dL (33-37); MEAN CORPUSCULAR VOLUME 92.7 fL (80-94); MONOCYTES # (AUTO) 0.5 K/uL (0.8-1.0); MONOCYTES % (AUTO) 8.5 % (1.7-9.3); NEUTROPHILS # (AUTO) 4.8 K/uL (1.8-7.7); NEUTROPHILS % (AUTO) 79.9 % (42.2-75.2); PLATELET COUNT (AUTO) 126 K/uL (140-450); RED BLOOD CELL COUNT(AUTO) 3.01 MIL/uL (4.20-5.40); RED CELL DISTRIBUTION WIDTH 16.6 % (11.6-13.7); WHITE BLOOD COUNT (AUTO) 6.1 K/uL (4.8-10.8)
[2023-04-01 07:40] LABS: ALANINE AMINOTRANSFERASE 17 U/L (12-78); ALBUMIN 2.1 g/dL (3.4-5.0); ALKALINE PHOSPHATASE 116 U/L (50-136); ANION GAP 15.9 (8-16); ASPARTATE AMINOTRANSFERASE 14 U/L (15-37); CARBON DIOXIDE 27.5 mmol/L (21-32); CHLORIDE 104 mmol/L (98-107); CREATININE 3.5 mg/dL (0.6-1.3); GLUCOSE 196 mg/dL (74-106); POTASSIUM 3.4 mmol/L (3.5-5.1); SODIUM SERUM 144 mmol/L (136-145); TOTAL BILIRUBIN 0.6 mg/dL (0.0-1.0); TOTAL PROTEIN, SERUM 6.1 g/dL (6.4-8.2); UREA NITROGEN, BLOOD 39 mg/dL (7-18)
[2023-04-01 07:44] VITALS: PULSE 75; RESP 19; O2SAT 99
[2023-04-01 08:00] VITALS: BP 157/32; PULSE 70; PULSE 71; RESP 20; TEMP 97.3; O2SAT 97
[2023-04-01] MEDS: ASCORBIC ACID 500 MG TAB PO SCH (09:11)
[2023-04-01] MEDS: BUMETANIDE 1 MG TAB PO SCH (09:12)
[2023-04-01] MEDS: APIXABAN 2.5 MG TAB PO SCH (09:14)
[2023-04-01] MEDS: amLODIPine 5 MG TAB PO SCH (09:14)
[2023-04-01] MEDS: METOPROLOL 25 MG TAB PO SCH (09:15)
[2023-04-01] MEDS: ASPIRIN 81 MG TAB.CHEW PO SCH (09:15)
[2023-04-01] MEDS: AMITRIPTYLINE 25 MG TAB PO SCH (09:15)
[2023-04-01] MEDS: CYANOCOBALAMIN 1,000 MCG TAB PO SCH (09:15)
[2023-04-01] MEDS: PANTOPRAZOLE 40 MG TABEC PO SCH (09:16)
[2023-04-01] MEDS ORDERED: POTASSIUM CHLORIDE 10 MEQ TABER PO SCH (09:25)
[2023-04-01] MEDS: Z-GUARD PASTE TP SCH (11:53)
[2023-04-01 12:00] VITALS: BP 148/58; PULSE 68; PULSE 75; RESP 20; TEMP 97.7; O2SAT 97
[2023-04-01 14:49] LABS: FERRITIN 186 ng/mL (15 - 150)
[2023-04-01 16:00] VITALS: BP 120/60; PULSE 66; RESP 18; TEMP 97.8; O2SAT 97
[2023-04-01] MEDS: DEXT 5% / NACL 0.9% 1,000 ML IV SCH (16:50)
== END 2023-04-01 19:20 | DRG 177 ==
LOC: MED 14:14 → MTU 20:37
PROVIDERS: ADMIT Student in an Organized Health Care Education/Training Program; ATTEND Student in an Organized Health Care Education/Training Program
PROC: 5A1D70Z Performance of Urinary Filtration, Intermittent, Less than 6 Hours Per Day (ICD-10-PCS; principal; 2023-03-30)
PROC: 02HV33Z Insertion of Infusion Device into Superior Vena Cava, Percutaneous Approach (ICD-10-PCS; 2023-03-30)
PROC: B548ZZA Ultrasonography of Superior Vena Cava, Guidance (ICD-10-PCS; 2023-03-30)
PROC: 5A1D70Z Performance of Urinary Filtration, Intermittent, Less than 6 Hours Per Day (ICD-10-PCS; 2023-04-01)
DX: J69.0 Pneumonitis due to inhalation of food and vomit (principal); G93.41 Metabolic encephalopathy; N18.6 End stage renal disease; N17.0 Acute kidney failure with tubular necrosis; E44.0 Moderate protein-calorie malnutrition; I12.0 Hypertensive chronic kidney disease with stage 5 chronic kidney disease or end stage renal disease; E87.0 Hyperosmolality and hypernatremia; Z66 Do not resuscitate; I48.91 Unspecified atrial fibrillation; D63.8 Anemia in other chronic diseases classified elsewhere; E21.1 Secondary hyperparathyroidism, not elsewhere classified; Z99.2 Dependence on renal dialysis; Z86.16 Personal history of COVID-19; Z91.018 Allergy to other foods; Z79.899 Other long term (current) drug therapy; Z68.28 Body mass index [BMI] 28.0-28.9, adult
CPT/HCPCS: 36415; 70450; 71045; 80053; 82140; 82607; 82728; 82746; 82948; 83540; 83605; 83880; 84439; 84443; 84484; 85018; 85025; 85610; 85730; 86886; 86900; 86901; 86920; 87040; 92526; 93005; 99285; J1644; J1815; J2543; J3420; J7060